=== PATIENT | female | born 1930 | race Caucasian/White ===

== ENCOUNTER 2017-08-08 13:44 | Inpatient (IN) | payer MEDICARE, OTHER ==
[2017-08-08] MEDS ORDERED: VANCOMYCIN HCL INJ 1000 MG VIAL IV ONE (14:35)
--- NOTE | 2017-08-08 14:37 | ER Document Report ---
ED Medical Screen (RME) - General Chief Complaint: Leg Pain Stated Complaint: LEFT LEG PAIN Time Seen by Provider: 08/08/17 14:34 Notes: Patient states 2 weeks ago she struck her lower extremity on a shopping cart. She states she was seen immediately afterwards at the hospital at [place]. She states that the wound was just dressed but she has not been on any antibiotics. She states she is seen her primary care doctor once since the injury and was not prescribed antibiotics either. She states it is now more swollen red and painful. TRAVEL OUTSIDE OF THE [place] IN LAST 30 DAYS: No - Related Data Allergies/Adverse Reactions: amoxicillin [Amoxicillin] Allergy (Intermediate, Verified 06/29/10 11:12) Rash codeine [Codeine] Allergy (Unknown, Verified 11/06/11 08:31) adhesive tape [Adhesive Tape] Adverse Reaction (Severe, Verified 06/29/10 11:16) Tears skin diltiazem HCl [From Tiazac] Adverse Reaction (Intermediate, Verified 06/29/10 11 :13) Dizzy doxycycline [Doxycycline] Adverse Reaction (Intermediate, Verified 06/29/10 11: 14) Dizzy lisinopril [Lisinopril] Adverse Reaction (Intermediate, Verified 06/29/10 11:14) Dizzy propafenone [Propafenone] Adverse Reaction (Intermediate, Verified 06/29/10 11: 15) Diarrhea zolpidem tartrate [From Ambien] Adverse Reaction (Intermediate, Verified 12:32) Confusion Strong fumes Allergy (Severe, Uncoded 06/29/10 11:18) Asthma Home Medications: unobtainable due to not having list with pt. Past Medical History - Social History Chew tobacco use (# tins/day): No Frequency of alcohol use: None Drug Abuse: None - Past Medical History Cardiac Medical History: Reports: Hx Atrial Fibrillation, Hx Hypercholesterolemia, Hx Hypertension Denies: Hx Heart Attack Pulmonary Medical History: Reports: Hx COPD, Hx Pneumonia Denies: Hx Asthma - occasional SOB, ALBUTERAL , Hx Bronchitis, Hx Tuberculosis Neurological Medical History: Denies: Hx Cerebrovascular Accident, Hx Seizures Renal/ Medical History: Denies: Hx Peritoneal Dialysis GI Medical History: Denies: Hx Hepatitis, Hx Hiatal Hernia, Hx Ulcer Musculoskeltal Medical History: Reports Hx Arthritis - Hands Psychiatric Medical History: Denies: Hx Depression Infectious Medical History: Denies: Hx Hepatitis Past Surgical History: Reports: Hx Cardiac Surgery - mitral valve replacement, Hx Hysterectomy, Hx Mastectomy - 2011, Hx Open Heart Surgery - MITRAL VALVE REPAIR. Denies: Hx Pacemaker - Immunizations Hx Diphtheria, Pertussis, Tetanus Vaccination: Yes Physical Exam - Vital signs Vitals: Temp Pulse Resp BP Pulse Ox 97.8 F 58 L 20 72/52 L 98 08/08/17 13:50 08/08/17 13:50 08/08/17 13:50 08/08/17 13:50 08/08/17 13:50 Course - Vital Signs Vital signs: Temp Pulse Resp BP Pulse Ox 97.8 F 58 L 20 72/52 L 98 08/08/17 13:50 08/08/17 13:50 08/08/17 13:50 08/08/17 13:50 08/08/17 13:50 Doctor's Discharge - Discharge Referrals: CLYDE JAMISON MD [Primary Care Provider] - Follow up as needed
[2017-08-08 14:58] LABS: ABSOLUTE BASOPHILS # (AUTO) 0.1 10^3/uL (0.0-0.2); ABSOLUTE EOSINOPHILS # (AUTO) 0.4 10^3/uL (0.0-0.6); ABSOLUTE LYMPHOCYTES (AUTO) 1.7 10^3/uL (0.5-4.7); ABSOLUTE MONOCYTES (AUTO) 0.8 10^3/uL (0.1-1.4); ABSOLUTE NEUT (AUTO) 7.4 10^3/uL (1.7-8.2); EOSINOPHILS % (AUTO) 3.5 % (0-6); HEMATOCRIT 37.2 % (36.0-47.0); HEMOGLOBIN 12.3 g/dL (12.0-15.5); LYMPHOCYTES % (AUTO) 16.5 % (13-45); MEAN CORPUSCULAR HEMOGLOBIN 29.3 pg (27.0-33.4); MEAN CORPUSCULAR HGB CONC 33.1 g/dL (32.0-36.0); MEAN CORPUSCULAR VOLUME 89 fl (80-97); PLATELET COUNT 234 10^3/uL (150-450); RED BLOOD COUNT 4.19 10^6/uL (3.72-5.28); RED CELL DISTRIBUTION WIDTH 16.6 % (11.5-14.0); TOTAL CELLS COUNTED % (AUTO) 100 %; WHITE BLOOD COUNT 10.4 10^3/uL (4.0-10.5)
[2017-08-08 15:19] LABS: ALANINE AMINOTRANSFERASE 29 U/L (9-52); ALBUMIN 4.4 g/dL (3.5-5.0); ALKALINE PHOSPHATASE 67 U/L (38-126); ANION GAP 13 (5-19); ASPARTATE AMINO TRANSFERASE 29 U/L (14-36); BILIRUBIN,DIRECT 0.2 mg/dL (0.0-0.4); BILIRUBIN,TOTAL 0.6 mg/dL (0.2-1.3); BLOOD UREA NITROGEN 59 mg/dL (7-20); CALCIUM 10.9 mg/dL (8.4-10.2); CARBON DIOXIDE 30 mmol/L (22-30); CHLORIDE 89 mmol/L (98-107); GLUCOSE 109 mg/dL (75-110); POTASSIUM 3.9 mmol/L (3.6-5.0); SODIUM 132.3 mmol/L (137-145); TOTAL PROTEIN 7.1 g/dL (6.3-8.2)
--- NOTE | 2017-08-08 16:13 | RADIOLOGY REPORT (SQ) ---
EXAM DESCRIPTION: TIBIA FIBULA RIGHT COMPLETED DATE/TIME: 08/08/2017 4:04 pm REASON FOR STUDY: pain/wound COMPARISON: None. NUMBER OF VIEWS: Two views. TECHNIQUE: Two radiographic images acquired of the right tibia and fibula to include the knee and an kle in at least one projection. LIMITATIONS: None. FINDINGS: MINERALIZATION: Normal. BONES: No acute fracture or dislocation. No worrisome bone lesions. No plain radiographic evidence fo r osteomyelitis. SOFT TISSUES: Anterior soft tissue defect. No foreign body. OTHER: No other significant finding. IMPRESSION: No evidence for osteomyelitis. Soft tissue defect without foreign body. Bold TECHNICAL DOCUMENTATION: JOB ID: [id number] [employer]- All Rights Reserved Reading location - IP/workstation name: [email or web address]
--- NOTE | 2017-08-08 16:57 | ER Document Report ---
ED Extremity Problem, Lower - General Chief Complaint: Leg Pain Stated Complaint: LEFT LEG PAIN Time Seen by Provider: 08/08/17 14:34 Mode of Arrival: Ambulatory Information source: Patient TRAVEL OUTSIDE OF THE [place] IN LAST 30 DAYS: No - HPI Patient complains to provider of: Injury Location: Leg Occurred: Yesterday Notes: Patient is here with complaints of right leg pain, redness, swelling. Patient states that she hit her leg on a chair about a week ago and caused a skin tear. Yesterday she noticed some redness swelling and pain and today the redness swelling and pain has worsened. She denies any fevers. She denies any numbness , tingling, weakness. She denies any chest pain or shortness of breath. She denies any nausea, vomiting, diarrhea. Pain is worse with touching the area as well as walking, seems to be better with rest. She is not on any antibiotics at this time. She denies any other complaints at this time. - Related Data Allergies/Adverse Reactions: amoxicillin [Amoxicillin] Allergy (Intermediate, Verified 06/29/10 11:12) Rash codeine [Codeine] Allergy (Unknown, Verified 11/06/11 08:31) adhesive tape [Adhesive Tape] Adverse Reaction (Severe, Verified 06/29/10 11:16) Tears skin diltiazem HCl [From Tiazac] Adverse Reaction (Intermediate, Verified 06/29/10 11 :13) Dizzy doxycycline [Doxycycline] Adverse Reaction (Intermediate, Verified 06/29/10 11: 14) Dizzy lisinopril [Lisinopril] Adverse Reaction (Intermediate, Verified 06/29/10 11:14) Dizzy propafenone [Propafenone] Adverse Reaction (Intermediate, Verified 06/29/10 11: 15) Diarrhea zolpidem tartrate [From Ambien] Adverse Reaction (Intermediate, Verified 12:32) Confusion Strong fumes Allergy (Severe, Uncoded 06/29/10 11:18) Asthma Home Medications: unobtainable due to not having list with pt. Past Medical History - Social History Smoking Status: Never Smoker Chew tobacco use (# tins/day): No Frequency of alcohol use: None Drug Abuse: None Family History: Reviewed & Not Pertinent Patient has suicidal ideation: No Patient has homicidal ideation: No - Past Medical History Cardiac Medical History: Reports: Hx Atrial Fibrillation, Hx Hypercholesterolemia, Hx Hypertension Denies: Hx Heart Attack Pulmonary Medical History: Reports: Hx COPD, Hx Pneumonia Denies: Hx Asthma - occasional SOB, ALBUTERAL , Hx Bronchitis, Hx Tuberculosis Neurological Medical History: Denies: Hx Cerebrovascular Accident, Hx Seizures Renal/ Medical History: Denies: Hx Peritoneal Dialysis GI Medical History: Denies: Hx Hepatitis, Hx Hiatal Hernia, Hx Ulcer Musculoskeltal Medical History: Reports Hx Arthritis - Hands Psychiatric Medical History: Denies: Hx Depression Infectious Medical History: Denies: Hx Hepatitis Past Surgical History: Reports: Hx Cardiac Surgery - mitral valve replacement, Hx Hysterectomy, Hx Mastectomy - 2010, Hx Open Heart Surgery - MITRAL VALVE REPAIR. Denies: Hx Pacemaker - Immunizations Hx Diphtheria, Pertussis, Tetanus Vaccination: Yes Hx Pneumococcal Vaccination: 04/30/09 Review of Systems - Review of Systems -: Yes All other systems reviewed and negative Physical Exam - Vital signs Vitals: Temp Pulse Resp BP Pulse Ox 97.8 F 58 L 20 72/52 L 98 08/08/17 13:50 08/08/17 13:50 08/08/17 13:50 08/08/17 13:50 08/08/17 13:50 - Notes Notes: GENERAL: alert, cooperative, nontoxic, no distress. HEAD: normocephalic, atraumatic EYES: conjunctiva pink without discharge, no external redness or swelling. EARS: no external swelling, no external redness NOSE: atraumatic, no external swelling MOUTH/THROAT: mucous membranes moist and pink, posterior pharynx without erythema, swelling, exudate. No trismus or drooling. NECK: soft, supple, full range of motion, no meningismus. CHEST: no distress, lungs clear and equal throughout. No wheezing, rales, rhonchi. CARDIAC: regular rate and rhythm, no murmur, normal capillary refill, normal pulses. No peripheral edema noted. ABDOMEN: Soft, nontender. BACK: full range of motion, no CVA tenderness. EXTREMITIES: Skin tear to the right lower extremity. Patient is noted to have circumferential cellulitis to the right lower extremity from the ankle up to the knee. Compartments are soft. She has a normal pulse distally. No purulent drainage or drainable abscess identified. Full range of motion of the ankle and foot. NEURO: alert and oriented x 3, no focal deficits, full range of motion of all extremities. PYSCH: appropriate mood, affect. Patient is cooperative. SKIN: pink, warm, dry, no rash. Course - Re-evaluation Re-evalutation: 08/08/17 16:55 Patient is nontoxic appearing with stable vitals. Initial blood pressure documented is 72/52, I find this very hard to believe as her blood pressure has been completely normal since that time. She has been upright and walking without any difficulty. Patient is injured her right leg last week and yesterday developed some redness and swelling she now has what appears to be an infected skin tear with circumferential cellulitis to the right lower extremity. She has normal pulse and sensation distally. Patient will be given vancomycin in the emergency department for cellulitis. Based on her age past medical history of the significance of her cellulitis, believe that it would be best the patient is admitted to the hospital for IV antibiotics. Patient family agreed to this and I discussed the case with the hospitalist who has accepted the admission. - Vital Signs Vital signs: Temp Pulse Resp BP Pulse Ox 97.8 F 58 L 20 72/52 L 98 08/08/17 13:50 08/08/17 13:50 08/08/17 13:50 08/08/17 13:50 08/08/17 13:50 - Laboratory Result Diagrams: 08/08/17 14:25 08/08/17 14:25 Laboratory results interpreted by me: 08/08/17 08/08/17 14:25 14:25 RDW 16.6 H Sodium 132.3 L Chloride 89 L BUN 59 H Creatinine 1.85 H Est GFR ( Amer) 31 L Est GFR (Non-Af Amer) 26 L Calcium 10.9 H - Diagnostic Test Radiology reviewed: Image reviewed, Reports reviewed - Right tib-fib without foreign body or osteomyelitis. Soft tissue defect with soft tissue swelling. Discharge - Discharge Clinical Impression: Skin tear Cellulitis Qualifiers: Site of cellulitis: extremity Site of cellulitis of extremity: lower extremity Laterality: right Qualified Code(s): L03.115 - Cellulitis of right lower limb Condition: Stable Disposition: ADMITTED INPATIENT Admitting Provider: Hospitalist - dr calhoun Unit Admitted: Medical Floor Referrals: CLYDE JAMISON MD [Primary Care Provider] - Follow up as needed
[2017-08-08] MEDS ORDERED: LORAZEPAM 1 MG TABLET PO PRN (17:11)
[2017-08-08] MEDS ORDERED: MAGNESIUM HYDROXIDE SUSP 30 ML UDCUP PO PRN (17:15)
[2017-08-08] MEDS ORDERED: IPRATROPIUM/ALBUTEROL 0.5-2.5 MG/3 ML AMPUL NEB PRN (17:15)
[2017-08-08] MEDS ORDERED: NORMAL SALINE 1000 ML 1,000 ML IV ONE (17:24)
[2017-08-08] MEDS ORDERED: VANCOMYCIN HCL 0 MG in DEXTROSE 5%-WATER 250 ML IV NR (17:30)
[2017-08-08] MEDS ORDERED: LORAZEPAM 0.5 MG TABLET PO PRN (17:53)
[2017-08-08] MEDS ORDERED: VANCOMYCIN HCL 1,000 MG in DEXTROSE 5%-WATER 250 ML IV SCH (19:00)
[2017-08-08] MEDS: DOCUSATE SODIUM 100 MG CAPSULE PO SCH (19:05)
[2017-08-08] MEDS: MONTELUKAST SODIUM 10 MG TABLET PO SCH (23:30)
[2017-08-08] MEDS: SIMVASTATIN 40 MG TABLET PO SCH (23:31)
[2017-08-08] MEDS: HEPARIN SOD (PORCINE) 5,000 UNIT/ML 1 ML SYRINGE SUBCUT SCH (23:31)
[2017-08-09 04:36] LABS: ABSOLUTE BASOPHILS # (AUTO) 0.1 10^3/uL (0.0-0.2); ABSOLUTE EOSINOPHILS # (AUTO) 0.4 10^3/uL (0.0-0.6); ABSOLUTE LYMPHOCYTES (AUTO) 1.6 10^3/uL (0.5-4.7); ABSOLUTE MONOCYTES (AUTO) 0.7 10^3/uL (0.1-1.4); ABSOLUTE NEUT (AUTO) 4.8 10^3/uL (1.7-8.2); BASOPHILS % (AUTO) 0.8 % (0-2); EOSINOPHILS % (AUTO) 5.2 % (0-6); HEMATOCRIT 33.6 % (36.0-47.0); HEMOGLOBIN 11.4 g/dL (12.0-15.5); LYMPHOCYTES % (AUTO) 21.2 % (13-45); MEAN CORPUSCULAR HEMOGLOBIN 29.7 pg (27.0-33.4); MEAN CORPUSCULAR HGB CONC 33.8 g/dL (32.0-36.0); MEAN CORPUSCULAR VOLUME 88 fl (80-97); PLATELET COUNT 187 10^3/uL (150-450); RED BLOOD COUNT 3.82 10^6/uL (3.72-5.28); SEGMENTED NEUTROPHILS % (AUTO) 63.8 % (42-78); TOTAL CELLS COUNTED % (AUTO) 100 %; WHITE BLOOD COUNT 7.6 10^3/uL (4.0-10.5)
[2017-08-09] MEDS ORDERED: LORAZEPAM 1 MG TABLET PO ONE (04:44)
--- NOTE | 2017-08-09 04:54 | PDOC H&P ---
History of Present Illness Admission Date/PCP: 08/08/17 17:41 CLYDE JAMISON MD Patient complains of: Right leg ulcer History of Present Illness: ROBERT CAMILO is a 87 year old female with a past medical history of anemia, stage III chronic kidney disease, hypertension, coronary artery disease, H fibrillation, breast cancer status post mastectomy, seasonal allergies, chronic anticoagulation on Xarelto and anxiety. Patient presents with right leg pain and swelling 1 week after striking her leg in a chair causing a skin tear. She admits increased pain with ambulation, denies antibiotic use, fever chills nausea vomiting. She otherwise feels well with exception to constipation. 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 Psychiatric Medical History: Reports: General Anxiety Disorder Denies: Depression Hematology: Reports: Anemia - 10/09/2011 Denies: Sickle Cell Disease Past Surgical History Past Surgical History: Reports: Hysterectomy, Mastectomy - 2010 Denies: Amputation, Pacemaker Social History Information Source: Patient, [facility] Records Lives with: Alone Smoking Status: Never Smoker Frequency of Alcohol Use: None Hx Recreational Drug Use: No Drugs: None Hx Prescription Drug Abuse: No - Advance Directive Resuscitation Status: Full Code Family History Parental Family History Reviewed: Yes Children Family History Reviewed: Yes Sibling(s) Family History Reviewed.: Yes Medication/Allergy Home Medications: Albuterol Sulfate [Ventolin 0.083% Neb 2.5 mg/3 mL Ampul] 2.5 mg IH Q4 PRN 10/09 Biotin [Biotin 300 mcg Tablet] 300 mcg PO BID 10/10/11 Calcium/Magnesium/Vit D3 [Calcium 500 mg Tablet] 600 mg PO DAILY 10/10/11 Furosemide [Lasix 40 mg Tablet] 40 mg PO BID 10/10/11 Lorazepam [Ativan 1 mg Tablet] 1 tab PO PRN PRN 10/10/11 Montelukast Sodium [Singulair 10 mg Tablet] 10 mg PO QHS 10/10/11 Multivitamins W-Minerals/Lut [Centrum Silver Tablet] 1 each PO DAILY 10/10/11 Olmesartan Medoxomil [Benicar] 5 mg PO DAILY 10/10/11 Simvastatin [Zocor 40 mg Tablet] 20 mg PO QHS 10/10/11 Ferrous Sulfate [Iron] 65 mg PO TID 10/12/11 Esomeprazole Mag Trihydrate [Nexium] 40 mg PO DAILY 10/31/11 Amiodarone HCl [Cordarone 200 mg Tablet] 0.5 tab PO DAILY 11/25/15 Fluticasone/Salmeterol [Advair 100-50 Diskus 14 Dose/Diskus] 1 inh IH Q12H 11/24 Letrozole 2.5 mg PO DAILY 11/25/15 Tiotropium [employer] [Spiriva Handihaler 18 mcg/dose (30 Dose)] 1 cap IH DAILY Tramadol HCl 50 mg PO PRN PRN 11/25/15 Aspirin [Adult Low Dose Aspirin EC] 81 mg PO DAILY #30 tablet. 11/26/15 Albuterol Sulfate [Proair Hfa Inhalation Aerosol 8.5 gm Mdi] 1 puff IH Q4 PRN Potassium Chloride 20 meq PO DAILY 12/07/15 Allergies/Adverse Reactions: amoxicillin [Amoxicillin] Allergy (Intermediate, Verified 06/29/10 11:12) Rash codeine [Codeine] Allergy (Unknown, Verified 11/06/11 08:31) adhesive tape [Adhesive Tape] Adverse Reaction (Severe, Verified 06/29/10 11:16) Tears skin diltiazem HCl [From Tiazac] Adverse Reaction (Intermediate, Verified 06/29/10 11 :13) Dizzy doxycycline [Doxycycline] Adverse Reaction (Intermediate, Verified 06/29/10 11: 14) Dizzy lisinopril [Lisinopril] Adverse Reaction (Intermediate, Verified 06/29/10 11:14) Dizzy propafenone [Propafenone] Adverse Reaction (Intermediate, Verified 06/29/10 11: 15) Diarrhea zolpidem tartrate [From Ambien] Adverse Reaction (Intermediate, Verified 12:32) Confusion Strong fumes Allergy (Severe, Uncoded 06/29/10 11:18) Asthma Review of Systems ROS unobtainable: Due to mental status Constitutional: PRESENT: as per HPI. ABSENT: chills, fever(s), headache(s), weight gain, weight loss Eyes: ABSENT: visual disturbances Ears: ABSENT: hearing changes Cardiovascular: ABSENT: chest pain, dyspnea on exertion, edema, orthropnea, palpitations Respiratory: ABSENT: cough, hemoptysis Gastrointestinal: PRESENT: constipation. ABSENT: abdominal pain, diarrhea, hematemesis, hematochezia, nausea, vomiting Genitourinary: ABSENT: dysuria, hematuria Musculoskeletal: ABSENT: joint swelling Integumentary: ABSENT: rash, wounds Neurological: ABSENT: abnormal gait, abnormal speech, confusion, dizziness, focal weakness, syncope Psychiatric: ABSENT: anxiety, depression, homidical ideation, suicidal ideation Endocrine: ABSENT: cold intolerance, heat intolerance, polydipsia, polyuria Hematologic/Lymphatic: ABSENT: easy bleeding, easy bruising Physical Exam Vital Signs: Temp Pulse Resp BP Pulse Ox 98.2 F 43 L 18 130/46 H 100 08/08/17 22:00 08/09/17 02:00 08/08/17 22:00 08/08/17 22:00 08/08/17 22:00 Intake & Output 08/07/17 08/08/17 08/09/17 11:59 11:59 11:59 Weight 55.3 kg General appearance: PRESENT: cooperative, disheveled, mild distress. ABSENT: hard of hearing Head exam: PRESENT: atraumatic, normocephalic Eye exam: PRESENT: conjunctiva pink, EOMI, PERRLA. ABSENT: scleral icterus Ear exam: PRESENT: normal external ear exam Mouth exam: PRESENT: moist, tongue midline Neck exam: ABSENT: carotid bruit, JVD, lymphadenopathy, thyromegaly Respiratory exam: PRESENT: clear to auscultation bruce. ABSENT: rales, rhonchi, wheezes Cardiovascular exam: PRESENT: irregular rhythm. ABSENT: diastolic murmur, rubs , systolic murmur Pulses: PRESENT: normal dorsalis pedis pul Vascular exam: PRESENT: normal capillary refill GI/Abdominal exam: PRESENT: hypoactive bowel sounds, soft. ABSENT: distended, guarding, mass, organolmegaly, rebound, tenderness Rectal exam: PRESENT: deferred Extremities exam: PRESENT: tenderness, other - 1 x 3 cm jagged ulceration with purulent drainage and surrounding erythema. Musculoskeletal exam: PRESENT: ambulatory Neurological exam: PRESENT: alert, awake, oriented to person, oriented to place , oriented to time, oriented to situation, CN II-XII grossly intact. ABSENT: motor sensory deficit Psychiatric exam: PRESENT: anxious Skin exam: PRESENT: dry, intact, skin tears - Right leg with 1 x 3 cm irregular border, purulent drainage and surrounding erythema., warm. ABSENT: cyanosis, rash Results Laboratory Results: 08/09/17 03:50 08/09/17 03:50 WBC 7.6 RBC 3.82 Hgb 11.4 L Hct 33.6 L MCV 88 MCH 29.7 MCHC 33.8 RDW 16.0 H Plt Count 187 Seg Neutrophils % 63.8 Lymphocytes % 21.2 Monocytes % 9.0 Eosinophils % 5.2 Basophils % 0.8 Absolute Neutrophils 4.8 Absolute Lymphocytes 1.6 Absolute Monocytes 0.7 Absolute Eosinophils 0.4 Absolute Basophils 0.1 Impressions: Tibia/Fibula X-Ray 08/08/17 14:35 IMPRESSION: No evidence for osteomyelitis. Soft tissue defect without foreign body. Bold Assessment & Plan - Diagnosis (1) Cellulitis Qualifiers: Site of cellulitis: extremity Site of cellulitis of extremity: lower extremity Laterality: right Qualified Code(s): L03.115 - Cellulitis of right lower limb Is this a current diagnosis for this admission?: Yes Plan: Empiric vancomycin initiated, symptomatic management, follow-up CBC and blood culture. Surgical consult ordered (2) Chronic kidney disease Is this a current diagnosis for this admission?: Yes Plan: Somewhat prerenal, avoid nephrotoxic meds and doses, vancomycin by pharmacy. IV fluid challenge, follow-up chemistry (3) Anxiety Is this a current diagnosis for this admission?: Yes Plan: Continue outpatient benzodiazepine. Possible early dementia with sundowning. - Time Time Spent: 30 to 50 Minutes - Inpatient Certification Medical Necessity: Need Close Monitoring Due to Risk of Patient Decompensation
[2017-08-09 05:06] LABS: ANION GAP 11 (5-19); BLOOD UREA NITROGEN 53 mg/dL (7-20); CARBON DIOXIDE 28 mmol/L (22-30); CHLORIDE 93 mmol/L (98-107); GLUCOSE 88 mg/dL (75-110); SODIUM 132.2 mmol/L (137-145)
[2017-08-09 05:10] LABS: POTASSIUM 2.9 mmol/L (3.6-5.0)
[2017-08-09] MEDS: LANSOPRAZOLE 30 MG TAB.RAP.DR PO SCH (05:35)
[2017-08-09] MEDS ORDERED: POTASSIUM CHLORIDE 10 MEQ TABLET.SA PO ONE (06:00)
[2017-08-09] MEDS ORDERED: CALCIUM PO SCH (10:00)
[2017-08-09] MEDS ORDERED: VIT D3 PO SCH (10:00)
[2017-08-09] MEDS ORDERED: (PENDING PHARMACY ID) (Esomeprazole Mag Trihydrate [Nexium] 40 MG) PO SCH (10:00)
[2017-08-09] MEDS ORDERED: MAGNESIUM PO SCH (10:00)
[2017-08-09] MEDS: AMIODARONE HCL 200 MG TABLET PO SCH (11:20)
[2017-08-09] MEDS: CALCIUM CARBONATE 500 MG TABLET PO SCH (11:21)
[2017-08-09] MEDS: ASPIRIN 81 MG TABLET, ENT COATED PO SCH (11:21)
[2017-08-09] MEDS: DOCUSATE SODIUM 100 MG CAPSULE PO SCH ×2 (11:21→17:08)
[2017-08-09] MEDS: TIOTROPIUM BROMIDE DPI 5 CAP/KIT (18 MCG/CAP) IH SCH (11:22)
[2017-08-09] MEDS: HEPARIN SOD (PORCINE) 5,000 UNIT/ML 1 ML SYRINGE SUBCUT SCH ×2 (15:01→21:15)
[2017-08-09] MEDS ORDERED: IPRATROPIUM/ALBUTEROL 0.5-2.5 MG/3 ML AMPUL NEB PRN (16:18)
[2017-08-09] MEDS ORDERED: COLLAGENASE CLOSTRIDIUM HIST. OINT 30 GM TOP ONE (16:30)
--- NOTE | 2017-08-09 16:39 | PDOC PROGRESS REPORT ---
Subjective Progress Note for:: 08/09/17 Subjective:: No complaints voiced by patient. Bedside and states that patient hurt her right leg with the shopping cart. Review of systems All organ systems evaluated and negative except as in subjective All significant diagnostics and laboratories have been reviewed Reason For Visit: LEG CELLULITIS Physical Exam Vital Signs: Temp Pulse Resp BP Pulse Ox 97.6 F 53 L 20 148/40 H 99 08/09/17 04:06 08/09/17 04:06 08/09/17 04:06 08/09/17 04:06 08/09/17 04:06 Intake & Output 08/08/17 08/09/17 08/10/17 06:59 06:59 06:59 Intake Total 320 Balance 320 Weight 55.3 kg General appearance: PRESENT: cooperative, well-developed, well-nourished Head exam: PRESENT: atraumatic, normocephalic Eye exam: PRESENT: conjunctiva pink, EOMI, PERRLA Mouth exam: PRESENT: moist Neck exam: PRESENT: full ROM. ABSENT: JVD, lymphadenopathy, tenderness Respiratory exam: PRESENT: clear to auscultation bruce Cardiovascular exam: PRESENT: RRR. ABSENT: diastolic murmur, systolic murmur Vascular exam: PRESENT: normal capillary refill GI/Abdominal exam: PRESENT: normal bowel sounds, soft. ABSENT: tenderness Extremities exam: PRESENT: full ROM Musculoskeletal exam: ABSENT: ambulatory - #+ edema Neurological exam: PRESENT: alert, awake, oriented to person, oriented to place , oriented to time, oriented to situation, CN II-XII grossly intact Psychiatric exam: PRESENT: appropriate affect, normal mood Skin exam: PRESENT: other - There wound localized to the medial aspect of right lower extremity with sutures serous discharge. Borders are purplish. There is yellow fibrin. Lesion measures 3 cm x 1 cm. Results Laboratory Results: 08/09/17 03:50 08/09/17 03:50 08/09/17 08/09/17 03:50 03:50 WBC 7.6 RBC 3.82 Hgb 11.4 L Hct 33.6 L MCV 88 MCH 29.7 MCHC 33.8 RDW 16.0 H Plt Count 187 Seg Neutrophils % 63.8 Lymphocytes % 21.2 Monocytes % 9.0 Eosinophils % 5.2 Basophils % 0.8 Absolute Neutrophils 4.8 Absolute Lymphocytes 1.6 Absolute Monocytes 0.7 Absolute Eosinophils 0.4 Absolute Basophils 0.1 Sodium 132.2 L Potassium 2.9 L* D Chloride 93 L Carbon Dioxide 28 Anion Gap 11 BUN 53 H Creatinine 1.64 H Est GFR ( Amer) 36 L Est GFR (Non-Af Amer) 30 L Glucose 88 Calcium 10.0 Impressions: Tibia/Fibula X-Ray 08/08/17 14:35 IMPRESSION: No evidence for osteomyelitis. Soft tissue defect without foreign body. Bold Assessment & Plan - Diagnosis (1) Infected skin tear Is this a current diagnosis for this admission?: Yes Plan: Will order Santyl to start chemical debridement of the wound. Awaiting surgical consult (2) Cellulitis of leg, right Is this a current diagnosis for this admission?: Yes Plan: Continue vancomycin and will add Levaquin IV (3) Hypokalemia Is this a current diagnosis for this admission?: Yes Plan: Will replace p.o. and trend (4) Acute on chronic renal failure Qualifiers: Acute renal failure type: unspecified Chronic kidney disease stage: stage 4 (severe) Qualified Code(s): N17.9 - Acute kidney failure, unspecified; N18.4 - Chronic kidney disease, stage 4 (severe); N18.4 - Chronic kidney disease , stage 4 (severe); N18.4 - Chronic kidney disease, stage 4 (severe); N18.4 - Chronic kidney disease, stage 4 (severe) Is this a current diagnosis for this admission?: Yes Plan: There appears to be an acute component. Will keep trending (5) Anemia Qualifiers: Anemia type: unspecified type Qualified Code(s): D64.9 - Anemia, unspecified Is this a current diagnosis for this admission?: Yes Plan: Likely due to chronic disease. Will order anemia panel - Time Time Spent with patient: 15-24 minutes Medications reviewed and adjusted accordingly: Yes Anticipated discharge: Acute Rehab - For now early to tell - Inpatient Certification Based on my medical assessment, after consideration of the patient's comorbidities, presenting symptoms, or acuity I expect that the services needed warrant INPATIENT care.: Yes I certify that my determination is in accordance with my understanding of Medicare's requirements for reasonable and necessary INPATIENT services [42 CFR 412.3e].: Yes Medical Necessity: Need Close Monitoring Due to Risk of Patient Decompensation, Need for Pain Control, Need for IV Antibiotics
[2017-08-09] MEDS ORDERED: ONDANSETRON 4 MG TAB.RAPDIS ONE (16:40)
[2017-08-09] MEDS: LEVOFLOXACIN 250 MG/D5W RTU 250 MG/50 ML RTUPB IV SCH (16:45)
[2017-08-09] MEDS: POTASSIUM CHLORIDE 10 MEQ TABLET.SA PO SCH ×2 (16:46→21:15)
[2017-08-09] MEDS: SIMVASTATIN 40 MG TABLET PO SCH (21:16)
[2017-08-09] MEDS: MONTELUKAST SODIUM 10 MG TABLET PO SCH (21:16)
--- NOTE | 2017-08-09 23:36 | PDOC CONSULTATION ---
History of Present Illness Admission Date/PCP: 08/09/17 16:58 CLYDE JAMISON MD 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 Psychiatric Medical History: Reports: General Anxiety Disorder Denies: Depression Hematology: Reports: Anemia - 10/09/2011 Denies: Sickle Cell Disease Past Surgical History Past Surgical History: Reports: Hysterectomy, Mastectomy - 2010 Denies: Amputation, Pacemaker Social History Lives with: Alone Smoking Status: Never Smoker Frequency of Alcohol Use: None Hx Recreational Drug Use: No Drugs: None Hx Prescription Drug Abuse: No - Advance Directive Resuscitation Status: Full Code Family History Family History: Reviewed & Not Pertinent Medication/Allergy Home Medications: Albuterol Sulfate [Proair Hfa] 2 puff IH Q4 08/09/17 Fluticasone/Salmeterol [Advair 250-50 Diskus 28 dose] 1 inh IH Q12 08/09/17 Furosemide [Lasix 40 mg Tablet] 40 mg PO BID 08/09/17 Letrozole [Femara 2.5 Mg Tablet] 2.5 mg PO DAILY 08/09/17 Lorazepam [Ativan 1 mg Tablet] 1 mg PO QIDP PRN 08/09/17 Metolazone [Zaroxolyn 2.5 Mg Tablet] 2.5 mg PO DAILY 08/09/17 Montelukast Sodium [Singulair 10 mg Tablet] 10 mg PO PCSUPPER 08/09/17 Pantoprazole Sodium [Protonix] 40 mg PO DAILY 08/09/17 Potassium Chloride [Klor-Con M20] 40 meq PO TID 08/09/17 Simvastatin [Zocor 20 mg Tablet] 20 mg PO QHS 08/09/17 Spironolactone [Aldactone 25 mg Tablet] 25 mg PO DAILY 08/09/17 Allergies/Adverse Reactions: amoxicillin [Amoxicillin] Allergy (Intermediate, Verified 06/29/10 11:12) Rash codeine [Codeine] Allergy (Unknown, Verified 11/06/11 08:31) adhesive tape [Adhesive Tape] Adverse Reaction (Severe, Verified 06/29/10 11:16) Tears skin diltiazem HCl [From Tiazac] Adverse Reaction (Intermediate, Verified 06/29/10 11 :13) Dizzy doxycycline [Doxycycline] Adverse Reaction (Intermediate, Verified 06/29/10 11: 14) Dizzy lisinopril [Lisinopril] Adverse Reaction (Intermediate, Verified 06/29/10 11:14) Dizzy propafenone [Propafenone] Adverse Reaction (Intermediate, Verified 06/29/10 11: 15) Diarrhea zolpidem tartrate [From Ambien] Adverse Reaction (Intermediate, Verified 12:32) Confusion Strong fumes Allergy (Severe, Uncoded 06/29/10 11:18) Asthma Physical Exam Vital Signs: Temp Pulse Resp BP Pulse Ox 97.7 F 51 L 18 137/58 H 100 08/09/17 19:00 08/09/17 19:00 08/09/17 19:00 08/09/17 19:00 08/09/17 19:00 Results Impressions: Tibia/Fibula X-Ray 08/08/17 14:35 IMPRESSION: No evidence for osteomyelitis. Soft tissue defect without foreign body. Bold Assessment & Plan - Diagnosis (1) Cellulitis of leg, right Is this a current diagnosis for this admission?: Yes (2) Infected skin tear Is this a current diagnosis for this admission?: Yes
--- NOTE | 2017-08-09 23:41 | PDOC CONSULTATION ---
History of Present Illness Admission Date/PCP: 08/09/17 16:58 CLYDE JAMISON MD Patient complains of: right lower leg pains History of Present Illness: ROBERT CAMILO is a 87 year old female who injured her right lower leg when it hit a chair about a week ago. C/o pains since then with worsening inflammation. 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 Psychiatric Medical History: Reports: General Anxiety Disorder Denies: Depression Hematology: Reports: Anemia - 10/09/2011 Denies: Sickle Cell Disease Past Surgical History Past Surgical History: Reports: Hysterectomy, Mastectomy - 2010 Denies: Amputation, Pacemaker Social History Lives with: Alone Smoking Status: Never Smoker Frequency of Alcohol Use: None Hx Recreational Drug Use: No Drugs: None Hx Prescription Drug Abuse: No - Advance Directive Resuscitation Status: Full Code Family History Family History: Reviewed & Not Pertinent Parental Family History Reviewed: Yes Children Family History Reviewed: No Sibling(s) Family History Reviewed.: No Medication/Allergy Home Medications: Albuterol Sulfate [Proair Hfa] 2 puff IH Q4 08/09/17 Fluticasone/Salmeterol [Advair 250-50 Diskus 28 dose] 1 inh IH Q12 08/09/17 Furosemide [Lasix 40 mg Tablet] 40 mg PO BID 08/09/17 Letrozole [Femara 2.5 Mg Tablet] 2.5 mg PO DAILY 08/09/17 Lorazepam [Ativan 1 mg Tablet] 1 mg PO QIDP PRN 08/09/17 Metolazone [Zaroxolyn 2.5 Mg Tablet] 2.5 mg PO DAILY 08/09/17 Montelukast Sodium [Singulair 10 mg Tablet] 10 mg PO PCSUPPER 08/09/17 Pantoprazole Sodium [Protonix] 40 mg PO DAILY 08/09/17 Potassium Chloride [Klor-Con M20] 40 meq PO TID 08/09/17 Simvastatin [Zocor 20 mg Tablet] 20 mg PO QHS 08/09/17 Spironolactone [Aldactone 25 mg Tablet] 25 mg PO DAILY 08/09/17 Allergies/Adverse Reactions: amoxicillin [Amoxicillin] Allergy (Intermediate, Verified 06/29/10 11:12) Rash codeine [Codeine] Allergy (Unknown, Verified 11/06/11 08:31) adhesive tape [Adhesive Tape] Adverse Reaction (Severe, Verified 06/29/10 11:16) Tears skin diltiazem HCl [From Tiazac] Adverse Reaction (Intermediate, Verified 06/29/10 11 :13) Dizzy doxycycline [Doxycycline] Adverse Reaction (Intermediate, Verified 06/29/10 11: 14) Dizzy lisinopril [Lisinopril] Adverse Reaction (Intermediate, Verified 06/29/10 11:14) Dizzy propafenone [Propafenone] Adverse Reaction (Intermediate, Verified 06/29/10 11: 15) Diarrhea zolpidem tartrate [From Ambien] Adverse Reaction (Intermediate, Verified 12:32) Confusion Strong fumes Allergy (Severe, Uncoded 06/29/10 11:18) Asthma Review of Systems Ears: PRESENT: hearing changes - hard of hearing Nose, Mouth, and Throat: PRESENT: other - mouth dry Cardiovascular: PRESENT: other - no chest pains,cough Gastrointestinal: PRESENT: other - no abdominal pains Musculoskeletal: PRESENT: other - pains right lower leg Integumentary: PRESENT: wounds - right lower leg Endocrine: PRESENT: other - no polyuria Hematologic/Lymphatic: PRESENT: other - very thin skin and easily bruised Physical Exam Vital Signs: Temp Pulse Resp BP Pulse Ox 97.7 F 51 L 18 137/58 H 100 08/09/17 19:00 08/09/17 19:00 08/09/17 19:00 08/09/17 19:00 08/09/17 19:00 General appearance: PRESENT: hard of hearing Eye exam: PRESENT: conjunctiva pink Mouth exam: PRESENT: moist Neck exam: PRESENT: full ROM Respiratory exam: PRESENT: clear to auscultation bruce Cardiovascular exam: PRESENT: RRR Pulses: PRESENT: normal radial pulses, normal dorsalis pedis pul Vascular exam: PRESENT: normal capillary refill GI/Abdominal exam: PRESENT: soft Rectal exam: PRESENT: deferred Extremities exam: PRESENT: tenderness - over the irregular lacerationr to the roberson of the right lower leg. Laceration roughly measures about 6 cm and swollen with erythema around it and surrounding areas. Very tender and appears infected but no Pus. Musculoskeletal exam: PRESENT: ambulatory Neurological exam: PRESENT: alert, oriented to person, oriented to place, oriented to time, oriented to situation Psychiatric exam: PRESENT: appropriate affect Skin exam: PRESENT: erythema, warm - right lower leg Results Impressions: Tibia/Fibula X-Ray 08/08/17 14:35 IMPRESSION: No evidence for osteomyelitis. Soft tissue defect without foreign body. Bold Assessment & Plan - Diagnosis (1) Cellulitis of leg, right Is this a current diagnosis for this admission?: Yes (2) Infected skin tear Is this a current diagnosis for this admission?: Yes - Time Time Spent: 30 to 50 Minutes - Plan Summary Plan Summary: Wound is relatively clean with no obvious abscess at this time and no need for surgical intervention at this time. Instructed nurse how to dress the wound daily. No tape on the skin because of sensitive skin and could easily tear with just removal of the tape. Need to elevate leg to decrease edema for better wound healing. Continue IV antibiotics
[2017-08-10] MEDS: HEPARIN SOD (PORCINE) 5,000 UNIT/ML 1 ML SYRINGE SUBCUT SCH ×3 (06:30→21:05)
[2017-08-10] MEDS: LANSOPRAZOLE 30 MG TAB.RAP.DR PO SCH (06:30)
[2017-08-10 08:26] LABS: ABSOLUTE RETICS # 0.052 10^6/uL (0.028-0.122); RETICULOCYTE COUNT (AUTO) 1.31 % (0.66-2.85)
[2017-08-10 08:39] LABS: ANION GAP 11 (5-19); BLOOD UREA NITROGEN 38 mg/dL (7-20); CALCIUM 10.6 mg/dL (8.4-10.2); CARBON DIOXIDE 27 mmol/L (22-30); CHLORIDE 99 mmol/L (98-107); GLUCOSE 72 mg/dL (75-110); IRON(TIBC) 63.1 ug/dL (37-170); POTASSIUM 4.9 mmol/L (3.6-5.0)
[2017-08-10] MEDS ORDERED: POTASSI CL 10 MEQ/D5-1/2NS 1L 10 MEQ/1,000 ML RTUINJ IV PRN (09:00)
[2017-08-10] MEDS ORDERED: SENNOSIDES/DOCUSATE 8.6-50 MG 1 EACH TABLET PO PRN (09:01)
[2017-08-10] MEDS ORDERED: OXYCODONE-ACETAMINOPHEN 5-325 MG TABLET PO PRN (09:02)
[2017-08-10 09:55] LABS: FOLATE > 20.00 ng/mL (>2.76)
[2017-08-10] MEDS: POLYETHYLENE GLYCOL 3350 POWDER 17 GM/1 PACKET PO SCH ×2 (11:27→18:13)
[2017-08-10] MEDS: LACTULOSE SYRUP 20 GM/30 ML UDCUP PO SCH ×2 (11:28→18:14)
[2017-08-10] MEDS: METOCLOPRAMIDE HCL INJ/PF 10 MG/2 ML SDV IV SCH ×3 (11:28→21:06)
[2017-08-10] MEDS: ASPIRIN 81 MG TABLET, ENT COATED PO SCH (11:29)
[2017-08-10] MEDS: CALCIUM CARBONATE 500 MG TABLET PO SCH (11:29)
[2017-08-10] MEDS: TIOTROPIUM BROMIDE DPI 5 CAP/KIT (18 MCG/CAP) IH SCH (11:30)
[2017-08-10] MEDS: AMIODARONE HCL 200 MG TABLET PO SCH (11:31)
[2017-08-10] MEDS: ACETAMINOPHEN 325 MG TABLET PO PRN (11:35)
--- NOTE | 2017-08-10 15:19 | Progress Note ---
Provider Note Provider Note: ID Consult Note- I was asked to review this patient's chart and medications by Pharmacy. Patient is an 87 year old female with CKD. She sustained minor trauma to the leg about a week ago. She presents with a red, swollen, tender leg. Blood cultures are negative. She is afebrile. Patient is receiving both vancomycin and levofloxacin. Most likely organisms in this case are Strep and less likely Staph. Local wound care and elevation of the leg likely to be helpful. There does not appear to be any indication for surgical debridement or drainage. Recommend changing antibiotics from vancomycin and levofloxacin to cefazolin 1 gm IV q 8-12 hours. Will defer to pharmacy regarding the proper dose as the patient is not large and has compromised renal function. Please contact me if there are questions. Ze Rosenberg MD Pager: [phone]
[2017-08-10] MEDS: LEVOFLOXACIN 250 MG/D5W RTU 250 MG/50 ML RTUPB IV SCH (15:29)
[2017-08-10] MEDS: COLLAGENASE CLOSTRIDIUM HIST. OINT 30 GM TOP SCH (15:37)
--- NOTE | 2017-08-10 16:24 | PDOC PROGRESS REPORT ---
Subjective Progress Note for:: 08/10/17 Subjective:: Patient complains of having pains all over. She also relates that had not been able to move her bowels for a whole week daughter is at bedside and is concerned about blood draws had been bruised badly. She had a right-sided mastectomy rendering her right arm not suitable for blood draws. Patient also complains of dry mouth which have been going on for some time. Review of systems All organ systems evaluated and negative except as in subjective All significant diagnostics and laboratories have been reviewed Reason For Visit: LEG CELLULITIS Physical Exam Vital Signs: Temp Pulse Resp BP Pulse Ox 98.0 F 46 L 18 115/39 L 100 08/10/17 08:09 08/10/17 08:09 08/10/17 08:09 08/10/17 08:09 08/10/17 08:09 Intake & Output 08/09/17 08/10/17 08/11/17 06:59 06:59 06:59 Intake Total 656 Balance 656 Weight 55.2 kg General appearance: PRESENT: cooperative, thin Head exam: PRESENT: atraumatic, normocephalic Eye exam: PRESENT: conjunctiva pink, EOMI, PERRLA Ear exam: PRESENT: normal external ear exam Mouth exam: PRESENT: dry mucosa Neck exam: PRESENT: full ROM. ABSENT: JVD, lymphadenopathy, tenderness Respiratory exam: PRESENT: clear to auscultation bruce Cardiovascular exam: PRESENT: irregular rhythm. ABSENT: diastolic murmur, systolic murmur Vascular exam: PRESENT: normal capillary refill GI/Abdominal exam: PRESENT: normal bowel sounds, soft. ABSENT: tenderness Extremities exam: PRESENT: full ROM, +2 edema Musculoskeletal exam: ABSENT: ambulatory Neurological exam: PRESENT: alert, awake, oriented to person, oriented to place , oriented to time, oriented to situation, CN II-XII grossly intact Psychiatric exam: PRESENT: depressed Skin exam: PRESENT: other - There is purplish discoloration noted to right and left forearms. Redness to right lower extremity improved when compared to previous assessment Results Laboratory Results: 08/10/17 07:14 Retic Count (auto) 1.31 Absolute Retic 0.052 Impressions: Tibia/Fibula X-Ray 08/08/17 14:35 IMPRESSION: No evidence for osteomyelitis. Soft tissue defect without foreign body. Bold Assessment & Plan - Diagnosis (1) Infected skin tear Is this a current diagnosis for this admission?: Yes Plan: Continue Santyl daily for chemical debridement of the wound. (2) Cellulitis of leg, right Is this a current diagnosis for this admission?: Yes Plan: Discontinue vancomycin and Levaquin. Noted Dr. Rosenberg's recommendation (who had not seen the patient) and opted not to proceed with his recommendation as patient does have multiple allergies and concern about a cross reaction. To try clindamycin and follow-up response (3) Hypokalemia Is this a current diagnosis for this admission?: Yes Plan: Replaced (4) Acute on chronic renal failure Qualifiers: Acute renal failure type: unspecified Chronic kidney disease stage: stage 4 (severe) Qualified Code(s): N17.9 - Acute kidney failure, unspecified; N18.4 - Chronic kidney disease, stage 4 (severe); N18.4 - Chronic kidney disease , stage 4 (severe); N18.4 - Chronic kidney disease, stage 4 (severe); N18.4 - Chronic kidney disease, stage 4 (severe) Is this a current diagnosis for this admission?: Yes Plan: Improved (5) Anemia Qualifiers: Anemia type: unspecified type Qualified Code(s): D64.9 - Anemia, unspecified Is this a current diagnosis for this admission?: Yes Plan: Due to chronic disease. Stable (6) Constipation Qualifiers: Constipation type: unspecified constipation type Qualified Code(s): K59.00 - Constipation, unspecified Is this a current diagnosis for this admission?: Yes Plan: To place patient on gentle hydration, Reglan IV and bowel regimen. The follow- up response to intervention (7) Chronic pain Qualifiers: Chronic pain type: other chronic pain Qualified Code(s): G89.29 - Other chronic pain Is this a current diagnosis for this admission?: Yes Plan: To order percocet as it appears to be quite disturbing for patient - Time Time Spent with patient: 15-24 minutes Anticipated discharge: Home with Homehealth Within: within 48 hours - Inpatient Certification Based on my medical assessment, after consideration of the patient's comorbidities, presenting symptoms, or acuity I expect that the services needed warrant INPATIENT care.: Yes I certify that my determination is in accordance with my understanding of Medicare's requirements for reasonable and necessary INPATIENT services [42 CFR 412.3e].: Yes Medical Necessity: Need For IV Fluids, Need for Pain Control, Need for IV Antibiotics
[2017-08-10] MEDS: CLINDAMYCIN 600 MG/D5W RTU 600 MG/50 ML RTUPB IV SCH (18:13)
[2017-08-10] MEDS: DEXTROSE 5%-1/2 NORMAL SALINE 1,000 ML IV PRN (18:30)
--- NOTE | 2017-08-10 19:50 | XCELERA REPORT ---
[address] [address] Transthoracic Echocardiogram Report Name: ROBERT CAMILO Age: 87 yrs Gender: Female : 1930 Patient Status: Inpatient Patient Location: [address] [place] [address] Study Date: 08/10/2017 10:13 AM Height: 63 in Weight: 121 lb BSA: 1.6 m2 Procedure: A complete two-dimensional transthoracic echocardiogram was performed (2D, M-mode, spectral and color flow Doppler). The study was technically adequate with some images being suboptimal in quality. Reason For Study: eval for pulmonary hypertension Ordering Physician: SHEY ALVAREZ Performed By: Demarcus Bates Interpretation Summary The left ventricular ejection fraction is normal. There is normal left ventricular wall thickness. The left ventricle is grossly normal size. Doppler measurements suggest pseudonormalized left ventricular relaxation, which is associated with grade II/IV or mild to moderate diastolic dysfunction Wall motion cannot be accurately commented on, but no definite regional wall motion abnormalities noted. The right ventricular systolic function is mildly reduced. The right ventricle appears to be hypertrophied The right ventricle is moderately dilated. The right atrium is severely dilated. The left atrium is moderately dilated. There is mild to moderate mitral stenosis There is a trace amount of mitral regurgitation There is no aortic valve stenosis No aortic regurgitation is present. There is a moderate to severe amount of tricuspid regurgitation There is moderate to severe pulmonary hypertension by echo Right ventricular systolic pressure is estimated to be elevated at 50- 60mmHg. The aortic root is not well visualized. The inferior vena cava appeared dilated and decreased < 50% with respiration (RAP 15-20 mmHg) Minimal pericardial effusion. MMode/2D Measurements & Calculations RVDd: 3.3 cm LVIDd: 4.6 cm FS: 41.6 % Ao root diam: 3.2 cm IVSd: 0.65 cm LVIDs: 2.7 cm EDV(Teich): 97.1 ml LVPWd: 0.60 cmESV(Teich): 26.6 ml Ao root area: 7.8 cm2 EF(Teich): 72.6 % LA dimension: 5.1 cm LVOT diam: 1.7 cm LVOT area: 2.4 cm2 Doppler Measurements & Calculations MV E max gem: MV P1/2t max gem: Ao V2 max: LV V1 max P.5 cm/sec 155.2 cm/sec 110.6 cm/sec 2.8 mmHg MV P1/2t: 117.1 msec Ao max PG: LV V1 max: MVA(P1/2t): 1.9 cm2 4.9 mmHg 84.4 cm/sec MV dec slope: JULIETTE(V,D): 1.8 cm2 388.3 cm/sec2 PA V2 max: PI end-d gem: TR max gem: 87.4 cm/sec 104.2 cm/sec 305.3 cm/sec PA max P.1 mmHg TR max P.3 mmHg Left Ventricle The left ventricle is grossly normal size. There is normal left ventricular wall thickness. The left ventricular ejection fraction is normal. Doppler measurements suggest pseudonormalized left ventricular relaxation, which is associated with grade II/IV or mild to moderate diastolic dysfunction. Wall motion cannot be accurately commented on, but no definite regional wall motion abnormalities noted. Right Ventricle The right ventricle is moderately dilated. The right ventricle appears to be hypertrophied. The right ventricular systolic function is mildly reduced. Atria The right atrium is severely dilated. The left atrium is moderately dilated. Interarterial septum not well visualized and not well dopplered. Cannot comment on ASD/PFO presence. Mitral Valve There is moderate mitral annular calcification. The mitral valve leaflets appear normal. There is no evidence of stenosis, fluttering, or prolapse. There is mild to moderate mitral stenosis. There is a trace amount of mitral regurgitation. Aortic Valve The aortic valve is grossly normal. There is no aortic valve stenosis. No aortic regurgitation is present. Tricuspid Valve The tricuspid valve is not well visualized, but is grossly normal. There is no tricuspid stenosis. There is a moderate to severe amount of tricuspid regurgitation. There is moderate to severe pulmonary hypertension by echo. Right ventricular systolic pressure is estimated to be elevated at 50- 60mmHg. Pulmonic Valve The pulmonic valve is not well visualized. There is a mild amount of pulmonic regurgitation. Great Vessels The aortic root is not well visualized. The inferior vena cava appeared dilated and decreased < 50% with respiration (RAP 15-20 mmHg). Effusions Minimal pericardial effusion. : SHEY ALVAREZ > Jose Larsen
[2017-08-10] MEDS: SIMVASTATIN 40 MG TABLET PO SCH (21:06)
[2017-08-10] MEDS: MONTELUKAST SODIUM 10 MG TABLET PO SCH (21:06)
[2017-08-10] MEDS ORDERED: CLINDAMYCIN PHOSPHATE 750 MG in DEXTROSE 5%-WATER 100 ML IV SCH (22:00)
[2017-08-11] MEDS: CLINDAMYCIN 600 MG/D5W RTU 600 MG/50 ML RTUPB IV SCH ×3 (01:51→17:49)
[2017-08-11] MEDS: METOCLOPRAMIDE HCL INJ/PF 10 MG/2 ML SDV IV SCH ×4 (04:30→22:53)
[2017-08-11] MEDS: HEPARIN SOD (PORCINE) 5,000 UNIT/ML 1 ML SYRINGE SUBCUT SCH ×3 (06:34→22:54)
[2017-08-11] MEDS: LANSOPRAZOLE 30 MG TAB.RAP.DR PO SCH (06:34)
[2017-08-11] MEDS: POLYETHYLENE GLYCOL 3350 POWDER 17 GM/1 PACKET PO SCH ×2 (10:34→17:45)
[2017-08-11] MEDS: ACETAMINOPHEN 325 MG TABLET PO PRN ×2 (10:34→23:58)
[2017-08-11] MEDS: LACTULOSE SYRUP 20 GM/30 ML UDCUP PO SCH (10:35)
[2017-08-11] MEDS: ASPIRIN 81 MG TABLET, ENT COATED PO SCH (10:35)
[2017-08-11] MEDS: CALCIUM CARBONATE 500 MG TABLET PO SCH (10:36)
[2017-08-11] MEDS: AMIODARONE HCL 200 MG TABLET PO SCH (10:38)
[2017-08-11] MEDS: TIOTROPIUM BROMIDE DPI 5 CAP/KIT (18 MCG/CAP) IH SCH (10:49)
[2017-08-11] MEDS ORDERED: LACTOBACILLUS ACIDOPHILUS 250 MG TAB PO ONE (12:00)
[2017-08-11] MEDS ORDERED: LETROZOLE 2.5 MG TABLET PO ONE (12:30)
--- NOTE | 2017-08-11 14:34 | PDOC PROGRESS REPORT ---
Subjective Progress Note for:: 08/11/17 Subjective:: 87-year-old female with CKD III Anemia of chronic disease Hypertension Coronary artery disease Atrial fibrillation, not on anticoagulation Seasonal allergies Right-sided mastectomy for breast cancer She presented to the hospital on August 08 after striking her leg to the chair causing a skin tear followed by right leg pain and swelling. The patient was diagnosed with cellulitis of the right lower extremity acute on chronic renal failure and started on vancomycin and IV fluids. She was switched to Clindamycin on 08/10/17. Reason For Visit: LEG CELLULITIS Physical Exam Vital Signs: Temp Pulse Resp BP Pulse Ox 97.5 F 55 L 18 125/38 L 100 08/11/17 08:11 08/11/17 08:11 08/11/17 08:11 08/11/17 08:11 08/11/17 08:11 Intake & Output 08/10/17 08/11/17 08/12/17 06:59 06:59 06:59 Intake Total 656 1282 Output Total 1150 Balance 656 132 Weight 55.2 kg 55.3 kg General appearance: PRESENT: no acute distress, well-nourished Head exam: PRESENT: normocephalic Eye exam: ABSENT: scleral icterus Ear exam: PRESENT: normal external ear exam Mouth exam: PRESENT: neck supple Neck exam: ABSENT: JVD, tracheal deviation Respiratory exam: PRESENT: symmetrical, unlabored. ABSENT: accessory muscle use , wheezes Cardiovascular exam: PRESENT: RRR GI/Abdominal exam: PRESENT: normal bowel sounds, soft. ABSENT: tenderness Rectal exam: PRESENT: deferred Gentrourinary exam: PRESENT: other - Deferred Extremities exam: ABSENT: calf tenderness Neurological exam: PRESENT: alert, awake, oriented to person, oriented to place Psychiatric exam: PRESENT: normal mood Skin exam: PRESENT: dry, skin tears. ABSENT: rash Additional comments: Right leg skin tear with surrounding erythema and mild edema. Results Laboratory Results: 08/10/17 07:14 Impressions: Tibia/Fibula X-Ray 08/08/17 14:35 IMPRESSION: No evidence for osteomyelitis. Soft tissue defect without foreign body. Bold Assessment & Plan - Diagnosis (1) Cellulitis of leg, right Is this a current diagnosis for this admission?: Yes Plan: Day 3 of antibiotics, now on Clindamycin. Continue to monitor closely (2) Acute on chronic renal failure Qualifiers: Acute renal failure type: unspecified Chronic kidney disease stage: stage 4 (severe) Qualified Code(s): N17.9 - Acute kidney failure, unspecified; N18.4 - Chronic kidney disease, stage 4 (severe); N18.4 - Chronic kidney disease , stage 4 (severe); N18.4 - Chronic kidney disease, stage 4 (severe); N18.4 - Chronic kidney disease, stage 4 (severe) Is this a current diagnosis for this admission?: Yes Plan: Improving, monitor kidney function Labs ordered for today (3) Chronic pain Qualifiers: Chronic pain type: other chronic pain Qualified Code(s): G89.29 - Other chronic pain Is this a current diagnosis for this admission?: Yes Plan: Percocet prn (4) Constipation Qualifiers: Constipation type: unspecified constipation type Qualified Code(s): K59.00 - Constipation, unspecified Is this a current diagnosis for this admission?: Yes Plan: Resolved with laxatives (5) Hypokalemia Is this a current diagnosis for this admission?: Yes Plan: Repleted, monitor (6) Infected skin tear Is this a current diagnosis for this admission?: Yes Plan: Antibiotics as above, continue wound care. (7) Anemia of chronic disease Is this a current diagnosis for this admission?: Yes Plan: stable (8) History of atrial fibrillation Is this a current diagnosis for this admission?: Yes Plan: On Amiodarone and aspirin. Not on anticoagulation, exact cause unknown but she was taken off anticoagulation approximately a year ago. (9) Diastolic CHF Is this a current diagnosis for this admission?: Yes Plan: No evidence of acute exacerbation at present. Monitor fluid status closely - Time Time Spent with patient: 35 or more minutes
[2017-08-11] MEDS ORDERED: LACTULOSE SYRUP 20 GM/30 ML UDCUP PO PRN (14:35)
[2017-08-11 15:32] LABS: ANION GAP 9 (5-19); BLOOD UREA NITROGEN 26 mg/dL (7-20); CALCIUM 10.2 mg/dL (8.4-10.2); CARBON DIOXIDE 28 mmol/L (22-30); CHLORIDE 100 mmol/L (98-107); GLUCOSE 100 mg/dL (75-110); POTASSIUM 3.6 mmol/L (3.6-5.0); SODIUM 137.1 mmol/L (137-145)
[2017-08-11] MEDS: LACTOBACILLUS ACIDOPHILUS 250 MG TAB PO SCH (17:50)
[2017-08-11] MEDS: COLLAGENASE CLOSTRIDIUM HIST. OINT 30 GM TOP SCH (17:55)
[2017-08-11] MEDS: SIMVASTATIN 40 MG TABLET PO SCH (22:53)
[2017-08-11] MEDS: MONTELUKAST SODIUM 10 MG TABLET PO SCH (22:54)
[2017-08-11] MEDS: DEXTROSE 5%-1/2 NORMAL SALINE 1,000 ML IV PRN (23:59)
[2017-08-12] MEDS: CLINDAMYCIN 600 MG/D5W RTU 600 MG/50 ML RTUPB IV SCH ×3 (02:40→17:38)
[2017-08-12] MEDS: METOCLOPRAMIDE HCL INJ/PF 10 MG/2 ML SDV IV SCH ×2 (02:40→09:34)
[2017-08-12] MEDS: LANSOPRAZOLE 30 MG TAB.RAP.DR PO SCH (06:50)
[2017-08-12] MEDS: HEPARIN SOD (PORCINE) 5,000 UNIT/ML 1 ML SYRINGE SUBCUT SCH (06:50)
[2017-08-12 08:46] LABS: ABSOLUTE BASOPHILS # (AUTO) 0.1 10^3/uL (0.0-0.2); ABSOLUTE EOSINOPHILS # (AUTO) 0.2 10^3/uL (0.0-0.6); ABSOLUTE LYMPHOCYTES (AUTO) 1.2 10^3/uL (0.5-4.7); ABSOLUTE MONOCYTES (AUTO) 0.5 10^3/uL (0.1-1.4); ABSOLUTE NEUT (AUTO) 4.3 10^3/uL (1.7-8.2); BASOPHILS % (AUTO) 0.9 % (0-2); EOSINOPHILS % (AUTO) 3.7 % (0-6); HEMATOCRIT 34.8 % (36.0-47.0); HEMOGLOBIN 11.6 g/dL (12.0-15.5); LYMPHOCYTES % (AUTO) 18.7 % (13-45); MEAN CORPUSCULAR HEMOGLOBIN 29.2 pg (27.0-33.4); MEAN CORPUSCULAR HGB CONC 33.2 g/dL (32.0-36.0); MEAN CORPUSCULAR VOLUME 88 fl (80-97); MONOCYTES % (AUTO) 8.2 % (3-13); PLATELET COUNT 197 10^3/uL (150-450); RED BLOOD COUNT 3.97 10^6/uL (3.72-5.28); RED CELL DISTRIBUTION WIDTH 16.2 % (11.5-14.0); SEGMENTED NEUTROPHILS % (AUTO) 68.5 % (42-78); TOTAL CELLS COUNTED % (AUTO) 100 %; WHITE BLOOD COUNT 6.2 10^3/uL (4.0-10.5)
[2017-08-12 09:07] LABS: ALANINE AMINOTRANSFERASE 27 U/L (9-52); ALBUMIN 3.4 g/dL (3.5-5.0); ALKALINE PHOSPHATASE 55 U/L (38-126); ANION GAP 10 (5-19); ASPARTATE AMINO TRANSFERASE 23 U/L (14-36); BILIRUBIN,DIRECT 0.3 mg/dL (0.0-0.4); BILIRUBIN,TOTAL 0.4 mg/dL (0.2-1.3); BLOOD UREA NITROGEN 24 mg/dL (7-20); CARBON DIOXIDE 25 mmol/L (22-30); CHLORIDE 98 mmol/L (98-107); GLUCOSE 142 mg/dL (75-110); PHOSPHORUS 2.8 mg/dL (2.5-4.5); POTASSIUM 3.6 mmol/L (3.6-5.0); SODIUM 133.2 mmol/L (137-145)
[2017-08-12] MEDS: CALCIUM CARBONATE 500 MG TABLET PO SCH (09:34)
[2017-08-12] MEDS: AMIODARONE HCL 200 MG TABLET PO SCH (09:34)
[2017-08-12] MEDS: ASPIRIN 81 MG TABLET, ENT COATED PO SCH (09:35)
[2017-08-12] MEDS: LACTOBACILLUS ACIDOPHILUS 250 MG TAB PO SCH ×2 (09:35→17:37)
[2017-08-12] MEDS: LETROZOLE 2.5 MG TABLET PO SCH (09:36)
[2017-08-12] MEDS: TIOTROPIUM BROMIDE DPI 5 CAP/KIT (18 MCG/CAP) IH SCH (09:36)
[2017-08-12] MEDS: ACETAMINOPHEN 325 MG TABLET PO PRN (09:37)
[2017-08-12] MEDS: POLYETHYLENE GLYCOL 3350 POWDER 17 GM/1 PACKET PO SCH ×2 (09:38→17:34)
[2017-08-12 11:36] LABS: HEMOGLOBIN 11.5 g/dL (12.0-15.5); MEAN CORPUSCULAR HEMOGLOBIN 29.8 pg (27.0-33.4); MEAN CORPUSCULAR HGB CONC 33.7 g/dL (32.0-36.0); MEAN CORPUSCULAR VOLUME 88 fl (80-97); PLATELET COUNT 195 10^3/uL (150-450); RED BLOOD COUNT 3.85 10^6/uL (3.72-5.28); RED CELL DISTRIBUTION WIDTH 16.4 % (11.5-14.0); WHITE BLOOD COUNT 6.4 10^3/uL (4.0-10.5)
[2017-08-12 11:44] LABS: INTERNATIONAL RATION (INR) 1.07; PARTIAL THROMBOPLASTIN TIME 70.1 SEC (23.5-35.8); PROTHROMBIN TIME 14.4 SEC (11.4-15.4)
--- NOTE | 2017-08-12 14:29 | PDOC PROGRESS REPORT ---
Subjective Progress Note for:: 08/12/17 Subjective:: 87-year-old female with CKD III Anemia of chronic disease Hypertension Coronary artery disease Atrial fibrillation, not on anticoagulation Seasonal allergies Right-sided mastectomy for breast cancer She presented to the hospital on August 08 after striking her leg to the chair causing a skin tear followed by right leg pain and swelling. The patient was diagnosed with cellulitis of the right lower extremity acute on chronic renal failure and started on vancomycin and IV fluids. She was switched to Clindamycin on 08/10/17. R leg swelling and redness slightly worse today. IV fluids stopped, will give her some Lasix, resume home meds including Spironolactone and Metolazone Constipation has resolved. Reason For Visit: LEG CELLULITIS Physical Exam Vital Signs: Temp Pulse Resp BP Pulse Ox 97.3 F 57 L 16 125/33 L 99 08/12/17 08:21 08/12/17 08:21 08/12/17 08:21 08/12/17 08:21 08/12/17 08:21 Intake & Output 08/11/17 08/12/17 08/13/17 06:59 06:59 06:59 Intake Total 1282 2116 Output Total 1150 400 Balance 132 1716 Weight 55.3 kg 55.3 kg General appearance: PRESENT: no acute distress, well-nourished Head exam: PRESENT: normocephalic Eye exam: PRESENT: PERRLA. ABSENT: scleral icterus Ear exam: PRESENT: normal external ear exam Mouth exam: PRESENT: moist Neck exam: PRESENT: JVD. ABSENT: tracheal deviation Respiratory exam: PRESENT: crackles, rhonchi, symmetrical, unlabored Cardiovascular exam: PRESENT: RRR GI/Abdominal exam: PRESENT: normal bowel sounds, soft. ABSENT: tenderness Rectal exam: PRESENT: deferred Extremities exam: PRESENT: pedal edema. ABSENT: calf tenderness Musculoskeletal exam: PRESENT: ambulatory Neurological exam: PRESENT: alert, awake, oriented to person, oriented to place , oriented to time, oriented to situation Psychiatric exam: PRESENT: normal mood Skin exam: PRESENT: other - R leg skin wound with erythema Results Laboratory Results: 08/12/17 11:00 08/12/17 11:00 08/10/17 08/11/17 08/12/17 07:14 15:04 08:34 WBC 6.2 RBC 3.97 Hgb 11.6 L Hct 34.8 L MCV 88 MCH 29.2 MCHC 33.2 RDW 16.2 H Plt Count 197 Seg Neutrophils % 68.5 Lymphocytes % 18.7 Monocytes % 8.2 Eosinophils % 3.7 Basophils % 0.9 Absolute Neutrophils 4.3 Absolute Lymphocytes 1.2 Absolute Monocytes 0.5 Absolute Eosinophils 0.2 Absolute Basophils 0.1 Sodium 137.1 Potassium 3.6 Chloride 100 Carbon Dioxide 28 Anion Gap 9 BUN 26 H Creatinine 1.34 H Est GFR ( Amer) 45 L Est GFR (Non-Af Amer) 38 L Glucose 100 Calcium 10.2 Phosphorus Magnesium Transferrin 195 L Total Bilirubin AST ALT Alkaline Phosphatase Total Protein Albumin 08/12/17 08/12/17 08/12/17 08:34 11:00 11:00 WBC 6.4 RBC 3.85 Hgb 11.5 L Hct 34.0 L MCV 88 MCH 29.8 MCHC 33.7 RDW 16.4 H Plt Count 195 Seg Neutrophils % Lymphocytes % Monocytes % Eosinophils % Basophils % Absolute Neutrophils Absolute Lymphocytes Absolute Monocytes Absolute Eosinophils Absolute Basophils Sodium 133.2 L Potassium 3.6 Chloride 98 Carbon Dioxide 25 Anion Gap 10 BUN 24 H Creatinine 1.30 H 1.13 Est GFR ( Amer) 47 L 55 L Est GFR (Non-Af Amer) 39 L 46 L Glucose 142 H Calcium 10.0 Phosphorus 2.8 Magnesium 2.3 Transferrin Total Bilirubin 0.4 AST 23 ALT 27 Alkaline Phosphatase 55 Total Protein 6.0 L Albumin 3.4 L 08/11/17 08/11/17 12:35 15:04 NT-Pro-B Natriuret Pep Cancelled 1160 H Impressions: Tibia/Fibula X-Ray 08/08/17 14:35 IMPRESSION: No evidence for osteomyelitis. Soft tissue defect without foreign body. Bold Assessment & Plan - Diagnosis (1) Cellulitis of leg, right Is this a current diagnosis for this admission?: Yes Plan: Day 4 of antibiotics, now on Clindamycin. Will add Levaquin back for gram negative coverage. Wound care and dressing changes (2) Acute on chronic renal failure Qualifiers: Acute renal failure type: unspecified Chronic kidney disease stage: stage 4 (severe) Qualified Code(s): N17.9 - Acute kidney failure, unspecified; N18.4 - Chronic kidney disease, stage 4 (severe); N18.4 - Chronic kidney disease , stage 4 (severe); N18.4 - Chronic kidney disease, stage 4 (severe); N18.4 - Chronic kidney disease, stage 4 (severe) Is this a current diagnosis for this admission?: Yes Plan: Resolved, monitor kidney function She seems fluid overloaded and more edematous today. Will restart outpatient diuretics and monitor closely. (3) Chronic pain Qualifiers: Chronic pain type: other chronic pain Qualified Code(s): G89.29 - Other chronic pain Is this a current diagnosis for this admission?: Yes Plan: Percocet prn (4) Constipation Qualifiers: Constipation type: unspecified constipation type Qualified Code(s): K59.00 - Constipation, unspecified Is this a current diagnosis for this admission?: Yes Plan: Resolved with laxatives (5) Hypokalemia Is this a current diagnosis for this admission?: Yes Plan: Repleted, monitor (6) Infected skin tear Is this a current diagnosis for this admission?: Yes Plan: Antibiotics as above, continue wound care. (7) Anemia of chronic disease Is this a current diagnosis for this admission?: Yes Plan: stable (8) History of atrial fibrillation Is this a current diagnosis for this admission?: Yes Plan: On Amiodarone and aspirin. Not on anticoagulation, exact cause unknown but she was taken off anticoagulation approximately a year ago. (9) Diastolic CHF Is this a current diagnosis for this admission?: Yes Plan: No evidence of acute exacerbation at present. Monitor fluid status closely - Time Time Spent with patient: 35 or more minutes
[2017-08-12] MEDS ORDERED: FUROSEMIDE INJ/PF 20 MG/2 ML SDV IV ONE (15:00)
[2017-08-12] MEDS ORDERED: METOLAZONE 2.5 MG TABLET PO ONE (15:30)
[2017-08-12] MEDS ORDERED: POTASSIUM CHLORIDE 10 MEQ TABLET.SA PO ONE (16:00)
[2017-08-12] MEDS ORDERED: SPIRONOLACTONE 25 MG TABLET PO ONE (16:00)
[2017-08-12] MEDS: COLLAGENASE CLOSTRIDIUM HIST. OINT 30 GM TOP SCH (16:37)
[2017-08-12] MEDS: FLUTICASONE/SALMETEROL DISKUS 250-50 MCG/DOSE IH SCH (17:38)
[2017-08-12] MEDS: MONTELUKAST SODIUM 10 MG TABLET PO SCH (17:38)
[2017-08-12] MEDS: LEVOFLOXACIN 500 MG TABLET PO SCH (17:38)
[2017-08-12] MEDS: SIMVASTATIN 40 MG TABLET PO SCH (22:39)
[2017-08-13] MEDS: CLINDAMYCIN 600 MG/D5W RTU 600 MG/50 ML RTUPB IV SCH ×3 (01:44→17:52)
[2017-08-13] MEDS: LANSOPRAZOLE 30 MG TAB.RAP.DR PO SCH (06:22)
[2017-08-13] MEDS: FLUTICASONE/SALMETEROL DISKUS 250-50 MCG/DOSE IH SCH ×2 (06:22→17:53)
[2017-08-13] MEDS ORDERED: SPIRONOLACTONE 25 MG TABLET PO SCH (10:00)
[2017-08-13] MEDS ORDERED: METOLAZONE 2.5 MG TABLET PO SCH (10:00)
[2017-08-13] MEDS: POLYETHYLENE GLYCOL 3350 POWDER 17 GM/1 PACKET PO SCH ×2 (10:26→17:48)
[2017-08-13] MEDS: LETROZOLE 2.5 MG TABLET PO SCH (10:31)
[2017-08-13] MEDS: CALCIUM CARBONATE 500 MG TABLET PO SCH (10:32)
[2017-08-13] MEDS: ASPIRIN 81 MG TABLET, ENT COATED PO SCH (10:33)
[2017-08-13] MEDS: AMIODARONE HCL 200 MG TABLET PO SCH (10:33)
[2017-08-13] MEDS: POTASSIUM CHLORIDE 10 MEQ TABLET.SA PO SCH (10:33)
[2017-08-13] MEDS: LACTOBACILLUS ACIDOPHILUS 250 MG TAB PO SCH ×2 (10:33→17:51)
[2017-08-13] MEDS: TIOTROPIUM BROMIDE DPI 5 CAP/KIT (18 MCG/CAP) IH SCH (10:34)
[2017-08-13] MEDS: ENOXAPARIN SODIUM INJ 30 MG/0.3 ML DISP.SYRIN SUBCUT SCH (10:35)
[2017-08-13 11:18] LABS: ABSOLUTE EOSINOPHILS # (AUTO) 0.1 10^3/uL (0.0-0.6); ABSOLUTE MONOCYTES (AUTO) 0.5 10^3/uL (0.1-1.4); ABSOLUTE NEUT (AUTO) 3.8 10^3/uL (1.7-8.2); BASOPHILS % (AUTO) 0.7 % (0-2); EOSINOPHILS % (AUTO) 2.1 % (0-6); HEMATOCRIT 34.1 % (36.0-47.0); HEMOGLOBIN 11.3 g/dL (12.0-15.5); LYMPHOCYTES % (AUTO) 19.1 % (13-45); MEAN CORPUSCULAR HEMOGLOBIN 29.2 pg (27.0-33.4); MEAN CORPUSCULAR HGB CONC 33.1 g/dL (32.0-36.0); MEAN CORPUSCULAR VOLUME 88 fl (80-97); MONOCYTES % (AUTO) 8.7 % (3-13); PLATELET COUNT 188 10^3/uL (150-450); RED BLOOD COUNT 3.86 10^6/uL (3.72-5.28); RED CELL DISTRIBUTION WIDTH 16.5 % (11.5-14.0); SEGMENTED NEUTROPHILS % (AUTO) 69.4 % (42-78); TOTAL CELLS COUNTED % (AUTO) 100 %; WHITE BLOOD COUNT 5.4 10^3/uL (4.0-10.5)
--- NOTE | 2017-08-13 11:19 | PDOC PROGRESS REPORT ---
Subjective Progress Note for:: 08/13/17 Subjective:: 87-year-old female with CKD III Anemia of chronic disease Hypertension Coronary artery disease Atrial fibrillation, not on anticoagulation Seasonal allergies Right-sided mastectomy for breast cancer She presented to the hospital on August 08 after striking her leg to the chair causing a skin tear followed by right leg pain and swelling. The patient was diagnosed with cellulitis of the right lower extremity acute on chronic renal failure and started on vancomycin and IV fluids. She was switched to Clindamycin on 08/10/17. R leg swelling and redness were worse on 08/12. Levaquin was added back. IV fluids were stopped, she was given IV Lasix, home meds including Spironolactone and Metolazone were restarted. Erythema of the leg improved. Reason For Visit: LEG CELLULITIS Physical Exam Vital Signs: Temp Pulse Resp BP Pulse Ox 97.8 F 61 16 136/39 H 100 08/13/17 07:52 08/13/17 07:52 08/13/17 07:52 08/13/17 07:52 08/13/17 07:52 Intake & Output 08/12/17 08/13/17 08/14/17 06:59 06:59 06:59 Intake Total 2116 734 Output Total 400 400 Balance 1716 334 Weight 55.3 kg 55 kg General appearance: PRESENT: no acute distress, well-nourished Eye exam: PRESENT: EOMI. ABSENT: scleral icterus Ear exam: PRESENT: normal external ear exam Mouth exam: PRESENT: neck supple Respiratory exam: PRESENT: rhonchi, symmetrical, unlabored Cardiovascular exam: PRESENT: RRR GI/Abdominal exam: PRESENT: normal bowel sounds, soft. ABSENT: tenderness Rectal exam: PRESENT: deferred Extremities exam: PRESENT: pedal edema. ABSENT: calf tenderness Neurological exam: PRESENT: alert, awake, oriented to person, oriented to place Psychiatric exam: PRESENT: normal mood Skin exam: PRESENT: skin tears Additional comments: R leg erythema- improved, wound looks better. Edema persists Results Laboratory Results: 08/12/17 08/12/17 11:00 11:00 WBC 6.4 RBC 3.85 Hgb 11.5 L Hct 34.0 L MCV 88 MCH 29.8 MCHC 33.7 RDW 16.4 H Plt Count 195 Creatinine 1.13 Est GFR ( Amer) 55 L Est GFR (Non-Af Amer) 46 L 08/11/17 08/11/17 12:35 15:04 NT-Pro-B Natriuret Pep Cancelled 1160 H Impressions: Tibia/Fibula X-Ray 08/08/17 14:35 IMPRESSION: No evidence for osteomyelitis. Soft tissue defect without foreign body. Bold Assessment & Plan - Diagnosis (1) Cellulitis of leg, right Is this a current diagnosis for this admission?: Yes Plan: Day 5 of antibiotics, Levaquin and Clindamycin. Continue wound care and dressing changes (2) Acute on chronic renal failure Qualifiers: Acute renal failure type: unspecified Chronic kidney disease stage: stage 4 (severe) Qualified Code(s): N17.9 - Acute kidney failure, unspecified; N18.4 - Chronic kidney disease, stage 4 (severe); N18.4 - Chronic kidney disease , stage 4 (severe); N18.4 - Chronic kidney disease, stage 4 (severe); N18.4 - Chronic kidney disease, stage 4 (severe) Is this a current diagnosis for this admission?: Yes Plan: Resolved with IV fluids (3) Chronic pain Qualifiers: Chronic pain type: other chronic pain Qualified Code(s): G89.29 - Other chronic pain Is this a current diagnosis for this admission?: Yes Plan: Percocet prn (4) Constipation Qualifiers: Constipation type: unspecified constipation type Qualified Code(s): K59.00 - Constipation, unspecified Is this a current diagnosis for this admission?: Yes Plan: Resolved with laxatives (5) Hypokalemia Is this a current diagnosis for this admission?: Yes Plan: Repleted, monitor (6) Infected skin tear Is this a current diagnosis for this admission?: Yes Plan: Antibiotics as above, continue wound care. (7) Anemia of chronic disease Is this a current diagnosis for this admission?: Yes Plan: stable (8) History of atrial fibrillation Is this a current diagnosis for this admission?: Yes Plan: On Amiodarone and aspirin. Not on anticoagulation, exact cause unknown but she was taken off anticoagulation approximately a year ago. (9) Diastolic CHF Is this a current diagnosis for this admission?: Yes Plan: No evidence of acute exacerbation at present. Monitor fluid status closely. Outpatient diuretics restarted - Time Time Spent with patient: 35 or more minutes
[2017-08-13 11:39] LABS: ANION GAP 10 (5-19); BLOOD UREA NITROGEN 22 mg/dL (7-20); CALCIUM 10.3 mg/dL (8.4-10.2); CARBON DIOXIDE 25 mmol/L (22-30); CHLORIDE 98 mmol/L (98-107); GLUCOSE 108 mg/dL (75-110); SODIUM 132.9 mmol/L (137-145)
[2017-08-13] MEDS ORDERED: FUROSEMIDE INJ/PF 20 MG/2 ML SDV IV ONE (13:15)
[2017-08-13] MEDS ORDERED: FUROSEMIDE INJ/PF 40 MG/4 ML SDV IV ONE (14:00)
[2017-08-13] MEDS: LEVOFLOXACIN 500 MG TABLET PO SCH (17:51)
[2017-08-13] MEDS: COLLAGENASE CLOSTRIDIUM HIST. OINT 30 GM TOP SCH (17:52)
[2017-08-13] MEDS: MONTELUKAST SODIUM 10 MG TABLET PO SCH (17:52)
[2017-08-13] MEDS: SIMVASTATIN 40 MG TABLET PO SCH (21:20)
[2017-08-14] MEDS: CLINDAMYCIN 600 MG/D5W RTU 600 MG/50 ML RTUPB IV SCH ×3 (03:07→11:13)
[2017-08-14 05:23] LABS: ANION GAP 14 (5-19); BLOOD UREA NITROGEN 25 mg/dL (7-20); CALCIUM 10.6 mg/dL (8.4-10.2); CARBON DIOXIDE 22 mmol/L (22-30); CHLORIDE 99 mmol/L (98-107); GLUCOSE 97 mg/dL (75-110); POTASSIUM 4.1 mmol/L (3.6-5.0); SODIUM 134.8 mmol/L (137-145)
[2017-08-14] MEDS: FLUTICASONE/SALMETEROL DISKUS 250-50 MCG/DOSE IH SCH ×2 (05:23→17:27)
[2017-08-14] MEDS: LANSOPRAZOLE 30 MG TAB.RAP.DR PO SCH (05:23)
[2017-08-14 09:29] LABS: PHOSPHORUS 3.7 mg/dL (2.5-4.5)
[2017-08-14] MEDS: POLYETHYLENE GLYCOL 3350 POWDER 17 GM/1 PACKET PO SCH ×2 (10:23→17:15)
[2017-08-14] MEDS: ASPIRIN 81 MG TABLET, ENT COATED PO SCH (10:24)
[2017-08-14] MEDS: CALCIUM CARBONATE 500 MG TABLET PO SCH (10:24)
[2017-08-14] MEDS: LACTOBACILLUS ACIDOPHILUS 250 MG TAB PO SCH ×2 (10:24→17:26)
[2017-08-14] MEDS: AMIODARONE HCL 200 MG TABLET PO SCH (10:24)
[2017-08-14] MEDS: POTASSIUM CHLORIDE 10 MEQ TABLET.SA PO SCH (10:24)
[2017-08-14] MEDS: LETROZOLE 2.5 MG TABLET PO SCH (10:27)
[2017-08-14] MEDS: ENOXAPARIN SODIUM INJ 30 MG/0.3 ML DISP.SYRIN SUBCUT SCH (10:30)
[2017-08-14] MEDS: TIOTROPIUM BROMIDE DPI 5 CAP/KIT (18 MCG/CAP) IH SCH (10:30)
--- NOTE | 2017-08-14 15:04 | PDOC PROGRESS REPORT ---
Subjective Progress Note for:: 08/14/17 Subjective:: 87-year-old female with CKD III Anemia of chronic disease Hypertension Coronary artery disease Atrial fibrillation, not on anticoagulation Seasonal allergies Right-sided mastectomy for breast cancer She presented to the hospital on August 08 after striking her leg to the chair causing a skin tear followed by right leg pain and swelling. The patient was diagnosed with cellulitis of the right lower extremity acute on chronic renal failure and started on vancomycin and IV fluids. She was switched to Clindamycin on 08/10/17. R leg swelling and redness were worse on 08/12. Levaquin was added back. IV fluids were stopped, she was given IV Lasix, home meds including Spironolactone and Metolazone were restarted. Erythema and edema of the leg has improved. He says she is feeling much better today. I spoke with multiple family members regarding plan of care, most likely discharge home with home health. Reason For Visit: LEG CELLULITIS Physical Exam Vital Signs: Temp Pulse Resp BP Pulse Ox 98.3 F 58 L 16 126/43 H 99 08/14/17 11:18 08/14/17 11:18 08/14/17 11:18 08/14/17 11:18 08/14/17 11:18 Intake & Output 08/13/17 08/14/17 08/15/17 06:59 06:59 06:59 Intake Total 734 1264 Output Total 400 350 Balance 334 914 Weight 55 kg 55 kg General appearance: PRESENT: no acute distress, well-developed Eye exam: PRESENT: PERRLA. ABSENT: scleral icterus Ear exam: PRESENT: normal external ear exam Mouth exam: PRESENT: moist Neck exam: ABSENT: tracheal deviation Respiratory exam: PRESENT: clear to auscultation bruce, symmetrical, unlabored. ABSENT: wheezes Cardiovascular exam: PRESENT: RRR GI/Abdominal exam: PRESENT: normal bowel sounds, soft. ABSENT: tenderness Rectal exam: PRESENT: deferred Gentrourinary exam: ABSENT: lacerations Extremities exam: PRESENT: pedal edema Neurological exam: PRESENT: alert, awake, oriented to person, oriented to place Psychiatric exam: PRESENT: appropriate affect Skin exam: PRESENT: erythema, skin tears Results Laboratory Results: 08/13/17 11:06 08/14/17 04:34 08/14/17 08/14/17 04:34 04:34 Sodium 134.8 L Potassium 4.1 Chloride 99 Carbon Dioxide 22 Anion Gap 14 BUN 25 H Creatinine 1.40 H Est GFR ( Amer) 43 L Est GFR (Non-Af Amer) 36 L Glucose 97 Calcium 10.6 H Phosphorus 3.7 Magnesium 2.2 08/11/17 08/11/17 08/13/17 12:35 15:04 11:06 NT-Pro-B Natriuret Pep Cancelled 1160 H 1350 H Impressions: Tibia/Fibula X-Ray 08/08/17 14:35 IMPRESSION: No evidence for osteomyelitis. Soft tissue defect without foreign body. Bold Assessment & Plan - Diagnosis (1) Cellulitis of leg, right Is this a current diagnosis for this admission?: Yes Plan: Day 6 of antibiotics, continue Levaquin and switch to PO Clindamycin. Continue wound care and dressing changes (2) Acute on chronic renal failure Qualifiers: Acute renal failure type: unspecified Chronic kidney disease stage: stage 4 (severe) Qualified Code(s): N17.9 - Acute kidney failure, unspecified; N18.4 - Chronic kidney disease, stage 4 (severe); N18.4 - Chronic kidney disease , stage 4 (severe); N18.4 - Chronic kidney disease, stage 4 (severe); N18.4 - Chronic kidney disease, stage 4 (severe) Is this a current diagnosis for this admission?: Yes Plan: Resolved with IV fluids (3) Chronic pain Qualifiers: Chronic pain type: other chronic pain Qualified Code(s): G89.29 - Other chronic pain Is this a current diagnosis for this admission?: Yes Plan: Percocet prn (4) Constipation Qualifiers: Constipation type: unspecified constipation type Qualified Code(s): K59.00 - Constipation, unspecified Is this a current diagnosis for this admission?: Yes Plan: Resolved with laxatives (5) Hypokalemia Is this a current diagnosis for this admission?: Yes Plan: Repleted, monitor (6) Infected skin tear Is this a current diagnosis for this admission?: Yes Plan: Antibiotics as above, continue wound care. (7) Anemia of chronic disease Is this a current diagnosis for this admission?: Yes Plan: stable (8) History of atrial fibrillation Is this a current diagnosis for this admission?: Yes Plan: On Amiodarone and aspirin. Not on anticoagulation, exact cause unknown but she was taken off anticoagulation approximately a year ago. (9) Diastolic CHF Is this a current diagnosis for this admission?: Yes Plan: No evidence of acute exacerbation at present. Monitor fluid status closely. Outpatient diuretics restarted - Time Time Spent with patient: 35 or more minutes
[2017-08-14] MEDS ORDERED: CLINDAMYCIN HCL 150 MG CAPSULE PO ONE (16:00)
[2017-08-14] MEDS: LEVOFLOXACIN 500 MG TABLET PO SCH (17:26)
[2017-08-14] MEDS: MONTELUKAST SODIUM 10 MG TABLET PO SCH (17:27)
[2017-08-14] MEDS: COLLAGENASE CLOSTRIDIUM HIST. OINT 30 GM TOP SCH (17:33)
[2017-08-14] MEDS: SIMVASTATIN 40 MG TABLET PO SCH (21:23)
[2017-08-14] MEDS: CLINDAMYCIN HCL 150 MG CAPSULE PO SCH (21:24)
[2017-08-15] MEDS: ACETAMINOPHEN 325 MG TABLET PO PRN ×2 (03:22→21:11)
[2017-08-15] MEDS: CLINDAMYCIN HCL 150 MG CAPSULE PO SCH ×2 (03:23→11:10)
[2017-08-15 05:35] LABS: ANION GAP 8 (5-19); BLOOD UREA NITROGEN 27 mg/dL (7-20); CALCIUM 10.5 mg/dL (8.4-10.2); CARBON DIOXIDE 25 mmol/L (22-30); CHLORIDE 99 mmol/L (98-107); GLUCOSE 112 mg/dL (75-110); POTASSIUM 4.3 mmol/L (3.6-5.0); SODIUM 132.1 mmol/L (137-145)
[2017-08-15] MEDS: FLUTICASONE/SALMETEROL DISKUS 250-50 MCG/DOSE IH SCH ×2 (06:07→18:42)
[2017-08-15] MEDS: LANSOPRAZOLE 30 MG TAB.RAP.DR PO SCH (06:07)
[2017-08-15] MEDS: POLYETHYLENE GLYCOL 3350 POWDER 17 GM/1 PACKET PO SCH ×2 (11:04→18:45)
[2017-08-15] MEDS: LETROZOLE 2.5 MG TABLET PO SCH (11:09)
[2017-08-15] MEDS: SPIRONOLACTONE 25 MG TABLET PO SCH (11:10)
[2017-08-15] MEDS: ASPIRIN 81 MG TABLET, ENT COATED PO SCH (11:10)
[2017-08-15] MEDS: LACTOBACILLUS ACIDOPHILUS 250 MG TAB PO SCH ×2 (11:10→18:43)
[2017-08-15] MEDS: CALCIUM CARBONATE 500 MG TABLET PO SCH (11:10)
[2017-08-15] MEDS: AMIODARONE HCL 200 MG TABLET PO SCH (11:11)
[2017-08-15] MEDS: POTASSIUM CHLORIDE 10 MEQ TABLET.SA PO SCH (11:12)
[2017-08-15] MEDS: METOLAZONE 2.5 MG TABLET PO SCH (11:12)
[2017-08-15] MEDS: ENOXAPARIN SODIUM INJ 30 MG/0.3 ML DISP.SYRIN SUBCUT SCH (11:15)
[2017-08-15] MEDS: TIOTROPIUM BROMIDE DPI 5 CAP/KIT (18 MCG/CAP) IH SCH (11:16)
[2017-08-15] MEDS ORDERED: VANCOMYCIN HCL 0 MG in DEXTROSE 5%-WATER 250 ML IV NR (13:00)
--- NOTE | 2017-08-15 17:56 | RADIOLOGY REPORT (SQ) ---
EXAM DESCRIPTION: CHEST SINGLE VIEW COMPLETED DATE/TIME: 08/15/2017 5:49 pm REASON FOR STUDY: Verify Central Line Placement COMPARISON: 10/11/2011 EXAM PARAMETERS: NUMBER OF VIEWS: One view. TECHNIQUE: Single frontal radiographic view of the chest acquired. RADIATION DOSE: NA LIMITATIONS: None. FINDINGS: LUNGS AND PLEURA: No opacities, masses or pneumothorax. No pleural effusion. MEDIASTINUM AND HILAR STRUCTURES: No masses. Contour normal. HEART AND VASCULAR STRUCTURES: Heart size is borderline. There is no evidence of failure. BONES: No acute findings. HARDWARE: A right subclavian catheter has its tip in the superior vena cava. OTHER: No other significant finding. IMPRESSION: Cardiomegaly without failure. Right subclavian catheter as described. TECHNICAL DOCUMENTATION: JOB ID: [id number] [employer]- All Rights Reserved Reading location - IP/workstation name: [email or web address]
[2017-08-15] MEDS: COLLAGENASE CLOSTRIDIUM HIST. OINT 30 GM TOP SCH (18:32)
[2017-08-15] MEDS: MEROPENEM 1 GM in NORMAL SALINE 50 ML IV SCH (18:39)
[2017-08-15] MEDS: MONTELUKAST SODIUM 10 MG TABLET PO SCH (18:43)
[2017-08-15] MEDS: VANCOMYCIN HCL 750 MG in DEXTROSE 5%-WATER 250 ML IV SCH (19:43)
--- NOTE | 2017-08-15 20:27 | PDOC CONSULTATION ---
History of Present Illness Admission Date/PCP: 08/09/17 16:58 CLYDE JAMISON MD History of Present Illness: ROBERT CAMILO is a 87 year old female in need of IV access for meds and IV fluids. 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 Psychiatric Medical History: Reports: General Anxiety Disorder Denies: Depression Hematology: Reports: Anemia - 10/09/2011 Denies: Sickle Cell Disease Past Surgical History Past Surgical History: Reports: Hysterectomy, Mastectomy - 2010 Denies: Amputation, Pacemaker Social History Lives with: Alone Smoking Status: Never Smoker Frequency of Alcohol Use: None Hx Recreational Drug Use: No Drugs: None Hx Prescription Drug Abuse: No - Advance Directive Resuscitation Status: Full Code Family History Family History: Reviewed & Not Pertinent Parental Family History Reviewed: No Children Family History Reviewed: No Sibling(s) Family History Reviewed.: No Medication/Allergy Home Medications: Albuterol Sulfate [Proair Hfa] 2 puff IH Q4 08/09/17 Fluticasone/Salmeterol [Advair 250-50 Diskus 28 dose] 1 inh IH Q12 08/09/17 Furosemide [Lasix 40 mg Tablet] 40 mg PO BID 08/09/17 Letrozole [Femara 2.5 Mg Tablet] 2.5 mg PO DAILY 08/09/17 Lorazepam [Ativan 1 mg Tablet] 1 mg PO QIDP PRN 08/09/17 Metolazone [Zaroxolyn 2.5 Mg Tablet] 2.5 mg PO DAILY 08/09/17 Montelukast Sodium [Singulair 10 mg Tablet] 10 mg PO PCSUPPER 08/09/17 Pantoprazole Sodium [Protonix] 40 mg PO DAILY 08/09/17 Potassium Chloride [Klor-Con M20] 40 meq PO TID 08/09/17 Simvastatin [Zocor 20 mg Tablet] 20 mg PO QHS 08/09/17 Spironolactone [Aldactone 25 mg Tablet] 25 mg PO DAILY 08/09/17 Allergies/Adverse Reactions: amoxicillin [Amoxicillin] Allergy (Intermediate, Verified 06/29/10 11:12) Rash codeine [Codeine] Allergy (Unknown, Verified 11/06/11 08:31) adhesive tape [Adhesive Tape] Adverse Reaction (Severe, Verified 06/29/10 11:16) Tears skin diltiazem HCl [From Tiazac] Adverse Reaction (Intermediate, Verified 06/29/10 11 :13) Dizzy doxycycline [Doxycycline] Adverse Reaction (Intermediate, Verified 06/29/10 11: 14) Dizzy lisinopril [Lisinopril] Adverse Reaction (Intermediate, Verified 06/29/10 11:14) Dizzy propafenone [Propafenone] Adverse Reaction (Intermediate, Verified 06/29/10 11: 15) Diarrhea zolpidem tartrate [From Ambien] Adverse Reaction (Intermediate, Verified 12:32) Confusion Strong fumes Allergy (Severe, Uncoded 06/29/10 11:18) Asthma Physical Exam Vital Signs: Temp Pulse Resp BP Pulse Ox 97.5 F 62 18 125/38 L 96 08/15/17 13:00 08/15/17 13:00 08/15/17 13:00 08/15/17 13:00 08/15/17 13:00 Intake & Output 08/14/17 08/15/17 08/16/17 06:59 06:59 06:59 Intake Total 1264 861 375 Output Total 350 300 300 Balance 914 561 75 Weight 55 kg 58.8 kg General appearance: PRESENT: mild distress Eye exam: PRESENT: EOMI Mouth exam: PRESENT: moist Respiratory exam: PRESENT: clear to auscultation bruce Cardiovascular exam: PRESENT: RRR GI/Abdominal exam: PRESENT: soft Results Laboratory Results: 08/13/17 11:06 08/15/17 04:35 08/15/17 04:35 Sodium 132.1 L Potassium 4.3 Chloride 99 Carbon Dioxide 25 Anion Gap 8 BUN 27 H Creatinine 1.47 H Est GFR ( Amer) 41 L Est GFR (Non-Af Amer) 34 L Glucose 112 H Calcium 10.5 H 08/11/17 08/11/17 08/13/17 12:35 15:04 11:06 NT-Pro-B Natriuret Pep Cancelled 1160 H 1350 H Impressions: Tibia/Fibula X-Ray 08/08/17 14:35 IMPRESSION: No evidence for osteomyelitis. Soft tissue defect without foreign body. Bold Chest X-Ray 08/15/17 00:00 IMPRESSION: Cardiomegaly without failure. Right subclavian catheter as described. Assessment & Plan - Diagnosis (1) Need for intravenous access Is this a current diagnosis for this admission?: Yes - Plan Summary Plan Summary: A/ need of IV access for meds and IV fluids P/ Placement of CVL triple lumen catheter at bed side Procedure, risks, benefits, complications explained to the patient, she understands, and decides to proceed
[2017-08-15] MEDS: SIMVASTATIN 40 MG TABLET PO SCH (21:08)
[2017-08-16] MEDS ORDERED: OXYCODONE-ACETAMINOPHEN 5-325 MG TABLET PO ONE (04:45)
--- NOTE | 2017-08-16 05:25 | RADIOLOGY REPORT (SQ) ---
EXAM DESCRIPTION: CHEST SINGLE VIEW CLINICAL HISTORY: Tachypnea pain recent central line placed COMPARISON: 08/15/2017 FINDINGS: Single frontal view of the chest. Right subclavian central venous catheter with tip in the SVC. Prior median sternotomy. Cardiomegaly. Atherosclerotic calcification and tortuosity of thoracic aorta. Postoperative change in the right axillary region. No consolidation, pneumothorax, or pleural effusion. Low lung volumes. No acute osseous abnormality. Upper abdominal soft tissues are unremarkable. IMPRESSION: 1. No acute pulmonary process identified. Cardiomegaly.
[2017-08-16] MEDS: FLUTICASONE/SALMETEROL DISKUS 250-50 MCG/DOSE IH SCH ×2 (06:14→17:49)
[2017-08-16] MEDS: MEROPENEM 1 GM in NORMAL SALINE 50 ML IV SCH ×2 (06:15→17:49)
[2017-08-16] MEDS: LANSOPRAZOLE 30 MG TAB.RAP.DR PO SCH (06:16)
[2017-08-16 06:55] LABS: ANION GAP 7 (5-19); BLOOD UREA NITROGEN 24 mg/dL (7-20); CALCIUM 10.2 mg/dL (8.4-10.2); CARBON DIOXIDE 23 mmol/L (22-30); CHLORIDE 103 mmol/L (98-107); GLUCOSE 87 mg/dL (75-110); POTASSIUM 3.5 mmol/L (3.6-5.0); SODIUM 133.3 mmol/L (137-145)
[2017-08-16] MEDS: POTASSIUM CHLORIDE 10 MEQ TABLET.SA PO SCH (09:44)
[2017-08-16] MEDS: ASPIRIN 81 MG TABLET, ENT COATED PO SCH (09:47)
[2017-08-16] MEDS: CALCIUM CARBONATE 500 MG TABLET PO SCH (09:48)
[2017-08-16] MEDS: AMIODARONE HCL 200 MG TABLET PO SCH (09:49)
[2017-08-16] MEDS: LACTOBACILLUS ACIDOPHILUS 250 MG TAB PO SCH ×2 (09:49→17:48)
[2017-08-16] MEDS: LETROZOLE 2.5 MG TABLET PO SCH (09:49)
[2017-08-16] MEDS: ENOXAPARIN SODIUM INJ 30 MG/0.3 ML DISP.SYRIN SUBCUT SCH (09:49)
[2017-08-16] MEDS: SPIRONOLACTONE 25 MG TABLET PO SCH (09:49)
[2017-08-16] MEDS: POLYETHYLENE GLYCOL 3350 POWDER 17 GM/1 PACKET PO SCH ×2 (09:49→17:45)
[2017-08-16] MEDS: TIOTROPIUM BROMIDE DPI 5 CAP/KIT (18 MCG/CAP) IH SCH (09:50)
[2017-08-16] MEDS ORDERED: POTASSIUM CHLORIDE 10 MEQ TABLET.SA PO ONE (10:00)
[2017-08-16] MEDS ORDERED: METOLAZONE 2.5 MG TABLET PO SCH (10:00)
--- NOTE | 2017-08-16 12:33 | PDOC PROGRESS REPORT ---
Subjective Progress Note for:: 08/16/17 Subjective:: 87 yr old female with h/o CKD III Anemia of chronic disease Hypertension Coronary artery disease Atrial fibrillation, not on anticoagulation Seasonal allergies Right-sided mastectomy for breast cancer Antibiotics were switched to Vanc and Meropenem on since the Levaquin and PO Clindamycin were not effective for resolution of her R leg cellulitis and she was having side effects. She requires 2 person assist for transfers and will be unable to manage at home , would benefit from subacute rehab at SNF. Plan of care was discussed with the patient and family at the bedside. R subclavian line placed on 08/15/17. Reason For Visit: LEG CELLULITIS Physical Exam Vital Signs: Temp Pulse Resp BP Pulse Ox 97.9 F 57 L 16 126/30 H 99 08/16/17 11:20 08/16/17 11:20 08/16/17 11:20 08/16/17 11:20 08/16/17 11:20 Intake & Output 08/15/17 08/16/17 08/17/17 06:59 06:59 06:59 Intake Total 861 525 Output Total 300 300 Balance 561 225 Weight 58.8 kg 56.1 kg General appearance: PRESENT: no acute distress Head exam: PRESENT: normocephalic Eye exam: ABSENT: scleral icterus Ear exam: PRESENT: normal external ear exam Mouth exam: PRESENT: neck supple, other - R mastectomy, R subclavian line Respiratory exam: PRESENT: clear to auscultation bruce, symmetrical, unlabored Cardiovascular exam: PRESENT: RRR GI/Abdominal exam: PRESENT: normal bowel sounds, soft. ABSENT: tenderness Rectal exam: PRESENT: deferred Extremities exam: PRESENT: pedal edema. ABSENT: calf tenderness Neurological exam: PRESENT: alert, awake, oriented to person, oriented to place Psychiatric exam: PRESENT: appropriate affect Skin exam: PRESENT: other - Erythema around skin tear on R leg- improving Results Laboratory Results: 08/13/17 11:06 08/16/17 06:30 08/16/17 06:30 Sodium 133.3 L Potassium 3.5 L Chloride 103 Carbon Dioxide 23 Anion Gap 7 BUN 24 H Creatinine 1.35 H Est GFR ( Amer) 45 L Est GFR (Non-Af Amer) 37 L Glucose 87 Calcium 10.2 08/11/17 08/11/17 08/13/17 12:35 15:04 11:06 NT-Pro-B Natriuret Pep Cancelled 1160 H 1350 H Impressions: Tibia/Fibula X-Ray 08/08/17 14:35 IMPRESSION: No evidence for osteomyelitis. Soft tissue defect without foreign body. Bold Chest X-Ray 08/16/17 00:00 IMPRESSION: 1. No acute pulmonary process identified. Cardiomegaly. Assessment & Plan - Diagnosis (1) Cellulitis of leg, right Is this a current diagnosis for this admission?: Yes Plan: Vancomycin and Meropenem- day 2 Continue wound care and dressing changes (2) Acute on chronic renal failure Qualifiers: Acute renal failure type: unspecified Chronic kidney disease stage: stage 4 (severe) Qualified Code(s): N17.9 - Acute kidney failure, unspecified; N18.4 - Chronic kidney disease, stage 4 (severe); N18.4 - Chronic kidney disease , stage 4 (severe); N18.4 - Chronic kidney disease, stage 4 (severe); N18.4 - Chronic kidney disease, stage 4 (severe) Is this a current diagnosis for this admission?: Yes Plan: Resolved with IV fluids (3) Chronic pain Qualifiers: Chronic pain type: other chronic pain Qualified Code(s): G89.29 - Other chronic pain Is this a current diagnosis for this admission?: Yes Plan: Percocet prn (4) Constipation Qualifiers: Constipation type: unspecified constipation type Qualified Code(s): K59.00 - Constipation, unspecified Is this a current diagnosis for this admission?: Yes (5) Hypokalemia Is this a current diagnosis for this admission?: Yes (6) Infected skin tear Is this a current diagnosis for this admission?: Yes (7) Anemia of chronic disease Is this a current diagnosis for this admission?: Yes (8) History of atrial fibrillation Is this a current diagnosis for this admission?: Yes Plan: On Amiodarone and aspirin. Not on anticoagulation, exact cause unknown but she was taken off anticoagulation approximately a year ago. (9) Diastolic CHF Is this a current diagnosis for this admission?: Yes Plan: No evidence of acute exacerbation at present. Monitor fluid status closely. Continue outpatient diuretics at lower dose to prevent excessive dehydration. - Time Time Spent with patient: 35 or more minutes - Inpatient Certification Medical Necessity: Need for IV Antibiotics - Plan for rehab at discharge
[2017-08-16] MEDS: FUROSEMIDE 40 MG TABLET PO SCH (14:51)
[2017-08-16] MEDS: MONTELUKAST SODIUM 10 MG TABLET PO SCH (17:48)
[2017-08-16] MEDS: ONDANSETRON HCL INJ/PF 4 MG/2 ML SDV IV PRN (18:22)
[2017-08-16] MEDS: SIMVASTATIN 40 MG TABLET PO SCH (23:15)
[2017-08-16] MEDS: COLLAGENASE CLOSTRIDIUM HIST. OINT 30 GM TOP SCH (23:27)
[2017-08-17] MEDS: MEROPENEM 1 GM in NORMAL SALINE 50 ML IV SCH (06:11)
[2017-08-17] MEDS: LANSOPRAZOLE 30 MG TAB.RAP.DR PO SCH (06:12)
[2017-08-17 06:42] LABS: HEMATOCRIT 30.9 % (36.0-47.0); HEMOGLOBIN 10.5 g/dL (12.0-15.5); MEAN CORPUSCULAR HEMOGLOBIN 29.6 pg (27.0-33.4); MEAN CORPUSCULAR HGB CONC 33.9 g/dL (32.0-36.0); MEAN CORPUSCULAR VOLUME 87 fl (80-97); PLATELET COUNT 171 10^3/uL (150-450); RED BLOOD COUNT 3.54 10^6/uL (3.72-5.28); RED CELL DISTRIBUTION WIDTH 16.8 % (11.5-14.0); WHITE BLOOD COUNT 7.6 10^3/uL (4.0-10.5)
[2017-08-17 07:01] LABS: ANION GAP 8 (5-19); BLOOD UREA NITROGEN 22 mg/dL (7-20); CARBON DIOXIDE 23 mmol/L (22-30); CHLORIDE 104 mmol/L (98-107); GLUCOSE 92 mg/dL (75-110); PHOSPHORUS 3.6 mg/dL (2.5-4.5); POTASSIUM 3.6 mmol/L (3.6-5.0); SODIUM 134.5 mmol/L (137-145)
[2017-08-17] MEDS: FLUTICASONE/SALMETEROL DISKUS 250-50 MCG/DOSE IH SCH ×2 (07:49→17:33)
[2017-08-17] MEDS: VANCOMYCIN HCL 750 MG in DEXTROSE 5%-WATER 250 ML IV SCH (07:49)
[2017-08-17] MEDS: POTASSIUM CHLORIDE 10 MEQ TABLET.SA PO SCH (10:57)
[2017-08-17] MEDS: LACTOBACILLUS ACIDOPHILUS 250 MG TAB PO SCH ×2 (10:58→17:36)
[2017-08-17] MEDS: ASPIRIN 81 MG TABLET, ENT COATED PO SCH (10:58)
[2017-08-17] MEDS: AMIODARONE HCL 200 MG TABLET PO SCH (10:58)
[2017-08-17] MEDS: CALCIUM CARBONATE 500 MG TABLET PO SCH (10:59)
[2017-08-17] MEDS: SPIRONOLACTONE 25 MG TABLET PO SCH (11:00)
[2017-08-17] MEDS: FUROSEMIDE 40 MG TABLET PO SCH (11:00)
[2017-08-17] MEDS: METOLAZONE 2.5 MG TABLET PO SCH (11:01)
[2017-08-17] MEDS: ENOXAPARIN SODIUM INJ 30 MG/0.3 ML DISP.SYRIN SUBCUT SCH (11:02)
[2017-08-17] MEDS: TIOTROPIUM BROMIDE DPI 5 CAP/KIT (18 MCG/CAP) IH SCH (11:04)
[2017-08-17] MEDS: LETROZOLE 2.5 MG TABLET PO SCH (11:04)
[2017-08-17] MEDS: POLYETHYLENE GLYCOL 3350 POWDER 17 GM/1 PACKET PO SCH ×2 (11:05→17:37)
--- NOTE | 2017-08-17 14:04 | PDOC PROGRESS REPORT ---
Subjective Progress Note for:: 08/17/17 Subjective:: Seen and examined the patient while she is resting her recliner. I have unwrapped her right leg cellulitis which is inflicted by accidental hit with grocery cart. The wound is transverse and ragged with mild drainage. Patient has been covered with vancomycin and meropenem. Since patient has underlying chronic kidney disease vancomycin is not appropriate and the meropenem is a wide spectrum antibiotics and is not appropriate for the treatment of this patient's cellulitis. Discontinued both vancomycin and meropenem and I switched it to Unasyn. Reason For Visit: LEG CELLULITIS Physical Exam Vital Signs: Temp Pulse Resp BP Pulse Ox 98.3 F 57 L 18 125/44 L 100 08/17/17 11:10 08/17/17 11:10 08/17/17 11:10 08/17/17 11:10 08/17/17 11:10 Intake & Output 08/16/17 08/17/17 08/18/17 06:59 06:59 06:59 Intake Total 525 929 Output Total 300 Balance 225 929 Weight 56.1 kg 55.9 kg General appearance: PRESENT: no acute distress Head exam: PRESENT: atraumatic, normocephalic Respiratory exam: PRESENT: clear to auscultation bruce. ABSENT: rales, rhonchi, wheezes Cardiovascular exam: PRESENT: RRR. ABSENT: diastolic murmur, rubs, systolic murmur GI/Abdominal exam: PRESENT: normal bowel sounds, soft. ABSENT: distended, guarding, mass, organolmegaly, rebound, tenderness Extremities exam: PRESENT: other - Ragged, transverse infected wound at the lower third of right leg. Results Laboratory Results: 08/17/17 06:20 08/17/17 06:20 08/17/17 08/17/17 06:20 06:20 WBC 7.6 RBC 3.54 L Hgb 10.5 L Hct 30.9 L MCV 87 MCH 29.6 MCHC 33.9 RDW 16.8 H Plt Count 171 Sodium 134.5 L Potassium 3.6 Chloride 104 Carbon Dioxide 23 Anion Gap 8 BUN 22 H Creatinine 1.32 H Est GFR ( Amer) 46 L Est GFR (Non-Af Amer) 38 L Glucose 92 Calcium 10.0 Phosphorus 3.6 Magnesium 2.1 08/11/17 08/11/17 08/13/17 12:35 15:04 11:06 NT-Pro-B Natriuret Pep Cancelled 1160 H 1350 H Impressions: Tibia/Fibula X-Ray 08/08/17 14:35 IMPRESSION: No evidence for osteomyelitis. Soft tissue defect without foreign body. Bold Chest X-Ray 08/16/17 00:00 IMPRESSION: 1. No acute pulmonary process identified. Cardiomegaly. Assessment & Plan - Diagnosis (1) Acute on chronic renal failure Qualifiers: Acute renal failure type: unspecified Chronic kidney disease stage: stage 4 (severe) Qualified Code(s): N17.9 - Acute kidney failure, unspecified; N18.4 - Chronic kidney disease, stage 4 (severe); N18.4 - Chronic kidney disease , stage 4 (severe); N18.4 - Chronic kidney disease, stage 4 (severe); N18.4 - Chronic kidney disease, stage 4 (severe) Is this a current diagnosis for this admission?: Yes Plan: Stable we will avoid nephrotoxic agents. (2) Cellulitis of leg, right Is this a current diagnosis for this admission?: Yes Plan: Patient switched from vancomycin and meropenem to Unasyn (3) Diastolic CHF Is this a current diagnosis for this admission?: Yes Plan: Stable and will continue her home medications. (4) History of atrial fibrillation Is this a current diagnosis for this admission?: Yes Plan: Rate controlled. Continue Xarelto
[2017-08-17] MEDS: MONTELUKAST SODIUM 10 MG TABLET PO SCH (17:36)
[2017-08-17] MEDS: COLLAGENASE CLOSTRIDIUM HIST. OINT 30 GM TOP SCH (17:36)
[2017-08-17] MEDS ORDERED: AMPICILLIN SODIUM/SULBACTAM NA 1.5 GM in NORMAL SALINE 50 ML IV SCH (18:00)
[2017-08-17] MEDS ORDERED: CEFEPIME 1 GM/D5W RTU 1 GM/50 ML RTUPB IV SCH (18:15)
[2017-08-17] MEDS: SIMVASTATIN 40 MG TABLET PO SCH (21:28)
[2017-08-17] MEDS ORDERED: CEFEPIME HCL 0.5 GM in DEXTROSE 5%-WATER 25 ML IV SCH (22:00)
[2017-08-17] MEDS: CEFEPIME HCL 0.5 GM in NORMAL SALINE 25 ML IV SCH (23:37)
[2017-08-18] MEDS: FLUTICASONE/SALMETEROL DISKUS 250-50 MCG/DOSE IH SCH ×2 (06:26→17:12)
[2017-08-18] MEDS: LANSOPRAZOLE 30 MG TAB.RAP.DR PO SCH (06:26)
[2017-08-18] MEDS: ENOXAPARIN SODIUM INJ 30 MG/0.3 ML DISP.SYRIN SUBCUT SCH (10:13)
[2017-08-18] MEDS: POTASSIUM CHLORIDE 10 MEQ TABLET.SA PO SCH (10:13)
[2017-08-18] MEDS: TIOTROPIUM BROMIDE DPI 5 CAP/KIT (18 MCG/CAP) IH SCH (10:14)
[2017-08-18] MEDS: LACTOBACILLUS ACIDOPHILUS 250 MG TAB PO SCH ×2 (10:14→17:13)
[2017-08-18] MEDS: LETROZOLE 2.5 MG TABLET PO SCH (10:14)
[2017-08-18] MEDS: CALCIUM CARBONATE 500 MG TABLET PO SCH (10:15)
[2017-08-18] MEDS: FUROSEMIDE 40 MG TABLET PO SCH (10:15)
[2017-08-18] MEDS: AMIODARONE HCL 200 MG TABLET PO SCH (10:15)
[2017-08-18] MEDS: ASPIRIN 81 MG TABLET, ENT COATED PO SCH (10:15)
[2017-08-18] MEDS: POLYETHYLENE GLYCOL 3350 POWDER 17 GM/1 PACKET PO SCH ×2 (10:16→15:15)
[2017-08-18] MEDS: SPIRONOLACTONE 25 MG TABLET PO SCH (10:16)
--- NOTE | 2017-08-18 12:59 | PDOC PROGRESS REPORT ---
Subjective Progress Note for:: 08/18/17 Subjective:: Seen patient resting in bed comfortably she is awake alert. She is not in pain or distress. But she complains of nightmares. Reason For Visit: LEG CELLULITIS Physical Exam Vital Signs: Temp Pulse Resp BP Pulse Ox 97.7 F 52 L 20 136/44 H 100 08/18/17 08:18 08/18/17 08:18 08/18/17 08:18 08/18/17 08:18 08/18/17 08:18 Intake & Output 08/17/17 08/18/17 08/19/17 06:59 06:59 06:59 Intake Total 929 1370 Balance 929 1370 Weight 55.9 kg 60 kg General appearance: PRESENT: no acute distress, well-developed, well-nourished Respiratory exam: PRESENT: clear to auscultation bruce. ABSENT: rales, rhonchi, wheezes Cardiovascular exam: PRESENT: RRR. ABSENT: diastolic murmur, rubs, systolic murmur Pulses: PRESENT: normal dorsalis pedis pul Extremities exam: PRESENT: other - Right leg cellulitis is improving. Results Laboratory Results: 08/17/17 06:20 08/17/17 06:20 08/11/17 08/11/17 08/13/17 12:35 15:04 11:06 NT-Pro-B Natriuret Pep Cancelled 1160 H 1350 H Impressions: Tibia/Fibula X-Ray 08/08/17 14:35 IMPRESSION: No evidence for osteomyelitis. Soft tissue defect without foreign body. Bold Chest X-Ray 08/16/17 00:00 IMPRESSION: 1. No acute pulmonary process identified. Cardiomegaly. Assessment & Plan - Diagnosis (1) Acute on chronic renal failure Qualifiers: Acute renal failure type: unspecified Chronic kidney disease stage: stage 4 (severe) Qualified Code(s): N17.9 - Acute kidney failure, unspecified; N18.4 - Chronic kidney disease, stage 4 (severe); N18.4 - Chronic kidney disease , stage 4 (severe); N18.4 - Chronic kidney disease, stage 4 (severe); N18.4 - Chronic kidney disease, stage 4 (severe) Is this a current diagnosis for this admission?: Yes Plan: Has been improving (2) Cellulitis of leg, right Is this a current diagnosis for this admission?: Yes Plan: Patient switched from vancomycin and meropenem to Unasyn (3) Diastolic CHF Is this a current diagnosis for this admission?: Yes Plan: Stable and will continue her home medications. (4) History of atrial fibrillation Is this a current diagnosis for this admission?: Yes Plan: Rate controlled. Continue Xarelto
[2017-08-18] MEDS: ONDANSETRON HCL INJ/PF 4 MG/2 ML SDV IV PRN ×2 (13:36→20:42)
[2017-08-18] MEDS: MONTELUKAST SODIUM 10 MG TABLET PO SCH (17:13)
[2017-08-18] MEDS: COLLAGENASE CLOSTRIDIUM HIST. OINT 30 GM TOP SCH (17:27)
[2017-08-18] MEDS: SIMVASTATIN 40 MG TABLET PO SCH (21:55)
[2017-08-18] MEDS: CEFEPIME HCL 0.5 GM in NORMAL SALINE 25 ML IV SCH (21:55)
[2017-08-19] MEDS: FLUTICASONE/SALMETEROL DISKUS 250-50 MCG/DOSE IH SCH ×2 (06:30→17:15)
[2017-08-19] MEDS: LANSOPRAZOLE 30 MG TAB.RAP.DR PO SCH (06:30)
[2017-08-19] MEDS: POTASSIUM CHLORIDE 10 MEQ TABLET.SA PO SCH (10:28)
[2017-08-19] MEDS: LACTOBACILLUS ACIDOPHILUS 250 MG TAB PO SCH ×2 (10:29→17:15)
[2017-08-19] MEDS: AMIODARONE HCL 200 MG TABLET PO SCH (10:29)
[2017-08-19] MEDS: ASPIRIN 81 MG TABLET, ENT COATED PO SCH (10:29)
[2017-08-19] MEDS: FUROSEMIDE 40 MG TABLET PO SCH (10:30)
[2017-08-19] MEDS: CALCIUM CARBONATE 500 MG TABLET PO SCH (10:30)
[2017-08-19] MEDS: SPIRONOLACTONE 25 MG TABLET PO SCH (10:30)
[2017-08-19] MEDS: POLYETHYLENE GLYCOL 3350 POWDER 17 GM/1 PACKET PO SCH ×2 (10:31→17:16)
[2017-08-19] MEDS: LETROZOLE 2.5 MG TABLET PO SCH (10:31)
[2017-08-19] MEDS: ENOXAPARIN SODIUM INJ 30 MG/0.3 ML DISP.SYRIN SUBCUT SCH (10:32)
[2017-08-19] MEDS: TIOTROPIUM BROMIDE DPI 5 CAP/KIT (18 MCG/CAP) IH SCH (10:34)
--- NOTE | 2017-08-19 12:50 | PDOC PROGRESS REPORT ---
Subjective Progress Note for:: 08/19/17 Subjective:: Ms. Smith is 87 years old female patient admitted for cellulitis of the right leg following injury with grocery cart. Currently patient has been getting cefepime and local wound care. This morning I seen patient resting in bed comfortably and she reports that she had a restful night. Reason For Visit: LEG CELLULITIS Physical Exam Vital Signs: Temp Pulse Resp BP Pulse Ox 98.4 F 52 L 20 123/37 L 99 08/19/17 12:00 08/19/17 12:00 08/19/17 12:00 08/19/17 12:00 08/19/17 12:00 Intake & Output 08/18/17 08/19/17 08/20/17 06:59 06:59 06:59 Intake Total 1370 1049 Balance 1370 1049 Weight 60 kg 57 kg General appearance: PRESENT: no acute distress, well-developed, well-nourished Head exam: PRESENT: atraumatic, normocephalic Respiratory exam: PRESENT: clear to auscultation bruce. ABSENT: rales, rhonchi, wheezes Cardiovascular exam: PRESENT: irregular rhythm Extremities exam: PRESENT: other - Laceration and cellulitis of right leg at the lower third. Results Laboratory Results: 08/17/17 06:20 08/17/17 06:20 08/11/17 08/11/17 08/13/17 12:35 15:04 11:06 NT-Pro-B Natriuret Pep Cancelled 1160 H 1350 H Impressions: Tibia/Fibula X-Ray 08/08/17 14:35 IMPRESSION: No evidence for osteomyelitis. Soft tissue defect without foreign body. Bold Chest X-Ray 08/16/17 00:00 IMPRESSION: 1. No acute pulmonary process identified. Cardiomegaly. Assessment & Plan - Diagnosis (1) Acute on chronic renal failure Qualifiers: Acute renal failure type: unspecified Chronic kidney disease stage: stage 4 (severe) Qualified Code(s): N17.9 - Acute kidney failure, unspecified; N18.4 - Chronic kidney disease, stage 4 (severe); N18.4 - Chronic kidney disease , stage 4 (severe); N18.4 - Chronic kidney disease, stage 4 (severe); N18.4 - Chronic kidney disease, stage 4 (severe) Is this a current diagnosis for this admission?: Yes Plan: Has been improving (2) Cellulitis of leg, right Is this a current diagnosis for this admission?: Yes Plan: Patient switched from vancomycin and meropenem to Unasyn (3) Diastolic CHF Is this a current diagnosis for this admission?: Yes Plan: Stable and will continue her home medications. (4) History of atrial fibrillation Is this a current diagnosis for this admission?: Yes
[2017-08-19] MEDS: COLLAGENASE CLOSTRIDIUM HIST. OINT 30 GM TOP SCH (16:49)
[2017-08-19] MEDS: MONTELUKAST SODIUM 10 MG TABLET PO SCH (17:15)
[2017-08-19] MEDS: ONDANSETRON HCL INJ/PF 4 MG/2 ML SDV IV PRN (17:23)
[2017-08-19] MEDS: CEFEPIME HCL 0.5 GM in NORMAL SALINE 25 ML IV SCH (22:23)
[2017-08-19] MEDS ORDERED: SIMVASTATIN 40 MG TABLET ONE (22:29)
[2017-08-19] MEDS: SIMVASTATIN 40 MG TABLET PO SCH (23:00)
[2017-08-20] MEDS ORDERED: FLUTICASONE/SALMETEROL DISKUS 250-50 MCG/DOSE IH ONE (06:47)
[2017-08-20] MEDS: FLUTICASONE/SALMETEROL DISKUS 250-50 MCG/DOSE IH SCH ×2 (07:00→18:57)
[2017-08-20] MEDS: LANSOPRAZOLE 30 MG TAB.RAP.DR PO SCH (07:01)
[2017-08-20] MEDS: METOLAZONE 2.5 MG TABLET PO SCH (09:35)
[2017-08-20] MEDS: LETROZOLE 2.5 MG TABLET PO SCH (09:36)
[2017-08-20] MEDS: POTASSIUM CHLORIDE 10 MEQ TABLET.SA PO SCH (09:37)
[2017-08-20] MEDS: POLYETHYLENE GLYCOL 3350 POWDER 17 GM/1 PACKET PO SCH ×2 (09:38→18:57)
[2017-08-20] MEDS: TIOTROPIUM BROMIDE DPI 5 CAP/KIT (18 MCG/CAP) IH SCH (09:39)
[2017-08-20] MEDS: LACTOBACILLUS ACIDOPHILUS 250 MG TAB PO SCH ×2 (10:47→18:56)
[2017-08-20] MEDS: AMIODARONE HCL 200 MG TABLET PO SCH (10:47)
[2017-08-20] MEDS: ASPIRIN 81 MG TABLET, ENT COATED PO SCH (10:48)
[2017-08-20] MEDS: SPIRONOLACTONE 25 MG TABLET PO SCH (10:48)
[2017-08-20] MEDS: FUROSEMIDE 40 MG TABLET PO SCH (10:49)
[2017-08-20] MEDS: CALCIUM CARBONATE 500 MG TABLET PO SCH (10:49)
[2017-08-20] MEDS: ENOXAPARIN SODIUM INJ 30 MG/0.3 ML DISP.SYRIN SUBCUT SCH (10:49)
--- NOTE | 2017-08-20 12:19 | PDOC PROGRESS REPORT ---
Subjective Reason For Visit: LEG CELLULITIS Physical Exam Vital Signs: Temp Pulse Resp BP Pulse Ox 98.0 F 59 L 18 117/45 L 100 08/20/17 11:52 08/20/17 11:52 08/20/17 11:52 08/20/17 11:52 08/20/17 11:52 Intake & Output 08/19/17 08/20/17 08/21/17 06:59 06:59 06:59 Intake Total 1049 0 Output Total 150 Balance 1049 0 -150 Weight 57 kg 42.3 kg Results Laboratory Results: 08/17/17 06:20 08/17/17 06:20 08/11/17 08/11/17 08/13/17 12:35 15:04 11:06 NT-Pro-B Natriuret Pep Cancelled 1160 H 1350 H Impressions: Tibia/Fibula X-Ray 08/08/17 14:35 IMPRESSION: No evidence for osteomyelitis. Soft tissue defect without foreign body. Bold Chest X-Ray 08/16/17 00:00 IMPRESSION: 1. No acute pulmonary process identified. Cardiomegaly. Assessment & Plan - Diagnosis (1) Infected skin tear Is this a current diagnosis for this admission?: Yes (2) Cellulitis of leg, right Is this a current diagnosis for this admission?: Yes (3) Hypokalemia Is this a current diagnosis for this admission?: Yes (4) Acute on chronic renal failure Qualifiers: Acute renal failure type: unspecified Chronic kidney disease stage: stage 4 (severe) Qualified Code(s): N17.9 - Acute kidney failure, unspecified; N18.4 - Chronic kidney disease, stage 4 (severe); N18.4 - Chronic kidney disease , stage 4 (severe); N18.4 - Chronic kidney disease, stage 4 (severe); N18.4 - Chronic kidney disease, stage 4 (severe) Is this a current diagnosis for this admission?: Yes (5) Anemia Qualifiers: Anemia type: unspecified type Qualified Code(s): D64.9 - Anemia, unspecified Is this a current diagnosis for this admission?: Yes (6) Constipation Qualifiers: Constipation type: unspecified constipation type Qualified Code(s): K59.00 - Constipation, unspecified Is this a current diagnosis for this admission?: Yes (7) Chronic pain Qualifiers: Chronic pain type: other chronic pain Qualified Code(s): G89.29 - Other chronic pain Is this a current diagnosis for this admission?: Yes
[2017-08-20] MEDS: COLLAGENASE CLOSTRIDIUM HIST. OINT 30 GM TOP SCH (15:50)
[2017-08-20] MEDS: MONTELUKAST SODIUM 10 MG TABLET PO SCH (18:56)
[2017-08-20] MEDS ORDERED: OLANZAPINE 2.5 MG TABLET PO ONE (19:00)
[2017-08-20] MEDS: LINEZOLID 600 MG TABLET PO SCH (21:28)
[2017-08-20] MEDS: SIMVASTATIN 40 MG TABLET PO SCH (21:39)
--- NOTE | 2017-08-20 23:56 | PDOC PROGRESS REPORT ---
Subjective Progress Note for:: 08/20/17 Subjective:: Patient refers having problems sleeping. Daughter and son are at bedside and state that patient has been having hallucinations primarily at bedtime. She may see people. Also she is concerned that the right leg was less pink yesterday. Appetite and constipation are improved. Review of systems All organ systems evalauted and negative except in subjective All significant diagnostics and laboratories had been reviewed Reason For Visit: LEG CELLULITIS Physical Exam Vital Signs: Temp Pulse Resp BP Pulse Ox 98.1 F 52 L 18 116/39 L 100 08/20/17 19:31 08/20/17 19:31 08/20/17 19:31 08/20/17 19:31 08/20/17 19:31 Intake & Output 08/19/17 08/20/17 08/21/17 06:59 06:59 06:59 Intake Total 1049 0 Output Total 150 Balance 1049 0 -150 Weight 57 kg 42.3 kg General appearance: PRESENT: cooperative, well-developed, well-nourished Head exam: PRESENT: atraumatic, normocephalic Eye exam: PRESENT: conjunctiva pink, EOMI, PERRLA Mouth exam: PRESENT: moist Neck exam: PRESENT: full ROM. ABSENT: JVD, lymphadenopathy, tenderness Respiratory exam: PRESENT: clear to auscultation bruce Cardiovascular exam: PRESENT: RRR. ABSENT: diastolic murmur, systolic murmur Vascular exam: PRESENT: normal capillary refill GI/Abdominal exam: PRESENT: normal bowel sounds, soft. ABSENT: tenderness Extremities exam: PRESENT: full ROM Musculoskeletal exam: PRESENT: ambulatory - 2+ edema of right lower extremity . Wound noted measuring around 3 cm with overlaying dry blood. Surrounding salmon pink discoloration noted. Neurological exam: PRESENT: alert, awake, oriented to person, oriented to place , oriented to time, oriented to situation, CN II-XII grossly intact Psychiatric exam: PRESENT: appropriate affect, normal mood Skin exam: PRESENT: other - purplish discoloration of right and left forearm present Results Laboratory Results: 08/17/17 06:20 08/17/17 06:20 08/11/17 08/11/17 08/13/17 12:35 15:04 11:06 NT-Pro-B Natriuret Pep Cancelled 1160 H 1350 H Impressions: Tibia/Fibula X-Ray 08/08/17 14:35 IMPRESSION: No evidence for osteomyelitis. Soft tissue defect without foreign body. Bold Chest X-Ray 08/16/17 00:00 IMPRESSION: 1. No acute pulmonary process identified. Cardiomegaly. Assessment & Plan - Diagnosis (1) Infected skin tear Is this a current diagnosis for this admission?: Yes Plan: Improved. Had been thru different antibiotic trial. To discontinue cefepime and place on zyvox (family insists that she gets hallucination due to antibiotics). Nurse instructed about applying Santyl to wound daily (2) Cellulitis of leg, right Is this a current diagnosis for this admission?: Yes Plan: Improved when compared to first few days of admission (3) Hypokalemia Is this a current diagnosis for this admission?: Yes Plan: Replaced. Order BMP (4) Acute on chronic renal failure Qualifiers: Acute renal failure type: unspecified Chronic kidney disease stage: stage 4 (severe) Qualified Code(s): N17.9 - Acute kidney failure, unspecified; N18.4 - Chronic kidney disease, stage 4 (severe); N18.4 - Chronic kidney disease , stage 4 (severe); N18.4 - Chronic kidney disease, stage 4 (severe); N18.4 - Chronic kidney disease, stage 4 (severe) Is this a current diagnosis for this admission?: Yes Plan: Order BMP to evaluate where were are standing at (5) Anemia Qualifiers: Anemia type: unspecified type Qualified Code(s): D64.9 - Anemia, unspecified Is this a current diagnosis for this admission?: Yes Plan: Order CBC (6) Constipation Qualifiers: Constipation type: unspecified constipation type Qualified Code(s): K59.00 - Constipation, unspecified Is this a current diagnosis for this admission?: Yes Plan: Resolved (7) Chronic pain Qualifiers: Chronic pain type: other chronic pain Qualified Code(s): G89.29 - Other chronic pain Is this a current diagnosis for this admission?: Yes Plan: Improved (8) Weakness Is this a current diagnosis for this admission?: Yes Plan: For rehab - Time Time Spent with patient: 15-24 minutes Medications reviewed and adjusted accordingly: Yes Anticipated discharge: Acute Rehab Within: within 48 hours - Inpatient Certification Based on my medical assessment, after consideration of the patient's comorbidities, presenting symptoms, or acuity I expect that the services needed warrant INPATIENT care.: Yes I certify that my determination is in accordance with my understanding of Medicare's requirements for reasonable and necessary INPATIENT services [42 CFR 412.3e].: Yes Medical Necessity: Significant Comorbidiites Make Outpatient Treatment Too Risky , Need Close Monitoring Due to Risk of Patient Decompensation
[2017-08-21] MEDS: FLUTICASONE/SALMETEROL DISKUS 250-50 MCG/DOSE IH SCH ×2 (06:04→18:46)
[2017-08-21] MEDS: LANSOPRAZOLE 30 MG TAB.RAP.DR PO SCH (06:04)
[2017-08-21 06:26] LABS: ABSOLUTE BASOPHILS # (AUTO) 0.1 10^3/uL (0.0-0.2); ABSOLUTE EOSINOPHILS # (AUTO) 0.3 10^3/uL (0.0-0.6); ABSOLUTE LYMPHOCYTES (AUTO) 2.1 10^3/uL (0.5-4.7); ABSOLUTE MONOCYTES (AUTO) 0.8 10^3/uL (0.1-1.4); BASOPHILS % (AUTO) 1.1 % (0-2); EOSINOPHILS % (AUTO) 4.7 % (0-6); HEMATOCRIT 29.3 % (36.0-47.0); MEAN CORPUSCULAR HEMOGLOBIN 29.8 pg (27.0-33.4); MEAN CORPUSCULAR HGB CONC 34.2 g/dL (32.0-36.0); MEAN CORPUSCULAR VOLUME 87 fl (80-97); MONOCYTES % (AUTO) 11.3 % (3-13); RED BLOOD COUNT 3.37 10^6/uL (3.72-5.28); RED CELL DISTRIBUTION WIDTH 16.3 % (11.5-14.0); SEGMENTED NEUTROPHILS % (AUTO) 54.9 % (42-78); TOTAL CELLS COUNTED % (AUTO) 100 %; WHITE BLOOD COUNT 7.3 10^3/uL (4.0-10.5)
[2017-08-21 06:41] LABS: ALANINE AMINOTRANSFERASE 24 U/L (9-52); ALBUMIN 3.1 g/dL (3.5-5.0); ALKALINE PHOSPHATASE 50 U/L (38-126); ANION GAP 8 (5-19); ASPARTATE AMINO TRANSFERASE 25 U/L (14-36); BILIRUBIN,DIRECT 0.3 mg/dL (0.0-0.4); BILIRUBIN,TOTAL 0.3 mg/dL (0.2-1.3); BLOOD UREA NITROGEN 19 mg/dL (7-20); CALCIUM 9.9 mg/dL (8.4-10.2); CARBON DIOXIDE 29 mmol/L (22-30); CHLORIDE 101 mmol/L (98-107); GLUCOSE 86 mg/dL (75-110); SODIUM 137.7 mmol/L (137-145); TOTAL PROTEIN 5.5 g/dL (6.3-8.2)
[2017-08-21 07:14] LABS: PLATELET COUNT 55 10^3/uL (150-450)
[2017-08-21] MEDS: ENOXAPARIN SODIUM INJ 30 MG/0.3 ML DISP.SYRIN SUBCUT SCH (08:55)
[2017-08-21] MEDS: ASPIRIN 81 MG TABLET, ENT COATED PO SCH (09:18)
[2017-08-21] MEDS ORDERED: OLANZAPINE 2.5 MG TABLET PO SCH ×2 (10:00→22:00)
[2017-08-21] MEDS: LETROZOLE 2.5 MG TABLET PO SCH (10:26)
[2017-08-21] MEDS: CALCIUM CARBONATE 500 MG TABLET PO SCH (10:26)
[2017-08-21] MEDS: SPIRONOLACTONE 25 MG TABLET PO SCH (10:26)
[2017-08-21] MEDS: FUROSEMIDE 40 MG TABLET PO SCH (10:27)
[2017-08-21] MEDS: LACTOBACILLUS ACIDOPHILUS 250 MG TAB PO SCH ×2 (10:27→18:56)
[2017-08-21] MEDS: LINEZOLID 600 MG TABLET PO SCH ×2 (10:27→22:00)
[2017-08-21] MEDS: POTASSIUM CHLORIDE 10 MEQ TABLET.SA PO SCH (10:27)
[2017-08-21] MEDS: POLYETHYLENE GLYCOL 3350 POWDER 17 GM/1 PACKET PO SCH ×2 (10:27→18:56)
[2017-08-21] MEDS: AMIODARONE HCL 200 MG TABLET PO SCH (10:27)
[2017-08-21] MEDS: TIOTROPIUM BROMIDE DPI 5 CAP/KIT (18 MCG/CAP) IH SCH (10:27)
[2017-08-21 13:05] LABS: ABSOLUTE BASOPHILS # (AUTO) 0.1 10^3/uL (0.0-0.2); ABSOLUTE EOSINOPHILS # (AUTO) 0.2 10^3/uL (0.0-0.6); ABSOLUTE LYMPHOCYTES (AUTO) 1.5 10^3/uL (0.5-4.7); ABSOLUTE MONOCYTES (AUTO) 0.7 10^3/uL (0.1-1.4); ABSOLUTE NEUT (AUTO) 3.9 10^3/uL (1.7-8.2); BASOPHILS % (AUTO) 1.2 % (0-2); EOSINOPHILS % (AUTO) 3.6 % (0-6); HEMOGLOBIN 10.3 g/dL (12.0-15.5); LYMPHOCYTES % (AUTO) 22.7 % (13-45); MEAN CORPUSCULAR HEMOGLOBIN 29.9 pg (27.0-33.4); MEAN CORPUSCULAR HGB CONC 34.2 g/dL (32.0-36.0); MEAN CORPUSCULAR VOLUME 88 fl (80-97); MONOCYTES % (AUTO) 11.4 % (3-13); RED BLOOD COUNT 3.43 10^6/uL (3.72-5.28); RED CELL DISTRIBUTION WIDTH 16.7 % (11.5-14.0); SEGMENTED NEUTROPHILS % (AUTO) 61.1 % (42-78); TOTAL CELLS COUNTED % (AUTO) 100 %; WHITE BLOOD COUNT 6.4 10^3/uL (4.0-10.5)
[2017-08-21 13:09] LABS: PLATELET COUNT 205 10^3/uL (150-450)
--- NOTE | 2017-08-21 18:10 | PDOC PROGRESS REPORT ---
Subjective Progress Note for:: 08/21/17 Subjective:: Daughter is at bedside and is the one voicing the progress and concerns of the patient. Accordingly patient was able to sleep last night. She was somewhat somnolent at 7 which daughter feels is as expected since she had not been able to sleep for several days. Daughter still concerned about wound care since appears that there is no consistency between the nurses Review of systems All organ systems evaluated and negative except in subjective All significant diagnostics and laboratories had been reviewed Reason For Visit: LEG CELLULITIS Physical Exam Vital Signs: Temp Pulse Resp BP Pulse Ox 98.5 F 54 L 18 133/43 H 97 08/21/17 04:46 08/21/17 04:46 08/21/17 04:46 08/21/17 04:46 08/21/17 04:46 Intake & Output 08/20/17 08/21/17 08/22/17 06:59 06:59 06:59 Intake Total 0 Output Total 150 Balance 0 -150 Weight 42.3 kg 42.5 kg General appearance: PRESENT: cooperative, thin Head exam: PRESENT: atraumatic, normocephalic Eye exam: PRESENT: conjunctiva pink, EOMI, PERRLA Ear exam: PRESENT: normal external ear exam Neck exam: PRESENT: full ROM. ABSENT: JVD, lymphadenopathy, tenderness Respiratory exam: PRESENT: clear to auscultation bruce Cardiovascular exam: PRESENT: RRR. ABSENT: diastolic murmur, systolic murmur Vascular exam: PRESENT: normal capillary refill GI/Abdominal exam: PRESENT: normal bowel sounds, soft. ABSENT: tenderness Extremities exam: PRESENT: full ROM, pedal edema Musculoskeletal exam: PRESENT: ambulatory Neurological exam: PRESENT: alert, oriented to person, oriented to place, oriented to time, CN II-XII grossly intact, other - Mildly somnolent Psychiatric exam: PRESENT: appropriate affect Focused psych exam: PRESENT: internal stimuli Skin exam: PRESENT: other - [place] pink discoloration of right lower extremity continues improving. There is improvement of laceration to right lower extremity Results Laboratory Results: 08/21/17 06:10 08/21/17 06:10 08/21/17 08/21/17 06:10 06:10 WBC 7.3 RBC 3.37 L Hgb 10.0 L Hct 29.3 L MCV 87 MCH 29.8 MCHC 34.2 RDW 16.3 H Plt Count 55 L Seg Neutrophils % 54.9 Lymphocytes % 28.0 Monocytes % 11.3 Eosinophils % 4.7 Basophils % 1.1 Absolute Neutrophils 4.0 Absolute Lymphocytes 2.1 Absolute Monocytes 0.8 Absolute Eosinophils 0.3 Absolute Basophils 0.1 Sodium 137.7 Potassium 4.0 Chloride 101 Carbon Dioxide 29 Anion Gap 8 BUN 19 Creatinine 1.15 Est GFR ( Amer) 54 L Est GFR (Non-Af Amer) 45 L Glucose 86 Calcium 9.9 Magnesium 2.2 Total Bilirubin 0.3 AST 25 ALT 24 Alkaline Phosphatase 50 Total Protein 5.5 L Albumin 3.1 L 08/11/17 08/11/17 08/13/17 12:35 15:04 11:06 NT-Pro-B Natriuret Pep Cancelled 1160 H 1350 H Impressions: Tibia/Fibula X-Ray 08/08/17 14:35 IMPRESSION: No evidence for osteomyelitis. Soft tissue defect without foreign body. Bold Chest X-Ray 08/16/17 00:00 IMPRESSION: 1. No acute pulmonary process identified. Cardiomegaly. Assessment & Plan - Diagnosis (1) Infected skin tear Is this a current diagnosis for this admission?: Yes Plan: Improved. Continue Zyvox and to re-eval in the morning Nurse instructed about applying Santyl to wound daily (2) Cellulitis of leg, right Is this a current diagnosis for this admission?: Yes Plan: Improved when compared to first few days of admission (3) Hypokalemia Is this a current diagnosis for this admission?: Yes Plan: Replaced. (4) Acute on chronic renal failure Qualifiers: Acute renal failure type: unspecified Chronic kidney disease stage: stage 4 (severe) Qualified Code(s): N17.9 - Acute kidney failure, unspecified; N18.4 - Chronic kidney disease, stage 4 (severe); N18.4 - Chronic kidney disease , stage 4 (severe); N18.4 - Chronic kidney disease, stage 4 (severe); N18.4 - Chronic kidney disease, stage 4 (severe) Is this a current diagnosis for this admission?: Yes Plan: Improved (5) Anemia Qualifiers: Anemia type: unspecified type Qualified Code(s): D64.9 - Anemia, unspecified Is this a current diagnosis for this admission?: Yes Plan: Stable (6) Constipation Qualifiers: Constipation type: unspecified constipation type Qualified Code(s): K59.00 - Constipation, unspecified Is this a current diagnosis for this admission?: Yes Plan: Resolved (7) Chronic pain Qualifiers: Chronic pain type: other chronic pain Qualified Code(s): G89.29 - Other chronic pain Is this a current diagnosis for this admission?: Yes Plan: Improved - Time Time Spent with patient: 15-24 minutes Medications reviewed and adjusted accordingly: Yes Anticipated discharge: Acute Rehab Within: within 24 hours - Inpatient Certification Based on my medical assessment, after consideration of the patient's comorbidities, presenting symptoms, or acuity I expect that the services needed warrant INPATIENT care.: Yes I certify that my determination is in accordance with my understanding of Medicare's requirements for reasonable and necessary INPATIENT services [42 CFR 412.3e].: Yes Medical Necessity: Need Close Monitoring Due to Risk of Patient Decompensation
[2017-08-21] MEDS: COLLAGENASE CLOSTRIDIUM HIST. OINT 30 GM TOP SCH (18:46)
[2017-08-21] MEDS: MONTELUKAST SODIUM 10 MG TABLET PO SCH (18:57)
[2017-08-21] MEDS: SIMVASTATIN 40 MG TABLET PO SCH (21:37)
[2017-08-22] MEDS: LANSOPRAZOLE 30 MG TAB.RAP.DR PO SCH (06:46)
[2017-08-22] MEDS: FLUTICASONE/SALMETEROL DISKUS 250-50 MCG/DOSE IH SCH (06:46)
[2017-08-22 07:06] LABS: IRON(TIBC) 35.3 ug/dL (37-170)
[2017-08-22 07:41] LABS: ABSOLUTE RETICS # 0.032 10^6/uL (0.028-0.122); RETICULOCYTE COUNT (AUTO) 0.85 % (0.66-2.85)
[2017-08-22] MEDS: METOLAZONE 2.5 MG TABLET PO SCH (08:46)
[2017-08-22] MEDS: LINEZOLID 600 MG TABLET PO SCH (11:09)
[2017-08-22] MEDS: LACTOBACILLUS ACIDOPHILUS 250 MG TAB PO SCH (11:09)
[2017-08-22] MEDS: FUROSEMIDE 40 MG TABLET PO SCH (11:09)
[2017-08-22] MEDS: ENOXAPARIN SODIUM INJ 30 MG/0.3 ML DISP.SYRIN SUBCUT SCH (11:10)
[2017-08-22] MEDS: TIOTROPIUM BROMIDE DPI 5 CAP/KIT (18 MCG/CAP) IH SCH (11:10)
[2017-08-22] MEDS: CALCIUM CARBONATE 500 MG TABLET PO SCH (11:10)
[2017-08-22] MEDS: LETROZOLE 2.5 MG TABLET PO SCH (11:10)
[2017-08-22] MEDS: AMIODARONE HCL 200 MG TABLET PO SCH (11:11)
[2017-08-22] MEDS: SPIRONOLACTONE 25 MG TABLET PO SCH (11:11)
[2017-08-22] MEDS: POTASSIUM CHLORIDE 10 MEQ TABLET.SA PO SCH (11:11)
[2017-08-22] MEDS: ASPIRIN 81 MG TABLET, ENT COATED PO SCH (11:11)
--- NOTE | 2017-08-22 12:12 | PDOC TRANSFER SUMMARY ---
General - Admit/Disc Date/PCP Admission Date/Primary Care Provider: 08/09/17 16:58 CLYDE JAMISON MD Discharge Date: 08/22/17 - Discharge Diagnosis (1) Infected skin tear Is this a current diagnosis for this admission?: Yes (2) Cellulitis of leg, right Is this a current diagnosis for this admission?: Yes (3) Hypokalemia Is this a current diagnosis for this admission?: Yes (4) Acute on chronic renal failure Is this a current diagnosis for this admission?: Yes (5) Anemia Is this a current diagnosis for this admission?: Yes (6) Constipation Is this a current diagnosis for this admission?: Yes (7) Chronic pain Is this a current diagnosis for this admission?: Yes - Additional Information Resuscitation Status: Full Code Discharge Diet: Cardiac Discharge Activity: Activity As Tolerated Home Medications: Albuterol Sulfate [Proair HFA] 2 puff IH Q4 08/09/17 Fluticasone/Salmeterol [Advair 250-50 Diskus 28 dose] 1 inh IH Q12 08/09/17 Furosemide [Lasix 40 mg Tablet] 40 mg PO BID 08/09/17 Letrozole [Femara 2.5 mg Tablet] 2.5 mg PO DAILY 08/09/17 Metolazone [Zaroxolyn 2.5 mg Tablet] 2.5 mg PO DAILY 08/09/17 Montelukast Sodium [Singulair 10 mg Tablet] 10 mg PO PCSUPPER 08/09/17 Pantoprazole Sodium [Protonix] 40 mg PO DAILY 08/09/17 Potassium Chloride [Klor-Con M20] 40 meq PO TID 08/09/17 Simvastatin [Zocor 20 mg Tablet] 20 mg PO QHS 08/09/17 Spironolactone [Aldactone 25 mg Tablet] 25 mg PO DAILY 08/09/17 Amiodarone HCl [Cordarone 200 mg Tablet] 100 mg PO DAILY tablet 08/22/17 Aspirin [Ecotrin 81 mg EC Tablet] 81 mg PO DAILY tabec 08/22/17 Calcium Carbonate [Os-Jose Ramon 500 mg Tablet (Oyster-Shell)] 500 mg PO DAILY tablet 08/22/17 Collagenase Clostridium Hist. [Santyl Ointment 30 gm] 1 applic TOP DAILY@1630 tube 08/22/17 Furosemide [Lasix 40 mg Tablet] 40 mg PO DAILY tablet 08/22/17 Ipratropium/Albuterol Sulfate [Duoneb 3 ml Ampul] 3 ml NEB [id number] PRN vial.neb 08/22/17 Lactobacillus Acidophilus [Bacid 250 mg Tablet] 500 mg PO BID tab 08/22/17 Lactulose [Cephulac Syrup 20 gm/30 ml Udcup] 20 gm PO BIDP PRN udc 08/22/17 Linezolid [Zyvox 600 mg Tablet] 600 mg PO Q12 tablet 08/22/17 Olanzapine [Zyprexa 2.5 mg Tablet] 2.5 mg PO QHS tablet 08/22/17 Polyethylene Glycol 3350 [Miralax Powder 17 gm/Packet] 17 gm PO BID powd.pack 08/22/17 Sennosides/Docusate 8.6-50 mg [Senna Plus Tablet] 1 each PO DAILYP PRN tablet 08/22/17 History of Present Illness Admission Date/PCP: 08/09/17 16:58 CLYDE JAMISON MD History of Present Illness: ROBERT CAMILO is a 87 year old female with a past medical history of anemia, stage III chronic kidney disease, hypertension, coronary artery disease, H fibrillation, breast cancer status post mastectomy, seasonal allergies and anxiety presenting with right leg pain and swelling for 1 week after striking her leg in a chair causing a skin tear. She related increased pain with ambulation. Denies antibiotic use, fever, chills, nausea andvomiting. She otherwise felt well with exception to constipation Patient was admitted under the hospitalist service Hospital Course Hospital Course: Patient was admitted under the hospitalist service. She was placed on IV antibiotic therapy. She was tried on different dual antibiotic therapy due to slow resolution of cellulitic process. Toward the latter part of her hospitalization she was trnasitoned to Zyvox. Recommend incoming facility to continue Zyvox for 7 extra days after discharge. She was evaluated by surgical team. Bedside debridement was performed and afterwards Santyl was applied to the wound. Recommend to continue and for wound care team at incoming facility to continue taking care of wound. Patient presented with acute on chronic renal failure which responded to gentle hydration. 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 . While hospitalized patient suffered from hallucinations and insomnia. She did improve after patient was placed on Zyprexa. Recommend for this medication to be administered around 1900 to 1999 on a daily basis. We ordered an anemia panel which was consistent with iron deficiency anemia. Recommend for facility to place patient on iron supplementation such as ferrous sulfate 325 mg 1 p.o. twice daily. Patient had significant constipation toward the earlier part of her hospitalization and she was placed on bowel regimen with resolution of constipation. Patient has a history of right-sided mastectomy recommend not to use the right upper extremity for blood draws. Patient has chronic discoloration of forearms that are quite impressive. Patient has been advised to keep her legs elevated while sitting to avoid edema of the lower extremities which may delay healing of the wound in the right lower extremity. Again hospitalization was somewhat delayed because of trying to get the right antibiotic. Since patient had achieved maximum benefit of hospitalization stay prompted to discharge Physical Exam Vital Signs: Temp Pulse Resp BP Pulse Ox 97.9 F 59 L 16 138/50 H 97 08/22/17 10:39 08/22/17 10:39 08/22/17 10:39 08/22/17 10:39 08/22/17 10:39 Intake & Output 08/21/17 08/22/17 08/23/17 06:59 06:59 06:59 Intake Total 500 340 Output Total 150 Balance -150 500 340 Weight 42.5 kg General appearance: PRESENT: no acute distress, cooperative, thin Head exam: PRESENT: atraumatic, normocephalic Eye exam: PRESENT: conjunctiva pink, EOMI, PERRLA Ear exam: PRESENT: normal external ear exam Mouth exam: PRESENT: moist Neck exam: PRESENT: full ROM. ABSENT: JVD, lymphadenopathy, tenderness Respiratory exam: PRESENT: clear to auscultation bruce Cardiovascular exam: PRESENT: irregular rhythm. ABSENT: diastolic murmur, systolic murmur Vascular exam: PRESENT: normal capillary refill GI/Abdominal exam: PRESENT: normal bowel sounds, soft. ABSENT: distended, tenderness Extremities exam: PRESENT: full ROM, +1 edema Musculoskeletal exam: PRESENT: ambulatory Neurological exam: PRESENT: alert, awake, oriented to person, oriented to place , oriented to time, oriented to situation, CN II-XII grossly intact Psychiatric exam: PRESENT: appropriate affect, normal mood - Purplish discoloration of right and left forearms which is chronic Erythema surrounding wound to right lower extremity continues improving. Mild clotted blood noted overlying wound to right lower extremity Results Laboratory Results: 08/21/17 12:35 08/21/17 06:10 08/21/17 08/22/17 08/22/17 12:35 05:00 07:17 WBC 6.4 RBC 3.43 L Hgb 10.3 L Hct 30.0 L MCV 88 MCH 29.9 MCHC 34.2 RDW 16.7 H Plt Count 205 D Seg Neutrophils % 61.1 Lymphocytes % 22.7 Monocytes % 11.4 Eosinophils % 3.6 Basophils % 1.2 Absolute Neutrophils 3.9 Absolute Lymphocytes 1.5 Absolute Monocytes 0.7 Absolute Eosinophils 0.2 Absolute Basophils 0.1 Retic Count (auto) 0.85 Absolute Retic 0.032 Iron 35.3 L TIBC 259 % Saturation 14 Ferritin 150.00 Vitamin B12 277.0 Folate 11.00 08/11/17 08/11/17 08/13/17 12:35 15:04 11:06 NT-Pro-B Natriuret Pep Cancelled 1160 H 1350 H Impressions: Tibia/Fibula X-Ray 08/08/17 14:35 IMPRESSION: No evidence for osteomyelitis. Soft tissue defect without foreign body. Bold Chest X-Ray 08/16/17 00:00 IMPRESSION: 1. No acute pulmonary process identified. Cardiomegaly. Transfer Plan - Disposition Transfer Plan: Transferred to rehab - Time Spent with Patient Time spent with patient: Greater than 30 Minutes Qualifiers - * PATEINT BEING DISCHARGED WITH ANY OF THE FOLLOWING DIAGNOSIS?: No
[2017-08-22] MEDS: POLYETHYLENE GLYCOL 3350 POWDER 17 GM/1 PACKET PO SCH (12:14)
[2017-08-22 16:21] VITALS: BP 118/31
[2017-08-22] MEDS: COLLAGENASE CLOSTRIDIUM HIST. OINT 30 GM TOP SCH (16:30)
== END 2017-08-22 16:50 | DRG 603 ==
LOC: ER 13:44 → EH 17:41 → 4N 21:26 → OBSVTOIN 08-09 16:58 → 2N 08-19 21:25
PROVIDERS: ADMIT Internal Medicine; ATTEND Internal Medicine
PROC: 02HV33Z Insertion of Infusion Device into Superior Vena Cava, Percutaneous Approach (ICD-10-PCS; principal; 2017-08-15)
PROC: B548ZZA Ultrasonography of Superior Vena Cava, Guidance (ICD-10-PCS; 2017-08-15)
DX: L03.115 Cellulitis of right lower limb (principal); N17.9 Acute kidney failure, unspecified; I13.0 Hypertensive heart and chronic kidney disease with heart failure and stage 1 through stage 4 chronic kidney disease, or unspecified chronic kidney disease; I50.32 Chronic diastolic (congestive) heart failure; R44.3 Hallucinations, unspecified; I48.91 Unspecified atrial fibrillation; E87.6 Hypokalemia; E78.5 Hyperlipidemia, unspecified; K59.00 Constipation, unspecified; G89.29 Other chronic pain; J44.9 Chronic obstructive pulmonary disease, unspecified; N18.3 Chronic kidney disease, stage 3 (moderate); D63.1 Anemia in chronic kidney disease; Z90.710 Acquired absence of both cervix and uterus; F41.9 Anxiety disorder, unspecified; S81.811A Laceration without foreign body, right lower leg, initial encounter; W22.03XA Walked into furniture, initial encounter; J30.2 Other seasonal allergic rhinitis; D50.9 Iron deficiency anemia, unspecified; M13.842 Other specified arthritis, left hand; M13.841 Other specified arthritis, right hand; I25.10 Atherosclerotic heart disease of native coronary artery without angina pectoris; Z88.6 Allergy status to analgesic agent; Z88.0 Allergy status to penicillin; Z88.8 Allergy status to other drugs, medicaments and biological substances; Z79.02 Long term (current) use of antithrombotics/antiplatelets; Z90.11 Acquired absence of right breast and nipple
CPT/HCPCS: 36415; 71045; 80048; 80053; 82550; 82565; 82607; 82728; 82746; 83540; 83550; 83735; 83880; 84100; 84466; 85025; 85027; 85045; 85610; 85730; 87040; 93306; 94640; 99284; C1751; G0378; G8978-GP; G8979-GP; J0692; J1642; J1644; J1650; J1940; J1956; J2185; J2405; J2765; J3370; J3480; J3490; J7030; J7050; J7060; J7620; S0119

== ENCOUNTER → 2017-09-27 | Day surgery (SDC) | payer MEDICARE, OTHER ==
--- NOTE | 2017-09-27 13:59 | OPERATIVE REPORT E ---
Operative Report NAME: ROBERT CAMILO : 1930 AGE: 87Y DATE OF SURGERY: 09/27/2017 ROOM: PREOPERATIVE DIAGNOSIS: Indwelling right subclavian vein triple lumen catheter that is not needed at this time. POSTOPERATIVE DIAGNOSIS: Indwelling right subclavian vein triple lumen catheter that is not needed at this time. PROCEDURE: Removal of right subclavian vein triple lumen catheter. SURGEON: NAVDEEP REYEZ M.D. INDICATIONS: This is an 87-year-old female who is [facility]. She had a triple lumen right subclavian catheter inserted when she was in the hospital about a month ago. She does not need a catheter at this time and therefore can be removed. DESCRIPTION OF PROCEDURE: The patient was placed in a supine position and the right subclavian catheter dressing removed. The sutures were then serially cut. Prior to removal of the catheter, the catheter insertion site and around it were then prepped with antiseptic. Next, a 4 x 4 was placed on top of the surgical site and the catheter was gently pulled out and pressure applied at the site. No evidence of bleeding noted. Next, an occlusive dressing was then placed over the 4 x 4s. The patient tolerated the procedure well. The patient is now [facility] the [facility]. Just came to the ambulatory services for removal of the triple lumen catheter. DICTATING PHYSICIAN: NAVDEEP REYEZ M.D. [id number] PHY#: [id number] ID: [id number] JOB#: [id number] ACCT: [id number] cc:NAVDEEP REYEZ M.D. >
== END ==
LOC: ASU 13:09
PROVIDERS: ATTEND Surgery
DX: Z45.2 Encounter for adjustment and management of vascular access device (principal)

== ENCOUNTER 2017-12-12 12:00 | Inpatient (IN) | payer MEDICARE ==
[2017-12-12] MEDS ORDERED: ASPIRIN 81 MG TABLET, CHEWABLE PO ONE (13:20)
[2017-12-12] MEDS ORDERED: FUROSEMIDE INJ/PF 20 MG/2 ML SDV IV ONE ×2 (13:21→15:44)
--- NOTE | 2017-12-12 13:26 | ER Document Report ---
ED Medical Screen (RME) - General Chief Complaint: General Weakness Stated Complaint: WEAKNESS Time Seen by Provider: 12/12/17 13:09 Notes: 86 years old female presents today with cough for the 3 weeks and shortness of breath last 2-3 days. No fever chills but had general malaise. Denies any chest pain palpitation or diaphoresis. On examination-lower two third of the lungs shows inspiratory rales on both sides TRAVEL OUTSIDE OF THE [place] IN LAST 30 DAYS: No - Related Data Allergies/Adverse Reactions: amoxicillin [Amoxicillin] Allergy (Intermediate, Verified 06/29/10 11:12) Rash codeine [Codeine] Allergy (Unknown, Verified 11/06/11 08:31) adhesive tape [Adhesive Tape] Adverse Reaction (Severe, Verified 06/29/10 11:16) Tears skin diltiazem HCl [From Tiazac] Adverse Reaction (Intermediate, Verified 06/29/10 11 :13) Dizzy doxycycline [Doxycycline] Adverse Reaction (Intermediate, Verified 06/29/10 11: 14) Dizzy lisinopril [Lisinopril] Adverse Reaction (Intermediate, Verified 06/29/10 11:14) Dizzy propafenone [Propafenone] Adverse Reaction (Intermediate, Verified 06/29/10 11: 15) Diarrhea zolpidem tartrate [From Ambien] Adverse Reaction (Intermediate, Verified 12:32) Confusion Strong fumes Allergy (Severe, Uncoded 06/29/10 11:18) Asthma Past Medical History - Social History Frequency of alcohol use: None Drug Abuse: None - Past Medical History Cardiac Medical History: Reports: Hx Atrial Fibrillation, Hx Hypercholesterolemia, Hx Hypertension Denies: Hx Heart Attack Pulmonary Medical History: Reports: Hx COPD, Hx Pneumonia Denies: Hx Asthma - occasional SOB, ALBUTERAL , Hx Bronchitis, Hx Tuberculosis Neurological Medical History: Denies: Hx Cerebrovascular Accident, Hx Seizures Renal/ Medical History: Denies: Hx Peritoneal Dialysis GI Medical History: Denies: Hx Hepatitis, Hx Hiatal Hernia, Hx Ulcer Musculoskeltal Medical History: Reports Hx Arthritis - Hands Psychiatric Medical History: Denies: Hx Depression Infectious Medical History: Denies: Hx Hepatitis Past Surgical History: Reports: Hx Cardiac Surgery - mitral valve replacement, Hx Hysterectomy, Hx Mastectomy - 2011, Hx Open Heart Surgery - MITRAL VALVE REPAIR. Denies: Hx Pacemaker - Immunizations Hx Diphtheria, Pertussis, Tetanus Vaccination: Yes Physical Exam - Vital signs Vitals: Temp Pulse Resp BP Pulse Ox 99.3 F 83 18 94/51 L 90 L 12/12/17 12:06 12/12/17 12:06 12/12/17 12:06 12/12/17 12:06 12/12/17 12:06 Course - Vital Signs Vital signs: Temp Pulse Resp BP Pulse Ox 99.3 F 83 18 94/51 L 90 L 12/12/17 12:06 12/12/17 12:06 12/12/17 12:06 12/12/17 12:06 12/12/17 12:06 Doctor's Discharge - Discharge Referrals: KURTIS SCOTT MD [Primary Care Provider] - Follow up as needed
[2017-12-12 14:57] LABS: HEMATOCRIT 33.9 % (36.0-47.0); HEMOGLOBIN 11.3 g/dL (12.0-15.5); MEAN CORPUSCULAR HEMOGLOBIN 30.2 pg (27.0-33.4); MEAN CORPUSCULAR HGB CONC 33.5 g/dL (32.0-36.0); MEAN CORPUSCULAR VOLUME 90 fl (80-97); PLATELET COUNT 232 10^3/uL (150-450); RED BLOOD COUNT 3.76 10^6/uL (3.72-5.28); RED CELL DISTRIBUTION WIDTH 17.7 % (11.5-14.0); WHITE BLOOD COUNT 18.8 10^3/uL (4.0-10.5)
[2017-12-12] MEDS ORDERED: NORMAL SALINE 1000 ML 500 ML IV ONE (15:09)
[2017-12-12] MEDS ORDERED: LEVOFLOXACIN 750 MG/D5W RTU 750 MG/150 ML RTUPB IV ONE ×2 (15:09→15:31)
--- NOTE | 2017-12-12 15:17 | ER Document Report ---
ED General - General Chief Complaint: General Weakness Stated Complaint: WEAKNESS Time Seen by Provider: 12/12/17 13:09 TRAVEL OUTSIDE OF THE [place] IN LAST 30 DAYS: No - HPI Notes: 87-year-old female with history of COPD and diastolic dysfunction presents with generalized weakness. She is very somnolent and quite a poor historian. She reports a severe cough for the past few weeks productive of sputum that looks like "Vaseline." She states shortness of breath worsened after she fell yesterday. She had no injury. She denies any blood in her sputum. She reports chest pain with cough. She is not on home oxygen. She has mild increased leg swelling from baseline as well as diffuse abdominal discomfort. Denies vomiting or diarrhea. states she has not been eating or drinking well - Related Data Allergies/Adverse Reactions: amoxicillin [Amoxicillin] Allergy (Intermediate, Verified 12/12/17 13:44) Rash codeine [Codeine] Allergy (Unknown, Verified 12/12/17 13:44) adhesive tape [Adhesive Tape] Adverse Reaction (Severe, Verified 12/12/17 13:44) Tears skin diltiazem HCl [From Tiazac] Adverse Reaction (Intermediate, Verified 12/12/17 13 :44) Dizzy doxycycline [Doxycycline] Adverse Reaction (Intermediate, Verified 12/12/17 13: 44) Dizzy lisinopril [Lisinopril] Adverse Reaction (Intermediate, Verified 12/12/17 13:44) Dizzy propafenone [Propafenone] Adverse Reaction (Intermediate, Verified 12/12/17 13: 44) Diarrhea zolpidem tartrate [From Ambien] Adverse Reaction (Intermediate, Verified 13:44) Confusion Strong fumes Allergy (Severe, Uncoded 12/12/17 13:44) Asthma Past Medical History - Social History Smoking Status: Never Smoker Frequency of alcohol use: None Drug Abuse: None Family History: Reviewed & Not Pertinent Patient has suicidal ideation: No Patient has homicidal ideation: No - Past Medical History Cardiac Medical History: Reports: Hx Atrial Fibrillation, Hx Hypercholesterolemia, Hx Hypertension Denies: Hx Heart Attack Pulmonary Medical History: Reports: Hx COPD, Hx Pneumonia Denies: Hx Asthma - occasional SOB, ALBUTERAL , Hx Bronchitis, Hx Tuberculosis Neurological Medical History: Denies: Hx Cerebrovascular Accident, Hx Seizures Renal/ Medical History: Denies: Hx Peritoneal Dialysis GI Medical History: Denies: Hx Hepatitis, Hx Hiatal Hernia, Hx Ulcer Musculoskeletal Medical History: Reports Hx Arthritis - Hands Psychiatric Medical History: Denies: Hx Depression Infectious Medical History: Denies: Hx Hepatitis Past Surgical History: Reports: Hx Cardiac Surgery - mitral valve replacement, Hx Hysterectomy, Hx Mastectomy - 2011, Hx Open Heart Surgery - MITRAL VALVE REPAIR. Denies: Hx Pacemaker - Immunizations Hx Diphtheria, Pertussis, Tetanus Vaccination: Yes Hx Pneumococcal Vaccination: 04/30/09 Review of Systems - Review of Systems Notes: Constitutional: Negative for fever. Positive for fatigue HENT: Negative for sore throat. Eyes: Negative for visual changes. Cardiovascular: Positive for chest pain with cough Respiratory: Positive for cough and shortness of breath Gastrointestinal: Positive for abdominal pain, negative for vomiting or diarrhea. Genitourinary: Negative for dysuria. Musculoskeletal: Negative for back pain. Skin: Negative for rash. Neurological: Negative for headaches, focal weakness or numbness. 10 point ROS negative except as marked above and in HPI. Physical Exam - Vital signs Vitals: Temp Pulse Resp BP Pulse Ox 99.3 F 83 18 94/51 L 90 L 12/12/17 12:06 12/12/17 12:06 12/12/17 12:06 12/12/17 12:06 12/12/17 12:06 - Notes Notes: PHYSICAL EXAMINATION: GENERAL: Somnolent. No acute distress HEAD: Atraumatic, normocephalic. EYES: Pupils equal round and reactive to light, extraocular movements intact, conjunctiva are normal. ENT: nares patent, oropharynx clear without exudates. Dry mucous membranes. NECK: Normal range of motion, supple without lymphadenopathy. Bilateral JVD LUNGS: Rhonchi and rales appreciated diffusely. No respiratory distress. HEART: Regular rate and rhythm, no chest wall tenderness ABDOMEN: Soft, nontender, normoactive bowel sounds. No guarding, no rebound. No masses appreciated. EXTREMITIES: Normal range of motion, mild 2+ pitting edema. No cyanosis. NEUROLOGICAL: Cranial nerves grossly intact. Normal speech, normal gait. Normal sensory and motor exams. PSYCH: Normal mood, normal affect. Somnolent SKIN: Warm, Dry, normal turgor, no rashes or lesions noted. Course - Re-evaluation Re-evalutation: 08/15/18 15:16 Patient appears clinically dry with dry mucous membranes and infectious symptoms concerning for sepsis with pneumonia on chest x-ray. She also has history of congestive heart failure with JVD and mild leg edema. She is hypotensive, so we will start with fluids before any diuresis. Chest x-ray does not show evidence of fluid overload. She has multiple antibiotic allergies. Given Levaquin. Cultures ordered. 12/12/17 16:53 Patient's blood pressure had improved, but then dropped back into the 90s. Ejection fraction in July was normal, consistent with diastolic dysfunction. Discussed with hospitalist for admission. - Vital Signs Vital signs: Temp Pulse Resp BP Pulse Ox 99.3 F 83 18 94/51 L 100 12/12/17 12:06 12/12/17 12:06 12/12/17 12:06 12/12/17 12:06 12/12/17 13:20 - Laboratory Result Diagrams: 12/12/17 13:50 12/12/17 13:50 Laboratory results interpreted by me: 12/12/17 12/12/17 12/12/17 13:50 13:50 13:50 WBC 18.8 H Hgb 11.3 L Hct 33.9 L RDW 17.7 H Band Neutrophils % 6 H Lymphocytes % (Manual) 8 L Metamyelocytes % 1 H Abs Neuts (Manual) 15.0 H Abs Monocytes (Manual) 2.3 H Sodium 135.8 L Potassium 5.8 H Chloride 96 L BUN 55 H Creatinine 2.07 H Est GFR ( Amer) 28 L Est GFR (Non-Af Amer) 23 L Calcium 10.5 H NT-Pro-B Natriuret Pep 7460 H Discharge - Discharge Clinical Impression: Diastolic dysfunction, Acute kidney injury superimposed on chronic kidney disease Pneumonia Qualifiers: Pneumonia type: due to unspecified organism Laterality: right Lung location: lower lobe of lung Qualified Code(s): J18.1 - Lobar pneumonia, unspecified organism Condition: Fair Disposition: ADMITTED INPATIENT Admitting Provider: Hospitalist Unit Admitted: IMCU Referrals: KURTIS SCOTT MD [Primary Care Provider] - Follow up as needed
[2017-12-12 15:20] LABS: ABSOLUTE LYMPHOCYTES# (MANUAL) 1.5 10^3/uL (0.5-4.7); ABSOLUTE MONOCYTES # (MANUAL) 2.3 10^3/uL (0.1-1.4); ANISOCYTOSIS 2+; BAND NEUTROPHILS % (MANUAL) 6 % (3-5); BASOPHILS % (MANUAL) 0 % (0-2); EOSINOPHILS % (MANUAL) 0 % (0-6); LYMPHOCYTES % (MANUAL) 8 % (13-45); METAMYELOCYTES % (MANUAL) 1 % (0); MONOCYTES % (MANUAL) 12 % (3-13); OVALOCYTES 1+; POIKILOCYTOSIS 1+; SEGMENTED NEUTROPHILS % (MAN) 73 % (42-78); TOTAL CELLS COUNTED 100
[2017-12-12 15:21] LABS: PLATELET COMMENT ADEQUATE; TOXIC GRANULATION 1+
[2017-12-12 15:22] LABS: ALANINE AMINOTRANSFERASE 15 U/L (9-52); ALBUMIN 4.1 g/dL (3.5-5.0); ALKALINE PHOSPHATASE 60 U/L (38-126); ANION GAP 12 (5-19); ASPARTATE AMINO TRANSFERASE 36 U/L (14-36); BILIRUBIN,DIRECT 0.4 mg/dL (0.0-0.4); BILIRUBIN,TOTAL 0.7 mg/dL (0.2-1.3); BLOOD UREA NITROGEN 55 mg/dL (7-20); CALCIUM 10.5 mg/dL (8.4-10.2); CARBON DIOXIDE 28 mmol/L (22-30); CHLORIDE 96 mmol/L (98-107); CREATINE KINASE 57 U/L (30-135); GLUCOSE 95 mg/dL (75-110); POTASSIUM 5.8 mmol/L (3.6-5.0); SODIUM 135.8 mmol/L (137-145); TOTAL PROTEIN 7.6 g/dL (6.3-8.2)
[2017-12-12 15:28] LABS: CREATINE KINASE MB 0.94 ng/mL (<4.55)
[2017-12-12 15:33] LABS: TROPONIN I 0.769 ng/mL
--- NOTE | 2017-12-12 15:46 | RADIOLOGY REPORT (SQ) ---
EXAM DESCRIPTION: CHEST SINGLE VIEW COMPLETED DATE/TIME: 12/12/2017 2:52 pm REASON FOR STUDY: Cough and shortness of breath COMPARISON: 08/16/2017, 08/15/2017 EXAM PARAMETERS: NUMBER OF VIEWS: One view. TECHNIQUE: Single frontal radiographic view of the chest acquired. RADIATION DOSE: NA LIMITATIONS: None. FINDINGS: LUNGS AND PLEURA: Patchy airspace disease at the right lung base, worrisome for aspiration pneumonia. Asymmetric pulmonary edema is considered less likely. Left lung clear. No gross pleural effusion or pneumothorax. MEDIASTINUM AND HILAR STRUCTURES: No masses. Contour normal. HEART AND VASCULAR STRUCTURES: Mild cardiomegaly. Old sternotomy and CABG BONES: No acute findings. HARDWARE: None in the chest. OTHER: Old right mastectomy IMPRESSION: Patchy right basilar airspace disease, question aspiration pneumonia TECHNICAL DOCUMENTATION: JOB ID: [id number]- All Rights Reserved Reading location - IP/workstation name: [facility]
[2017-12-12] MEDS ORDERED: ONDANSETRON 4 MG TAB.RAPDIS PO PRN (17:08)
[2017-12-12] MEDS ORDERED: VANCOMYCIN HCL 0 MG in DEXTROSE 5%-WATER 250 ML IV NR (17:30)
--- NOTE | 2017-12-12 17:45 | PDOC H&P ---
History of Present Illness Admission Date/PCP: KURTIS SCOTT MD History of Present Illness: ROBERT CAMILO is a 87 year old frail female patient with extensive medical history including coronary artery disease, chronic atrial fibrillation, hyperlipidemia, hypertension, COPD, CKD stage III, seasonal allergy, generalized anxiety disorder, diastolic heart failure and history of breast cancer status post mastectomy, presented to us with chief complaint of cough. Since patient is hard of hearing and somnolent she is not source of history brief history is obtained from the ER attending note. Per ER attending note patient presented with chief complaint of cough for the past few weeks which is productive of sputum which is yellowish. She has associated shortness of breath worsened after she failed yesterday. She had no injury. Per her patient has not been eating or drinking well. Further detailed history and review of systems unobtainable. Her initial blood workup shows leukocytosis of 18.8, hyperkalemia with potassium of 5.8, creatinine of 2.07 and calcium of 10.5. Her chest x-ray is compatible right lower lobe pneumonia. 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 Psychiatric Medical History: Reports: General Anxiety Disorder Denies: Depression Hematology: Reports: Anemia - 10/09/2011 Denies: Sickle Cell Disease Past Surgical History Past Surgical History: Reports: Hysterectomy, Mastectomy - 2010 Denies: Amputation, Pacemaker Social History Smoking Status: Never Smoker Frequency of Alcohol Use: None Hx Recreational Drug Use: No Drugs: None Hx Prescription Drug Abuse: No - Advance Directive Resuscitation Status: Full Code Family History Family History: Reviewed & Not Pertinent Parental Family History Reviewed: Yes Children Family History Reviewed: Yes Sibling(s) Family History Reviewed.: Yes Medication/Allergy Home Medications: Albuterol Sulfate [Proair HFA] 2 puff IH Q4 08/09/17 Fluticasone/Salmeterol [Advair 250-50 Diskus 28 dose] 1 inh IH Q12 08/09/17 Furosemide [Lasix 40 mg Tablet] 40 mg PO BID 08/09/17 Letrozole [Femara 2.5 mg Tablet] 2.5 mg PO DAILY 08/09/17 Metolazone [Zaroxolyn 2.5 mg Tablet] 2.5 mg PO DAILY 08/09/17 Montelukast Sodium [Singulair 10 mg Tablet] 10 mg PO PCSUPPER 08/09/17 Pantoprazole Sodium [Protonix] 40 mg PO DAILY 08/09/17 Potassium Chloride [Klor-Con M20] 40 meq PO TID 08/09/17 Simvastatin [Zocor 20 mg Tablet] 20 mg PO QHS 08/09/17 Spironolactone [Aldactone 25 mg Tablet] 25 mg PO DAILY 08/09/17 Amiodarone HCl [Cordarone 200 mg Tablet] 100 mg PO DAILY tablet 08/22/17 Aspirin [Ecotrin 81 mg EC Tablet] 81 mg PO DAILY tabec 08/22/17 Calcium Carbonate [Os-Jose Ramon 500 mg Tablet (Oyster-Shell)] 500 mg PO DAILY tablet 08/22/17 Collagenase Clostridium Hist. [Santyl Ointment 30 gm] 1 applic TOP DAILY@1630 tube 08/22/17 Furosemide [Lasix 40 mg Tablet] 40 mg PO DAILY tablet 08/22/17 Ipratropium/Albuterol Sulfate [Duoneb 3 ml Ampul] 3 ml NEB [id number] PRN vial.neb 08/22/17 Lactobacillus Acidophilus [Bacid 250 mg Tablet] 500 mg PO BID tab 08/22/17 Lactulose [Cephulac Syrup 20 gm/30 ml Udcup] 20 gm PO BIDP PRN udc 08/22/17 Linezolid [Zyvox 600 mg Tablet] 600 mg PO Q12 tablet 08/22/17 Olanzapine [Zyprexa 2.5 mg Tablet] 2.5 mg PO QHS tablet 08/22/17 Polyethylene Glycol 3350 [Miralax Powder 17 gm/Packet] 17 gm PO BID powd.pack 08/22/17 Sennosides/Docusate 8.6-50 mg [Senna Plus Tablet] 1 each PO DAILYP PRN tablet 08/22/17 Allergies/Adverse Reactions: amoxicillin [Amoxicillin] Allergy (Intermediate, Verified 12/12/17 13:44) Rash codeine [Codeine] Allergy (Unknown, Verified 12/12/17 13:44) adhesive tape [Adhesive Tape] Adverse Reaction (Severe, Verified 12/12/17 13:44) Tears skin diltiazem HCl [From Tiazac] Adverse Reaction (Intermediate, Verified 12/12/17 13 :44) Dizzy doxycycline [Doxycycline] Adverse Reaction (Intermediate, Verified 12/12/17 13: 44) Dizzy lisinopril [Lisinopril] Adverse Reaction (Intermediate, Verified 12/12/17 13:44) Dizzy propafenone [Propafenone] Adverse Reaction (Intermediate, Verified 12/12/17 13: 44) Diarrhea zolpidem tartrate [From Ambien] Adverse Reaction (Intermediate, Verified 13:44) Confusion Strong fumes Allergy (Severe, Uncoded 12/12/17 13:44) Asthma Review of Systems ROS unobtainable: Due to mental status Physical Exam Vital Signs: Temp Pulse Resp BP Pulse Ox 99.3 F 83 18 94/51 L 100 12/12/17 12:06 12/12/17 12:06 12/12/17 12:06 12/12/17 12:06 12/12/17 13:20 Intake & Output 12/11/17 12/12/17 12/13/17 06:59 06:59 06:59 Weight 56.3 kg General appearance: PRESENT: mild distress Head exam: PRESENT: atraumatic Eye exam: PRESENT: conjunctiva pink Neck exam: ABSENT: carotid bruit, lymphadenopathy, thyromegaly Respiratory exam: PRESENT: crackles - Coarse crepitation bilaterally, decreased breath sounds GI/Abdominal exam: PRESENT: normal bowel sounds, soft. ABSENT: distended, guarding, mass, organolmegaly, rebound, tenderness Extremities exam: PRESENT: +1 edema Neurological exam: PRESENT: other - Somnolent Results Laboratory Results: 12/12/17 13:50 12/12/17 13:50 12/12/17 12/12/17 12/12/17 13:50 13:50 15:20 WBC 18.8 H RBC 3.76 Hgb 11.3 L Hct 33.9 L MCV 90 MCH 30.2 MCHC 33.5 RDW 17.7 H Plt Count 232 Seg Neutrophils % Not Reportable Lymphocytes % Not Reportable Monocytes % Not Reportable Eosinophils % Not Reportable Basophils % Not Reportable Absolute Neutrophils Not Reportable Absolute Lymphocytes Not Reportable Absolute Monocytes Not Reportable Absolute Eosinophils Not Reportable Absolute Basophils Not Reportable Sodium 135.8 L Potassium 5.8 H Chloride 96 L Carbon Dioxide 28 Anion Gap 12 BUN 55 H Creatinine 2.07 H Est GFR ( Amer) 28 L Est GFR (Non-Af Amer) 23 L Glucose 95 Lactic Acid 1.3 Calcium 10.5 H Total Bilirubin 0.7 AST 36 ALT 15 Alkaline Phosphatase 60 Total Protein 7.6 Albumin 4.1 12/12/17 12/12/17 13:50 13:50 Creatine Kinase 57 CK-MB (CK-2) 0.94 Troponin I 0.769 NT-Pro-B Natriuret Pep 7460 H Impressions: Chest X-Ray 12/12/17 13:20 IMPRESSION: Patchy right basilar airspace disease, question aspiration pneumonia Assessment & Plan - Diagnosis (1) Severe sepsis Is this a current diagnosis for this admission?: Yes Plan: Patient has leukocytosis, hypotension and tach.. (2) Healthcare-associated pneumonia Is this a current diagnosis for this admission?: Yes Plan: Patient had been in hospital for the last 3 months. Her chest x-rays compatible with right lower lobe pneumonia. Since patient has allergy to multiple antibiotics, she has been started on vancomycin, Azactam and Levaquin. (3) Acute kidney injury superimposed on chronic kidney disease Is this a current diagnosis for this admission?: Yes Plan: Gentle has underlying stage III chronic kidney disease. Her baseline creatinine is between 1.5 and 1.7. I will judiciously hydrate her. (4) Acute on chronic diastolic heart failure Is this a current diagnosis for this admission?: Yes Plan: Patient has shortness of breath and she has moderately elevated BNP of 7400. Supplemental oxygen and gentle diuresis (5) Hyperkalemia Is this a current diagnosis for this admission?: Yes Plan: Kayexalate 30 g p.o. stat Check BMP in a.m. (6) Mild hypercalcemia Is this a current diagnosis for this admission?: Yes Plan: Check her calcium level in the a.m. (7) COPD (chronic obstructive pulmonary disease) Qualifiers: Emphysema type: unspecified Is this a current diagnosis for this admission?: Yes Plan: As needed bronchodilator (8) Chronic atrial fibrillation Is this a current diagnosis for this admission?: Yes Plan: Rate controlled (9) Hypertension Qualifiers: Hypertension type: essential hypertension Qualified Code(s): I10 - Essential (primary) hypertension Is this a current diagnosis for this admission?: Yes Plan: Hold antihypertensive medication since currently she is hypotensive. (10) Hyperlipidemia Qualifiers: Hyperlipidemia type: unspecified Qualified Code(s): E78.5 - Hyperlipidemia , unspecified Is this a current diagnosis for this admission?: Yes Plan: Continue home simvastatin (11) Anemia of chronic disease Is this a current diagnosis for this admission?: Yes Plan: Monitor H&H - Inpatient Certification Medical Necessity: Need Close Monitoring Due to Risk of Patient Decompensation, Need For IV Fluids, Need for IV Antibiotics
[2017-12-12] MEDS ORDERED: SODIUM POLYSTYRENE SULFONATE 15 GM/60 ML PO ONE (18:30)
[2017-12-12] MEDS ORDERED: AZTREONAM 1 GM in DEXTROSE 5%-WATER 50 ML IV ONE ×2 (20:00→22:00)
[2017-12-12] MEDS ORDERED: VANCOMYCIN HCL 500 MG in DEXTROSE 5%-WATER 100 ML IV SCH (22:00)
[2017-12-12] MEDS: IPRATROPIUM/ALBUTEROL 0.5-2.5 MG/3 ML AMPUL NEB SCH (22:39)
[2017-12-13] MEDS: VANCOMYCIN HCL 500 MG in NORMAL SALINE 100 ML IV SCH (01:10)
[2017-12-13] MEDS: HEPARIN SOD (PORCINE) 5,000 UNIT/ML 1 ML SYRINGE SUBCUT SCH ×4 (01:28→21:55)
[2017-12-13] MEDS: ACETAMINOPHEN 325 MG TABLET PO PRN ×2 (01:28→12:59)
[2017-12-13] MEDS: IPRATROPIUM/ALBUTEROL 0.5-2.5 MG/3 ML AMPUL NEB SCH ×4 (01:43→20:21)
[2017-12-13] MEDS ORDERED: SODIUM POLYSTYRENE SULFONATE 15 GM/60 ML PO ONE (03:15)
[2017-12-13] MEDS: AZTREONAM 0.5 GM in DEXTROSE 5%-WATER 50 ML IV SCH ×3 (06:25→21:54)
[2017-12-13] MEDS: NORMAL SALINE 1000 ML 1,000 ML IV PRN (06:26)
--- NOTE | 2017-12-13 07:29 | EKG REPORT ---
SEVERITY:- ABNORMAL ECG - ACCELERATED JUNCTIONAL RHYTHM BORDERLINE LEFT AXIS DEVIATION POSSIBLE OLD ANTEROSEPTAL PA : Confirmed by: Bravo Block MD 13-Dec-2017 07:28:41
[2017-12-13 08:06] LABS: APPEARANCE,URINE CLEAR; BILIRUBIN,URINE NEGATIVE (NEGATIVE); COLOR,URINE YELLOW; GLUCOSE, URINE NEGATIVE (NEGATIVE); KETONES,URINE NEGATIVE (NEGATIVE); LEUKOCYTE ESTERASE,URINE SMALL (NEGATIVE); NITRITE,URINE NEGATIVE (NEGATIVE); PROTEIN,URINE NEGATIVE (NEGATIVE); URINE SPECIFIC GRAVITY 1.012; UROBILINOGEN,URINE NEGATIVE mg/dL (<2.0)
[2017-12-13 08:36] LABS: ABSOLUTE LYMPHOCYTES (AUTO) 0.7 10^3/uL (0.5-4.7); ABSOLUTE MONOCYTES (AUTO) 0.9 10^3/uL (0.1-1.4); ABSOLUTE NEUT (AUTO) 12.2 10^3/uL (1.7-8.2); BASOPHILS % (AUTO) 0.2 % (0-2); EOSINOPHILS % (AUTO) 0.2 % (0-6); HEMATOCRIT 28.6 % (36.0-47.0); HEMOGLOBIN 9.5 g/dL (12.0-15.5); LYMPHOCYTES % (AUTO) 5.3 % (13-45); MEAN CORPUSCULAR HEMOGLOBIN 29.9 pg (27.0-33.4); MEAN CORPUSCULAR HGB CONC 33.3 g/dL (32.0-36.0); MEAN CORPUSCULAR VOLUME 90 fl (80-97); MONOCYTES % (AUTO) 6.8 % (3-13); PLATELET COUNT 155 10^3/uL (150-450); RED BLOOD COUNT 3.18 10^6/uL (3.72-5.28); SEGMENTED NEUTROPHILS % (AUTO) 87.5 % (42-78); TOTAL CELLS COUNTED % (AUTO) 100 %
[2017-12-13 08:59] LABS: ANION GAP 11 (5-19); BLOOD UREA NITROGEN 48 mg/dL (7-20); CALCIUM 9.6 mg/dL (8.4-10.2); CARBON DIOXIDE 25 mmol/L (22-30); CHLORIDE 101 mmol/L (98-107); GLUCOSE 82 mg/dL (75-110); SODIUM 136.5 mmol/L (137-145)
[2017-12-13 09:25] LABS: POTASSIUM 3.8 mmol/L (3.6-5.0)
[2017-12-13] MEDS: LACTULOSE SYRUP 20 GM/30 ML UDCUP PO SCH ×2 (11:04→11:08)
[2017-12-13] MEDS: PANTOPRAZOLE SODIUM 40 MG VIAL IV SCH (11:04)
--- NOTE | 2017-12-13 14:09 | PDOC PROGRESS REPORT ---
Subjective Progress Note for:: 12/13/17 Subjective:: This is a 87 years old female patient admitted with a diagnosis of SIRS sepsis evidenced by hypotension fever leukocytosis and right lower lobe pneumonia. Patient also found to have acute kidney injury on stage III CKD. Patient has been started on triple antibiotics including Azactam, Levaquin and vancomycin to treat her as a case of healthcare associated pneumonia since patient has history of being treated with antibiotics and had been in hospital 3 months ago. This morning I seen patient while she is resting in bed. Reportedly she has a restful night. Her blood work shows that her leukocytosis is trending down from 18,000-14,000 and her kidney function also improved evidence of by creatinine trending down from 2.07-1.73. Reason For Visit: SEVERE SEPSIS,ACUTE KIDNEY INJURY ON CKD, Physical Exam Vital Signs: Temp Pulse Resp BP Pulse Ox 98.4 F 97 20 111/42 L 100 12/13/17 12:19 12/13/17 12:19 12/13/17 12:19 12/13/17 12:19 12/13/17 12:19 Intake & Output 12/12/17 12/13/17 12/14/17 06:59 06:59 06:59 Intake Total 850 236 Output Total 250 900 Balance 600 -664 Weight 57.7 kg General appearance: PRESENT: mild distress Head exam: PRESENT: atraumatic Eye exam: PRESENT: conjunctiva pink Neck exam: ABSENT: carotid bruit, JVD, lymphadenopathy, thyromegaly Respiratory exam: PRESENT: crackles - Bilateral right greater than left, rhonchi Cardiovascular exam: PRESENT: irregular rhythm Results Laboratory Results: 12/13/17 08:02 12/13/17 08:02 12/13/17 12/13/17 12/13/17 07:05 08:02 08:02 WBC 14.0 H RBC 3.18 L Hgb 9.5 L Hct 28.6 L MCV 90 MCH 29.9 MCHC 33.3 RDW 17.0 H Plt Count 155 Seg Neutrophils % 87.5 H Lymphocytes % 5.3 L Monocytes % 6.8 Eosinophils % 0.2 Basophils % 0.2 Absolute Neutrophils 12.2 H Absolute Lymphocytes 0.7 Absolute Monocytes 0.9 Absolute Eosinophils 0.0 Absolute Basophils 0.0 Sodium 136.5 L Potassium 3.8 D Chloride 101 Carbon Dioxide 25 Anion Gap 11 BUN 48 H Creatinine 1.73 H Est GFR ( Amer) 34 L Est GFR (Non-Af Amer) 28 L Glucose 82 Calcium 9.6 Urine Color YELLOW Urine Appearance CLEAR Urine pH 6.0 Ur Specific [place] 1.012 Urine Protein NEGATIVE Urine Glucose (UA) NEGATIVE Urine Ketones NEGATIVE Urine Blood NEGATIVE Urine Nitrite NEGATIVE Ur Leukocyte Esterase SMALL H Urine WBC (Auto) 15 Urine RBC (Auto) 5 12/12/17 18:02 Troponin I 0.541 Impressions: Chest X-Ray 12/12/17 13:20 IMPRESSION: Patchy right basilar airspace disease, question aspiration pneumonia Assessment & Plan - Diagnosis (1) Severe sepsis Is this a current diagnosis for this admission?: Yes Plan: Continue current regimen (2) Healthcare-associated pneumonia Is this a current diagnosis for this admission?: Yes Plan: Continue her Azactam, Levaquin and vancomycin and I will schedule down based on the culture and sensitivity results and her clinical progress. (3) Acute kidney injury superimposed on chronic kidney disease Is this a current diagnosis for this admission?: Yes Plan: Improving (4) Acute on chronic diastolic heart failure Is this a current diagnosis for this admission?: Yes Plan: We will cautiously diurese her. (5) Hyperkalemia Is this a current diagnosis for this admission?: Yes Plan: Resolved (6) Mild hypercalcemia Is this a current diagnosis for this admission?: Yes Plan: Has resolved (7) COPD (chronic obstructive pulmonary disease) Qualifiers: Emphysema type: unspecified Is this a current diagnosis for this admission?: Yes Plan: As needed bronchodilator (8) Chronic atrial fibrillation Is this a current diagnosis for this admission?: Yes Plan: Rate controlled (9) Hypertension Qualifiers: Hypertension type: essential hypertension Qualified Code(s): I10 - Essential (primary) hypertension Is this a current diagnosis for this admission?: Yes Plan: Hold antihypertensive medication since currently she is hypotensive. (10) Hyperlipidemia Qualifiers: Hyperlipidemia type: unspecified Qualified Code(s): E78.5 - Hyperlipidemia , unspecified Is this a current diagnosis for this admission?: Yes Plan: Continue home simvastatin (11) Anemia of chronic disease Is this a current diagnosis for this admission?: Yes Plan: Monitor H&H
--- NOTE | 2017-12-13 15:35 | RADIOLOGY REPORT (SQ) ---
EXAM DESCRIPTION: CHEST SINGLE VIEW COMPLETED DATE/TIME: 12/13/2017 3:26 pm REASON FOR STUDY: line placement COMPARISON: 12/12/2017 EXAM PARAMETERS: NUMBER OF VIEWS: One view. TECHNIQUE: Single frontal radiographic view of the chest acquired. RADIATION DOSE: NA LIMITATIONS: None. FINDINGS: LUNGS AND PLEURA: Patchy right lower lobe infiltrate. MEDIASTINUM AND HILAR STRUCTURES: No masses. Contour normal. HEART AND VASCULAR STRUCTURES: Cardiomegaly without cely pulmonary edema. BONES: No acute findings. HARDWARE: Right internal jugular catheter has its tip in the superior vena cava. OTHER: No other significant finding. IMPRESSION: Right lower lobe pneumonia. Catheter placement as described. TECHNICAL DOCUMENTATION: JOB ID: [id number] [employer]- All Rights Reserved Reading location - IP/workstation name: [email or web address]
--- NOTE | 2017-12-13 22:30 | OPERATIVE REPORT E ---
Operative Report NAME: ROBERT CAMILO : 1930 AGE: 87Y DATE OF SURGERY: 12/13/2017 ROOM: 326 PREOPERATIVE DIAGNOSIS: 1. POOR VEINS FOR IV ACCESS WITH HISTORY OF MASTECTOMY ON THE RIGHT SIDE. 2. PATIENT WITH RENAL FAILURE FOR POSSIBLE EVENTUAL HEMODIALYSIS. POSTOPERATIVE DIAGNOSIS: 1. POOR VEINS FOR IV ACCESS WITH HISTORY OF MASTECTOMY ON THE RIGHT SIDE. 2. PATIENT WITH RENAL FAILURE FOR POSSIBLE EVENTUAL HEMODIALYSIS. PROCEDURE: Insertion of right internal jugular vein triple-lumen catheter. SURGEON: NAVDEEP REYEZ M.D. ANESTHESIA: Local. DESCRIPTION OF PROCEDURE: The patient was placed in slight Trendelenburg position and the right neck exposed and prepped and draped in the usual sterile fashion. With use of the ultrasound the right internal jugular vein was then identified and local anesthesia infiltrated at the path of the internal jugular vein. Needle was inserted through the internal jugular vein and with the Seldinger technique a guidewire passed through the needle to the superior vena cava and the needle pulled out. Insertion site was then dilated and a triple-lumen catheter was then inserted through the guidewire to a distance of about 14 cm. The catheter was anchored to the skin with 3-0 silk and all the 3 ports aspirated blood easily and instilled saline easily. A Biopatch placed over the insertion site and covered with a transparent sterile dressing. A chest x-ray will be obtained for placement. The patient tolerated the procedure well. DICTATING PHYSICIAN: NAVDEEP REYEZ M.D. [id number] PHY#: [id number] ID: [id number] JOB#: [id number] ACCT: [id number] cc:NAVDEEP REYEZ M.D. >
[2017-12-14] MEDS: IPRATROPIUM/ALBUTEROL 0.5-2.5 MG/3 ML AMPUL NEB SCH ×4 (01:57→20:21)
[2017-12-14] MEDS: ACETAMINOPHEN 325 MG TABLET PO PRN ×2 (02:01→19:00)
[2017-12-14] MEDS: NORMAL SALINE 1000 ML 1,000 ML IV PRN ×2 (02:02→17:56)
[2017-12-14] MEDS ORDERED: LORAZEPAM 0.5 MG TABLET PO PRN (02:34)
[2017-12-14] MEDS: AZTREONAM 0.5 GM in DEXTROSE 5%-WATER 50 ML IV SCH ×3 (06:29→21:50)
[2017-12-14] MEDS: HEPARIN SOD (PORCINE) 5,000 UNIT/ML 1 ML SYRINGE SUBCUT SCH ×3 (06:29→21:59)
[2017-12-14 06:56] LABS: ABSOLUTE LYMPHOCYTES (AUTO) 0.8 10^3/uL (0.5-4.7); ABSOLUTE MONOCYTES (AUTO) 0.7 10^3/uL (0.1-1.4); ABSOLUTE NEUT (AUTO) 9.8 10^3/uL (1.7-8.2); BASOPHILS % (AUTO) 0.3 % (0-2); EOSINOPHILS % (AUTO) 0.4 % (0-6); HEMOGLOBIN 9.1 g/dL (12.0-15.5); LYMPHOCYTES % (AUTO) 6.9 % (13-45); MEAN CORPUSCULAR HEMOGLOBIN 30.7 pg (27.0-33.4); MEAN CORPUSCULAR HGB CONC 33.8 g/dL (32.0-36.0); MEAN CORPUSCULAR VOLUME 91 fl (80-97); MONOCYTES % (AUTO) 5.9 % (3-13); PLATELET COUNT 135 10^3/uL (150-450); RED BLOOD COUNT 2.98 10^6/uL (3.72-5.28); RED CELL DISTRIBUTION WIDTH 17.1 % (11.5-14.0); SEGMENTED NEUTROPHILS % (AUTO) 86.5 % (42-78); TOTAL CELLS COUNTED % (AUTO) 100 %; WHITE BLOOD COUNT 11.3 10^3/uL (4.0-10.5)
[2017-12-14 07:16] LABS: ANION GAP 9 (5-19); BLOOD UREA NITROGEN 32 mg/dL (7-20); CARBON DIOXIDE 26 mmol/L (22-30); CHLORIDE 101 mmol/L (98-107); GLUCOSE 84 mg/dL (75-110); POTASSIUM 3.4 mmol/L (3.6-5.0); SODIUM 135.8 mmol/L (137-145)
--- NOTE | 2017-12-14 08:20 | RADIOLOGY REPORT (SQ) ---
EXAM DESCRIPTION: CHEST SINGLE VIEW COMPLETED DATE/TIME: 12/14/2017 8:06 am REASON FOR STUDY: Pneumonia COMPARISON: 08/15/2017, 08/16/2017, 12/12/2017, 12/13/2017 chest films EXAM PARAMETERS: NUMBER OF VIEWS: One view. TECHNIQUE: Single frontal radiographic view of the chest acquired. RADIATION DOSE: NA LIMITATIONS: None. FINDINGS: LUNGS AND PLEURA: Persistent dense consolidation in the medial right lower lobe, worrisome for aspiration pneumonia. Minimal bandlike left basilar atelectasis No gross pleural effusion or pneumothorax MEDIASTINUM AND HILAR STRUCTURES: No masses. Contour normal. HEART AND VASCULAR STRUCTURES: Old sternotomy for CABG. Stable mild to moderate cardiomegaly BONES: No acute findings. HARDWARE: The right jugular central line tip superior vena cava. OTHER: No other significant finding. IMPRESSION: Persistent dense consolidation in the medial right lower lobe worrisome for aspiration p neumonia TECHNICAL DOCUMENTATION: JOB ID: [id number] [email or web address]- All Rights Reserved Reading location - IP/workstation name: [email or web address]
[2017-12-14] MEDS ORDERED: LORAZEPAM 1 MG TABLET PO PRN (08:29)
--- NOTE | 2017-12-14 09:15 | PDOC PROGRESS REPORT ---
Subjective Progress Note for:: 12/14/17 Subjective:: I seen patient resting in bed comfortably. Today she is more awake alert and conversant. Her blood works are improving with WBC count from 18,000-11,000 and her kidney function also remarkably improved from creatinine of 2.07-1.11. Since the patient is a little bit deconditioned physical therapy ordered. Discharge plan discussed with her and her daughter. Reason For Visit: SEVERE SEPSIS,ACUTE KIDNEY INJURY ON CKD, Physical Exam Vital Signs: Temp Pulse Resp BP Pulse Ox 98.2 F 84 14 118/49 L 99 12/14/17 07:19 12/14/17 07:19 12/14/17 07:19 12/14/17 07:19 12/14/17 07:19 Intake & Output 12/13/17 12/14/17 12/15/17 06:59 06:59 06:59 Intake Total 850 2073 50 Output Total 250 1950 Balance 600 123 50 Weight 57.7 kg 59 kg General appearance: PRESENT: no acute distress Head exam: PRESENT: atraumatic Eye exam: PRESENT: conjunctiva pink Mouth exam: PRESENT: moist Neck exam: ABSENT: carotid bruit, JVD, lymphadenopathy, thyromegaly Respiratory exam: PRESENT: clear to auscultation bruce. ABSENT: rales, rhonchi, wheezes Cardiovascular exam: PRESENT: irregular rhythm GI/Abdominal exam: PRESENT: normal bowel sounds, soft. ABSENT: distended, guarding, mass, organolmegaly, rebound, tenderness Extremities exam: PRESENT: full ROM. ABSENT: calf tenderness, clubbing, pedal edema Neurological exam: PRESENT: alert, awake, oriented to time, oriented to situation Results Laboratory Results: 12/14/17 06:40 12/14/17 06:40 12/13/17 12/14/17 12/14/17 08:02 06:40 06:40 WBC 11.3 H RBC 2.98 L Hgb 9.1 L Hct 27.0 L MCV 91 MCH 30.7 MCHC 33.8 RDW 17.1 H Plt Count 135 L Seg Neutrophils % 86.5 H Lymphocytes % 6.9 L Monocytes % 5.9 Eosinophils % 0.4 Basophils % 0.3 Absolute Neutrophils 9.8 H Absolute Lymphocytes 0.8 Absolute Monocytes 0.7 Absolute Eosinophils 0.0 Absolute Basophils 0.0 Sodium 136.5 L 135.8 L Potassium 3.8 D 3.4 L Chloride 101 101 Carbon Dioxide 25 26 Anion Gap 11 9 BUN 48 H 32 H Creatinine 1.73 H 1.11 Est GFR ( Amer) 34 L 57 L Est GFR (Non-Af Amer) 28 L 47 L Glucose 82 84 Calcium 9.6 9.0 12/12/17 18:02 Troponin I 0.541 Impressions: Chest X-Ray 12/14/17 00:00 IMPRESSION: Persistent dense consolidation in the medial right lower lobe worrisome for aspiration pneumonia Assessment & Plan - Diagnosis (1) Severe sepsis Is this a current diagnosis for this admission?: Yes Plan: Improving (2) Healthcare-associated pneumonia Is this a current diagnosis for this admission?: Yes Plan: Continue her Azactam, Levaquin and vancomycin and I will schedule down based on the culture and sensitivity results and her clinical progress. (3) Acute kidney injury superimposed on chronic kidney disease Is this a current diagnosis for this admission?: Yes Plan: Has resolved (4) Acute on chronic diastolic heart failure Is this a current diagnosis for this admission?: Yes Plan: Her shortness of breath has been subsiding (5) Hyperkalemia Is this a current diagnosis for this admission?: Yes Plan: Resolved (6) Mild hypercalcemia Is this a current diagnosis for this admission?: Yes Plan: Has resolved (7) COPD (chronic obstructive pulmonary disease) Qualifiers: Emphysema type: unspecified Is this a current diagnosis for this admission?: Yes Plan: As needed bronchodilator (8) Chronic atrial fibrillation Is this a current diagnosis for this admission?: Yes Plan: Rate controlled (9) Hypertension Qualifiers: Hypertension type: essential hypertension Qualified Code(s): I10 - Essential (primary) hypertension Is this a current diagnosis for this admission?: Yes Plan: Hold antihypertensive medication since currently she is hypotensive. (10) Hyperlipidemia Qualifiers: Hyperlipidemia type: unspecified Qualified Code(s): E78.5 - Hyperlipidemia , unspecified Is this a current diagnosis for this admission?: Yes Plan: Continue home simvastatin (11) Anemia of chronic disease Is this a current diagnosis for this admission?: Yes
[2017-12-14] MEDS ORDERED: (PENDING PHARMACY ID) (Potassium Chloride [Klor-Con M20] 40 MEQ) PO SCH (10:00)
[2017-12-14] MEDS: LACTULOSE SYRUP 20 GM/30 ML UDCUP PO SCH (10:33)
[2017-12-14] MEDS: SPIRONOLACTONE 25 MG TABLET PO SCH (10:52)
[2017-12-14] MEDS: METOLAZONE 2.5 MG TABLET PO SCH (10:52)
[2017-12-14] MEDS: PANTOPRAZOLE SODIUM 40 MG VIAL IV SCH (10:52)
[2017-12-14] MEDS: FLUTICASONE/SALMETEROL DISKUS 250-50 MCG/DOSE IH SCH ×2 (10:53→21:50)
[2017-12-14] MEDS: LETROZOLE 2.5 MG TABLET PO SCH (10:53)
[2017-12-14] MEDS: VANCOMYCIN HCL 500 MG in NORMAL SALINE 100 ML IV SCH (10:56)
[2017-12-14] MEDS: POTASSIUM CHLORIDE 10 MEQ CAPSULE.ER PO SCH ×2 (13:36→21:07)
[2017-12-14] MEDS: BENZONATATE 100 MG CAPSULE PO PRN ×2 (13:36→21:50)
[2017-12-14] MEDS: MONTELUKAST SODIUM 10 MG TABLET PO SCH (17:14)
[2017-12-14] MEDS: LEVOFLOXACIN 750 MG/D5W RTU 750 MG/150 ML RTUPB IV SCH (17:14)
[2017-12-14] MEDS: GUAIFENESIN 600 MG TABLET.SA PO SCH (17:56)
[2017-12-14] MEDS: TRAMADOL HCL 50 MG TABLET PO PRN (21:07)
[2017-12-14] MEDS: SIMVASTATIN 10 MG TABLET PO SCH (21:07)
[2017-12-15] MEDS: IPRATROPIUM/ALBUTEROL 0.5-2.5 MG/3 ML AMPUL NEB SCH ×4 (02:29→20:31)
[2017-12-15 04:35] LABS: ABSOLUTE EOSINOPHILS # (AUTO) 0.1 10^3/uL (0.0-0.6); ABSOLUTE MONOCYTES (AUTO) 0.7 10^3/uL (0.1-1.4); ABSOLUTE NEUT (AUTO) 7.8 10^3/uL (1.7-8.2); BASOPHILS % (AUTO) 0.4 % (0-2); HEMATOCRIT 26.8 % (36.0-47.0); HEMOGLOBIN 9.1 g/dL (12.0-15.5); MEAN CORPUSCULAR HGB CONC 33.9 g/dL (32.0-36.0); MEAN CORPUSCULAR VOLUME 91 fl (80-97); MONOCYTES % (AUTO) 7.2 % (3-13); PLATELET COUNT 126 10^3/uL (150-450); RED BLOOD COUNT 2.93 10^6/uL (3.72-5.28); RED CELL DISTRIBUTION WIDTH 17.2 % (11.5-14.0); SEGMENTED NEUTROPHILS % (AUTO) 81.4 % (42-78); TOTAL CELLS COUNTED % (AUTO) 100 %; WHITE BLOOD COUNT 9.6 10^3/uL (4.0-10.5)
[2017-12-15 04:56] LABS: ANION GAP 10 (5-19); BLOOD UREA NITROGEN 28 mg/dL (7-20); CALCIUM 9.1 mg/dL (8.4-10.2); CARBON DIOXIDE 24 mmol/L (22-30); CHLORIDE 103 mmol/L (98-107); GLUCOSE 95 mg/dL (75-110); POTASSIUM 4.3 mmol/L (3.6-5.0); SODIUM 136.5 mmol/L (137-145)
[2017-12-15] MEDS: HEPARIN SOD (PORCINE) 5,000 UNIT/ML 1 ML SYRINGE SUBCUT SCH ×3 (06:30→23:21)
[2017-12-15] MEDS: BENZONATATE 100 MG CAPSULE PO PRN (06:47)
[2017-12-15] MEDS: AZTREONAM 0.5 GM in DEXTROSE 5%-WATER 50 ML IV SCH ×3 (06:47→23:18)
[2017-12-15] MEDS: POTASSIUM CHLORIDE 10 MEQ CAPSULE.ER PO SCH ×3 (06:56→23:20)
[2017-12-15] MEDS ORDERED: FUROSEMIDE INJ/PF 40 MG/4 ML SDV IV ONE (09:32)
[2017-12-15] MEDS ORDERED: NORMAL SALINE 1000 ML 1,000 ML IV PRN (09:32)
[2017-12-15] MEDS: FLUTICASONE/SALMETEROL DISKUS 250-50 MCG/DOSE IH SCH ×2 (10:06→23:17)
[2017-12-15] MEDS: PANTOPRAZOLE SODIUM 40 MG VIAL IV SCH (10:06)
[2017-12-15] MEDS: GUAIFENESIN 600 MG TABLET.SA PO SCH ×2 (10:06→17:40)
[2017-12-15] MEDS: SPIRONOLACTONE 25 MG TABLET PO SCH (10:07)
[2017-12-15] MEDS: LETROZOLE 2.5 MG TABLET PO SCH (10:07)
[2017-12-15] MEDS: METOLAZONE 2.5 MG TABLET PO SCH (10:07)
[2017-12-15] MEDS: LACTULOSE SYRUP 20 GM/30 ML UDCUP PO SCH (10:07)
[2017-12-15] MEDS: TRAMADOL HCL 50 MG TABLET PO PRN (13:41)
--- NOTE | 2017-12-15 13:50 | PDOC PROGRESS REPORT ---
Subjective Progress Note for:: 12/15/17 Subjective:: Patient seen and examined at bedside and alert oriented. Respiratory distress is improving but she complains of persistent cough despite taking her home Tessalon Perls. She is started on Mucinex. Blood cultures are negative. Reason For Visit: SEVERE SEPSIS,ACUTE KIDNEY INJURY ON CKD, Physical Exam Vital Signs: Temp Pulse Resp BP Pulse Ox 98 F 98 20 116/56 L 98 12/15/17 12:00 12/15/17 12:00 12/15/17 12:00 12/15/17 12:00 12/15/17 12:00 Intake & Output 12/14/17 12/15/17 12/16/17 06:59 06:59 06:59 Intake Total 2073 2697 993 Output Total 1950 1775 950 Balance 123 922 43 Weight 59 kg 61.5 kg General appearance: PRESENT: no acute distress Head exam: PRESENT: atraumatic Neck exam: ABSENT: carotid bruit, JVD, lymphadenopathy, thyromegaly Respiratory exam: PRESENT: crackles - Bilateral Cardiovascular exam: PRESENT: RRR. ABSENT: diastolic murmur, rubs, systolic murmur GI/Abdominal exam: PRESENT: normal bowel sounds, soft. ABSENT: distended, guarding, mass, organolmegaly, rebound, tenderness Extremities exam: PRESENT: +1 edema - Bilateral Neurological exam: PRESENT: alert, awake, oriented to time, oriented to situation Results Laboratory Results: 12/15/17 04:06 12/15/17 04:06 12/15/17 12/15/17 04:06 04:06 WBC 9.6 RBC 2.93 L Hgb 9.1 L Hct 26.8 L MCV 91 MCH 31.0 MCHC 33.9 RDW 17.2 H Plt Count 126 L Seg Neutrophils % 81.4 H Lymphocytes % 10.0 L Monocytes % 7.2 Eosinophils % 1.0 Basophils % 0.4 Absolute Neutrophils 7.8 Absolute Lymphocytes 1.0 Absolute Monocytes 0.7 Absolute Eosinophils 0.1 Absolute Basophils 0.0 Sodium 136.5 L Potassium 4.3 Chloride 103 Carbon Dioxide 24 Anion Gap 10 BUN 28 H Creatinine 1.04 Est GFR ( Amer) > 60 Est GFR (Non-Af Amer) 50 L Glucose 95 Calcium 9.1 12/13/17 07:05 Catheterized Urine Urine Culture - Final NO GROWTH 2 DAYS 12/12/17 18:02 Troponin I 0.541 Impressions: Chest X-Ray 12/14/17 00:00 IMPRESSION: Persistent dense consolidation in the medial right lower lobe worrisome for aspiration pneumonia Assessment & Plan - Diagnosis (1) Severe sepsis Is this a current diagnosis for this admission?: Yes Plan: Improving (2) Healthcare-associated pneumonia Is this a current diagnosis for this admission?: Yes Plan: Continue her Azactam, Levaquin and vancomycin and I will schedule down based on the culture and sensitivity results and her clinical progress. (3) Acute kidney injury superimposed on chronic kidney disease Is this a current diagnosis for this admission?: Yes Plan: Has resolved (4) Acute on chronic diastolic heart failure Is this a current diagnosis for this admission?: Yes Plan: Her shortness of breath has been subsiding (5) Hyperkalemia Is this a current diagnosis for this admission?: Yes Plan: Resolved (6) Mild hypercalcemia Is this a current diagnosis for this admission?: Yes Plan: Has resolved (7) COPD (chronic obstructive pulmonary disease) Qualifiers: Emphysema type: unspecified Is this a current diagnosis for this admission?: Yes Plan: As needed bronchodilator (8) Chronic atrial fibrillation Is this a current diagnosis for this admission?: Yes Plan: Rate controlled (9) Hypertension Qualifiers: Hypertension type: essential hypertension Qualified Code(s): I10 - Essential (primary) hypertension Is this a current diagnosis for this admission?: Yes Plan: Hold antihypertensive medication since currently she is hypotensive. (10) Hyperlipidemia Qualifiers: Hyperlipidemia type: unspecified Qualified Code(s): E78.5 - Hyperlipidemia , unspecified Is this a current diagnosis for this admission?: Yes Plan: Continue home simvastatin (11) Anemia of chronic disease Is this a current diagnosis for this admission?: Yes Plan: Monitor H&H
[2017-12-15] MEDS: MONTELUKAST SODIUM 10 MG TABLET PO SCH (17:40)
[2017-12-15] MEDS: SIMVASTATIN 10 MG TABLET PO SCH (23:17)
[2017-12-15] MEDS: VANCOMYCIN HCL 500 MG in NORMAL SALINE 100 ML IV SCH (23:18)
[2017-12-16] MEDS: IPRATROPIUM/ALBUTEROL 0.5-2.5 MG/3 ML AMPUL NEB SCH ×4 (02:25→20:32)
[2017-12-16] MEDS: HEPARIN SOD (PORCINE) 5,000 UNIT/ML 1 ML SYRINGE SUBCUT SCH ×3 (07:51→22:13)
[2017-12-16] MEDS: POTASSIUM CHLORIDE 10 MEQ CAPSULE.ER PO SCH ×3 (07:52→22:18)
[2017-12-16] MEDS: TRAMADOL HCL 50 MG TABLET PO PRN (08:55)
[2017-12-16] MEDS: AZTREONAM 0.5 GM in DEXTROSE 5%-WATER 50 ML IV SCH ×3 (08:56→22:19)
[2017-12-16] MEDS: LACTULOSE SYRUP 20 GM/30 ML UDCUP PO SCH (09:25)
[2017-12-16] MEDS: METOLAZONE 2.5 MG TABLET PO SCH (09:25)
[2017-12-16] MEDS: GUAIFENESIN 600 MG TABLET.SA PO SCH ×2 (09:25→17:24)
[2017-12-16] MEDS: FLUTICASONE/SALMETEROL DISKUS 250-50 MCG/DOSE IH SCH ×2 (09:25→22:18)
[2017-12-16] MEDS: SPIRONOLACTONE 25 MG TABLET PO SCH (09:25)
[2017-12-16] MEDS: LETROZOLE 2.5 MG TABLET PO SCH (09:32)
[2017-12-16] MEDS: FUROSEMIDE INJ/PF 40 MG/4 ML SDV IV ONE ×3 (09:40→17:18)
[2017-12-16 10:19] LABS: ANION GAP 9 (5-19); BLOOD UREA NITROGEN 23 mg/dL (7-20); CALCIUM 9.3 mg/dL (8.4-10.2); CARBON DIOXIDE 27 mmol/L (22-30); CHLORIDE 97 mmol/L (98-107); GLUCOSE 108 mg/dL (75-110); POTASSIUM 3.6 mmol/L (3.6-5.0); SODIUM 132.7 mmol/L (137-145)
--- NOTE | 2017-12-16 13:22 | PDOC PROGRESS REPORT ---
Subjective Progress Note for:: 12/16/17 Subjective:: Patient resting in bed comfortably. She has been showing some progress. She has erythema over her bottom. She is eating well and she tolerates well. No fever, chills, nausea or vomiting. Reason For Visit: SEVERE SEPSIS,ACUTE KIDNEY INJURY ON CKD, Physical Exam Vital Signs: Temp Pulse Resp BP Pulse Ox 98.0 F 90 17 105/48 L 93 12/16/17 12:04 12/16/17 12:04 12/16/17 12:04 12/16/17 12:04 12/16/17 12:04 Intake & Output 12/15/17 12/16/17 12/17/17 06:59 06:59 06:59 Intake Total 2697 1629 75 Output Total 1772 2800 250 Balance 452 -7301 -071 Weight 61.5 kg 62 kg General appearance: PRESENT: no acute distress Head exam: PRESENT: atraumatic Eye exam: PRESENT: conjunctiva pink Mouth exam: PRESENT: moist Respiratory exam: PRESENT: crackles - Right lung. ABSENT: rales, rhonchi, wheezes Results Laboratory Results: 12/15/17 04:06 12/16/17 09:19 12/16/17 09:19 Sodium 132.7 L Potassium 3.6 Chloride 97 L Carbon Dioxide 27 Anion Gap 9 BUN 23 H Creatinine 0.81 Est GFR ( Amer) > 60 Est GFR (Non-Af Amer) > 60 Glucose 108 Calcium 9.3 12/13/17 07:05 Catheterized Urine Urine Culture - Final NO GROWTH 2 DAYS 12/12/17 18:02 Troponin I 0.541 Impressions: Chest X-Ray 12/14/17 00:00 IMPRESSION: Persistent dense consolidation in the medial right lower lobe worrisome for aspiration pneumonia Assessment & Plan - Diagnosis (1) Severe sepsis Is this a current diagnosis for this admission?: Yes Plan: Improving (2) Healthcare-associated pneumonia Is this a current diagnosis for this admission?: Yes Plan: Continue her Azactam, Levaquin and vancomycin and I will schedule down based on the culture and sensitivity results and her clinical progress. (3) Acute kidney injury superimposed on chronic kidney disease Is this a current diagnosis for this admission?: Yes Plan: Has resolved (4) Acute on chronic diastolic heart failure Is this a current diagnosis for this admission?: Yes Plan: Her shortness of breath has been subsiding (5) Hyperkalemia Is this a current diagnosis for this admission?: Yes Plan: Resolved (6) Mild hypercalcemia Is this a current diagnosis for this admission?: Yes Plan: Has resolved (7) COPD (chronic obstructive pulmonary disease) Qualifiers: Emphysema type: unspecified Is this a current diagnosis for this admission?: Yes Plan: As needed bronchodilator (8) Chronic atrial fibrillation Is this a current diagnosis for this admission?: Yes Plan: Rate controlled (9) Hypertension Qualifiers: Hypertension type: essential hypertension Qualified Code(s): I10 - Essential (primary) hypertension Is this a current diagnosis for this admission?: Yes Plan: Hold antihypertensive medication since currently she is hypotensive. (10) Hyperlipidemia Qualifiers: Hyperlipidemia type: unspecified Qualified Code(s): E78.5 - Hyperlipidemia , unspecified Is this a current diagnosis for this admission?: Yes Plan: Continue home simvastatin (11) Anemia of chronic disease Is this a current diagnosis for this admission?: Yes Plan: Monitor H&H
[2017-12-16] MEDS ORDERED: LANSOPRAZOLE 30 MG TAB.RAP.DR PO ONE (14:30)
[2017-12-16] MEDS ORDERED: FUROSEMIDE INJ/PF 20 MG/2 ML SDV ONE (14:54)
[2017-12-16] MEDS ORDERED: FUROSEMIDE INJ/PF 20 MG/2 ML SDV IV ONE (15:15)
--- NOTE | 2017-12-16 15:25 | RADIOLOGY REPORT (SQ) ---
EXAM DESCRIPTION: CHEST SINGLE VIEW COMPLETED DATE/TIME: 12/16/2017 3:14 pm REASON FOR STUDY: Pneumonia COMPARISON: 12/14/2017 EXAM PARAMETERS: NUMBER OF VIEWS: One view. TECHNIQUE: Single frontal radiographic view of the chest acquired. RADIATION DOSE: NA LIMITATIONS: None. FINDINGS: LUNGS AND PLEURA: Stable pulmonary exam, again demonstrating right lung base consolidation . No new focal consolidation or pneumothorax. MEDIASTINUM AND HILAR STRUCTURES: Stable. HEART AND VASCULAR STRUCTURES: Stable. BONES: No acute findings. HARDWARE: Right cervical central vascular access catheter appears stable in position. Midline surgic al changes. OTHER: No other significant finding. IMPRESSION: Stable radiographic appearance of the chest demonstrating right lung base consolidation. No acute findings. Central line demonstrates appropriate positioning. TECHNICAL DOCUMENTATION: JOB ID: [id number] [employer]- All Rights Reserved Reading location - IP/workstation name: [email or web address]
[2017-12-16] MEDS: LEVOFLOXACIN 750 MG/D5W RTU 750 MG/150 ML RTUPB IV SCH (17:23)
[2017-12-16] MEDS: LANSOPRAZOLE 30 MG TAB.RAP.DR PO SCH (17:23)
[2017-12-16] MEDS: MONTELUKAST SODIUM 10 MG TABLET PO SCH (17:23)
[2017-12-16] MEDS ORDERED: LORAZEPAM 0.5 MG TABLET PO SCH (22:00)
[2017-12-16] MEDS: SIMVASTATIN 10 MG TABLET PO SCH (22:18)
[2017-12-16] MEDS: LORAZEPAM 1 MG TABLET PO SCH (22:19)
[2017-12-17] MEDS: IPRATROPIUM/ALBUTEROL 0.5-2.5 MG/3 ML AMPUL NEB SCH ×4 (02:31→20:59)
[2017-12-17] MEDS: AZTREONAM 0.5 GM in DEXTROSE 5%-WATER 50 ML IV SCH (05:56)
[2017-12-17] MEDS: LANSOPRAZOLE 30 MG TAB.RAP.DR PO SCH (05:57)
[2017-12-17] MEDS: POTASSIUM CHLORIDE 10 MEQ CAPSULE.ER PO SCH ×3 (05:57→21:27)
[2017-12-17] MEDS: HEPARIN SOD (PORCINE) 5,000 UNIT/ML 1 ML SYRINGE SUBCUT SCH ×3 (05:58→21:28)
[2017-12-17] MEDS ORDERED: MAGNESIUM CITRATE 296 ML BOTTLE PO ONE (09:30)
[2017-12-17] MEDS: METOLAZONE 2.5 MG TABLET PO SCH (10:23)
[2017-12-17] MEDS: SPIRONOLACTONE 25 MG TABLET PO SCH (10:23)
[2017-12-17] MEDS: LACTULOSE SYRUP 20 GM/30 ML UDCUP PO SCH (10:23)
[2017-12-17] MEDS: GUAIFENESIN 600 MG TABLET.SA PO SCH ×2 (10:23→18:58)
[2017-12-17] MEDS: FLUTICASONE/SALMETEROL DISKUS 250-50 MCG/DOSE IH SCH ×2 (10:41→21:40)
[2017-12-17] MEDS: VANCOMYCIN HCL 500 MG in NORMAL SALINE 100 ML IV SCH (10:42)
[2017-12-17] MEDS: LETROZOLE 2.5 MG TABLET PO SCH (10:42)
[2017-12-17 12:01] LABS: VANCOMYCIN,TROUGH < 5.0 ug/mL (5.0-20.0)
--- NOTE | 2017-12-17 13:36 | PDOC PROGRESS REPORT ---
Subjective Subjective:: This is a 87 years old female patient admitted with a diagnosis of SIRS sepsis evidenced by hypotension fever leukocytosis and right lower lobe pneumonia. Patient also found to have acute kidney injury on stage III CKD. Patient has been started on triple antibiotics including Azactam, Levaquin and vancomycin to treat her as a case of healthcare associated pneumonia since patient has history of being treated with antibiotics and had been in hospital 3 months ago. This morning I seen patient while she is resting in bed. She complains of constipation and nausea. She was given MiraLAX but did not help her. Her blood work shows that her leukocytosis is trending down from 18,000- 9000 and her kidney function also improved evidence of by creatinine trending down from 2.07-0.18. I then descalated her antibiotics from Levaquin, Zosyn and vancomycin to Levaquin alone. If patient remains stable she is potential discharge for tomorrow with Levaquin. Reason For Visit: SEVERE SEPSIS,ACUTE KIDNEY INJURY ON CKD, Physical Exam Vital Signs: Temp Pulse Resp BP Pulse Ox 98.4 F 90 20 137/48 H 97 12/17/17 07:27 12/17/17 08:15 12/17/17 08:15 12/17/17 07:27 12/17/17 08:15 Intake & Output 12/16/17 12/17/17 12/18/17 06:59 06:59 06:59 Intake Total 1729 826 150 Output Total 2800 1625 Balance -1071 -799 150 Weight 62 kg 62.1 kg General appearance: PRESENT: mild distress Eye exam: PRESENT: conjunctiva pink Mouth exam: PRESENT: moist Respiratory exam: PRESENT: crackles Cardiovascular exam: PRESENT: RRR. ABSENT: diastolic murmur, rubs, systolic murmur GI/Abdominal exam: PRESENT: normal bowel sounds, soft. ABSENT: distended, guarding, mass, organolmegaly, rebound, tenderness Neurological exam: PRESENT: alert, awake, oriented to person, oriented to place , oriented to time, oriented to situation. ABSENT: motor sensory deficit Psychiatric exam: PRESENT: appropriate affect, normal mood. ABSENT: homicidal ideation, suicidal ideation Results Laboratory Results: 12/15/17 04:06 12/17/17 10:08 12/17/17 10:08 Creatinine 0.91 Est GFR ( Amer) > 60 Est GFR (Non-Af Amer) 59 L 12/12/17 18:02 Troponin I 0.541 Impressions: Chest X-Ray 12/16/17 00:00 IMPRESSION: Stable radiographic appearance of the chest demonstrating right lung base consolidation. No acute findings. Central line demonstrates appropriate positioning. Assessment & Plan - Diagnosis (1) Severe sepsis Is this a current diagnosis for this admission?: Yes Plan: Improving (2) Healthcare-associated pneumonia Is this a current diagnosis for this admission?: Yes Plan: Continue her Azactam, Levaquin and vancomycin and I will schedule down based on the culture and sensitivity results and her clinical progress. (3) Acute kidney injury superimposed on chronic kidney disease Is this a current diagnosis for this admission?: Yes Plan: Has resolved (4) Acute on chronic diastolic heart failure Is this a current diagnosis for this admission?: Yes Plan: Her shortness of breath has been subsiding (5) Hyperkalemia Is this a current diagnosis for this admission?: Yes Plan: Resolved (6) Mild hypercalcemia Is this a current diagnosis for this admission?: Yes Plan: Has resolved (7) COPD (chronic obstructive pulmonary disease) Qualifiers: Emphysema type: unspecified Is this a current diagnosis for this admission?: Yes Plan: As needed bronchodilator (8) Chronic atrial fibrillation Is this a current diagnosis for this admission?: Yes Plan: Rate controlled (9) Hypertension Qualifiers: Hypertension type: essential hypertension Qualified Code(s): I10 - Essential (primary) hypertension Is this a current diagnosis for this admission?: Yes Plan: Hold antihypertensive medication since currently she is hypotensive. (10) Hyperlipidemia Qualifiers: Hyperlipidemia type: unspecified Qualified Code(s): E78.5 - Hyperlipidemia , unspecified Is this a current diagnosis for this admission?: Yes Plan: Continue home simvastatin (11) Anemia of chronic disease Is this a current diagnosis for this admission?: Yes Plan: Monitor H&H
[2017-12-17] MEDS ORDERED: VANCOMYCIN HCL 750 MG in DEXTROSE 5%-WATER 250 ML IV SCH (18:00)
[2017-12-17] MEDS: MONTELUKAST SODIUM 10 MG TABLET PO SCH (18:58)
[2017-12-17] MEDS: LORAZEPAM 1 MG TABLET PO SCH (21:27)
[2017-12-17] MEDS: SIMVASTATIN 10 MG TABLET PO SCH (21:27)
[2017-12-17] MEDS: BENZONATATE 100 MG CAPSULE PO PRN (21:27)
[2017-12-17] MEDS: TRAMADOL HCL 50 MG TABLET PO PRN (23:40)
[2017-12-18] MEDS: IPRATROPIUM/ALBUTEROL 0.5-2.5 MG/3 ML AMPUL NEB SCH ×4 (01:55→20:23)
[2017-12-18] MEDS: HEPARIN SOD (PORCINE) 5,000 UNIT/ML 1 ML SYRINGE SUBCUT SCH ×3 (05:32→23:14)
[2017-12-18] MEDS: LANSOPRAZOLE 30 MG TAB.RAP.DR PO SCH (05:33)
[2017-12-18] MEDS: POTASSIUM CHLORIDE 10 MEQ CAPSULE.ER PO SCH ×3 (05:33→23:14)
[2017-12-18] MEDS: SPIRONOLACTONE 25 MG TABLET PO SCH (11:26)
[2017-12-18] MEDS: METOLAZONE 2.5 MG TABLET PO SCH (11:26)
[2017-12-18] MEDS: GUAIFENESIN 600 MG TABLET.SA PO SCH ×2 (11:26→18:16)
[2017-12-18] MEDS: LACTULOSE SYRUP 20 GM/30 ML UDCUP PO SCH ×2 (11:26→11:35)
[2017-12-18] MEDS: FLUTICASONE/SALMETEROL DISKUS 250-50 MCG/DOSE IH SCH ×2 (11:26→23:13)
[2017-12-18] MEDS: LETROZOLE 2.5 MG TABLET PO SCH (11:26)
--- NOTE | 2017-12-18 18:03 | PDOC PROGRESS REPORT ---
Subjective Progress Note for:: 12/18/17 Subjective:: The patient is complaining of having a harder time breathing today. Reason For Visit: SEVERE SEPSIS,ACUTE KIDNEY INJURY ON CKD, Physical Exam Vital Signs: Temp Pulse Resp BP Pulse Ox 97.9 F 72 16 123/44 L 97 12/18/17 16:11 12/18/17 16:11 12/18/17 16:11 12/18/17 16:11 12/18/17 16:11 Intake & Output 12/17/17 12/18/17 12/19/17 06:59 06:59 06:59 Intake Total 826 1297 100 Output Total 1625 1050 100 Balance -799 247 0 Weight 62.1 kg 59.5 kg General appearance: PRESENT: no acute distress, cooperative, thin Respiratory exam: PRESENT: rhonchi, wheezes, other - Positive for increased work of breathing.. ABSENT: rales Cardiovascular exam: PRESENT: RRR. ABSENT: gallop, rubs, systolic murmur Pulses: PRESENT: other - Diminished distal pulses. GI/Abdominal exam: PRESENT: normal bowel sounds, soft. ABSENT: distended, hernia, mass, tenderness Rectal exam: PRESENT: deferred Musculoskeletal exam: PRESENT: normal inspection. ABSENT: deformity, dislocation Neurological exam: PRESENT: alert, awake, oriented to person, oriented to place , oriented to time, oriented to situation, CN II-XII grossly intact. ABSENT: motor sensory deficit Psychiatric exam: PRESENT: appropriate affect, normal mood Skin exam: PRESENT: dry, intact, warm Results Laboratory Results: 12/15/17 04:06 12/17/17 10:08 12/12/17 18:02 Troponin I 0.541 Impressions: Chest X-Ray 12/16/17 00:00 IMPRESSION: Stable radiographic appearance of the chest demonstrating right lung base consolidation. No acute findings. Central line demonstrates appropriate positioning. Assessment & Plan - Diagnosis (1) Acute kidney injury superimposed on chronic kidney disease Is this a current diagnosis for this admission?: Yes Plan: Resolved. (2) Acute on chronic diastolic heart failure Is this a current diagnosis for this admission?: Yes Plan: Monitor volume status. Appears compensated at this time. (3) Chronic atrial fibrillation Is this a current diagnosis for this admission?: Yes Plan: Rate is controlled. No AC at home. (4) Diastolic dysfunction Is this a current diagnosis for this admission?: Yes Plan: Compensated. Monitor volume status. (5) Healthcare-associated pneumonia Is this a current diagnosis for this admission?: Yes Plan: IV Levaquin and aztreonam. (6) Hyperkalemia Is this a current diagnosis for this admission?: Yes Plan: Resolved. Monitor. (7) Hyperlipidemia Qualifiers: Hyperlipidemia type: unspecified Qualified Code(s): E78.5 - Hyperlipidemia , unspecified Is this a current diagnosis for this admission?: Yes Plan: Statin. - Time Time Spent with patient: 25-34 minutes Medications reviewed and adjusted accordingly: Yes
[2017-12-18] MEDS: LEVOFLOXACIN 750 MG/D5W RTU 750 MG/150 ML RTUPB IV SCH (18:16)
[2017-12-18] MEDS: MONTELUKAST SODIUM 10 MG TABLET PO SCH (18:16)
[2017-12-18] MEDS: LORAZEPAM 1 MG TABLET PO SCH (23:13)
[2017-12-18] MEDS: BENZONATATE 100 MG CAPSULE PO PRN (23:13)
[2017-12-18] MEDS: SIMVASTATIN 10 MG TABLET PO SCH (23:14)
[2017-12-19] MEDS: IPRATROPIUM/ALBUTEROL 0.5-2.5 MG/3 ML AMPUL NEB SCH ×4 (01:16→21:32)
[2017-12-19] MEDS: POTASSIUM CHLORIDE 10 MEQ CAPSULE.ER PO SCH ×3 (05:52→22:47)
[2017-12-19] MEDS: LANSOPRAZOLE 30 MG TAB.RAP.DR PO SCH (05:53)
[2017-12-19] MEDS: HEPARIN SOD (PORCINE) 5,000 UNIT/ML 1 ML SYRINGE SUBCUT SCH ×3 (05:53→23:06)
[2017-12-19] MEDS: LETROZOLE 2.5 MG TABLET PO SCH (09:30)
[2017-12-19] MEDS: METOLAZONE 2.5 MG TABLET PO SCH (09:30)
[2017-12-19] MEDS: GUAIFENESIN 600 MG TABLET.SA PO SCH ×2 (09:30→17:43)
[2017-12-19] MEDS: SPIRONOLACTONE 25 MG TABLET PO SCH (09:30)
[2017-12-19] MEDS: FLUTICASONE/SALMETEROL DISKUS 250-50 MCG/DOSE IH SCH ×2 (09:31→23:09)
[2017-12-19] MEDS: ACETAMINOPHEN 325 MG TABLET PO PRN ×2 (09:34→17:43)
--- NOTE | 2017-12-19 16:06 | PDOC PROGRESS REPORT ---
Subjective Progress Note for:: 12/19/17 Subjective:: The patient states that she doesn't feel up to discharging to SNF today. She states that she feels week. She is breathless with speech. Reason For Visit: SEVERE SEPSIS,ACUTE KIDNEY INJURY ON CKD, Physical Exam Vital Signs: Temp Pulse Resp BP Pulse Ox 97.9 F 62 16 138/55 H 94 12/19/17 12:09 12/19/17 14:01 12/19/17 14:01 12/19/17 12:09 12/19/17 14:01 Intake & Output 12/18/17 12/19/17 12/20/17 06:59 06:59 06:59 Intake Total 1297 550 0 Output Total 1050 1225 250 Balance 247 -675 -250 Weight 59.5 kg 59.6 kg General appearance: PRESENT: cooperative, thin, other - The patient is elderly, weak, and frail. She is dyspneic with conversation Head exam: PRESENT: atraumatic, normocephalic Neck exam: ABSENT: JVD, lymphadenopathy, meningismus, tenderness, thyromegaly Respiratory exam: PRESENT: other - Positive for increased work of breathing with conversation. Lung sounds are diminished.. ABSENT: rales, rhonchi, wheezes Cardiovascular exam: PRESENT: RRR. ABSENT: gallop, rubs, systolic murmur Pulses: PRESENT: other - Diminished distal pulses. GI/Abdominal exam: PRESENT: hernia, normal bowel sounds, soft. ABSENT: mass, organolmegaly, tenderness Rectal exam: PRESENT: deferred Extremities exam: ABSENT: clubbing, joint swelling, tenderness, +1 edema Musculoskeletal exam: ABSENT: deformity, dislocation, normal inspection Neurological exam: PRESENT: alert, awake, oriented to person, oriented to place , oriented to time, oriented to situation, CN II-XII grossly intact. ABSENT: motor sensory deficit Psychiatric exam: PRESENT: appropriate affect, normal mood Skin exam: PRESENT: dry, intact, warm Results Laboratory Results: 12/15/17 04:06 12/17/17 10:08 12/12/17 18:02 Troponin I 0.541 Impressions: Chest X-Ray 12/16/17 00:00 IMPRESSION: Stable radiographic appearance of the chest demonstrating right lung base consolidation. No acute findings. Central line demonstrates appropriate positioning. Assessment & Plan - Diagnosis (1) Acute kidney injury superimposed on chronic kidney disease Is this a current diagnosis for this admission?: Yes Plan: Resolved. (2) Acute on chronic diastolic heart failure Is this a current diagnosis for this admission?: Yes Plan: Monitor volume status. Appears compensated at this time. (3) Chronic atrial fibrillation Is this a current diagnosis for this admission?: Yes Plan: Rate is controlled. No AC at home. (4) Diastolic dysfunction Is this a current diagnosis for this admission?: Yes Plan: Compensated. Monitor volume status. (5) Healthcare-associated pneumonia Is this a current diagnosis for this admission?: Yes Plan: IV Levaquin. Change to PO today. (6) Hyperkalemia Is this a current diagnosis for this admission?: Yes Plan: Resolved. Monitor. (7) Hyperlipidemia Qualifiers: Hyperlipidemia type: unspecified Qualified Code(s): E78.5 - Hyperlipidemia , unspecified Is this a current diagnosis for this admission?: Yes Plan: Statin. - Time Time Spent with patient: 25-34 minutes Medications reviewed and adjusted accordingly: Yes Anticipated discharge: SNF Within: within 24 hours
[2017-12-19] MEDS: LACTULOSE SYRUP 20 GM/30 ML UDCUP PO SCH (16:49)
[2017-12-19] MEDS: MONTELUKAST SODIUM 10 MG TABLET PO SCH (17:43)
[2017-12-19] MEDS: SIMVASTATIN 10 MG TABLET PO SCH (22:47)
[2017-12-19] MEDS: LORAZEPAM 1 MG TABLET PO SCH (22:47)
[2017-12-19] MEDS: BENZONATATE 100 MG CAPSULE PO PRN (22:47)
[2017-12-20] MEDS: IPRATROPIUM/ALBUTEROL 0.5-2.5 MG/3 ML AMPUL NEB SCH ×3 (02:22→13:51)
[2017-12-20] MEDS: HEPARIN SOD (PORCINE) 5,000 UNIT/ML 1 ML SYRINGE SUBCUT SCH ×2 (05:03→13:00)
[2017-12-20] MEDS: ACETAMINOPHEN 325 MG TABLET PO PRN (05:05)
[2017-12-20] MEDS: POTASSIUM CHLORIDE 10 MEQ CAPSULE.ER PO SCH ×2 (05:05→13:01)
[2017-12-20] MEDS: LANSOPRAZOLE 30 MG TAB.RAP.DR PO SCH (05:05)
[2017-12-20] MEDS: LETROZOLE 2.5 MG TABLET PO SCH (09:55)
[2017-12-20] MEDS: FLUTICASONE/SALMETEROL DISKUS 250-50 MCG/DOSE IH SCH (09:55)
[2017-12-20] MEDS: GUAIFENESIN 600 MG TABLET.SA PO SCH ×2 (09:55→17:24)
[2017-12-20] MEDS: SPIRONOLACTONE 25 MG TABLET PO SCH (09:55)
[2017-12-20] MEDS: LACTULOSE SYRUP 20 GM/30 ML UDCUP PO SCH (09:56)
[2017-12-20] MEDS: METOLAZONE 2.5 MG TABLET PO SCH (11:05)
--- NOTE | 2017-12-20 13:31 | PDOC TRANSFER SUMMARY ---
General Admission Date/PCP: 12/12/17 17:18 KURTIS SCOTT MD Resuscitation Status: Full Code - Transfer Diagnosis (1) Acute kidney injury superimposed on chronic kidney disease Is this a current diagnosis for this admission?: Yes (2) Acute on chronic diastolic heart failure Is this a current diagnosis for this admission?: Yes (3) Chronic atrial fibrillation Is this a current diagnosis for this admission?: Yes (4) Diastolic dysfunction Is this a current diagnosis for this admission?: Yes (5) Healthcare-associated pneumonia Is this a current diagnosis for this admission?: Yes (6) Hyperkalemia Is this a current diagnosis for this admission?: Yes (7) Hyperlipidemia Is this a current diagnosis for this admission?: Yes - Transfer Medications Home Medications: Albuterol Sulfate [Proair HFA Inhalation Aerosol 8.5 gm MDI] 1 puff IH Q6HP PRN 12/12/17 Benzonatate [Tessalon Perles 100 mg Capsule] 200 mg PO TIDP PRN 12/12/17 Epoetin Elie [Procrit Inj 40,000 Unit/1 ml Vial (Renal)] 40,000 unit SQ .DIALYSIS 12/12/17 Fluticasone/Salmeterol [Advair 250-50 Diskus 14 Dose/Diskus] 1 puff IH Q12 12/12 Furosemide [Lasix 40 mg Tablet] 40 mg PO BID 12/12/17 Lorazepam [Ativan 1 mg Tablet] 1 mg PO Q6HP PRN 12/12/17 Metolazone [Zaroxolyn 2.5 mg Tablet] 2.5 mg PO DAILY 12/12/17 Montelukast Sodium [Singulair 10 mg Tablet] 10 mg PO QPM 12/12/17 Pantoprazole Sodium [Protonix] 40 mg PO DAILY 12/12/17 Potassium Chloride [Klor-Con M20] 40 meq PO TID 12/12/17 Simvastatin [Zocor 20 mg Tablet] 20 mg PO QHS 12/12/17 Spironolactone [Aldactone 25 mg Tablet] 25 mg PO DAILY 12/12/17 Transfer Medications: Current Medications Acetaminophen (Tylenol 325 Mg Tablet) 650 mg PO Q4HP PRN PRN Reason: FEVER >101 Stop: 01/11/18 17:07 Last Admin: 12/19/17 09:34 Dose: 650 mg Albuterol/Ipratropium (Duoneb 3 Ml Ampul) 3 ml NEB RTQ6 DANA Stop: 01/11/18 19:59 Last Admin: 12/19/17 07:42 Dose: 3 ml Benzonatate (Tessalon Perles 100 Mg Capsule) 200 mg PO TIDP PRN PRN Reason: FOR COUGH Stop: 01/13/18 08:28 Last Admin: 12/18/17 23:13 Dose: 200 mg Guaifenesin (Mucinex Sr 600 Mg Tablet.Sa) 600 mg PO BID DANA Stop: 01/13/18 17:59 Last Admin: 12/19/17 09:30 Dose: 600 mg Heparin Sodium (Porcine) (Heparin Inj 5,000 Units/Ml 1 Ml Syringe) 5,000 unit SUBCUT Q8 DANA Stop: 01/11/18 21:59 Last Admin: 12/19/17 05:53 Dose: 5,000 unit Levofloxacin/Dextrose (Levaquin Rtu 750 Mg/D5w 150 Ml Premix) 750 mg in 150 mls @ 100 mls/hr IV Q2DAYS@1800 [facility] Stop: 12/21/17 17:59 Last Infusion: 12/18/17 19:46 Dose: Infused Sodium Chloride (Nacl 0.9% 1000 Ml Iv Soln) 1,000 mls @ 50 mls/hr IV CONTINUOUS PRN PRN Reason: THIS MED IS NOT "PRN" Stop: 01/11/18 18:28 Lactulose (Cephulac Syrup 20 Gm/30 Ml Udcup) 20 gm PO DAILY DANA Stop: 01/12/18 09:59 Last Admin: 12/18/17 11:35 Dose: Not Given Lansoprazole (Prevacid 30 Mg Odt Tablet) 30 mg PO Q6AM [facility] Stop: 01/15/18 15:59 Last Admin: 12/19/17 05:53 Dose: 30 mg Letrozole (Femara 2.5 Mg Tablet) 2.5 mg PO DAILY [facility] Stop: 01/13/18 09:59 Last Admin: 12/19/17 09:30 Dose: 2.5 mg Lorazepam (Ativan 1 Mg Tablet) 1 mg PO QHS DANA Stop: 12/23/17 21:59 Last Admin: 12/18/17 23:13 Dose: 1 mg Metolazone (Zaroxolyn 2.5 Mg Tablet) 2.5 mg PO DAILY DANA Stop: 01/13/18 09:59 Last Admin: 12/19/17 09:30 Dose: 2.5 mg Montelukast Sodium (Singulair 10 Mg Tablet) 10 mg PO QPM DANA Stop: 01/13/18 17:59 Last Admin: 12/18/17 18:16 Dose: 10 mg Ondansetron HCl (Zofran Odt 4 Mg Tablet) 4 mg PO Q4HP PRN PRN Reason: FOR NAUSEA/VOMITING Stop: 01/11/18 17:07 Last Admin: 12/13/17 04:16 Dose: 4 mg Potassium Chloride (Klor-Con 10 Meq Capsule Er) 40 meq PO Q8 DANA Stop: 01/13/18 13:59 Last Admin: 12/19/17 05:52 Dose: 40 meq Fluticasone/Salmeterol (Advair 250-50 Diskus 14 Dose/Diskus) 1 inh IH Q12 DANA Stop: 01/13/18 09:59 Last Admin: 12/19/17 09:31 Dose: 1 inh Simvastatin (Zocor 10 Mg Tablet) 20 mg PO QHS DANA Stop: 01/13/18 21:59 Last Admin: 12/18/17 23:14 Dose: 20 mg Spironolactone (Aldactone 25 Mg Tablet) 25 mg PO DAILY DANA Stop: 01/13/18 09:59 Last Admin: 12/19/17 09:30 Dose: 25 mg Tramadol HCl (Ultram 50 Mg Tablet) 50 mg PO Q6HP PRN PRN Reason: PAIN Stop: 12/21/17 20:40 Last Admin: 12/17/17 23:40 Dose: 50 mg - Allergies Allergies/Adverse Reactions: amoxicillin [Amoxicillin] Allergy (Intermediate, Verified 12/12/17 13:44) Rash codeine [Codeine] Allergy (Unknown, Verified 12/12/17 13:44) adhesive tape [Adhesive Tape] Adverse Reaction (Severe, Verified 12/12/17 13:44) Tears skin diltiazem HCl [From Tiazac] Adverse Reaction (Intermediate, Verified 12/12/17 13 :44) Dizzy doxycycline [Doxycycline] Adverse Reaction (Intermediate, Verified 12/12/17 13: 44) Dizzy lisinopril [Lisinopril] Adverse Reaction (Intermediate, Verified 12/12/17 13:44) Dizzy propafenone [Propafenone] Adverse Reaction (Intermediate, Verified 12/12/17 13: 44) Diarrhea zolpidem tartrate [From Ambien] Adverse Reaction (Intermediate, Verified 13:44) Confusion Strong fumes Allergy (Severe, Uncoded 12/12/17 13:44) Asthma - Diet/Activity Discharge Diet: Regular Hospital Course Hospital Course: ROBERT CAMILO is a 87 year old frail female patient with extensive medical history including coronary artery disease, chronic atrial fibrillation, hyperlipidemia, hypertension, COPD, CKD stage III, seasonal allergy, generalized anxiety disorder, diastolic heart failure and history of breast cancer status post mastectomy, presented to us with chief complaint of cough. Since patient is hard of hearing and somnolent she is not source of history brief history is obtained from the ER attending note. Per ER attending note patient presented with chief complaint of cough for the past few weeks which is productive of sputum which is yellowish. She has associated shortness of breath worsened after she failed yesterday. She had no injury. Per her patient has not been eating or drinking well. Further detailed history and review of systems unobtainable. Her initial blood workup shows leukocytosis of 18.8, hyperkalemia with potassium of 5.8, creatinine of 2.07 and calcium of 10.5. Her chest x-ray is compatible right lower lobe pneumonia. The patient was admitted to a medical bed. She was given IV antibiotics and nephrotoxic substances were avoided. Her volume status was carefully monitored. She was given breathing treatments and supplimental O2. Her heart rate was monitored on telemetry and remained controlled. The patient renal and volume status have returned to baseline. The patient has completed her course of antibiotics. Her respiratory status is at baseline. She states that she feels weak, but otherwise is doing well. She will be discharged to SNF today in fair condition. Physical Exam Vital Signs: Temp Pulse Resp BP Pulse Ox 97.9 F 78 18 138/55 H 99 12/19/17 12:09 12/19/17 12:09 12/19/17 12:09 12/19/17 12:09 12/19/17 12:09 Intake & Output 12/18/17 12/19/17 12/20/17 06:59 06:59 06:59 Intake Total 1297 550 0 Output Total 1050 1225 250 Balance 888 -105 250 Weight 59.5 kg 59.6 kg General appearance: PRESENT: cooperative, thin, other - The patient is elderly, weak, and frail. Respiratory exam: PRESENT: other - No increased work of breathing. No wheezes, rales, or rhonchi. No tactile fremitus. The patient gets a little breathless with speech. Cardiovascular exam: PRESENT: RRR. ABSENT: gallop, rubs, systolic murmur Pulses: PRESENT: other - Diminished distal pulses. GI/Abdominal exam: PRESENT: normal bowel sounds, soft. ABSENT: hernia, mass, organolmegaly, tenderness Rectal exam: PRESENT: deferred Extremities exam: ABSENT: joint swelling, pedal edema, tenderness Musculoskeletal exam: PRESENT: normal inspection. ABSENT: deformity, dislocation, tenderness Neurological exam: PRESENT: alert, awake, oriented to person, oriented to place , oriented to time, CN II-XII grossly intact. ABSENT: motor sensory deficit Skin exam: PRESENT: dry, intact, warm Results Laboratory Results: 12/15/17 04:06 12/17/17 10:08 12/12/17 18:02 Troponin I 0.541 Impressions: Chest X-Ray 12/16/17 00:00 IMPRESSION: Stable radiographic appearance of the chest demonstrating right lung base consolidation. No acute findings. Central line demonstrates appropriate positioning. Plan Discharge Plan: Discharge to [place] today. Time Spent: Greater than 30 Minutes
--- NOTE | 2017-12-20 14:34 | PDOC TRANSFER SUMMARY ---
General Admission Date/PCP: 12/12/17 17:18 KURTIS SCOTT MD Transfer Date: 12/20/17 Resuscitation Status: Full Code - Transfer Diagnosis (1) Acute kidney injury superimposed on chronic kidney disease Is this a current diagnosis for this admission?: Yes (2) Acute on chronic diastolic heart failure Is this a current diagnosis for this admission?: Yes (3) Chronic atrial fibrillation Is this a current diagnosis for this admission?: Yes (4) Diastolic dysfunction Is this a current diagnosis for this admission?: Yes (5) Healthcare-associated pneumonia Is this a current diagnosis for this admission?: Yes (6) Hyperkalemia Is this a current diagnosis for this admission?: Yes (7) Hyperlipidemia Is this a current diagnosis for this admission?: Yes - Transfer Medications Home Medications: Albuterol Sulfate [Proair HFA Inhalation Aerosol 8.5 gm MDI] 1 puff IH Q6HP PRN 12/12/17 Benzonatate [Tessalon Perles 100 mg Capsule] 200 mg PO TIDP PRN 12/12/17 Epoetin Elie [Procrit Inj 40,000 Unit/1 ml Vial (Renal)] 40,000 unit SQ .DIALYSIS 12/12/17 Fluticasone/Salmeterol [Advair 250-50 Diskus 14 Dose/Diskus] 1 puff IH Q12 12/12 Furosemide [Lasix 40 mg Tablet] 40 mg PO BID 12/12/17 Lorazepam [Ativan 1 mg Tablet] 1 mg PO Q6HP PRN 12/12/17 Metolazone [Zaroxolyn 2.5 mg Tablet] 2.5 mg PO DAILY 12/12/17 Montelukast Sodium [Singulair 10 mg Tablet] 10 mg PO QPM 12/12/17 Pantoprazole Sodium [Protonix] 40 mg PO DAILY 12/12/17 Potassium Chloride [Klor-Con M20] 40 meq PO TID 12/12/17 Simvastatin [Zocor 20 mg Tablet] 20 mg PO QHS 12/12/17 Spironolactone [Aldactone 25 mg Tablet] 25 mg PO DAILY 12/12/17 Transfer Medications: Current Medications Acetaminophen (Tylenol 325 Mg Tablet) 650 mg PO Q4HP PRN PRN Reason: FEVER >101 Stop: 01/11/18 17:07 Last Admin: 12/20/17 05:05 Dose: 650 mg Albuterol/Ipratropium (Duoneb 3 Ml Ampul) 3 ml NEB RTQ6 [facility] Stop: 01/11/18 19:59 Last Admin: 12/20/17 13:51 Dose: 3 ml Benzonatate (Tessalon Perles 100 Mg Capsule) 200 mg PO TIDP PRN PRN Reason: FOR COUGH Stop: 01/13/18 08:28 Last Admin: 12/19/17 22:47 Dose: 200 mg Guaifenesin (Mucinex Sr 600 Mg Tablet.Sa) 600 mg PO BID DANA Stop: 01/13/18 17:59 Last Admin: 12/20/17 09:55 Dose: 600 mg Heparin Sodium (Porcine) (Heparin Inj 5,000 Units/Ml 1 Ml Syringe) 5,000 unit SUBCUT Q8 DANA Stop: 01/11/18 21:59 Last Admin: 12/20/17 13:00 Dose: Not Given Sodium Chloride (Nacl 0.9% 1000 Ml Iv Soln) 1,000 mls @ 50 mls/hr IV CONTINUOUS PRN PRN Reason: THIS MED IS NOT "PRN" Stop: 01/11/18 18:28 Lactulose (Cephulac Syrup 20 Gm/30 Ml Udcup) 20 gm PO DAILY [facility] Stop: 01/12/18 09:59 Last Admin: 12/20/17 09:56 Dose: Not Given Lansoprazole (Prevacid 30 Mg Odt Tablet) 30 mg PO Q6AM DANA Stop: 01/15/18 15:59 Last Admin: 12/20/17 05:05 Dose: 30 mg Letrozole (Femara 2.5 Mg Tablet) 2.5 mg PO DAILY DANA Stop: 01/13/18 09:59 Last Admin: 12/20/17 09:55 Dose: 2.5 mg Levofloxacin (Levaquin 750 Mg Tablet) 750 mg PO Q2DAYS@1800 [facility] Stop: 12/27/17 17:59 Lorazepam (Ativan 1 Mg Tablet) 1 mg PO QHS [facility] Stop: 12/23/17 21:59 Last Admin: 12/19/17 22:47 Dose: 1 mg Metolazone (Zaroxolyn 2.5 Mg Tablet) 2.5 mg PO DAILY [facility] Stop: 01/13/18 09:59 Last Admin: 12/20/17 11:05 Dose: 2.5 mg Montelukast Sodium (Singulair 10 Mg Tablet) 10 mg PO QPM DANA Stop: 01/13/18 17:59 Last Admin: 12/19/17 17:43 Dose: 10 mg Ondansetron HCl (Zofran Odt 4 Mg Tablet) 4 mg PO Q4HP PRN PRN Reason: FOR NAUSEA/VOMITING Stop: 01/11/18 17:07 Last Admin: 12/13/17 04:16 Dose: 4 mg Potassium Chloride (Klor-Con 10 Meq Capsule Er) 40 meq PO Q8 DANA Stop: 01/13/18 13:59 Last Admin: 12/20/17 13:01 Dose: 40 meq Fluticasone/Salmeterol (Advair 250-50 Diskus 14 Dose/Diskus) 1 inh IH Q12 DANA Stop: 01/13/18 09:59 Last Admin: 12/20/17 09:55 Dose: 1 inh Simvastatin (Zocor 10 Mg Tablet) 20 mg PO QHS DANA Stop: 01/13/18 21:59 Last Admin: 12/19/17 22:47 Dose: 20 mg Spironolactone (Aldactone 25 Mg Tablet) 25 mg PO DAILY DANA Stop: 01/13/18 09:59 Last Admin: 12/20/17 09:55 Dose: 25 mg Tramadol HCl (Ultram 50 Mg Tablet) 50 mg PO Q6HP PRN PRN Reason: PAIN Stop: 12/21/17 20:40 Last Admin: 12/17/17 23:40 Dose: 50 mg - Allergies Allergies/Adverse Reactions: amoxicillin [Amoxicillin] Allergy (Intermediate, Verified 12/12/17 13:44) Rash codeine [Codeine] Allergy (Unknown, Verified 12/12/17 13:44) adhesive tape [Adhesive Tape] Adverse Reaction (Severe, Verified 12/12/17 13:44) Tears skin diltiazem HCl [From Tiazac] Adverse Reaction (Intermediate, Verified 12/12/17 13 :44) Dizzy doxycycline [Doxycycline] Adverse Reaction (Intermediate, Verified 12/12/17 13: 44) Dizzy lisinopril [Lisinopril] Adverse Reaction (Intermediate, Verified 12/12/17 13:44) Dizzy propafenone [Propafenone] Adverse Reaction (Intermediate, Verified 12/12/17 13: 44) Diarrhea zolpidem tartrate [From Ambien] Adverse Reaction (Intermediate, Verified 13:44) Confusion Strong fumes Allergy (Severe, Uncoded 12/12/17 13:44) Asthma - Diet/Activity Discharge Diet: Regular Hospital Course Hospital Course: The patient was admitted to a medical bed. She was started on IV antibiotics and was given nebulizer treatments and supplemental O2. Her creatinine and volume status gradually returned to baseline as did her respiratory status. She is much improved and will be discharged to [facility] today. Physical Exam Vital Signs: Temp Pulse Resp BP Pulse Ox 98.0 F 55 L 16 136/48 H 94 12/20/17 13:43 12/20/17 13:50 12/20/17 13:50 12/20/17 13:43 12/20/17 13:50 Intake & Output 12/19/17 12/20/17 12/21/17 06:59 06:59 06:59 Intake Total 550 700 474 Output Total 1225 1700 300 Balance -675 -1000 174 Weight 59.6 kg 60.8 kg General appearance: PRESENT: no acute distress, cooperative Respiratory exam: PRESENT: other - No increased work of breathing.. ABSENT: rales, rhonchi, wheezes Cardiovascular exam: PRESENT: RRR, other - No lateral PMI. No thrills.. ABSENT : gallop, rubs, systolic murmur Pulses: PRESENT: other - Diminished distal pulses. GI/Abdominal exam: PRESENT: normal bowel sounds, soft. ABSENT: hernia, mass, organolmegaly, tenderness Rectal exam: PRESENT: deferred Extremities exam: ABSENT: clubbing, joint swelling, tenderness Musculoskeletal exam: PRESENT: normal inspection. ABSENT: deformity, dislocation, tenderness Neurological exam: PRESENT: alert, awake, oriented to person, oriented to place , oriented to time, oriented to situation, CN II-XII grossly intact. ABSENT: motor sensory deficit Skin exam: PRESENT: dry, warm Results Laboratory Results: 12/15/17 04:06 12/17/17 10:08 12/12/17 18:02 Troponin I 0.541 Impressions: Chest X-Ray 12/16/17 00:00 IMPRESSION: Stable radiographic appearance of the chest demonstrating right lung base consolidation. No acute findings. Central line demonstrates appropriate positioning. Plan Discharge Plan: The patient will discharge to [place] today. Time Spent: Greater than 30 Minutes
[2017-12-20] MEDS: MONTELUKAST SODIUM 10 MG TABLET PO SCH (17:24)
[2017-12-20] MEDS ORDERED: LEVOFLOXACIN 750 MG TABLET PO SCH (18:00)
[2017-12-20 19:56] VITALS: BP 125/57
== END 2017-12-20 19:52 | DRG 871 ==
LOC: ER 12:00 → EH 17:18 → UNDOADMIN 17:18 → 3S 12-13 00:27
PROVIDERS: ADMIT Internal Medicine; ATTEND Internal Medicine
PROC: 02HV33Z Insertion of Infusion Device into Superior Vena Cava, Percutaneous Approach (ICD-10-PCS; principal; 2017-12-13)
DX: A41.9 Sepsis, unspecified organism (principal); J18.9 Pneumonia, unspecified organism; I50.33 Acute on chronic diastolic (congestive) heart failure; J44.1 Chronic obstructive pulmonary disease with (acute) exacerbation; N17.9 Acute kidney failure, unspecified; I13.0 Hypertensive heart and chronic kidney disease with heart failure and stage 1 through stage 4 chronic kidney disease, or unspecified chronic kidney disease; R65.20 Severe sepsis without septic shock; E87.5 Hyperkalemia; D64.9 Anemia, unspecified; E83.52 Hypercalcemia; N18.3 Chronic kidney disease, stage 3 (moderate); I48.2 Chronic atrial fibrillation; E78.00 Pure hypercholesterolemia, unspecified; M19.90 Unspecified osteoarthritis, unspecified site; Z95.2 Presence of prosthetic heart valve; Z79.82 Long term (current) use of aspirin; Z79.51 Long term (current) use of inhaled steroids; Z79.899 Other long term (current) drug therapy; Z85.3 Personal history of malignant neoplasm of breast; Z90.10 Acquired absence of unspecified breast and nipple
CPT/HCPCS: 36415; 71045; 80048; 80053; 80202; 81001; 82550; 82553; 82565; 83605; 83880; 84484; 85025; 87040; 87086; 93005; 93010; 94640; 94660; 96360; 96361; 99285; C1751; G8978-GP; G8979-GP; J1644; J1940; J1956; J3370; J3490; J7030; J7620; S0119; S0164

== ENCOUNTER 2018-03-13 09:47 | Inpatient (IN) | payer MEDICARE, OTHER ==
[2018-03-13 10:19] LABS: APPEARANCE,URINE CLEAR; BILIRUBIN,URINE NEGATIVE (NEGATIVE); COLOR,URINE STRAW; GLUCOSE, URINE NEGATIVE (NEGATIVE); KETONES,URINE NEGATIVE (NEGATIVE); LEUKOCYTE ESTERASE,URINE NEGATIVE (NEGATIVE); NITRITE,URINE NEGATIVE (NEGATIVE); PROTEIN,URINE NEGATIVE (NEGATIVE); URINE SPECIFIC GRAVITY 1.008; UROBILINOGEN,URINE NEGATIVE mg/dL (<2.0)
[2018-03-13] MEDS ORDERED: ONDANSETRON HCL INJ/PF 4 MG/2 ML SDV IV ONE (10:32)
[2018-03-13] MEDS ORDERED: MECLIZINE HCL 25 MG TABLET PO ONE (10:33)
[2018-03-13] MEDS ORDERED: DIAZEPAM 5 MG TABLET PO ONE (10:33)
--- NOTE | 2018-03-13 10:36 | ER Document Report ---
ED General - General Chief Complaint: Urinary Problem Stated Complaint: URINARY PROBLEM Time Seen by Provider: 03/13/18 10:07 TRAVEL OUTSIDE OF THE [place] IN LAST 30 DAYS: No - HPI Notes: Patient is a 87-year-old female that presents to the emergency department for chief complaint of dizziness. Yesterday around 11:30 in the morning patient began to feel dizzy. She feels as though the room is spinning and she is off balance. Caregivers note she was falling to her right side. She has not fallen to the ground or had any reported head injury. Dizziness is worse with movement and relieved some when she is sitting still. She has associated nausea with no vomiting. She denies any headache, vision changes, numbness, weakness, abdominal pain and dysuria. She does have urinary frequency because of Lasix but denies any change with her urinary habits. She saw her primary care provider yesterday for this issue but states there was no testing done and she was unable to give a urine sample. Patient denies history of vertigo in the past. He has not taken any medication at home for her symptoms. Past Medical History: COPD, hyperlipidemia Past Surgical History: Reviewed in chart Social History: Denies drugs alcohol and tobacco Family History: Reviewed and noncontributory for presenting illness Allergies: Reviewed, see documented allergy list. REVIEW OF SYSTEMS: CONSTITUTIONAL : No fever No chills No diaphoresis No recent illness EENT: No vision changes No congestion No sore throat CARDIOVASCULAR: No chest pain No palpitations RESPIRATORY: No shortness of breath No cough No difficulty breathing GASTROINTESTINAL: No abdominal pain nausea No vomiting No diarrhea GENITOURINARY: No dysuria No hematuria No difficulty urinating MUSCULOSKELETAL: No back pain No leg pain No arm pain SKIN: No rashes No lesions LYMPHATIC: No swollen, enlarged glands. NEUROLOGICAL: Dizziness No lightheadedness No headache No weakness No paresthesias PSYCHIATRIC: No anxiety No depression PHYSICAL EXAMINATION: Vital signs reviewed, nursing noted reviewed. GENERAL: Well-appearing, well-nourished and in no acute distress. HEAD: Atraumatic, normocephalic. EYES: Eyes appear normal, extraocular movements intact, sclera anicteric, conjunctiva are normal. ENT: nares patent, oropharynx clear without exudates. Moist mucous membranes. NECK: Normal range of motion, supple without lymphadenopathy LUNGS: Breath sounds clear to auscultation bilaterally and equal. No wheezes rales or rhonchi. HEART: Regular rate and rhythm without murmurs ABDOMEN: Soft, nontender, normoactive bowel sounds. No rebound, guarding, or rigidity. No masses appreciated. EXTREMITIES: Nontender, good range of motion, no pitting or edema. NEUROLOGICAL: Ataxic gait.. No focal neurological deficits. Moves all extremities spontaneously Motor and sensory grossly intact on exam. NIH=0 PSYCH: Normal mood, normal affect. SKIN: Warm, Dry, normal turgor, no rashes or lesions noted on exposed skin - Related Data Allergies/Adverse Reactions: amoxicillin [Amoxicillin] Allergy (Intermediate, Verified 03/13/18 09:48) Rash codeine [Codeine] Allergy (Unknown, Verified 03/13/18 09:48) adhesive tape [Adhesive Tape] Adverse Reaction (Severe, Verified 03/13/18 09:48) Tears skin diltiazem HCl [From Tiazac] Adverse Reaction (Intermediate, Verified 03/13/18 09 :48) Dizzy doxycycline [Doxycycline] Adverse Reaction (Intermediate, Verified 03/13/18 09: 48) Dizzy lisinopril [Lisinopril] Adverse Reaction (Intermediate, Verified 03/13/18 09:48) Dizzy propafenone [Propafenone] Adverse Reaction (Intermediate, Verified 03/13/18 09: 48) Diarrhea zolpidem tartrate [From Ambien] Adverse Reaction (Intermediate, Verified 09:48) Confusion Strong fumes Allergy (Severe, Uncoded 03/13/18 09:48) Asthma Past Medical History - Social History Smoking Status: Never Smoker Family History: Reviewed & Not Pertinent - Past Medical History Cardiac Medical History: Reports: Hx Atrial Fibrillation, Hx Hypercholesterolemia, Hx Hypertension Denies: Hx Heart Attack Pulmonary Medical History: Reports: Hx COPD, Hx Pneumonia Denies: Hx Asthma - occasional SOB, ALBUTERAL , Hx Bronchitis, Hx Tuberculosis Neurological Medical History: Denies: Hx Cerebrovascular Accident, Hx Seizures Renal/ Medical History: Denies: Hx Peritoneal Dialysis GI Medical History: Denies: Hx Hepatitis, Hx Hiatal Hernia, Hx Ulcer Musculoskeletal Medical History: Reports Hx Arthritis - Hands Psychiatric Medical History: Denies: Hx Depression Infectious Medical History: Denies: Hx Hepatitis Past Surgical History: Reports: Hx Cardiac Surgery - mitral valve replacement, Hx Hysterectomy, Hx Mastectomy - 2011, Hx Open Heart Surgery - MITRAL VALVE REPAIR. Denies: Hx Pacemaker - Immunizations Hx Diphtheria, Pertussis, Tetanus Vaccination: Yes Hx Pneumococcal Vaccination: 04/30/09 Review of Systems - Review of Systems Notes: Dictated Physical Exam - Vital signs Vitals: Temp Pulse Resp BP Pulse Ox 97.3 F 59 L 15 131/46 H 100 03/13/18 10:02 03/13/18 10:02 03/13/18 10:02 03/13/18 10:02 03/13/18 10:02 - Notes Notes: Dictated Course - Re-evaluation Re-evalutation: 03/13/18 10:36 Vitals reviewed. Nursing notes reviewed. Patient attempted to ambulate to bedside commode and was very ataxic and had significant vertigo type symptoms. She was given meclizine and Valium for her dizziness. 03/13/18 12:00 Patient reevaluated and had minimal to no improvement of her symptoms after medication. I did try to stand her up and she was to dizzy to ambulate and was very unsteady on her feet. Patient CT brain shows no acute process. 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 Scopolamine patch was placed for attempt at further symptomatic management. Urinalysis is negative for infection. She does have some baseline elevation in BUN and creatinine which is unchanged from prior. She follows with Dr. Cotter for her renal insufficiency. The rest of her workup is unremarkable. She will be admitted to the hospital for concern of acute VBI as a cause of symptoms. Case discussed with Dr. Ardon who accepted admission Laboratory 03/13/18 03/13/18 03/13/18 09:58 10:49 10:49 WBC 6.6 RBC 3.69 L Hgb 11.2 L Hct 33.2 L MCV 90 MCH 30.3 MCHC 33.8 RDW 15.7 H Plt Count 202 Seg Neutrophils % 62.1 Lymphocytes % 25.7 Monocytes % 8.7 Eosinophils % 2.5 Basophils % 1.0 Absolute Neutrophils 4.1 Absolute Lymphocytes 1.7 Absolute Monocytes 0.6 Absolute Eosinophils 0.2 Absolute Basophils 0.1 Sodium 138.9 Potassium 4.8 Chloride 100 Carbon Dioxide 27 Anion Gap 12 BUN 65 H Creatinine 1.54 H Est GFR ( Amer) 39 L Est GFR (Non-Af Amer) 32 L Glucose 103 Calcium 10.9 H Troponin I Urine Color STRAW Urine Appearance CLEAR Urine pH 8.0 Ur Specific [place] 1.008 Urine Protein NEGATIVE Urine Glucose (UA) NEGATIVE Urine Ketones NEGATIVE Urine Blood NEGATIVE Urine Nitrite NEGATIVE Urine Bilirubin NEGATIVE Urine Urobilinogen NEGATIVE Ur Leukocyte Esterase NEGATIVE Urine WBC (Auto) 1 Urine RBC (Auto) 1 Squamous Epi Cells Auto <1 Urine Mucus (Auto) RARE Urine Ascorbic Acid NEGATIVE 03/13/18 10:49 WBC RBC Hgb Hct MCV MCH MCHC RDW Plt Count Seg Neutrophils % Lymphocytes % Monocytes % Eosinophils % Basophils % Absolute Neutrophils Absolute Lymphocytes Absolute Monocytes Absolute Eosinophils Absolute Basophils Sodium Potassium Chloride Carbon Dioxide Anion Gap BUN Creatinine Est GFR ( Amer) Est GFR (Non-Af Amer) Glucose Calcium Troponin I 0.015 Urine Color Urine Appearance Urine pH Ur Specific [place] Urine Protein Urine Glucose (UA) Urine Ketones Urine Blood Urine Nitrite Urine Bilirubin Urine Urobilinogen Ur Leukocyte Esterase Urine WBC (Auto) Urine RBC (Auto) Squamous Epi Cells Auto Urine Mucus (Auto) Urine Ascorbic Acid Chest X-Ray 03/13/18 10:32 IMPRESSION: Cardiomegaly. No acute consolidations or pleural effusions are identified. Other findings as noted above Head CT 03/13/18 10:32 IMPRESSION: CHRONIC CHANGES OF ATROPHY AND MICROVASCULAR ISCHEMIA. NO ACUTE PROCESS. EVIDENCE OF ACUTE STROKE: NO. Chest X-Ray 03/13/18 10:32 IMPRESSION: Cardiomegaly. No acute consolidations or pleural effusions are identified. Other findings as noted above Head CT 03/13/18 10:32 IMPRESSION: CHRONIC CHANGES OF ATROPHY AND MICROVASCULAR ISCHEMIA. NO ACUTE PROCESS. EVIDENCE OF ACUTE STROKE: NO. - Vital Signs Vital signs: Temp Pulse Resp BP Pulse Ox 97.3 F 59 L 15 131/46 H 97 03/13/18 10:02 03/13/18 10:02 03/13/18 10:02 03/13/18 10:02 03/13/18 10:05 - Laboratory Result Diagrams: 03/13/18 10:49 03/13/18 10:49 Laboratory results interpreted by me: 03/13/18 03/13/18 10:49 10:49 RBC 3.69 L Hgb 11.2 L Hct 33.2 L RDW 15.7 H BUN 65 H Creatinine 1.54 H Est GFR ( Amer) 39 L Est GFR (Non-Af Amer) 32 L Calcium 10.9 H - EKG Interpretation by Me Additional EKG results interpreted by me: 03/13/18 11:29 Interpreted by myself 1112: Accelerated junctional rhythm, rate 98, normal axis, PVCs, no significant change from 12/12/17 Discharge - Discharge Clinical Impression: Vertigo, Ataxic gait Condition: Stable Disposition: ADMITTED INPATIENT Admitting Provider: Hospitalist Unit Admitted: Telemetry
[2018-03-13 11:03] LABS: ABSOLUTE BASOPHILS # (AUTO) 0.1 10^3/uL (0.0-0.2); ABSOLUTE EOSINOPHILS # (AUTO) 0.2 10^3/uL (0.0-0.6); ABSOLUTE LYMPHOCYTES (AUTO) 1.7 10^3/uL (0.5-4.7); ABSOLUTE MONOCYTES (AUTO) 0.6 10^3/uL (0.1-1.4); ABSOLUTE NEUT (AUTO) 4.1 10^3/uL (1.7-8.2); EOSINOPHILS % (AUTO) 2.5 % (0-6); HEMATOCRIT 33.2 % (36.0-47.0); HEMOGLOBIN 11.2 g/dL (12.0-15.5); LYMPHOCYTES % (AUTO) 25.7 % (13-45); MEAN CORPUSCULAR HEMOGLOBIN 30.3 pg (27.0-33.4); MEAN CORPUSCULAR HGB CONC 33.8 g/dL (32.0-36.0); MEAN CORPUSCULAR VOLUME 90 fl (80-97); MONOCYTES % (AUTO) 8.7 % (3-13); PLATELET COUNT 202 10^3/uL (150-450); RED BLOOD COUNT 3.69 10^6/uL (3.72-5.28); RED CELL DISTRIBUTION WIDTH 15.7 % (11.5-14.0); SEGMENTED NEUTROPHILS % (AUTO) 62.1 % (42-78); TOTAL CELLS COUNTED % (AUTO) 100 %; WHITE BLOOD COUNT 6.6 10^3/uL (4.0-10.5)
--- NOTE | 2018-03-13 11:10 | RADIOLOGY REPORT (SQ) ---
EXAM DESCRIPTION: CT HEAD WITHOUT COMPLETED DATE/TIME: 03/13/2018 10:58 am REASON FOR STUDY: vertigo COMPARISON: None. TECHNIQUE: Axial images acquired through the brain without intravenous contrast. Images reviewed wi th bone, brain and subdural windows. Additional sagittal and coronal reconstructions were generated. Images stored on PACS. All CT scanners at this facility use dose modulation, iterative reconstruction, and/or weight based d osing when appropriate to reduce radiation dose to as low as reasonably achievable (ALARA). [facility]: Dose Right [facility]: CareDose [facility]: Dose Right [facility]: Teradose 4D [facility]: Custom Coup RADIATION DOSE: CT Rad equipment meets quality standard of care and radiation dose reduction techniq ues were employed. CTDIvol: 53.2 mGy. DLP: 964 mGy-cm.mGy. LIMITATIONS: None. FINDINGS: VENTRICLES: Prominent. CEREBRUM: No masses. No hemorrhage. No midline shift. Areas of low density in the white matter mos t likely due to chronic micro-vascular ischemic change. No evidence for acute infarction. CEREBELLUM: No masses. No hemorrhage. No alteration of density. No evidence for acute infarction. EXTRAAXIAL SPACES: Age-related involutional change. No fluid collections. No masses. ORBITS AND GLOBE: No intra- or extraconal masses. Normal contour of globe without masses. CALVARIUM: No fracture. PARANASAL SINUSES: No fluid or mucosal thickening. SOFT TISSUES: No mass or hematoma. OTHER: No other significant finding. IMPRESSION: CHRONIC CHANGES OF ATROPHY AND MICROVASCULAR ISCHEMIA. NO ACUTE PROCESS. EVIDENCE OF ACUTE STROKE: NO. TECHNICAL DOCUMENTATION: JOB ID: [id number] Quality ID # [id number]: Final reports with documentation of one or more dose reduction techniques (e.g., Au tomated exposure control, adjustment of the mA and/or kV according to patient size, use of iterative reconstruction technique) 2010 [employer])- All Rights Reserved Reading location - IP/workstation name: [email or web address]
[2018-03-13 11:16] LABS: ANION GAP 12 (5-19); BLOOD UREA NITROGEN 65 mg/dL (7-20); CALCIUM 10.9 mg/dL (8.4-10.2); CARBON DIOXIDE 27 mmol/L (22-30); CHLORIDE 100 mmol/L (98-107); GLUCOSE 103 mg/dL (75-110); POTASSIUM 4.8 mmol/L (3.6-5.0); SODIUM 138.9 mmol/L (137-145)
[2018-03-13] MEDS ORDERED: ASPIRIN 81 MG TABLET, CHEWABLE PO ONE (11:32)
[2018-03-13] MEDS ORDERED: SCOPOLAMINE HYDROBROMIDE 1.5 MG PATCH.TD72 TD ONE (11:57)
--- NOTE | 2018-03-13 12:00 | RADIOLOGY REPORT (SQ) ---
EXAM DESCRIPTION: CHEST SINGLE VIEW COMPLETED DATE/TIME: 03/13/2018 11:44 am REASON FOR STUDY: dizziness COMPARISON: September 2011 EXAM PARAMETERS: NUMBER OF VIEWS: One view. TECHNIQUE: Single frontal radiographic view of the chest acquired. RADIATION DOSE: NA LIMITATIONS: None. FINDINGS: LUNGS AND PLEURA: No opacities, masses or pneumothorax. No pleural effusion. MEDIASTINUM AND HILAR STRUCTURES: No masses. Contour normal. HEART AND VASCULAR STRUCTURES: Cardiac silhouette is enlarged. BONES: No acute findings. HARDWARE: Patient is status post median sternotomy. OTHER: No other significant finding. IMPRESSION: Cardiomegaly. No acute consolidations or pleural effusions are identified. Other findi ngs as noted above TECHNICAL DOCUMENTATION: JOB ID: [id number] [employer]- All Rights Reserved Reading location - IP/workstation name: [email or web address]
[2018-03-13] MEDS ORDERED: PROMETHAZINE HCL 25 MG TABLET PO PRN (14:02)
[2018-03-13] MEDS ORDERED: ONDANSETRON HCL INJ/PF 4 MG/2 ML SDV IV PRN (14:02)
[2018-03-13] MEDS ORDERED: ACETAMINOPHEN 325 MG TABLET PO PRN (14:02)
[2018-03-13] MEDS ORDERED: LORAZEPAM 1 MG TABLET PO PRN (14:10)
[2018-03-13] MEDS ORDERED: TRAMADOL HCL 50 MG TABLET PO PRN (14:10)
[2018-03-13] MEDS ORDERED: BENZONATATE 100 MG CAPSULE PO PRN (14:10)
[2018-03-13] MEDS ORDERED: MECLIZINE HCL 12.5 MG TABLET PO PRN (14:37)
--- NOTE | 2018-03-13 14:45 | PDOC H&P ---
History of Present Illness Admission Date/PCP: 03/13/18 12:18 JANNIE FLYNN DO Patient complains of: Dizziness with nausea History of Present Illness: ROBERT CAMILO is a 87 year old female with a complex medical history. She states that she has been dizzy for the last 2 days. She denies room spinning. It is associated with nausea. There is no associated chest pain or pressure. There are no changes in vision or consciousness. She in fact went to her primary care physician yesterday. There was no acute intervention. Because she did not feel any better today she presented to the emergency department. After several medications the patient still had an unstable gait and therefore will be admitted for observation and further evaluation. Past Medical History Cardiac Medical History: Reports: Atrial Fibrillation, Hyperlipidema, Hypertension Denies: Myocardial Infarction Pulmonary Medical History: Reports: Chronic Obstructive Pulmonary Disease (COPD) , Pneumonia Denies: Asthma - occasional SOB, ALBUTERAL , Bronchitis, Tuberculosis Neurological Medical History: Denies: Seizures Renal/ Medical History: Reports: Chronic Kidney Disease Malignancy Medical History: Reports: Breast Cancer GI Medical History: Denies: Cirrhosis, Gastroesophageal Reflux Disease, Hepatitis, Hiatal Hernia Musculoskeltal Medical History: Reports: Arthritis - Hands Skin Medical History: Reports: Other - Very thin and frail skin. Chronic pigment deposition upper extremities. Psychiatric Medical History: Denies: Dementia, Depression, Substance Abuse, Tobacco Dependency Hematology: Reports: Anemia - 10/09/2011, Bleeding Tendencies - Was advised never to be anticoagulated. Denies: Sickle Cell Disease Past Surgical History Past Surgical History: Reports: Hysterectomy, Mastectomy - 2010, Other - Mitral valve repair Denies: Amputation, Pacemaker Social History Information Source: Patient Lives with: Family Smoking Status: Never Smoker Frequency of Alcohol Use: None Hx Recreational Drug Use: No Drugs: None Hx Prescription Drug Abuse: No - Advance Directive Resuscitation Status: Full Code Surrogate healthcare decision maker:: There is an advance care directive on her chart from her last admission. Family History Family History: CAD, Malignancy Parental Family History Reviewed: Yes - Father colon cancer, mother breast cancer Children Family History Reviewed: Yes - 1 son with coronary artery bypass at 32 years old Sibling(s) Family History Reviewed.: Yes - No significant sibling history. Medication/Allergy Home Medications: Benzonatate [Tessalon Perles 100 mg Capsule] 200 mg PO TIDP PRN 12/12/17 Fluticasone/Salmeterol [Advair 250-50 Diskus 14 Dose/Diskus] 1 puff IH Q12 12/12 Furosemide [Lasix 40 mg Tablet] 40 mg PO BID 12/12/17 Lorazepam [Ativan 1 mg Tablet] 1 mg PO Q6HP PRN 12/12/17 Montelukast Sodium [Singulair 10 mg Tablet] 10 mg PO QPM 12/12/17 Pantoprazole Sodium [Protonix] 40 mg PO DAILY 12/12/17 Potassium Chloride [Klor-Con M20] 40 meq PO TID 12/12/17 Simvastatin [Zocor 20 mg Tablet] 20 mg PO QHS 12/12/17 Spironolactone [Aldactone 25 mg Tablet] 25 mg PO DAILY 12/12/17 Ipratropium/Albuterol Sulfate [Duoneb 3 ml Ampul] 3 ml NEB RTQ6 30 Days vial.neb 12/19/17 Tramadol HCl [Ultram 50 mg Tablet] 50 mg PO Q6HP PRN #20 tablet 12/19/17 Letrozole [Femara 2.5 mg Tablet] 2.5 mg PO DAILY tablet 12/20/17 Amiodarone HCl 100 mg PO DAILY 03/13/18 Aspirin [Aspirin 81 mg Chewable Tablet] 81 mg PO DAILY 03/13/18 Biotin 600 mcg PO DAILY 03/13/18 Ferrous Sulfate [Iron] 325 mg PO TID 03/13/18 Metolazone [Zaroxolyn 2.5 Mg Tablet] 2.5 mg PO DAILY 03/13/18 Prednisone [Deltasone 10 mg Tablet] 10 mg PO ASDIR PRN 03/13/18 Solifenacin Succinate [Vesicare] 10 mg PO DAILY 03/13/18 Allergies/Adverse Reactions: amoxicillin [Amoxicillin] Allergy (Intermediate, Verified 03/13/18 09:48) Rash codeine [Codeine] Allergy (Unknown, Verified 03/13/18 09:48) adhesive tape [Adhesive Tape] Adverse Reaction (Severe, Verified 03/13/18 09:48) Tears skin diltiazem HCl [From Tiazac] Adverse Reaction (Intermediate, Verified 03/13/18 09 :48) Dizzy doxycycline [Doxycycline] Adverse Reaction (Intermediate, Verified 03/13/18 09: 48) Dizzy lisinopril [Lisinopril] Adverse Reaction (Intermediate, Verified 03/13/18 09:48) Dizzy propafenone [Propafenone] Adverse Reaction (Intermediate, Verified 03/13/18 09: 48) Diarrhea zolpidem tartrate [From Ambien] Adverse Reaction (Intermediate, Verified 09:48) Confusion Strong fumes Allergy (Severe, Uncoded 03/13/18 09:48) Asthma Review of Systems Constitutional: PRESENT: fatigue - Has been feeling more tired over the last several months. ABSENT: chills, fever(s), headache(s) Eyes: ABSENT: visual disturbances Ears: ABSENT: hearing changes Nose, Mouth, and Throat: PRESENT: vertigo - As above, other - Dry mouth. ABSENT : headache(s), mouth pain Breasts: ABSENT: other Cardiovascular: PRESENT: edema. ABSENT: chest pain, dyspnea on exertion, palpitations Respiratory: PRESENT: dyspnea - Chronic. ABSENT: cough Gastrointestinal: ABSENT: abdominal pain, coffee ground emesis, constipation, diarrhea, dysphagia, heartburn Musculoskeletal: PRESENT: other - Osteoarthritis hands. Integumentary: PRESENT: other - Extremely thin skin. Pigment deposition upper extremities. Neurological: PRESENT: abnormal gait, dizziness, vertigo. ABSENT: abnormal speech, confusion, focal weakness, tremor(s) Psychiatric: ABSENT: depression, hallucinations Endocrine: ABSENT: cold intolerance, heat intolerance Hematologic/Lymphatic: PRESENT: easy bruising Allergic/Immunologic: ABSENT: seasonal rhinorrhea Physical Exam Vital Signs: Temp Pulse Resp BP Pulse Ox 97.3 F 59 L 20 137/56 H 99 03/13/18 10:02 03/13/18 10:02 03/13/18 13:55 03/13/18 13:55 03/13/18 13:55 General appearance: PRESENT: cooperative, mild distress, thin, well-developed, other - Frail appearing 87-year-old patient. Head exam: PRESENT: atraumatic, normocephalic Eye exam: PRESENT: conjunctiva pink, EOMI. ABSENT: conjunctival injection, nystagmus Ear exam: PRESENT: normal external ear exam Mouth exam: PRESENT: dry mucosa, tongue midline Teeth exam: ABSENT: dental tenderness, poor dentation Throat exam: ABSENT: post pharyngeal erythema, tonsillar erythema, tonsillar exudate Neck exam: ABSENT: carotid bruit, JVD, lymphadenopathy Respiratory exam: PRESENT: clear to auscultation bruce, symmetrical, tachypnea. ABSENT: accessory muscle use, rales, rhonchi, wheezes Cardiovascular exam: PRESENT: RRR, +S1, +S2 Pulses: PRESENT: normal carotid pulses, normal radial pulses GI/Abdominal exam: PRESENT: normal bowel sounds, soft. ABSENT: distended, guarding, tenderness Rectal exam: PRESENT: deferred Extremities exam: PRESENT: pedal edema. ABSENT: calf tenderness, tenderness Musculoskeletal exam: PRESENT: other - Decreased muscle mass upper extremities. Neurological exam: PRESENT: alert, awake, oriented to person, oriented to place , oriented to situation, CN II-XII grossly intact Psychiatric exam: PRESENT: anxious - Patient seems very anxious this morning not happy about ongoing dizziness., appropriate affect Focused psych exam: ABSENT: delusional, paranoid, restlessness Skin exam: PRESENT: dry, warm, other - Very thin skin. Pigment deposition upper extremities.. ABSENT: abrasion Results Laboratory Results: See laboratory studies Impressions: Chest X-Ray 03/13/18 10:32 IMPRESSION: Cardiomegaly. No acute consolidations or pleural effusions are identified. Other findings as noted above Head CT 03/13/18 10:32 IMPRESSION: CHRONIC CHANGES OF ATROPHY AND MICROVASCULAR ISCHEMIA. NO ACUTE PROCESS. EVIDENCE OF ACUTE STROKE: NO. Assessment & Plan - Diagnosis (1) Vertigo Is this a current diagnosis for this admission?: Yes Plan: The patient has significant dizziness. I did not ambulate her. The emergency department physician did ambulate her and reported ongoing ataxia. Interestingly she did not have pronounced nystagmus at the time of my encounter. She experienced no dizziness when turning her head in bed. She did have some nausea. She currently has a scopolamine patch in place. I have ordered a carotid ultrasound study. CT scan of the head was unremarkable. I have asked physical therapy to evaluate her. We will continue to monitor. Meclizine will be available as needed. (2) Acute on chronic diastolic heart failure Is this a current diagnosis for this admission?: Yes Plan: The patient was not orthostatic. She is on multiple antihypertensives and diuretics. We will need to monitor volume status. Her pressure seems appropriate and so I will continue all of her current medications. Chest x-ray and exam did not suggest significant failure at this time. (3) COPD (chronic obstructive pulmonary disease) Qualifiers: Emphysema type: unspecified Is this a current diagnosis for this admission?: Yes Plan: We will continue her current regimen from home. She had prednisone listed on her medication list. I will need to find out if she is in an active taper or not. If she is in the middle of the taper I certainly will continue it. (4) Chronic atrial fibrillation Is this a current diagnosis for this admission?: Yes Plan: Her rate seems to be well controlled. I will continue her on her amiodarone at this time. We will also check electrolytes including magnesium level. (5) Acute on chronic renal failure Qualifiers: Acute renal failure type: unspecified Chronic kidney disease stage: stage 4 (severe) Qualified Code(s): N17.9 - Acute kidney failure, unspecified; N18.4 - Chronic kidney disease, stage 4 (severe); N18.4 - Chronic kidney disease , stage 4 (severe); N18.4 - Chronic kidney disease, stage 4 (severe); N18.4 - Chronic kidney disease, stage 4 (severe) Is this a current diagnosis for this admission?: Yes Plan: I will monitor the patient's renal function. Her current GFR appears to be around her baseline. Medications will be dosed accordingly if adjustment is needed. - Time Time Spent: 50 to 70 Minutes - Inpatient Certification Medical Necessity: Failure to Improve With Outpatient Therapy, Significant Comorbidiites Make Outpatient Treatment Too Risky, Need For Continuous Telemetry Monitoring - Plan Summary Plan Summary: The patient will be admitted to observation status. She has a scopolamine patch in place. Meclizine is available if needed. Physical therapy will see the patient. There is no obvious etiology for her vertigo. She does not have pronounced nystagmus at this time so hopefully the vertigo is resolving. I did look up the patient's advance care directive from a previous visit. It only addresses ongoing issues after a catastrophic event. It does not address initial intubation and cardiac resuscitation. I will review this with the patient again as she was indecisive in the emergency department.
[2018-03-13] MEDS: FUROSEMIDE 40 MG TABLET PO SCH (17:48)
[2018-03-13] MEDS: MONTELUKAST SODIUM 10 MG TABLET PO SCH (17:48)
[2018-03-13] MEDS: ENOXAPARIN SODIUM INJ 30 MG/0.3 ML DISP.SYRIN SUBCUT SCH (17:48)
[2018-03-13] MEDS: FERROUS SULFATE 325 MG TABLET PO SCH (17:48)
[2018-03-13] MEDS: IPRATROPIUM/ALBUTEROL 0.5-2.5 MG/3 ML AMPUL NEB SCH (20:25)
[2018-03-13] MEDS: POTASSIUM CHLORIDE 10 MEQ CAPSULE.ER PO SCH (22:34)
[2018-03-13] MEDS: FLUTICASONE/SALMETEROL DISKUS 250-50 MCG/DOSE IH SCH (22:34)
[2018-03-13] MEDS: SIMVASTATIN 10 MG TABLET PO SCH (22:35)
[2018-03-13] MEDS: TOLTERODINE TARTRATE 1 MG TABLET PO SCH (22:35)
[2018-03-14] MEDS: IPRATROPIUM/ALBUTEROL 0.5-2.5 MG/3 ML AMPUL NEB SCH ×4 (02:32→20:19)
[2018-03-14 04:33] LABS: HEMATOCRIT 32.9 % (36.0-47.0); HEMOGLOBIN 11.2 g/dL (12.0-15.5); MEAN CORPUSCULAR HEMOGLOBIN 30.2 pg (27.0-33.4); MEAN CORPUSCULAR HGB CONC 33.9 g/dL (32.0-36.0); MEAN CORPUSCULAR VOLUME 89 fl (80-97); PLATELET COUNT 185 10^3/uL (150-450); RED BLOOD COUNT 3.69 10^6/uL (3.72-5.28); RED CELL DISTRIBUTION WIDTH 16.3 % (11.5-14.0); WHITE BLOOD COUNT 6.6 10^3/uL (4.0-10.5)
[2018-03-14] MEDS: LANSOPRAZOLE 30 MG TAB.RAP.DR PO SCH (06:21)
[2018-03-14] MEDS: POTASSIUM CHLORIDE 10 MEQ CAPSULE.ER PO SCH ×3 (06:21→22:27)
[2018-03-14] MEDS ORDERED: ACETAMINOPHEN 325 MG TABLET PO PRN (08:39)
[2018-03-14] MEDS ORDERED: TRAMADOL HCL 50 MG TABLET PO PRN (08:43)
--- NOTE | 2018-03-14 08:57 | EKG REPORT ---
SEVERITY:- ABNORMAL ECG - PROB SINUS RHYTHM, CAN NOT R/O ACCELERATED JUNCTIONAL RHYTHM IVCD, CONSIDER ATYPICAL RBBB REC REPEAT EKG : Confirmed by: Jose Larsen 14-Mar-2018 08:56:49
[2018-03-14] MEDS ORDERED: BIOTIN 600 MCG PO SCH (10:00)
[2018-03-14] MEDS ORDERED: ENOXAPARIN SODIUM INJ 40 MG/0.4 ML DISP.SYRIN SUBCUT SCH (10:00)
[2018-03-14] MEDS ORDERED: AMIODARONE HCL 200 MG TABLET PO SCH (10:00)
[2018-03-14] MEDS ORDERED: LETROZOLE 2.5 MG TABLET PO SCH (10:00)
[2018-03-14] MEDS ORDERED: (PENDING PHARMACY ID) (Amiodarone Hcl [Amiodarone Hcl] 100 MG) PO SCH (10:00)
[2018-03-14] MEDS ORDERED: METOLAZONE 2.5 MG TABLET PO SCH (10:00)
[2018-03-14] MEDS ORDERED: (PENDING PHARMACY ID) (Solifenacin Succinate [Vesicare] 10 MG) PO SCH (10:00)
[2018-03-14] MEDS ORDERED: SPIRONOLACTONE 25 MG TABLET PO SCH (10:00)
[2018-03-14] MEDS ORDERED: ASPIRIN 81 MG TABLET, CHEWABLE PO SCH (10:00)
[2018-03-14] MEDS: FLUTICASONE/SALMETEROL DISKUS 250-50 MCG/DOSE IH SCH ×2 (11:32→22:27)
[2018-03-14] MEDS: FUROSEMIDE 40 MG TABLET PO SCH ×2 (11:33→17:44)
[2018-03-14] MEDS: FERROUS SULFATE 325 MG TABLET PO SCH ×3 (11:33→17:44)
[2018-03-14] MEDS: TOLTERODINE TARTRATE 1 MG TABLET PO SCH ×2 (11:37→22:28)
[2018-03-14] MEDS: ENOXAPARIN SODIUM INJ 30 MG/0.3 ML DISP.SYRIN SUBCUT SCH (11:37)
[2018-03-14] MEDS ORDERED: ONDANSETRON HCL INJ/PF 4 MG/2 ML SDV IV PRN (13:00)
--- NOTE | 2018-03-14 16:33 | RADIOLOGY REPORT (SQ) ---
EXAM DESCRIPTION: CAROTID DOPPLER COMPLETED DATE/TIME: 03/14/2018 3:52 pm REASON FOR STUDY: syncope COMPARISON: None. TECHNIQUE: Grayscale ultrasound, Doppler velocity and spectra, and color Doppler images acquired of the extra-cranial carotid and vertebral arteries. Images stored on PACS. LIMITATIONS: None. FINDINGS: RIGHT CAROTID CCA Velocities: 85 centimeters/second ICA Velocities Peak systolic 158 cm/s. End diastolic 25 cm/s. Proximal ICA/CCA peak systolic ratio 1.9. Spectra normal. No significant plaque. LEFT CAROTID CCA Velocities: 158 centimeters/second ICA Velocities Peak systolic 121 cm/s. End diastolic 18 cm/s. Proximal ICA/CCA peak systolic ratio 0.8. Spectra normal. No significant plaque. VERTEBRAL ARTERIES: Antegrade flow. Normal waveforms. SUBCLAVIAN ARTERIES: No finding. OTHER: No other significant finding. IMPRESSION: NO HEMODYNAMICALLY SIGNIFICANT STENOSIS. COMMENT: Quality ID #[id number]: Velocity criteria are extrapolated from the diameter data as defined by t he Society of Radiologists in Ultrasound Consensus Conference. Radiology 2003: 229; 340-346. TECHNICAL DOCUMENTATION: JOB ID: [id number] [employer]- All Rights Reserved Reading location - IP/workstation name: [email or web address]
[2018-03-14] MEDS: MONTELUKAST SODIUM 10 MG TABLET PO SCH (17:44)
--- NOTE | 2018-03-14 21:15 | PDOC PROGRESS REPORT ---
Subjective Progress Note for:: 03/14/18 Subjective:: The patient is working with physical therapy. She still has some word finding difficulties and maintaining her train of thought. Reason For Visit: VERTIGO Physical Exam Vital Signs: Temp Pulse Resp BP Pulse Ox 98.0 F 61 17 116/46 L 100 03/14/18 17:40 03/14/18 19:00 03/14/18 17:40 03/14/18 17:40 03/14/18 17:40 Intake & Output 03/13/18 03/14/18 03/15/18 06:59 06:59 06:59 Intake Total 100 Output Total 60 Balance 40 General appearance: PRESENT: no acute distress, cooperative, well-developed Neck exam: ABSENT: carotid bruit, JVD, lymphadenopathy Respiratory exam: PRESENT: clear to auscultation bruce, symmetrical, unlabored. ABSENT: rales, rhonchi, wheezes Cardiovascular exam: PRESENT: RRR, +S1, +S2 GI/Abdominal exam: PRESENT: normal bowel sounds, soft. ABSENT: distended, tenderness Extremities exam: ABSENT: calf tenderness, pedal edema Musculoskeletal exam: PRESENT: other - Decreased muscle mass Neurological exam: PRESENT: alert, awake, oriented to person, oriented to place Psychiatric exam: PRESENT: anxious. ABSENT: agitated Skin exam: PRESENT: other - Very thin skin. Ecchymosis upper extremities. Results Impressions: Chest X-Ray 03/13/18 10:32 IMPRESSION: Cardiomegaly. No acute consolidations or pleural effusions are identified. Other findings as noted above Head CT 03/13/18 10:32 IMPRESSION: CHRONIC CHANGES OF ATROPHY AND MICROVASCULAR ISCHEMIA. NO ACUTE PROCESS. EVIDENCE OF ACUTE STROKE: NO. Carotid Doppler Study 03/14/18 00:00 IMPRESSION: NO HEMODYNAMICALLY SIGNIFICANT STENOSIS. Assessment & Plan - Diagnosis (1) Vertigo Is this a current diagnosis for this admission?: Yes Plan: The patient has significant dizziness. I did not ambulate her. The emergency department physician did ambulate her and reported ongoing ataxia. Interestingly she did not have pronounced nystagmus at the time of my encounter. She experienced no dizziness when turning her head in bed. She did have some nausea. She currently has a scopolamine patch in place. I have ordered a carotid ultrasound study. CT scan of the head was unremarkable. I have asked physical therapy to evaluate her. We will continue to monitor. Meclizine will be available as needed. 03/14/2018-the vertigo is resolved. Patient has an unsteady gait but I believe this is more due to weakness and deconditioning. She does have cerebrovascular disease but there is no evidence of acute infarct. In addition the patient did have carotid artery ultrasound. There is no evidence of significant stenosis on either the right or left side. (2) Acute on chronic diastolic heart failure Is this a current diagnosis for this admission?: Yes Plan: The patient was not orthostatic. She is on multiple antihypertensives and diuretics. We will need to monitor volume status. Her pressure seems appropriate and so I will continue all of her current medications. Chest x-ray and exam did not suggest significant failure at this time. 03/14/2018-continue current medication regimen. The patient has not exhibited any difficulty breathing. She is tolerating her regimen without any significant hypotension. (3) COPD (chronic obstructive pulmonary disease) Qualifiers: Emphysema type: unspecified Is this a current diagnosis for this admission?: Yes Plan: We will continue her current regimen from home. She had prednisone listed on her medication list. I will need to find out if she is in an active taper or not. If she is in the middle of the taper I certainly will continue it. 03/14/2018-continue current medication regimen (4) Chronic atrial fibrillation Is this a current diagnosis for this admission?: Yes Plan: Her rate seems to be well controlled. I will continue her on her amiodarone at this time. We will also check electrolytes including magnesium level. 03/14/2018-continue amiodarone. Her TSH was slightly elevated. This could be secondary to amiodarone therapy (5) Acute on chronic renal failure Qualifiers: Acute renal failure type: unspecified Chronic kidney disease stage: stage 4 (severe) Qualified Code(s): N17.9 - Acute kidney failure, unspecified; N18.4 - Chronic kidney disease, stage 4 (severe); N18.4 - Chronic kidney disease , stage 4 (severe); N18.4 - Chronic kidney disease, stage 4 (severe); N18.4 - Chronic kidney disease, stage 4 (severe) Is this a current diagnosis for this admission?: Yes Plan: I will monitor the patient's renal function. Her current GFR appears to be around her baseline. Medications will be dosed accordingly if adjustment is needed. 03/14/2018-GFR and admission was 32. Serum chemistries ordered for tomorrow. (7) Hypothyroidism Is this a current diagnosis for this admission?: Yes Plan: The patient's TSH level was elevated. This could very well be from the amiodarone. No changes in her regimen at this time. - Time Time Spent with patient: 25-34 minutes Medications reviewed and adjusted accordingly: Yes Anticipated discharge: Home with Homehealth
[2018-03-14] MEDS: SIMVASTATIN 10 MG TABLET PO SCH (22:27)
[2018-03-15] MEDS: IPRATROPIUM/ALBUTEROL 0.5-2.5 MG/3 ML AMPUL NEB SCH ×2 (02:14→08:26)
[2018-03-15] MEDS: POTASSIUM CHLORIDE 10 MEQ CAPSULE.ER PO SCH (05:30)
[2018-03-15] MEDS: LANSOPRAZOLE 30 MG TAB.RAP.DR PO SCH (05:31)
[2018-03-15 06:32] LABS: ALBUMIN 4.2 g/dL (3.5-5.0); ANION GAP 16 (5-19); BLOOD UREA NITROGEN 57 mg/dL (7-20); CARBON DIOXIDE 21 mmol/L (22-30); CHLORIDE 106 mmol/L (98-107); GLUCOSE 92 mg/dL (75-110); PHOSPHORUS 3.4 mg/dL (2.5-4.5); POTASSIUM 4.8 mmol/L (3.6-5.0); SODIUM 142.7 mmol/L (137-145)
[2018-03-15 08:45] VITALS: BP 116/46
--- NOTE | 2018-03-15 09:05 | PDOC DISCHARGE SUMMARY ---
General - Admit/Disc Date/PCP Admission Date/Primary Care Provider: 03/14/18 16:15 JANNIE FLYNN, DO Discharge Date: 03/15/18 - Discharge Diagnosis (1) Vertigo Is this a current diagnosis for this admission?: Yes Summary: The patient's dizziness resolved. She was given meclizine and Valium in the emergency department. A scopolamine patch was utilized. She still has impaired gait but this is likely due to severe deconditioning with weakness. A prescription for meclizine will be given to the patient to take only if her symptoms return. (2) COPD (chronic obstructive pulmonary disease) Is this a current diagnosis for this admission?: Yes (3) Chronic atrial fibrillation Is this a current diagnosis for this admission?: Yes Summary: The patient's atrial fibrillation has been stable during her admission. She will continue her amiodarone. 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 Suggest follow-up with primary care physician. (4) Chronic kidney disease Is this a current diagnosis for this admission?: Yes Summary: The patient serum creatinine appears to be at baseline. Her GFR typically is about 30. She is borderline stage IV. Continue to monitor renal function especially considering her diuretic therapy. (5) Hypothyroidism Is this a current diagnosis for this admission?: Yes Summary: As noted above TSH was elevated. This is most likely due to amiodarone therapy. She is not overtly symptomatic. I will defer to her primary care physician. (6) Chronic combined systolic and diastolic CHF (congestive heart failure) Is this a current diagnosis for this admission?: Yes Summary: The patient has been stable. She has not required oxygen. Her heart failure has been stable on her current medication regimen. - Additional Information Resuscitation Status: Full Code Discharge Diet: Cardiac Discharge Activity: Activity As Tolerated, Balance Activity w/Rest, Slowly Increase Activity Prescriptions: Meclizine HCl [Antivert 12.5 mg Tablet] 12.5 mg PO TIDP PRN #15 tablet PRN Reason: Dizziness Home Medications: Fluticasone/Salmeterol [Advair 250-50 Diskus 14 Dose/Diskus] 1 puff IH Q12 12/12 Furosemide [Lasix 40 mg Tablet] 40 mg PO BID 12/12/17 Lorazepam [Ativan 1 mg Tablet] 1 mg PO Q6HP PRN 12/12/17 Montelukast Sodium [Singulair 10 mg Tablet] 10 mg PO QPM 12/12/17 Pantoprazole Sodium [Protonix] 40 mg PO DAILY 12/12/17 Potassium Chloride [Klor-Con M20] 40 meq PO TID 12/12/17 Simvastatin [Zocor 20 mg Tablet] 20 mg PO QHS 12/12/17 Spironolactone [Aldactone 25 mg Tablet] 25 mg PO DAILY 12/12/17 Ipratropium/Albuterol Sulfate [Duoneb 3 ml Ampul] 3 ml NEB RTQ6 30 Days vial.neb 12/19/17 Letrozole [Femara 2.5 mg Tablet] 2.5 mg PO DAILY tablet 12/20/17 Amiodarone HCl 100 mg PO DAILY 03/13/18 Aspirin [Aspirin 81 mg Chewable Tablet] 81 mg PO DAILY 03/13/18 Biotin 600 mcg PO DAILY 03/13/18 Ferrous Sulfate [Iron] 325 mg PO TID 03/13/18 Metolazone [Zaroxolyn 2.5 mg Tablet] 2.5 mg PO DAILY 03/13/18 Solifenacin Succinate [Vesicare] 10 mg PO DAILY 03/13/18 Meclizine HCl [Antivert 12.5 mg Tablet] 12.5 mg PO TIDP PRN #15 tablet 03/15/18 History of Present Illness Patient complains of: Acute onset dizziness with difficulty walking. There was some associated nausea. History of Present Illness: ROBERT CAMILO is a 87 year old female with a complex medical history. She states that she has been dizzy for the last 2 days. She denies room spinning. It is associated with nausea. There is no associated chest pain or pressure. There are no changes in vision or consciousness. She in fact went to her primary care physician yesterday. There was no acute intervention. Because she did not feel any better today she presented to the emergency department. After several medications the patient still had an unstable gait and therefore was admitted for observation and further evaluation. Hospital Course Hospital Course: The patient had a relatively unremarkable hospital course. Her dizziness slowly resolved. We did perform a carotid ultrasound to rule out stenosis. She does not become symptomatic turning her head. 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 She was seen by physical therapy. The gait disorder is primarily due to her profound weakness and deconditioning. She has been hospitalized twice over the last several months. She also spent time in a nursing home facility and received 4 weeks of physical therapy at home. She also has chronic cerebral atrophy and microvascular ischemia. This certainly could be contributory as she often has difficulty with her train of thought. Her family reports that she is getting forgetful. This was not a prominent feature during her stay. A TSH was drawn to see if her thyroid was contributing to any of her symptoms. Her TSH was elevated at just over 6. She has been on amiodarone on a chronic basis. The hypothyroidism is likely due to the amiodarone. I will defer to her elementary vocal music teacher/primary care physician for any alterations in her treatment plan. She has a history of atrial fibrillation, chronic kidney disease, hypertension and hyperlipidemia. We continue all of her medicines including her potassium supplementation. Her magnesium level is slightly high but it should drift down to normal. Follow -up electrolytes per her primary care provider. Physical Exam Vital Signs: Temp Pulse Resp BP Pulse Ox 98.1 F 66 21 H 145/50 H 100 03/15/18 03:52 03/15/18 03:52 03/15/18 03:52 03/15/18 03:52 03/15/18 03:52 Intake & Output 03/14/18 03/15/18 03/16/18 06:59 06:59 06:59 Intake Total 200 Output Total 60 Balance 140 Weight 51.9 kg General appearance: PRESENT: no acute distress, cooperative, thin, well- developed Head exam: PRESENT: atraumatic, normocephalic Eye exam: PRESENT: conjunctiva pale, EOMI. ABSENT: nystagmus, scleral icterus Mouth exam: PRESENT: dry mucosa Neck exam: ABSENT: carotid bruit, JVD, lymphadenopathy Respiratory exam: PRESENT: clear to auscultation bruce, symmetrical, unlabored. ABSENT: rales, rhonchi, wheezes Cardiovascular exam: PRESENT: RRR, +S1, +S2, systolic murmur - 2/6 systolic murmur. GI/Abdominal exam: PRESENT: normal bowel sounds, soft. ABSENT: guarding, tenderness Musculoskeletal exam: PRESENT: other - Significantly decreased muscle mass especially upper extremities Neurological exam: PRESENT: alert, awake, oriented to person, oriented to place , oriented to situation Psychiatric exam: PRESENT: anxious, unusual affect Skin exam: PRESENT: other - Marked ecchymosis bilateral upper extremities with very thin skin. Results Laboratory Results: 03/15/18 05:33 03/15/18 05:33 Sodium 142.7 Potassium 4.8 Chloride 106 Carbon Dioxide 21 L Anion Gap 16 BUN 57 H Creatinine 1.78 H Est GFR ( Amer) 33 L Est GFR (Non-Af Amer) 27 L Glucose 92 Calcium 11.0 H Phosphorus 3.4 Magnesium 2.4 H Albumin 4.2 Impressions: Chest X-Ray 03/13/18 10:32 IMPRESSION: Cardiomegaly. No acute consolidations or pleural effusions are identified. Other findings as noted above Head CT 03/13/18 10:32 IMPRESSION: CHRONIC CHANGES OF ATROPHY AND MICROVASCULAR ISCHEMIA. NO ACUTE PROCESS. EVIDENCE OF ACUTE STROKE: NO. Carotid Doppler Study 03/14/18 00:00 IMPRESSION: NO HEMODYNAMICALLY SIGNIFICANT STENOSIS. Qualifiers - * PATIENT BEING DISCHARGED WITH ANY OF THE FOLLOWING DIAGNOSIS: No, Heart Failure HF Pt being discharged on ACEI for LVEF less than 40%?: No Reason(s) for not prescribing ACEI:: Adverse reaction to drug HF Pt being discharged on ARBS for LVEF less than 40%?: No Reason(s) for not prescribing ARBS:: Adverse reaction to drug HF Pt with Afib discharged with Warfarin?: No Reason(s) for not prescribing Warfarin:: Compl of medication care - History of bleeding. Her elementary vocal music teacher has recommended no anticoagulation. HF Pt discharged on evidence-based Beta Adolfo:: No Reason(s) for not prescribing evidence-based Beta Adolfo:: Tx not tolerated, Drug declined by patient - This is not part of her current regimen per her elementary vocal music teacher. She is on amiodarone for her paroxysmal atrial fibrillation. Plan Discharge Plan: The patient will be discharged home. This is preferable to nursing home facility for this patient. Home health is familiar with the patient and I have ordered physical therapy for her significant deconditioning with associated gait abnormality. She already has durable medical equipment at home including a walker and bedside commode. She should follow-up with her primary care physician as well as continue with her elementary vocal music teacher. Time Spent: Greater than 30 Minutes
== END 2018-03-15 10:16 | disposition home health service (06) | DRG 149 ==
LOC: ER 09:47 → INTOOBSV 12:18 → EH 12:18 → 4N 14:32 → OBSVTOIN 03-14 16:15
PROVIDERS: ADMIT Emergency Medicine; ATTEND Emergency Medicine
PROC: 3E0F73Z Introduction of Anti-inflammatory into Respiratory Tract, Via Natural or Artificial Opening (ICD-10-PCS; principal; 2018-03-13)
DX: R42 Dizziness and giddiness (principal); I50.43 Acute on chronic combined systolic (congestive) and diastolic (congestive) heart failure; I13.0 Hypertensive heart and chronic kidney disease with heart failure and stage 1 through stage 4 chronic kidney disease, or unspecified chronic kidney disease; N17.9 Acute kidney failure, unspecified; N18.4 Chronic kidney disease, stage 4 (severe); J44.9 Chronic obstructive pulmonary disease, unspecified; E87.6 Hypokalemia; I48.2 Chronic atrial fibrillation; E03.2 Hypothyroidism due to medicaments and other exogenous substances; T46.2X5A Adverse effect of other antidysrhythmic drugs, initial encounter; E78.00 Pure hypercholesterolemia, unspecified; M13.842 Other specified arthritis, left hand; M13.841 Other specified arthritis, right hand; Z85.3 Personal history of malignant neoplasm of breast; Z90.10 Acquired absence of unspecified breast and nipple; Z90.710 Acquired absence of both cervix and uterus; Z82.49 Family history of ischemic heart disease and other diseases of the circulatory system; Z80.9 Family history of malignant neoplasm, unspecified; Z79.82 Long term (current) use of aspirin; Z88.6 Allergy status to analgesic agent; Z88.1 Allergy status to other antibiotic agents; Z88.8 Allergy status to other drugs, medicaments and biological substances
CPT/HCPCS: 36415; 70450; 71045; 80048; 80069; 81001; 83735; 84443; 84484; 85025; 85027; 87086; 93005; 93010; 93880; 94640; 96374; 99285; G0378; G8978-GP; G8979-GP; J1650; J2405; J3490; J7620

== ENCOUNTER 2018-03-18 11:18 | Emergency (ER) | payer MEDICARE, OTHER ==
[2018-03-18] MEDS ORDERED: DIPH/PERTUSS(ACELL)/TETANUS VAC/PF 0.5 ML SYR (>=10YO) IM ONE (11:31)
--- NOTE | 2018-03-18 11:32 | ER Document Report ---
ED Medical Screen (RME) - General Chief Complaint: Fall Stated Complaint: FALL Time Seen by Provider: 03/18/18 11:25 Notes: Patient is a 87-year-old female that presents to the emergency department for chief complaint of fall and closed head injury. Patient states that she was in her bathroom trying to get into the shower, she slipped and fell backward and hit her head, denies loss of consciousness.. ROS: Other than noted above, the 12 point review of systems was reviewed with the patient and were negative, all pertinent findings are included in the HPI. PHYSICAL EXAMINATION: Vital signs reviewed. GENERAL: Well-appearing, well-nourished and in no acute distress. HEAD: There is a small scalp hematoma on the posterior lateral right aspect of the scalp, trace bleeding noted, normocephalic. EYES: Pupils equal round extraocular movements intact, conjunctiva are normal. ENT: Nares patent NECK: Normal range of motion CV: Heart regular rate and rhythm LUNGS: No respiratory distress Musculoskeletal: Normal range of motion, right forearm minor skin abrasion noted. NEUROLOGICAL: Normal speech PSYCH: Normal mood, normal affect. MDM: Patient seen and examined for rapid initial assessment. Vital signs reviewed. A comprehensive ED assessment and evaluation of the patient, analysis of test results and completion of the medical decision making process will be conducted by additional ED providers. *Note is created using voice recognition software and may contain spelling, syntax or grammatical errors. TRAVEL OUTSIDE OF THE [place] IN LAST 30 DAYS: No - Related Data Allergies/Adverse Reactions: amoxicillin [Amoxicillin] Allergy (Intermediate, Verified 03/18/18 11:25) Rash codeine [Codeine] Allergy (Unknown, Verified 03/18/18 11:25) adhesive tape [Adhesive Tape] Adverse Reaction (Severe, Verified 03/18/18 11:25) Tears skin diltiazem HCl [From Tiazac] Adverse Reaction (Intermediate, Verified 03/18/18 11 :25) Dizzy doxycycline [Doxycycline] Adverse Reaction (Intermediate, Verified 03/18/18 11: 25) Dizzy lisinopril [Lisinopril] Adverse Reaction (Intermediate, Verified 03/18/18 11:25) Dizzy propafenone [Propafenone] Adverse Reaction (Intermediate, Verified 03/18/18 11: 25) Diarrhea zolpidem tartrate [From Ambien] Adverse Reaction (Intermediate, Verified 11:25) Confusion Strong fumes Allergy (Severe, Uncoded 03/18/18 11:25) Asthma Past Medical History - Social History Chew tobacco use (# tins/day): No Frequency of alcohol use: None Drug Abuse: None - Past Medical History Cardiac Medical History: Reports: Hx Atrial Fibrillation, Hx Hypercholesterolemia, Hx Hypertension Denies: Hx Heart Attack Pulmonary Medical History: Reports: Hx COPD, Hx Pneumonia Denies: Hx Asthma - occasional SOB, ALBUTERAL , Hx Bronchitis, Hx Tuberculosis Neurological Medical History: Denies: Hx Cerebrovascular Accident, Hx Seizures Renal/ Medical History: Denies: Hx Peritoneal Dialysis Malignancy Medical History: Reports: Hx Breast Cancer GI Medical History: Denies: Hx Cirrhosis, Hx Gastroesophageal Reflux Disease, Hx Hepatitis, Hx Hiatal Hernia, Hx Ulcer Musculoskeltal Medical History: Reports Hx Arthritis - Hands Psychiatric Medical History: Denies: Hx Dementia, Hx Depression Infectious Medical History: Denies: Hx Hepatitis Past Surgical History: Reports: Hx Cardiac Surgery - mitral valve replacement, Hx Hysterectomy, Hx Mastectomy - 2010, Hx Open Heart Surgery - MITRAL VALVE REPAIR, Other - Mitral valve repair. Denies: Hx Pacemaker - Immunizations Hx Diphtheria, Pertussis, Tetanus Vaccination: Yes History of Influenza Vaccine for 01/2017 - 06/2017 Season: Yes Influenza Administration Date for 01/2017 - 06/2017 Season: 01/28/18 Physical Exam - Vital signs Vitals: Temp Pulse Resp BP Pulse Ox 97.4 F 57 L 12 108/62 100 03/18/18 11:26 03/18/18 11:26 03/18/18 11:26 03/18/18 11:26 03/18/18 11:26 Course - Vital Signs Vital signs: Temp Pulse Resp BP Pulse Ox 97.4 F 57 L 12 108/62 100 03/18/18 11:26 03/18/18 11:26 03/18/18 11:26 03/18/18 11:26 03/18/18 11:26 Doctor's Discharge - Discharge Referrals: JANNIE FLYNN DO [Primary Care Provider] - Follow up as needed
--- NOTE | 2018-03-18 12:31 | RADIOLOGY REPORT (SQ) ---
EXAM DESCRIPTION: CT HEAD WITHOUT COMPLETED DATE/TIME: 03/18/2018 12:18 pm REASON FOR STUDY: closed head injury COMPARISON: 03/13/2018 TECHNIQUE: Axial images acquired through the brain without intravenous contrast. Images reviewed wi th bone, brain and subdural windows. Additional sagittal and coronal reconstructions were generated. Images stored on PACS. All CT scanners at this facility use dose modulation, iterative reconstruction, and/or weight based d osing when appropriate to reduce radiation dose to as low as reasonably achievable (ALARA). [facility]: Dose Right [facility]: CareDose [facility]: Dose Right [facility]: Teradose 4D [facility]: Smart [employer] RADIATION DOSE: CT Rad equipment meets quality standard of care and radiation dose reduction techniq ues were employed. CTDIvol: 48.6 mGy. DLP: 877 mGy-cm. mGy. LIMITATIONS: None. FINDINGS: VENTRICLES: Prominent. CEREBRUM: No masses. No hemorrhage. No midline shift. Areas of low density in the white matter mos t likely due to chronic micro-vascular ischemic change. No evidence for acute infarction. CEREBELLUM: No masses. No hemorrhage. No alteration of density. No evidence for acute infarction. EXTRAAXIAL SPACES: Mild age-related involutional change. No fluid collections. No masses. ORBITS AND GLOBE: No intra- or extraconal masses. Normal contour of globe without masses. CALVARIUM: No fracture. PARANASAL SINUSES: No fluid or mucosal thickening. SOFT TISSUES: No mass or hematoma. OTHER: No other significant finding. IMPRESSION: MILD CHRONIC CHANGES OF ATROPHY AND MICROVASCULAR ISCHEMIA. NO ACUTE PROCESS. EVIDENCE OF ACUTE STROKE: NO. TECHNICAL DOCUMENTATION: JOB ID: [id number] Quality ID # [id number]: Final reports with documentation of one or more dose reduction techniques (e.g., Au tomated exposure control, adjustment of the mA and/or kV according to patient size, use of iterative reconstruction technique) 2010 [employer]- All Rights Reserved Reading location - IP/workstation name: [email or web address]
--- NOTE | 2018-03-18 12:34 | RADIOLOGY REPORT (SQ) ---
EXAM DESCRIPTION: CT CERVICAL SPINE WITHOUT COMPLETED DATE/TIME: 03/18/2018 12:18 pm REASON FOR STUDY: closed head injury COMPARISON: None. TECHNIQUE: Axial images acquired through the cervical spine without intravenous contrast. Images re viewed with lung, soft tissue and bone windows. Reconstructed coronal and sagittal MPR images review ed. Images stored on PACS. All CT scanners at this facility use dose modulation, iterative reconstruction, and/or weight based d osing when appropriate to reduce radiation dose to as low as reasonably achievable (ALARA). [facility]: Dose Right [facility]: CareDose [facility]: Dose Right [facility]: Teradose 4D [facility]: Smart [employer] RADIATION DOSE: CT Rad equipment meets quality standard of care and radiation dose reduction techniq ues were employed. CTDIvol: 9.4 mGy. DLP: 211 mGy-cm. mGy. LIMITATIONS: None. FINDINGS: ALIGNMENT: Anatomic. MINERALIZATION: Normal. VERTEBRAL BODIES: No fractures or dislocation. DISCS: Moderate multilevel disc space height loss FACETS, LATERAL MASSES, POSTERIOR ELEMENTS: Severe multilevel facet degenerative disease. There is mild widening of the left C4-5 facet joints, likely chronic and degenerative in nature. No fractures . No dislocation. No acute findings. HARDWARE: None in the spine. VISUALIZED RIBS: No fractures. LUNG APICES AND SOFT TISSUES: No significant or acute findings. OTHER: No other significant finding. IMPRESSION: No fracture or static subluxation of the cervical spine. There is severe multilevel fac et degenerative disease with mild widening of the left C4-C5 facet joints, likely chronic and degener ative in nature. TECHNICAL DOCUMENTATION: JOB ID: [id number] Quality ID # [id number]: Final reports with documentation of one or more dose reduction techniques (e.g., Au tomated exposure control, adjustment of the mA and/or kV according to patient size, use of iterative reconstruction technique) 2010 [employer]- All Rights Reserved Reading location - IP/workstation name: [email or web address]
--- NOTE | 2018-03-18 12:53 | ER Document Report ---
ED Fall - General Chief Complaint: Fall Stated Complaint: FALL Time Seen by Provider: 03/18/18 11:25 Notes: Patient says that she was getting undressed to get into the shower and she lost her balance and fell. She hit the right occipital scalp and also sustained a small skin tear on her right mid forearm. She says that she was never unconscious. Denies any neck pain. No neurologic symptoms or deficits at this time. Patient was just in the hospital here last week having tests run for possible causes of possible syncope. They did not find anything during that evaluation and wanted to do an MRI, but did not eventually do one. Patient says she feels fine at this time. Family says she is acting normally for her. TRAVEL OUTSIDE OF THE [place] IN LAST 30 DAYS: No - Related data Allergies/Adverse Reactions: amoxicillin [Amoxicillin] Allergy (Intermediate, Verified 03/18/18 11:25) Rash codeine [Codeine] Allergy (Unknown, Verified 03/18/18 11:25) adhesive tape [Adhesive Tape] Adverse Reaction (Severe, Verified 03/18/18 11:25) Tears skin diltiazem HCl [From Tiazac] Adverse Reaction (Intermediate, Verified 03/18/18 11 :25) Dizzy doxycycline [Doxycycline] Adverse Reaction (Intermediate, Verified 03/18/18 11: 25) Dizzy lisinopril [Lisinopril] Adverse Reaction (Intermediate, Verified 03/18/18 11:25) Dizzy propafenone [Propafenone] Adverse Reaction (Intermediate, Verified 03/18/18 11: 25) Diarrhea zolpidem tartrate [From Ambien] Adverse Reaction (Intermediate, Verified 11:25) Confusion Strong fumes Allergy (Severe, Uncoded 03/18/18 11:25) Asthma Past Medical History - Social History Smoking Status: Never Smoker Chew tobacco use (# tins/day): No Frequency of alcohol use: None Drug Abuse: None Family History: Reviewed & Not Pertinent, CAD, Malignancy Patient has suicidal ideation: No Patient has homicidal ideation: No - Past Medical History Cardiac Medical History: Reports: Hx Atrial Fibrillation, Hx Hypercholesterolemia, Hx Hypertension Denies: Hx Heart Attack Pulmonary Medical History: Reports: Hx COPD, Hx Pneumonia Malignancy Medical History: Reports: Hx Breast Cancer Musculoskeletal Medical History: Reports Hx Arthritis - Hands Past Surgical History: Reports: Hx Cardiac Surgery - mitral valve replacement, Hx Hysterectomy, Hx Mastectomy - 2011, Hx Open Heart Surgery - MITRAL VALVE REPAIR, Other - Mitral valve repair - Immunizations Hx Diphtheria, Pertussis, Tetanus Vaccination: Yes Hx Pneumococcal Vaccination: 04/30/09 Review of Systems - Review of Systems Notes: REVIEW OF SYSTEMS: CONSTITUTIONAL : Denies fever. EENT: Denies eye, ear, nose or mouth or throat pain or other symptoms. CARDIOVASCULAR: Denies chest pain. RESPIRATORY: Denies cough, chest congestion, or shortness of breath. GASTROINTESTINAL: Denies abdominal pain or nausea, vomiting, or diarrhea. GENITOURINARY: Denies difficulty or painful urinating, urinary frequency, blood in urine. MUSCULOSKELETAL: Denies back or neck pain. Denies joint pain or swelling. SKIN: Denies rash or skin lesions. Has a small skin tear on the right mid forearm from this fall. Family says her skin is tissue thin and tears very easily. NEUROLOGICAL: Denies LOC or altered mental status. Denies headache. Denies sensory loss or motor deficits. ALL OTHER SYSTEMS REVIEWED AND NEGATIVE. Physical Exam - Vital signs Vitals: Temp Pulse Resp BP Pulse Ox 97.4 F 57 L 12 108/62 100 03/18/18 11:26 03/18/18 11:26 03/18/18 11:26 03/18/18 11:26 03/18/18 11:26 Interpretation: Normal - Notes Notes: PHYSICAL EXAMINATION: GENERAL: Well-appearing, in no acute distress. HEAD: Patient has a extremely small, shallow, appearing scrape of the right occipital scalp. It is approximately 1/2 cm in length. It is not bleeding at this time. Does not require sutures. Otherwise, head is atraumatic, normocephalic. EYES: Pupils equal round and reactive to light, extraocular movements intact. ENT: oropharynx clear without exudates. Moist mucous membranes. NECK: Normal range of motion, supple. LUNGS: Breath sounds clear and equal bilaterally. HEART: Regular rate and rhythm without murmurs. ABDOMEN: Soft, nontender. No guarding or rebound. No masses. BACK: No tenderness throughout entire back. EXTREMITIES: Normal range of motion without pain. NEUROLOGICAL: Normal speech, somewhat unsteady gait requiring some assistance to ambulate. Family says that is normal for her. Normal sensory, motor, and reflex exams. Awake, alert, and oriented x3. PSYCH: Normal mood, normal affect. SKIN: Warm, dry, no rashes. Small, 1 cm, shallow laceration of the right mid forearm region. Also does not require sutures. No bleeding at this time. Course - Vital Signs Vital signs: Temp Pulse Resp BP Pulse Ox 97.8 F 50 L 18 104/38 L 100 03/18/18 13:08 03/18/18 13:08 03/18/18 13:08 03/18/18 13:08 03/18/18 13:08 - Diagnostic Test Radiology reviewed: Image reviewed, Reports reviewed - CT scan of the brain and cervical spine were both normal. Discharge - Discharge Clinical Impression: Fall, Laceration of scalp, Skin tear of forearm without complication Condition: Stable Disposition: HOME, SELF-CARE Additional Instructions: HEAD INJURY PRECAUTIONS: At this point, there is no evidence that your head injury is serious. Observation is necessary, however. Take only clear liquids for the first few hours, unless told otherwise by the doctor. If no pain medication was prescribed, you may take acetaminophen according to the directions on the bottle. Do not take any medication that may alter your level of alertness (unless you've discussed it with the doctor first) . Limit activity for the first 24 hours. Bed rest is best. During the first 24 hours, check to see approximately every two to three hours that the patient is easily arousable, responds normally, and can perform common tasks such as walking without difficulty. Contact your doctor or go to the hospital if any of the following things occur: Persistent vomiting, difficulty in arousing the patient, worsening or continued headache, or failure to improve as expected. Head injuries can cause symptoms that persist for a few days or even a few weeks. NECK INJURY (CERVICAL STRAIN): You have a neck strain. This is an injury to the muscles and ligaments in the neck. There is no evidence of a fracture of the neck bones. Also, no injury to the spinal cord or nerve roots was detected. Usually, stiffness and pain INCREASE for the first 24-48 hours after the injury. The pain will gradually resolve and the neck will become more mobile. Most patients are back at work or school within a few days. Typically, complete healing takes about two or three weeks. The usual initial treatment is rest and cold packs. A neck collar may be placed to keep the muscles of the neck at rest. Antiinflammatory and muscle relaxing medication are often used to reduce the spasm and irritation. You should call the doctor, or go to the hospital, if you develop numbness or weakness in any extremity, problems with your bladder or bowel, or pain radiating down the arms. CONTUSION: Your injury has resulted in a contusion -- a crushing of the deep tissues. No injury to important structures was detected during the physician's exam. Contusions vary in the amount of pain they cause, and in the length of time required for healing. Typically, the area will become bruised, and will remain painful to touch for two or three weeks. However, most patients are back to working and playing within a few days. After the initial period of rest and cold-packs, your symptoms (together with the doctor's recommendations) will determine how rapidly you can get back to full activity. Usually this means "do what feels okay, but don't do things that hurt." If re-examination was recommended, it's important to follow up as instructed. Call the doctor or return any time if pain increases, if swelling becomes severe, if you develop numbness or weakness in an injured extremity, or if any other alarming symptoms occur. ABRASION Scalp: An abrasion is a scraping injury of the skin. Some scarring may result. The seriousness of an abrasion is not always obvious at first. Hidden tissue damage may be present and infection may occur despite proper care. Complete healing may take from ten days to as long as a month. The healing time depends on the depth of the abrasion, and on the amount of crushing of underlying tissues from the injury. Keep the wound and dressing clean. Do not shower or bathe the area until okayed by the doctor. If the dressing gets wet, remove it and blot the wound dry, then reapply a clean dressing. Dressings should be changed every day. Sunscreen should be used for six months after the skin is healed. If any signs of infection occur (swelling, redness, increasing tenderness, red streaks, profuse purulent drainage from the abrasion, tender lumps in the armpit or groin above the abrasion, or fever), see the doctor immediately. NON-SUTURED LACERATION: Your laceration did not require suturing. Some lacerations cannot be sutured because of increased infection risk, while others simply don't need stitches because they are shallow or very short. Your injury should be protected while it heals. Usually complete healing takes 10 to 14 days. Keep the dressing clean and dry, and change it every day. If you notice increasing pain, redness, swelling, drainage, or tender lumps in the armpit or groin above the injury, infection may be present. You should call the doctor at once. FOLLOW-UP CARE: If you have been referred to a physician for follow-up care, call the physician s office for an appointment as you were instructed or within the next two days. If you experience worsening or a significant change in your symptoms, notify the physician immediately or return to the Emergency Department at any time for re-evaluation. Referrals: JANNIE FLYNN, DO [Primary Care Provider] - Follow up as needed
[2018-03-18 13:11] VITALS: BP 104/38
== END 2018-03-18 13:11 | disposition home or self-care (01) ==
LOC: ER 11:18
DX: S01.01XA Laceration without foreign body of scalp, initial encounter (principal); S51.811A Laceration without foreign body of right forearm, initial encounter; W18.2XXA Fall in (into) shower or empty bathtub, initial encounter; I10 Essential (primary) hypertension; J44.9 Chronic obstructive pulmonary disease, unspecified
CPT/HCPCS: 70450; 72125; 90471; 90715; 99284

== ENCOUNTER 2018-05-11 09:36 | Emergency (ER) | payer MEDICARE, OTHER ==
--- NOTE | 2018-05-11 09:56 | ER Document Report ---
ED Medical Screen (RME) - General Chief Complaint: Leg Pain Stated Complaint: FALL Time Seen by Provider: 05/11/18 09:47 Notes: 87-year-old female patient reports falling at home yesterday evening about 7 PM. She landed on her right side and has had right groin pain since then. She also suffered a skin tear to the right forearm. She was last seen here in February 2018 after a fall. The patient also complains of an old abrasion to her left anterior distal leg that never quite healed properly. There are also some tender nodular swollen areas in the proximal posterior left leg. I have greeted and performed a rapid initial assessment of this patient. A comprehensive ED assessment and evaluation of the patient, analysis of test results and completion of the medical decision making process will be conducted by additional ED providers. TRAVEL OUTSIDE OF THE [place] IN LAST 30 DAYS: No - Related Data Allergies/Adverse Reactions: amoxicillin [Amoxicillin] Allergy (Intermediate, Verified 05/11/18 09:56) Rash codeine [Codeine] Allergy (Unknown, Verified 05/11/18 09:56) adhesive tape [Adhesive Tape] Adverse Reaction (Severe, Verified 05/11/18 09:56) Tears skin diltiazem HCl [From Tiazac] Adverse Reaction (Intermediate, Verified 05/11/18 09:56) Dizzy doxycycline [Doxycycline] Adverse Reaction (Intermediate, Verified 05/11/18 09:56) Dizzy lisinopril [Lisinopril] Adverse Reaction (Intermediate, Verified 05/11/18 09:56) Dizzy propafenone [Propafenone] Adverse Reaction (Intermediate, Verified 05/11/18 09:56) Diarrhea zolpidem tartrate [From Ambien] Adverse Reaction (Intermediate, Verified 05/11/18 09:56) Confusion Strong fumes Allergy (Severe, Uncoded 05/11/18 09:56) Asthma Past Medical History - Social History Chew tobacco use (# tins/day): No Frequency of alcohol use: None Drug Abuse: None - Past Medical History Cardiac Medical History: Reports: Hx Atrial Fibrillation, Hx Hypercholesterolemia, Hx Hypertension Denies: Hx Heart Attack Pulmonary Medical History: Reports: Hx COPD, Hx Pneumonia Denies: Hx Asthma - occasional SOB, ALBUTERAL , Hx Bronchitis, Hx Tuberculosis Neurological Medical History: Denies: Hx Cerebrovascular Accident, Hx Seizures Renal/ Medical History: Denies: Hx Peritoneal Dialysis Malignancy Medical History: Reports: Hx Breast Cancer GI Medical History: Denies: Hx Cirrhosis, Hx Gastroesophageal Reflux Disease, Hx Hepatitis, Hx Hiatal Hernia, Hx Ulcer Musculoskeltal Medical History: Reports Hx Arthritis - Hands Psychiatric Medical History: Denies: Hx Dementia, Hx Depression Infectious Medical History: Denies: Hx Hepatitis Past Surgical History: Reports: Hx Cardiac Surgery - mitral valve replacement, Hx Hysterectomy, Hx Mastectomy - 2010, Hx Open Heart Surgery - MITRAL VALVE REPAIR, Other - Mitral valve repair. Denies: Hx Pacemaker - Immunizations Hx Diphtheria, Pertussis, Tetanus Vaccination: Yes History of Influenza Vaccine for 01/2017 - 06/2017 Season: Yes Influenza Administration Date for 01/2017 - 06/2017 Season: 01/28/18 Physical Exam - Vital signs Vitals: Temp Pulse Resp BP Pulse Ox 98.0 F 58 L 14 117/42 L 98 05/11/18 09:43 05/11/18 09:43 05/11/18 09:43 05/11/18 09:43 05/11/18 09:43 Course - Vital Signs Vital signs: Temp Pulse Resp BP Pulse Ox 98.0 F 58 L 14 117/42 L 98 05/11/18 09:43 05/11/18 09:43 05/11/18 09:43 05/11/18 09:43 05/11/18 09:43 Doctor's Discharge - Discharge Referrals: JANNIE FLYNN DO [Primary Care Provider] - Follow up as needed
--- NOTE | 2018-05-11 10:52 | RADIOLOGY REPORT (SQ) ---
EXAM DESCRIPTION: HIP RIGHT AP/LATERAL COMPLETED DATE/TIME: 05/11/2018 10:23 am REASON FOR STUDY: groin pain, fall COMPARISON: None. NUMBER OF VIEWS: Two views. TECHNIQUE: AP pelvis and additional frog-leg view of the right hip. LIMITATIONS: None. FINDINGS: MINERALIZATION: Normal. RIGHT HIP: No fracture or dislocation. No worrisome bone lesions. LEFT HIP: No fracture or dislocation. No worrisome bone lesions. PUBIS AND ISCHIUM: No fracture. PELVIS: No fracture. SACRUM: No fracture or dislocation. No worrisome bone lesions. LOWER LUMBAR SPINE: No fracture or dislocation. No worrisome bone lesions. No significant disc disea se. SOFT TISSUES: No findings. OTHER: No other significant finding. IMPRESSION: NEGATIVE STUDY OF THE RIGHT HIP. NO RADIOGRAPHIC EVIDENCE OF ACUTE INJURY. COMMENT: . TECHNICAL DOCUMENTATION: JOB ID: [id number] [employer]- All Rights Reserved Reading location - IP/workstation name: [email or web address]
[2018-05-11 10:58] LABS: ABSOLUTE BASOPHILS # (AUTO) 0.1 10^3/uL (0.0-0.2); ABSOLUTE EOSINOPHILS # (AUTO) 0.2 10^3/uL (0.0-0.6); ABSOLUTE LYMPHOCYTES (AUTO) 1.4 10^3/uL (0.5-4.7); ABSOLUTE MONOCYTES (AUTO) 0.8 10^3/uL (0.1-1.4); ABSOLUTE NEUT (AUTO) 7.4 10^3/uL (1.7-8.2); BASOPHILS % (AUTO) 1.1 % (0-2); EOSINOPHILS % (AUTO) 2.3 % (0-6); HEMATOCRIT 29.1 % (36.0-47.0); HEMOGLOBIN 9.8 g/dL (12.0-15.5); LYMPHOCYTES % (AUTO) 14.2 % (13-45); MEAN CORPUSCULAR HEMOGLOBIN 30.2 pg (27.0-33.4); MEAN CORPUSCULAR HGB CONC 33.7 g/dL (32.0-36.0); MEAN CORPUSCULAR VOLUME 90 fl (80-97); MONOCYTES % (AUTO) 8.1 % (3-13); PLATELET COUNT 352 10^3/uL (150-450); RED BLOOD COUNT 3.24 10^6/uL (3.72-5.28); RED CELL DISTRIBUTION WIDTH 15.6 % (11.5-14.0); SEGMENTED NEUTROPHILS % (AUTO) 74.3 % (42-78); TOTAL CELLS COUNTED % (AUTO) 100 %
[2018-05-11] MEDS ORDERED: ACETAMINOPHEN 325 MG TABLET PO ONE (11:10)
[2018-05-11] MEDS ORDERED: CAPSAICIN 0.025% CREAM 60 GM TP ONE (11:11)
[2018-05-11] MEDS ORDERED: BUPIVACAINE HCL 0.5%-EPI 1:200000 INJ/PF 30 ML VIAL INJ ONE (11:12)
[2018-05-11 11:19] LABS: ALANINE AMINOTRANSFERASE 24 U/L (9-52); ALBUMIN 4.1 g/dL (3.5-5.0); ALKALINE PHOSPHATASE 80 U/L (38-126); ANION GAP 9 (5-19); ASPARTATE AMINO TRANSFERASE 20 U/L (14-36); BILIRUBIN,DIRECT 0.2 mg/dL (0.0-0.4); BILIRUBIN,TOTAL 0.3 mg/dL (0.2-1.3); BLOOD UREA NITROGEN 44 mg/dL (7-20); CALCIUM 10.7 mg/dL (8.4-10.2); CARBON DIOXIDE 26 mmol/L (22-30); CHLORIDE 101 mmol/L (98-107); GLUCOSE 108 mg/dL (75-110); POTASSIUM 5.9 mmol/L (3.6-5.0); SODIUM 135.9 mmol/L (137-145)
--- NOTE | 2018-05-11 11:23 | ER Document Report ---
ED General - General Chief Complaint: Leg Pain Stated Complaint: FALL Time Seen by Provider: 05/11/18 09:47 TRAVEL OUTSIDE OF THE [place] IN LAST 30 DAYS: No - HPI Patient complains to provider of: Fall right groin pain skin tear Notes: Patient coming in with a fall also complaining of some right groin pain skin tear to the right arm and nodules that have been present in the back of her calf. Patient otherwise resting healthy upon my evaluation. Patient was seen by in triage his notes provided below 87-year-old female patient reports falling at home yesterday evening about 7 PM. She landed on her right side and has had right groin pain since then. She also suffered a skin tear to the right forearm. She was last seen here in February 2018 after a fall. The patient also complains of an old abrasion to her left anterior distal leg that never quite healed properly. There are also some tender nodular swollen areas in the proximal posterior left leg. Patient's states his mechanical fall states she was trying to go around her wheelchair to the right side when she sat to "sit on the floor"patient laughing at the statement. Patient states woke up this morning having some pain in her right groin. Patient denies any fevers chills nausea vomiting diarrhea denies any blood thinning medications except for aspirin. Patient does have a history of multiple skin tears in the past. Patient denies any loss of consciousness - Related Data Allergies/Adverse Reactions: amoxicillin [Amoxicillin] Allergy (Intermediate, Verified 05/11/18 09:56) Rash codeine [Codeine] Allergy (Unknown, Verified 05/11/18 09:56) adhesive tape [Adhesive Tape] Adverse Reaction (Severe, Verified 05/11/18 09:56) Tears skin diltiazem HCl [From Tiazac] Adverse Reaction (Intermediate, Verified 05/11/18 09:56) Dizzy doxycycline [Doxycycline] Adverse Reaction (Intermediate, Verified 05/11/18 09:56) Dizzy lisinopril [Lisinopril] Adverse Reaction (Intermediate, Verified 05/11/18 09:56) Dizzy propafenone [Propafenone] Adverse Reaction (Intermediate, Verified 05/11/18 09:56) Diarrhea zolpidem tartrate [From Ambien] Adverse Reaction (Intermediate, Verified 05/11/18 09:56) Confusion Strong fumes Allergy (Severe, Uncoded 05/11/18 09:56) Asthma Past Medical History - Social History Smoking Status: Never Smoker Chew tobacco use (# tins/day): No Frequency of alcohol use: None Drug Abuse: None Family History: Reviewed & Not Pertinent, CAD, Malignancy Patient has suicidal ideation: No Patient has homicidal ideation: No - Past Medical History Cardiac Medical History: Reports: Hx Atrial Fibrillation, Hx Hypercholesterolemia, Hx Hypertension Denies: Hx Heart Attack Pulmonary Medical History: Reports: Hx COPD, Hx Pneumonia Denies: Hx Asthma - occasional SOB, ALBUTERAL , Hx Bronchitis, Hx Tuberculosis Neurological Medical History: Denies: Hx Cerebrovascular Accident, Hx Seizures Renal/ Medical History: Denies: Hx Peritoneal Dialysis Malignancy Medical History: Reports: Hx Breast Cancer GI Medical History: Denies: Hx Cirrhosis, Hx Gastroesophageal Reflux Disease, Hx Hepatitis, Hx Hiatal Hernia, Hx Ulcer Musculoskeletal Medical History: Reports Hx Arthritis - Hands Psychiatric Medical History: Denies: Hx Dementia, Hx Depression Infectious Medical History: Denies: Hx Hepatitis Past Surgical History: Reports: Hx Cardiac Surgery - mitral valve replacement, Hx Hysterectomy, Hx Mastectomy - 2010, Hx Open Heart Surgery - MITRAL VALVE REPAIR, Other - Mitral valve repair. Denies: Hx Pacemaker - Immunizations Hx Diphtheria, Pertussis, Tetanus Vaccination: Yes Hx Pneumococcal Vaccination: 04/30/09 Review of Systems - Review of Systems Constitutional: No symptoms reported EENT: No symptoms reported Cardiovascular: No symptoms reported Respiratory: No symptoms reported Gastrointestinal: No symptoms reported Genitourinary: No symptoms reported Female Genitourinary: No symptoms reported Musculoskeletal: Other - fall groin pain Skin: Other - Skin tear Hematologic/Lymphatic: No symptoms reported Neurological/Psychological: No symptoms reported -: Yes All other systems reviewed and negative Physical Exam - Vital signs Vitals: Temp Pulse Resp BP Pulse Ox 98.0 F 58 L 14 117/42 L 98 05/11/18 09:43 05/11/18 09:43 05/11/18 09:43 05/11/18 09:43 05/11/18 09:43 Interpretation: Normal - General General appearance: Appears well, Alert - HEENT Head: Normocephalic, Atraumatic Eyes: Normal Pupils: PERRL - Respiratory Respiratory status: No respiratory distress Chest status: Nontender Breath sounds: Normal Chest palpation: Normal - Cardiovascular Rhythm: Regular Heart sounds: Normal auscultation Murmur: No - Abdominal Inspection: Normal Distension: No distension Bowel sounds: Normal Tenderness: Nontender Organomegaly: No organomegaly - Back Back: Normal, Nontender - Extremities General upper extremity: Nontender, Normal color, Normal ROM, Normal temperature. No: Normal inspection - Patient with a sizable skin tear to the proximal forearm General lower extremity: Nontender, Normal color, Normal ROM, Normal temperature. No: Normal inspection - Patient with soft tissue texture changes both calves are nonpainful not consistent with cords or thrombosed varicosities. Patient states is been present since she has had a bad bout of cellulitis in the past. areas are not erythematous no fluctuance - Neurological Neuro grossly intact: Yes Cognition: Normal Orientation: AAOx4 Lisseth Coma Scale Eye Opening: Spontaneous [place] Coma Scale Verbal: Oriented [place]iss[place] Coma Scale Motor: Obeys Commands Lisseth Coma Scale Total: 15 Speech: Normal Motor strength normal: LUE, RUE, LLE, RLE Sensory: Normal - Psychological Associated symptoms: Normal affect, Normal mood - Skin Skin Temperature: Warm Skin Moisture: Dry Skin Color: Normal Course - Re-evaluation Re-evalutation: 05/11/18 11:22 Unclear etiology of the areas of the posterior calves possibility tissue changes are due to healing soft tissue damage from frequent falls are from the patient's history of cellulitis in the past. No evidence of cellulitis at this time. Patient x-rays not show any fracture. 05/11/18 14:08 Patient laboratory studies showed elevated potassium at 5.9. Patient states that she takes potassium 6 tablets a day. Patient was given IV fluids along with albuterol treatment repeat of the potassium after these treatments that showed decreasing more likely this is a drug test did recommend the patient not take any potassium today take 1 dose of her potassium in the a.m. and then follow-up with her doctor on Sunday for further evaluation and possible lab redraw. Patient does have a significant skin tear to the left forearm dressing was applied however no other therapy could be performed due to the degree of the skin tear. Patient will be discharged home - Vital Signs Vital signs: Temp Pulse Resp BP Pulse Ox 98.0 F 58 L 14 117/42 L 98 05/11/18 09:43 05/11/18 09:43 05/11/18 09:43 05/11/18 09:43 05/11/18 09:43 - Laboratory Result Diagrams: 05/11/18 10:33 05/11/18 13:24 Laboratory results interpreted by me: 05/11/18 05/11/18 05/11/18 10:33 10:33 13:24 RBC 3.24 L Hgb 9.8 L Hct 29.1 L RDW 15.6 H Sodium 135.9 L 136.0 L Potassium 5.9 H 5.6 H BUN 44 H 41 H Creatinine 1.65 H 1.55 H Est GFR ( Amer) 36 L 38 L Est GFR (Non-Af Amer) 30 L 32 L Calcium 10.7 H Discharge - Discharge Clinical Impression: Skin tear, Hyperkalemia, Right leg pain Condition: Good Disposition: HOME, SELF-CARE Instructions: Skin Tear ([facility]), Leg Pain Nonspecific ([facility]) Additional Instructions: Your repeat laboratory studies do show a decrease of your potassium and I would highly recommend that you do not take any more potassium today tomorrow only take 2 tablets of your potassium do not take the other 4 follow-up with your doctor on Sunday for repeat laboratory testing to see where your potassium level is at please make sure you are drinking plenty of fluids and taking your other medications as prescribed. Please make sure that your wound is checked at least once a day please apply triple antibiotic ointment to the wound. Referrals: JANNIE FLYNN, [NO LOCAL MD] - Follow up in 3-5 days
[2018-05-11] MEDS ORDERED: SODIUM POLYSTYRENE SULFONATE 15 GM/60 ML PO ONE (11:57)
[2018-05-11] MEDS ORDERED: NORMAL SALINE 500 ML IV ONE (11:57)
[2018-05-11] MEDS ORDERED: ALBUTEROL SULFATE 0.083% NEB 2.5 MG/3 ML AMPUL NEB ONE (12:15)
[2018-05-11 13:53] LABS: ANION GAP 7 (5-19); BLOOD UREA NITROGEN 41 mg/dL (7-20); CALCIUM 10.1 mg/dL (8.4-10.2); CARBON DIOXIDE 24 mmol/L (22-30); CHLORIDE 105 mmol/L (98-107); GLUCOSE 90 mg/dL (75-110); POTASSIUM 5.6 mmol/L (3.6-5.0)
[2018-05-11 14:43] VITALS: BP 110/68
--- NOTE | 2018-05-11 21:48 | EKG REPORT ---
SEVERITY:- ABNORMAL ECG - JUNCTIONAL RHYTHM ABNORMAL T, CONSIDER ISCHEMIA, DIFFUSE LEADS : Confirmed by: Bravo Block MD 11-May-2018 21:48:03
== END 2018-05-11 14:28 | disposition home or self-care (01) ==
LOC: ER 09:36
DX: S51.811A Laceration without foreign body of right forearm, initial encounter (principal); S80.812A Abrasion, left lower leg, initial encounter; E87.6 Hypokalemia; R10.30 Lower abdominal pain, unspecified; M79.601 Pain in right arm; W19.XXXA Unspecified fall, initial encounter; I10 Essential (primary) hypertension; J44.9 Chronic obstructive pulmonary disease, unspecified
CPT/HCPCS: 93005; 94640; 99284; 36415; 82550; 85025; 80048; 80053; 73502; 93010; A9270 ×2; J3490 ×2; J7040

== ENCOUNTER 2018-07-20 09:31 | Inpatient (IN) | payer MEDICARE, OTHER ==
[2018-07-20] MEDS ORDERED: VANCOMYCIN HCL INJ 1000 MG VIAL IV ONE (10:03)
--- NOTE | 2018-07-20 10:08 | ER Document Report ---
ED General - General Chief Complaint: Skin Problem Stated Complaint: LEFT LEG PAIN Time Seen by Provider: 07/20/18 09:39 TRAVEL OUTSIDE OF THE [place] IN LAST 30 DAYS: No - HPI Notes: Patient is a 88-year-old female that presents to the emergency department for chief complaint of left leg cellulitis. Patient is currently under the care of Dr. Marmolejo for cellulitis on her left leg. She reports he debrided an area on her anterior left roberson recently. She finished a 10-day course of levofloxacin yesterday. She states last night she noticed some swelling on the back of her left calf and this morning her leg was red with a large abscess. She denies any drainage from the area. She denies any associated fevers or chills. She states it is a sharp pain that is worse with any movement or palpation. She does take Tylenol at home which gave her some relief. Past Medical History: CHF, CKD, hypertension, hyperlipidemia, iron deficiency anemia Past Surgical History: Reviewed in chart Social History: Denies tobacco and alcohol use Family History: Reviewed and noncontributory for presenting illness Allergies: Reviewed, see documented allergy list. REVIEW OF SYSTEMS: CONSTITUTIONAL : No fever No chills No diaphoresis No recent illness EENT: No vision changes No congestion No sore throat CARDIOVASCULAR: No chest pain No palpitations RESPIRATORY: No shortness of breath No cough No difficulty breathing GASTROINTESTINAL: No abdominal pain No nausea No vomiting No diarrhea GENITOURINARY: No dysuria No hematuria No difficulty urinating MUSCULOSKELETAL: No back pain leg pain No arm pain SKIN: rashes lesions LYMPHATIC: No swollen, enlarged glands. NEUROLOGICAL: No lightheadedness No headache No weakness No paresthesias PSYCHIATRIC: No anxiety No depression PHYSICAL EXAMINATION: Vital signs reviewed, nursing noted reviewed. GENERAL: Well-appearing, well-nourished and in no acute distress. HEAD: Atraumatic, normocephalic. EYES: Eyes appear normal, extraocular movements intact, sclera anicteric, conjunctiva are normal. ENT: nares patent, oropharynx clear without exudates. Moist mucous membranes. NECK: Normal range of motion, supple without lymphadenopathy LUNGS: Breath sounds clear to auscultation bilaterally and equal. No wheezes rales or rhonchi. HEART: Regular rate and rhythm without murmurs ABDOMEN: Soft, nontender, normoactive bowel sounds. No rebound, guarding, or rigidity. No masses appreciated. EXTREMITIES: Left leg erythema with lymphatic streaking up left medial thigh and area over left calf that is raised and fluctuant measuring 3 cm x 4 cm with no spontaneous drainage, very tender to palpation with associated Mushtaq, +2 pitting edema bilaterally NEUROLOGICAL: No focal neurological deficits. Moves all extremities spontaneously Motor and sensory grossly intact on exam. PSYCH: Normal mood, normal affect. SKIN: Warm, Dry, normal turgor, no rashes or lesions noted on exposed skin - Related Data Allergies/Adverse Reactions: amoxicillin [Amoxicillin] Allergy (Intermediate, Verified 05/11/18 09:56) Rash codeine [Codeine] Allergy (Unknown, Verified 05/11/18 09:56) adhesive tape [Adhesive Tape] Adverse Reaction (Severe, Verified 05/11/18 09:56) Tears skin diltiazem HCl [From Tiazac] Adverse Reaction (Intermediate, Verified 05/11/18 09:56) Dizzy doxycycline [Doxycycline] Adverse Reaction (Intermediate, Verified 05/11/18 09:56) Dizzy lisinopril [Lisinopril] Adverse Reaction (Intermediate, Verified 05/11/18 09:56) Dizzy propafenone [Propafenone] Adverse Reaction (Intermediate, Verified 05/11/18 09:56) Diarrhea zolpidem tartrate [From Ambien] Adverse Reaction (Intermediate, Verified 05/11/18 09:56) Confusion Strong fumes Allergy (Severe, Uncoded 05/11/18 09:56) Asthma Past Medical History - Social History Smoking Status: Never Smoker Family History: Reviewed & Not Pertinent, CAD, Malignancy - Past Medical History Cardiac Medical History: Reports: Hx Atrial Fibrillation, Hx Hypercholesterolemia, Hx Hypertension Denies: Hx Heart Attack Pulmonary Medical History: Reports: Hx COPD, Hx Pneumonia Denies: Hx Asthma - occasional SOB, ALBUTERAL , Hx Bronchitis, Hx Tubercu losis Neurological Medical History: Denies: Hx Cerebrovascular Accident, Hx Seizures Renal/ Medical History: Denies: Hx Peritoneal Dialysis Malignancy Medical History: Reports: Hx Breast Cancer GI Medical History: Denies: Hx Cirrhosis, Hx Gastroesophageal Reflux Disease, Hx Hepatitis, Hx Hiatal Hernia, Hx Ulcer Musculoskeletal Medical History: Reports Hx Arthritis - Hands Psychiatric Medical History: Denies: Hx Dementia, Hx Depression Infectious Medical History: Denies: Hx Hepatitis Past Surgical History: Reports: Hx Cardiac Surgery - mitral valve replacement, Hx Hysterectomy, Hx Mastectomy - 2010, Hx Open Heart Surgery - MITRAL VALVE REPAIR, Other - Mitral valve repair. Denies: Hx Pacemaker - Immunizations Hx Diphtheria, Pertussis, Tetanus Vaccination: Yes Hx Pneumococcal Vaccination: 04/30/09 Physical Exam - Vital signs Vitals: Temp Resp BP Pulse Ox 98.4 F 22 H 123/44 L 100 07/20/18 09:49 07/20/18 09:49 07/20/18 09:49 07/20/18 09:49 Course - Re-evaluation Re-evalutation: 07/20/18 10:07 Vitals reviewed. Nursing notes reviewed. Patient has left calf cellulitis with a likely left calf abscess. Blood cultures have been obtained. Patient will be started on vancomycin for her significant lower extremity cellulitis with lymphatic streaking. Patient offered pain medication but declined. 07/20/18 10:31 Patient's care discussed with Dr. Renzo Marmolejo who is familiar with this patient. He states the area of fluctuance on her posterior left calf has been there for the last few weeks however there was no significant surrounding cellulitis or lymphatic streaking. He does not advise incision and drainage of this area currently and states that he may perform needle aspiration but he suspects it will be blood filled. 07/20/18 11:33 On reevaluation patient now would like some Tylenol for her pain which was given. Patient's care discussed with Dr. Villa who accepts admission Laboratory 07/20/18 07/20/18 07/20/18 10:01 10:01 10:01 WBC 9.1 RBC 3.49 L Hgb 10.9 L Hct 31.7 L MCV 91 MCH 31.3 MCHC 34.5 RDW 15.3 H Plt Count 263 Seg Neutrophils % 74.0 Lymphocytes % 15.3 Monocytes % 9.0 Eosinophils % 1.1 Basophils % 0.6 Absolute Neutrophils 6.7 Absolute Lymphocytes 1.4 Absolute Monocytes 0.8 Absolute Eosinophils 0.1 Absolute Basophils 0.1 PT 14.1 INR 1.04 VBG pH VBG pCO2 VBG HCO3 VBG Base Excess Sodium 135.5 L Potassium 3.9 Chloride 96 L Carbon Dioxide 29 Anion Gap 11 BUN 50 H Creatinine 1.61 H Est GFR ( Amer) 37 L Est GFR (Non-Af Amer) 30 L Glucose 82 POC Glucose Lactic Acid Calcium 10.9 H Total Bilirubin 0.4 Direct Bilirubin 0.3 Neonat Total Bilirubin Not Reportable Neonat Direct Bilirubin Not Reportable Neonat Indirect Bili Not Reportable AST 25 ALT 20 Alkaline Phosphatase 76 Total Protein 7.1 Albumin 3.8 07/20/18 07/20/18 07/20/18 10:01 10:01 10:46 WBC RBC Hgb Hct MCV MCH MCHC RDW Plt Count Seg Neutrophils % Lymphocytes % Monocytes % Eosinophils % Basophils % Absolute Neutrophils Absolute Lymphocytes Absolute Monocytes Absolute Eosinophils Absolute Basophils PT INR VBG pH 7.46 H VBG pCO2 40.3 VBG HCO3 28.2 VBG Base Excess 4.1 Sodium Potassium Chloride Carbon Dioxide Anion Gap BUN Creatinine Est GFR ( Amer) Est GFR (Non-Af Amer) Glucose POC Glucose 84 Lactic Acid 1.8 Calcium Total Bilirubin Direct Bilirubin Neonat Total Bilirubin Neonat Direct Bilirubin Neonat Indirect Bili AST ALT Alkaline Phosphatase Total Protein Albumin - Vital Signs Vital signs: Temp Pulse Resp BP Pulse Ox 98.4 F 22 H 123/44 L 100 07/20/18 09:49 07/20/18 09:49 07/20/18 09:49 07/20/18 09:49 - Laboratory Result Diagrams: 07/20/18 10:01 07/20/18 10:01 Laboratory results interpreted by me: 07/20/18 07/20/18 07/20/18 10:01 10:01 10:01 RBC 3.49 L Hgb 10.9 L Hct 31.7 L RDW 15.3 H VBG pH 7.46 H Sodium 135.5 L Chloride 96 L BUN 50 H Creatinine 1.61 H Est GFR ( Amer) 37 L Est GFR (Non-Af Amer) 30 L Calcium 10.9 H - EKG Interpretation by Me Additional EKG results interpreted by me: 07/20/18 10:27 Interpreted by myself 1020: Atrial fibrillation, rate 61, normal axis, no ectopy, no STEMI Discharge - Discharge Clinical Impression: Left leg cellulitis Condition: Stable Disposition: ADMITTED INPATIENT Admitting Provider: Hospitalist Unit Admitted: Medical Floor
[2018-07-20 10:19] LABS: ABSOLUTE BASOPHILS # (AUTO) 0.1 10^3/uL (0.0-0.2); ABSOLUTE EOSINOPHILS # (AUTO) 0.1 10^3/uL (0.0-0.6); ABSOLUTE LYMPHOCYTES (AUTO) 1.4 10^3/uL (0.5-4.7); ABSOLUTE MONOCYTES (AUTO) 0.8 10^3/uL (0.1-1.4); ABSOLUTE NEUT (AUTO) 6.7 10^3/uL (1.7-8.2); BASOPHILS % (AUTO) 0.6 % (0-2); EOSINOPHILS % (AUTO) 1.1 % (0-6); HEMATOCRIT 31.7 % (36.0-47.0); HEMOGLOBIN 10.9 g/dL (12.0-15.5); LYMPHOCYTES % (AUTO) 15.3 % (13-45); MEAN CORPUSCULAR HEMOGLOBIN 31.3 pg (27.0-33.4); MEAN CORPUSCULAR HGB CONC 34.5 g/dL (32.0-36.0); MEAN CORPUSCULAR VOLUME 91 fl (80-97); PLATELET COUNT 263 10^3/uL (150-450); RED BLOOD COUNT 3.49 10^6/uL (3.72-5.28); RED CELL DISTRIBUTION WIDTH 15.3 % (11.5-14.0); TOTAL CELLS COUNTED % (AUTO) 100 %; WHITE BLOOD COUNT 9.1 10^3/uL (4.0-10.5)
[2018-07-20 10:22] LABS: INTERNATIONAL RATION (INR) 1.04; PROTHROMBIN TIME 14.1 SEC (11.4-15.4); VENOUS BLOOD BASE EXCESS 4.1 mmol/L; VENOUS BLOOD HCO3 28.2 mmol/L (20-32); VENOUS BLOOD PCO2 40.3 mmHg (35-63); VENOUS BLOOD PH 7.46 (7.30-7.42)
[2018-07-20 10:35] LABS: ALANINE AMINOTRANSFERASE 20 U/L (9-52); ALBUMIN 3.8 g/dL (3.5-5.0); ALKALINE PHOSPHATASE 76 U/L (38-126); ANION GAP 11 (5-19); ASPARTATE AMINO TRANSFERASE 25 U/L (14-36); BILIRUBIN,DIRECT 0.3 mg/dL (0.0-0.4); BILIRUBIN,TOTAL 0.4 mg/dL (0.2-1.3); BLOOD UREA NITROGEN 50 mg/dL (7-20); CALCIUM 10.9 mg/dL (8.4-10.2); CARBON DIOXIDE 29 mmol/L (22-30); CHLORIDE 96 mmol/L (98-107); GLUCOSE 82 mg/dL (75-110); POTASSIUM 3.9 mmol/L (3.6-5.0); SODIUM 135.5 mmol/L (137-145); TOTAL PROTEIN 7.1 g/dL (6.3-8.2)
[2018-07-20] MEDS ORDERED: ACETAMINOPHEN 325 MG TABLET PO ONE (11:15)
[2018-07-20 11:34] LABS: APPEARANCE,URINE SLIGHTLY-CLOUDY; BILIRUBIN,URINE NEGATIVE (NEGATIVE); COLOR,URINE STRAW; GLUCOSE, URINE NEGATIVE (NEGATIVE); KETONES,URINE NEGATIVE (NEGATIVE); LEUKOCYTE ESTERASE,URINE TRACE (NEGATIVE); NITRITE,URINE NEGATIVE (NEGATIVE); PROTEIN,URINE NEGATIVE (NEGATIVE); UROBILINOGEN,URINE NEGATIVE mg/dL (<2.0)
[2018-07-20] MEDS ORDERED: LORAZEPAM 1 MG TABLET PO PRN ×2 (12:02→14:38)
[2018-07-20] MEDS ORDERED: MECLIZINE HCL 12.5 MG TABLET PO PRN (12:02)
--- NOTE | 2018-07-20 12:31 | EKG REPORT ---
SEVERITY:- ABNORMAL ECG - ATRIAL FIBRILLATION INCOMPLETE RIGHT BUNDLE BRANCH BLOCK : Confirmed by: Jose Larsen 20-Jul-2018 12:30:26
[2018-07-20] MEDS ORDERED: FERROUS SULFATE 325 MG TABLET PO SCH (14:00)
[2018-07-20] MEDS ORDERED: (PENDING PHARMACY ID) (Potassium Chloride [Klor-Con M20] 40 MEQ) PO SCH (14:00)
[2018-07-20] MEDS ORDERED: IPRATROPIUM/ALBUTEROL 0.5-2.5 MG/3 ML AMPUL NEB SCH (14:00)
[2018-07-20] MEDS ORDERED: IPRATROPIUM/ALBUTEROL 0.5-2.5 MG/3 ML AMPUL NEB ONE (14:13)
[2018-07-20] MEDS: HEPARIN SOD (PORCINE) 5,000 UNIT/ML 1 ML SYRINGE SUBCUT SCH ×2 (14:57→21:07)
[2018-07-20] MEDS ORDERED: BACILLUS COAGULANS PO SCH (15:00)
[2018-07-20] MEDS ORDERED: BIOTIN 300 MCG PO SCH ×2 (15:00→18:00)
[2018-07-20] MEDS ORDERED: (PENDING PHARMACY ID) (Solifenacin Succinate [Vesicare] 10 MG) PO SCH ×2 (15:00→22:00)
--- NOTE | 2018-07-20 15:13 | PDOC H&P ---
History of Present Illness Admission Date/PCP: 07/20/18 11:26 DAWSON MEDEL MD History of Present Illness: ROBERT CAMILO is a 88 year old female with multiple medical comorbidities who had been treated as an outpatient for a leg cellulitis with 10 days of Levaquin and who complains of sudden increasing redness and pain in the leg starting yesterday with spreading of the erythema up the left leg now proximal to the left knee. She has had no purulence or drainage. She originally had a lesion on the anterior surface of the left leg about 15 cm proximal to the ankle that was the initial lesion for which she was treated. She is being admitted having failed outpatient therapy. She has not had any fevers or chills. 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 Denies: Sickle Cell Disease Past Surgical History Past Surgical History: Reports: Hysterectomy, Mastectomy - 2010, Other - Mitral valve repair Denies: Amputation, Pacemaker Social History Smoking Status: Never Smoker Frequency of Alcohol Use: None Hx Recreational Drug Use: No Drugs: None Hx Prescription Drug Abuse: No Family History Family History: Reviewed & Not Pertinent, CAD, Malignancy Parental Family History Reviewed: Yes Children Family History Reviewed: Yes Sibling(s) Family History Reviewed.: Yes Medication/Allergy Home Medications: Acetaminophen [Tylenol Extra Strength 500 mg Tablet] 500 mg PO Q12HP PRN 07/20/18 Albuterol Sulfate [Proair HFA Inhalation Aerosol 8.5 gm MDI] 2 puff IH Q6HP PRN 07/20/18 Amiodarone HCl [Cordarone 200 mg Tablet] 100 mg PO QPM 07/20/18 Aspirin [Ecotrin 81 mg EC Tablet] 81 mg PO DAILY 07/20/18 Bacillus Coagulans [Probiotic] 1 each PO DAILY 07/20/18 Benzonatate [Tessalon Perle 100 mg Capsule] 100 mg PO TIDP PRN 07/20/18 Biotin 300 mcg PO QPM 07/20/18 Ferrous Sulfate [Feosol 325 mg Tablet] 325 mg PO NOON 07/20/18 Fluticasone/Salmeterol [Advair 250-50 Diskus 14 Dose/Diskus] 1 puff IH Q12 07/20/18 Furosemide [Lasix 40 mg Tablet] 40 mg PO BID@0800,1200 07/20/18 Letrozole [Femara 2.5 mg Tablet] 2.5 mg PO DAILY 07/20/18 Lorazepam [Ativan 1 mg Tablet] 1 mg PO HSP PRN 07/20/18 Metolazone [Zaroxolyn 2.5 mg Tablet] 2.5 mg PO DAILY 07/20/18 Montelukast Sodium [Singulair 10 mg Tablet] 10 mg PO QPM 07/20/18 Multivitamin [Tab-A-Andre (Multiple Vitamin) Tablet] 1 tab PO Q2D 07/20/18 Pantoprazole Sodium [Protonix [address] Tablet] 40 mg PO QPM 07/20/18 Potassium Chloride [Klor-Con M10] 10 meq PO BID@0800,1200 07/20/18 Simvastatin [Zocor 20 mg Tablet] 20 mg PO QHS 07/20/18 Solifenacin Succinate [Vesicare] 10 mg PO QHS 07/20/18 Spironolactone [Aldactone 25 mg Tablet] 25 mg PO DAILY 07/20/18 Tramadol HCl [Ultram 50 mg Tablet] 50 mg PO Q12HP PRN 07/20/18 Allergies/Adverse Reactions: amoxicillin [Amoxicillin] Allergy (Intermediate, Verified 05/11/18 09:56) Rash codeine [Codeine] Allergy (Unknown, Verified 05/11/18 09:56) adhesive tape [Adhesive Tape] Adverse Reaction (Severe, Verified 05/11/18 09:56) Tears skin diltiazem HCl [From Tiazac] Adverse Reaction (Intermediate, Verified 05/11/18 09:56) Dizzy doxycycline [Doxycycline] Adverse Reaction (Intermediate, Verified 05/11/18 0 9:56) Dizzy lisinopril [Lisinopril] Adverse Reaction (Intermediate, Verified 05/11/18 09:56) Dizzy propafenone [Propafenone] Adverse Reaction (Intermediate, Verified 05/11/18 09:56) Diarrhea zolpidem tartrate [From Ambien] Adverse Reaction (Intermediate, Verified 05/11/18 09:56) Confusion Strong fumes Allergy (Severe, Uncoded 05/11/18 09:56) Asthma Review of Systems All systems: reviewed and no additional remarkable complaints except as stated - All systems reviewed and were negative except As noted in the HPI Physical Exam Vital Signs: Temp Pulse Resp BP Pulse Ox 97.6 F 60 16 116/52 L 100 07/20/18 13:27 07/20/18 14:41 07/20/18 14:41 07/20/18 13:27 07/20/18 14:41 Intake & Output 07/19/18 07/20/18 07/21/18 06:59 06:59 06:59 Output Total 100 Balance -100 Weight 47.2 kg General appearance: PRESENT: no acute distress, cooperative, disheveled, thin Head exam: PRESENT: atraumatic, normocephalic Eye exam: PRESENT: EOMI, PERRLA. ABSENT: conjunctival injection, nystagmus, scleral icterus Ear exam: PRESENT: normal external ear exam Mouth exam: PRESENT: moist, neck supple Throat exam: ABSENT: post pharyngeal erythema Neck exam: PRESENT: full ROM. ABSENT: carotid bruit, JVD, lymphadenopathy, meningismus, tenderness, thyromegaly Respiratory exam: PRESENT: clear to auscultation bruce, symmetrical, unlabored. ABSENT: crackles, prolonged expiratory phas, rhonchi, tachypnea, wheezes Cardiovascular exam: PRESENT: RRR, +S1, +S2 Pulses: PRESENT: normal carotid pulses Vascular exam: PRESENT: normal capillary refill GI/Abdominal exam: PRESENT: normal bowel sounds, soft. ABSENT: distended, guarding, rebound, tenderness Extremities exam: PRESENT: pedal edema, +1 edema - Right lower extremity, +2 edema - Left lower extremity. ABSENT: clubbing Musculoskeletal exam: PRESENT: normal inspection. ABSENT: deformity Neurological exam: PRESENT: alert, awake, oriented to person, oriented to place, oriented to time, oriented to situation, CN II-XII grossly intact. ABSENT: motor sensory deficit Psychiatric exam: PRESENT: appropriate affect, normal mood Skin exam: PRESENT: dry, warm, other - She has redness, swelling, pain, and warmth in her left lower extremity, concentrated mainly around an area on the anterior surface on her left roberson that is about 1 cm in size with no draining purulence, and the erythema tracks medially and posteriorly both proximally and distally to the knee. There is a soft cystic structure on the posterior aspect of the leg about 2 cm in size that is compressible and tender but without any evidence of purulence or fluctuance Results Laboratory Results: 07/20/18 10:01 07/20/18 10:01 07/20/18 07/20/18 07/20/18 10:01 10:01 10:01 WBC 9.1 RBC 3.49 L Hgb 10.9 L Hct 31.7 L MCV 91 MCH 31.3 MCHC 34.5 RDW 15.3 H Plt Count 263 Seg Neutrophils % 74.0 Lymphocytes % 15.3 Monocytes % 9.0 Eosinophils % 1.1 Basophils % 0.6 Absolute Neutrophils 6.7 Absolute Lymphocytes 1.4 Absolute Monocytes 0.8 Absolute Eosinophils 0.1 Absolute Basophils 0.1 VBG pH VBG pCO2 VBG HCO3 VBG Base Excess Sodium 135.5 L Potassium 3.9 Chloride 96 L Carbon Dioxide 29 Anion Gap 11 BUN 50 H Creatinine 1.61 H Est GFR ( Amer) 37 L Est GFR (Non-Af Amer) 30 L Glucose 82 Lactic Acid 1.8 Calcium 10.9 H Total Bilirubin 0.4 AST 25 ALT 20 Alkaline Phosphatase 76 Total Protein 7.1 Albumin 3.8 Urine Color Urine Appearance Urine pH Ur Specific Rosamond Urine Protein Urine Glucose (UA) Urine Ketones Urine Blood Urine Nitrite Ur Leukocyte Esterase Urine WBC (Auto) Urine RBC (Auto) 07/20/18 07/20/18 10:01 11:08 WBC RBC Hgb Hct MCV MCH MCHC RDW Plt Count Seg Neutrophils % Lymphocytes % Monocytes % Eosinophils % Basophils % Absolute Neutrophils Absolute Lymphocytes Absolute Monocytes Absolute Eosinophils Absolute Basophils VBG pH 7.46 H VBG pCO2 40.3 VBG HCO3 28.2 VBG Base Excess 4.1 Sodium Potassium Chloride Carbon Dioxide Anion Gap BUN Creatinine Est GFR ( Amer) Est GFR (Non-Af Amer) Glucose Lactic Acid Calcium Total Bilirubin AST ALT Alkaline Phosphatase Total Protein Albumin Urine Color STRAW Urine Appearance SLIGHTLY-CLOUDY Urine pH 8.0 Ur Specific Rosamond 1.010 Urine Protein NEGATIVE Urine Glucose (UA) NEGATIVE Urine Ketones NEGATIVE Urine Blood NEGATIVE Urine Nitrite NEGATIVE Ur Leukocyte Esterase TRACE H Urine WBC (Auto) 11 Urine RBC (Auto) 4 Assessment and Plan - Diagnosis (1) Left leg cellulitis Is this a current diagnosis for this admission?: Yes Plan: Failed a course of Levaquin. We will start her on vancomycin. Cultures are pending. (2) COPD (chronic obstructive pulmonary disease) Qualifiers: Emphysema type: unspecified Is this a current diagnosis for this admission?: Yes Plan: Not acutely exacerbated, will continue home medications (3) Chronic combined systolic and diastolic CHF (congestive heart failure) Is this a current diagnosis for this admission?: Yes Plan: Not acutely exacerbated, we will continue her home medications (4) Chronic kidney disease Is this a current diagnosis for this admission?: Yes Plan: Creatinine is in its usual range, not acutely exacerbated - Time Time Spent with patient: 35 or more minutes
[2018-07-20] MEDS: AMIODARONE HCL 200 MG TABLET PO SCH (17:21)
[2018-07-20] MEDS: PANTOPRAZOLE SODIUM 40 MG TABLET.DR PO SCH (17:21)
[2018-07-20] MEDS: MONTELUKAST SODIUM 10 MG TABLET PO SCH (17:22)
[2018-07-20] MEDS ORDERED: MONTELUKAST SODIUM 10 MG TABLET PO SCH (18:00)
[2018-07-20] MEDS ORDERED: FUROSEMIDE 40 MG TABLET PO SCH (18:00)
[2018-07-20] MEDS: ACETAMINOPHEN 325 MG TABLET PO PRN (21:08)
[2018-07-20] MEDS: SIMVASTATIN 10 MG TABLET PO SCH (21:08)
[2018-07-20] MEDS ORDERED: (PENDING PHARMACY ID) (Fluticasone/Salmeterol 1 PUFF) IH SCH ×2 (22:00)
[2018-07-21] MEDS: HEPARIN SOD (PORCINE) 5,000 UNIT/ML 1 ML SYRINGE SUBCUT SCH ×3 (05:21→22:06)
[2018-07-21] MEDS: ACETAMINOPHEN 325 MG TABLET PO PRN (05:23)
[2018-07-21 05:36] LABS: HEMOGLOBIN 9.8 g/dL (12.0-15.5); MEAN CORPUSCULAR HEMOGLOBIN 30.5 pg (27.0-33.4); MEAN CORPUSCULAR HGB CONC 33.7 g/dL (32.0-36.0); MEAN CORPUSCULAR VOLUME 91 fl (80-97); PLATELET COUNT 208 10^3/uL (150-450); RED CELL DISTRIBUTION WIDTH 15.4 % (11.5-14.0); WHITE BLOOD COUNT 8.7 10^3/uL (4.0-10.5)
[2018-07-21 05:57] LABS: ANION GAP 9 (5-19); BLOOD UREA NITROGEN 45 mg/dL (7-20); CARBON DIOXIDE 27 mmol/L (22-30); CHLORIDE 97 mmol/L (98-107); GLUCOSE 91 mg/dL (75-110); SODIUM 133.1 mmol/L (137-145)
[2018-07-21 05:58] LABS: CALCIUM 10.4 mg/dL (8.4-10.2); POTASSIUM 3.4 mmol/L (3.6-5.0)
[2018-07-21] MEDS ORDERED: (PENDING PHARMACY ID) (Potassium Chloride [Klor-Con M10] 10 MEQ) PO SCH (08:00)
[2018-07-21] MEDS: ASPIRIN 81 MG TABLET, ENT COATED PO SCH (09:53)
[2018-07-21] MEDS: POTASSIUM CHLORIDE 10 MEQ CAPSULE.ER PO SCH ×2 (09:53→13:46)
[2018-07-21] MEDS: METOLAZONE 2.5 MG TABLET PO SCH (09:54)
[2018-07-21] MEDS: SPIRONOLACTONE 25 MG TABLET PO SCH (09:55)
[2018-07-21] MEDS: LETROZOLE 2.5 MG TABLET PO SCH (09:55)
[2018-07-21] MEDS: FLUTICASONE/VILANTEROL 200-25 MCG/DOSE IH SCH (09:56)
[2018-07-21] MEDS: FUROSEMIDE 40 MG TABLET PO SCH ×2 (09:59→13:46)
[2018-07-21] MEDS ORDERED: BIOTIN 600 MCG PO SCH (10:00)
[2018-07-21] MEDS ORDERED: PANTOPRAZOLE SODIUM 40 MG TABLET.DR PO SCH (10:00)
[2018-07-21] MEDS ORDERED: AMIODARONE HCL 200 MG TABLET PO SCH (10:00)
[2018-07-21] MEDS ORDERED: (PENDING PHARMACY ID) (Solifenacin Succinate [Vesicare] 10 MG) PO SCH (10:00)
[2018-07-21] MEDS ORDERED: LETROZOLE 2.5 MG TABLET PO SCH (10:00)
[2018-07-21] MEDS ORDERED: METOLAZONE 2.5 MG TABLET PO SCH (10:00)
[2018-07-21] MEDS ORDERED: BACILLUS COAGULANS PO SCH (10:00)
[2018-07-21] MEDS ORDERED: ASPIRIN 81 MG TABLET, CHEWABLE PO SCH (10:00)
[2018-07-21] MEDS ORDERED: SPIRONOLACTONE 25 MG TABLET PO SCH (10:00)
[2018-07-21] MEDS ORDERED: (PENDING PHARMACY ID) (Amiodarone Hcl [Amiodarone Hcl] 100 MG) PO SCH (10:00)
[2018-07-21] MEDS: FERROUS SULFATE 325 MG TABLET PO SCH (13:45)
--- NOTE | 2018-07-21 15:12 | PDOC PROGRESS REPORT ---
Subjective Progress Note for:: 07/21/18 Subjective:: No adverse events overnight. No acute new complaints. Vital signs been stable. She been eating and drink without difficulty. She feels like her leg swelling has gone down. She still has a lot of pain and tenderness but she says is gotten a lot better. Reason For Visit: LEFT LEG CELLULITIS Physical Exam Vital Signs: Temp Pulse Resp BP Pulse Ox 97.9 F 57 L 19 128/40 H 100 07/21/18 12:00 07/21/18 12:00 07/21/18 12:00 07/21/18 12:00 07/21/18 12:00 Intake & Output 07/20/18 07/21/18 07/22/18 06:59 06:59 06:59 Intake Total 150 562 Output Total 100 Balance 50 562 Weight 46.4 kg General appearance: PRESENT: no acute distress, cooperative, disheveled, thin Respiratory exam: PRESENT: clear to auscultation bruce, symmetrical, unlabored. ABSENT: crackles, prolonged expiratory phas, rhonchi, tachypnea, wheezes Cardiovascular exam: PRESENT: RRR, +S1, +S2 Pulses: PRESENT: normal carotid pulses Vascular exam: PRESENT: normal capillary refill GI/Abdominal exam: PRESENT: normal bowel sounds, soft. ABSENT: distended, guarding, rebound, tenderness Extremities exam: PRESENT: pedal edema, +1 edema - Right lower extremity, +2 edema - Left lower extremity. ABSENT: clubbing Musculoskeletal exam: PRESENT: normal inspection. ABSENT: deformity Neurological exam: PRESENT: alert, awake, oriented to person, oriented to place, oriented to time, oriented to situation, CN II-XII grossly intact. ABSENT: mot or sensory deficit Psychiatric exam: PRESENT: appropriate affect, normal mood Skin exam: PRESENT: dry, warm, other - She has redness, swelling, pain, and warmth in her left lower extremity, concentrated mainly around an area on the anterior surface on her left roberson that is about 1 cm in size with no draining purulence. There is a soft cystic structure on the posterior aspect of the leg about 2 cm in size that is compressible and tender and it has started to ooze. Overall the erythema proximal to the knee has diminished substantially and reced ed almost completely below the knee, and a lot of the medial erythema has resolved as well. Results Laboratory Results: 07/21/18 05:20 07/21/18 05:20 07/21/18 07/21/18 05:20 05:20 WBC 8.7 RBC 3.20 L Hgb 9.8 L Hct 29.0 L MCV 91 MCH 30.5 MCHC 33.7 RDW 15.4 H Plt Count 208 Sodium 133.1 L Potassium 3.4 L Chloride 97 L Carbon Dioxide 27 Anion Gap 9 BUN 45 H Creatinine 1.68 H Est GFR ( Amer) 35 L Est GFR (Non-Af Amer) 29 L Glucose 91 Calcium 10.4 H 07/20/18 11:08 Clean Catch Midstream Urine Culture - Final Mixed Urogenital Deena Assessment and Plan - Diagnosis (1) Left leg cellulitis Is this a current diagnosis for this admission?: Yes Plan: Continue vancomycin, cultures are pending, if we see something that we can culture we will do so. (2) COPD (chronic obstructive pulmonary disease) Qualifiers: Emphysema type: unspecified Is this a current diagnosis for this admission?: Yes Plan: Not acutely exacerbated, will continue home medications (3) Chronic combined systolic and diastolic CHF (congestive heart failure) Is this a current diagnosis for this admission?: Yes Plan: Not acutely exacerbated, we will continue her home medications (4) Chronic kidney disease Qualifiers: Chronic kidney disease stage: stage 3 (moderate) Qualified Code(s): N18.3 - Chronic kidney disease, stage 3 (moderate) Is this a current diagnosis for this admission?: Yes Plan: Creatinine is in its usual range, not acutely exacerbated - Time Time Spent with patient: 25-34 minutes
[2018-07-21] MEDS: PANTOPRAZOLE SODIUM 40 MG TABLET.DR PO SCH (17:12)
[2018-07-21] MEDS: MONTELUKAST SODIUM 10 MG TABLET PO SCH (17:12)
[2018-07-21] MEDS: AMIODARONE HCL 200 MG TABLET PO SCH (17:12)
[2018-07-21] MEDS: SIMVASTATIN 10 MG TABLET PO SCH (22:06)
[2018-07-22] MEDS: ACETAMINOPHEN 325 MG TABLET PO PRN ×3 (03:57→21:36)
[2018-07-22] MEDS: HEPARIN SOD (PORCINE) 5,000 UNIT/ML 1 ML SYRINGE SUBCUT SCH ×3 (05:08→22:03)
[2018-07-22 07:55] LABS: HEMATOCRIT 28.6 % (36.0-47.0); HEMOGLOBIN 9.9 g/dL (12.0-15.5); MEAN CORPUSCULAR HEMOGLOBIN 31.2 pg (27.0-33.4); MEAN CORPUSCULAR HGB CONC 34.6 g/dL (32.0-36.0); MEAN CORPUSCULAR VOLUME 90 fl (80-97); PLATELET COUNT 229 10^3/uL (150-450); RED BLOOD COUNT 3.18 10^6/uL (3.72-5.28); RED CELL DISTRIBUTION WIDTH 15.6 % (11.5-14.0); WHITE BLOOD COUNT 10.3 10^3/uL (4.0-10.5)
[2018-07-22 08:18] LABS: ANION GAP 11 (5-19); BLOOD UREA NITROGEN 50 mg/dL (7-20); CALCIUM 10.3 mg/dL (8.4-10.2); CARBON DIOXIDE 27 mmol/L (22-30); CHLORIDE 96 mmol/L (98-107); GLUCOSE 79 mg/dL (75-110); POTASSIUM 3.2 mmol/L (3.6-5.0); SODIUM 133.7 mmol/L (137-145)
[2018-07-22] MEDS ORDERED: POTASSIUM CHLORIDE 10 MEQ CAPSULE.ER PO ONE (10:00)
[2018-07-22] MEDS: POTASSIUM CHLORIDE 10 MEQ CAPSULE.ER PO SCH ×2 (10:39→12:17)
[2018-07-22] MEDS: LACTOBACILLUS ACIDOPHILUS 250 MG TAB PO SCH (10:40)
[2018-07-22] MEDS: FUROSEMIDE 40 MG TABLET PO SCH ×2 (10:40→12:17)
[2018-07-22] MEDS: ASPIRIN 81 MG TABLET, ENT COATED PO SCH (10:40)
[2018-07-22] MEDS: SPIRONOLACTONE 25 MG TABLET PO SCH (10:40)
[2018-07-22] MEDS: LETROZOLE 2.5 MG TABLET PO SCH (10:41)
[2018-07-22] MEDS: METOLAZONE 2.5 MG TABLET PO SCH (10:41)
[2018-07-22] MEDS: FLUTICASONE/VILANTEROL 200-25 MCG/DOSE IH SCH (10:41)
[2018-07-22] MEDS: TOLTERODINE TARTRATE 1 MG TABLET PO SCH ×2 (12:13→21:37)
[2018-07-22] MEDS: VANCOMYCIN HCL 750 MG in DEXTROSE 5%-WATER 250 ML IV SCH (12:14)
[2018-07-22] MEDS: FERROUS SULFATE 325 MG TABLET PO SCH (12:16)
--- NOTE | 2018-07-22 13:13 | PDOC PROGRESS REPORT ---
Subjective Progress Note for:: 07/22/18 Subjective:: No adverse events overnight. She said that the blister on the back of her leg started draining. No fevers. Eating and drinking without difficulty. She said she normally is supposed to wear compression stockings on her lower extremities but does not do so because she says her legs are too tender even when they are not infected for her to use them. Reason For Visit: LEFT LEG CELLULITIS Physical Exam Vital Signs: Temp Pulse Resp BP Pulse Ox 98.5 F 54 L 16 116/42 L 100 07/22/18 12:00 07/22/18 12:00 07/22/18 12:00 07/22/18 12:00 07/22/18 12:00 Intake & Output 07/21/18 07/22/18 07/23/18 06:59 06:59 06:59 Intake Total 150 1018 Output Total 100 870 Balance 50 148 Weight 46.4 kg 46 kg General appearance: PRESENT: no acute distress, cooperative, disheveled, thin Respiratory exam: PRESENT: clear to auscultation bruce, symmetrical, unlabored. ABSENT: crackles, prolonged expiratory phas, rhonchi, tachypnea, wheezes Cardiovascular exam: PRESENT: RRR, +S1, +S2 Pulses: PRESENT: normal carotid pulses Vascular exam: PRESENT: normal capillary refill GI/Abdominal exam: PRESENT: normal bowel sounds, soft. ABSENT: distended, guarding, rebound, tenderness Extremities exam: PRESENT: pedal edema, +1 edema - Right lower extremity, +2 edema - Left lower extremity. ABSENT: clubbing Musculoskeletal exam: PRESENT: normal inspection. ABSENT: deformity Neurological exam: PRESENT: alert, awake, oriented to person, oriented to place, oriented to time, oriented to situation, CN II-XII grossly intact. ABSENT: motor sensory deficit Psychiatric exam: PRESENT: appropriate affect, normal mood Skin exam: PRESENT: dry, warm, other -the erythema is now all distal to the knee on the left lower extremity, blister lesion on the posterior surface of the left calf is draining a clear nael colored fluid in the erythema in the lower extremity is now focused on the distal anterior one third in the posterior medial aspect of the left leg below the knee Results Laboratory Results: 07/22/18 06:23 07/22/18 06:23 03/25/19 03/25/19 06:23 06:23 WBC 10.3 RBC 3.18 L Hgb 9.9 L Hct 28.6 L MCV 90 MCH 31.2 MCHC 34.6 RDW 15.6 H Plt Count 229 Sodium 133.7 L Potassium 3.2 L Chloride 96 L Carbon Dioxide 27 Anion Gap 11 BUN 50 H Creatinine 1.66 H Est GFR ( Amer) 35 L Est GFR (Non-Af Amer) 29 L Glucose 79 Calcium 10.3 H 07/20/18 11:08 Clean Catch Midstream Urine Culture - Final Mixed Urogenital Deena Assessment and Plan - Diagnosis (1) Left leg cellulitis Is this a current diagnosis for this admission?: Yes Plan: Continue vancomycin, cultures are pending, if we see something that we can culture we will do so. Improving on vancomycin. I suspect she will need a couple more days before we can transition her to an oral antibiotic. She had previously failed Levaquin. She does not want to follow-up with anyone except for Dr. Marmolejo. There is a blood culture that turned positive but it could be a contaminant, so we will watch it to see what it turns out to be. (2) COPD (chronic obstructive pulmonary disease) Qualifiers: Emphysema type: unspecified Is this a current diagnosis for this admission?: Yes Plan: Not acutely exacerbated, will continue home medications (3) Chronic combined systolic and diastolic CHF (congestive heart failure) Is this a current diagnosis for this admission?: Yes Plan: Not acutely exacerbated, we will continue her home medications (4) Chronic kidney disease Qualifiers: Chronic kidney disease stage: stage 3 (moderate) Qualified Code(s): N18.3 - Chronic kidney disease, stage 3 (moderate) Is this a current diagnosis for this admission?: Yes Plan: Creatinine is in its usual range, not acutely exacerbated - Time Time Spent with patient: 25-34 minutes
[2018-07-22] MEDS: PANTOPRAZOLE SODIUM 40 MG TABLET.DR PO SCH (17:34)
[2018-07-22] MEDS: MONTELUKAST SODIUM 10 MG TABLET PO SCH (17:34)
[2018-07-22] MEDS: AMIODARONE HCL 200 MG TABLET PO SCH (17:34)
[2018-07-22] MEDS: POLYETHYLENE GLYCOL 3350 POWDER 17 GM/1 PACKET PO SCH (17:44)
[2018-07-22] MEDS: SIMVASTATIN 10 MG TABLET PO SCH (21:36)
[2018-07-23] MEDS: ACETAMINOPHEN 325 MG TABLET PO PRN ×2 (04:56→11:33)
[2018-07-23] MEDS: HEPARIN SOD (PORCINE) 5,000 UNIT/ML 1 ML SYRINGE SUBCUT SCH ×2 (05:09→13:59)
[2018-07-23 05:46] LABS: HEMATOCRIT 31.5 % (36.0-47.0); HEMOGLOBIN 10.8 g/dL (12.0-15.5); MEAN CORPUSCULAR HEMOGLOBIN 30.6 pg (27.0-33.4); MEAN CORPUSCULAR HGB CONC 34.1 g/dL (32.0-36.0); MEAN CORPUSCULAR VOLUME 90 fl (80-97); PLATELET COUNT 239 10^3/uL (150-450); RED BLOOD COUNT 3.52 10^6/uL (3.72-5.28); RED CELL DISTRIBUTION WIDTH 14.8 % (11.5-14.0); WHITE BLOOD COUNT 10.7 10^3/uL (4.0-10.5)
[2018-07-23 06:14] LABS: ANION GAP 11 (5-19); BLOOD UREA NITROGEN 55 mg/dL (7-20); CALCIUM 10.6 mg/dL (8.4-10.2); CARBON DIOXIDE 28 mmol/L (22-30); CHLORIDE 96 mmol/L (98-107); GLUCOSE 93 mg/dL (75-110); POTASSIUM 3.4 mmol/L (3.6-5.0); SODIUM 134.7 mmol/L (137-145)
[2018-07-23] MEDS: FUROSEMIDE 40 MG TABLET PO SCH ×2 (08:22→11:36)
[2018-07-23] MEDS: POTASSIUM CHLORIDE 10 MEQ CAPSULE.ER PO SCH ×2 (08:23→11:36)
[2018-07-23] MEDS: METOLAZONE 2.5 MG TABLET PO SCH (10:00)
[2018-07-23] MEDS: LETROZOLE 2.5 MG TABLET PO SCH (10:20)
[2018-07-23] MEDS: TOLTERODINE TARTRATE 1 MG TABLET PO SCH ×2 (10:20→22:13)
[2018-07-23] MEDS: LACTOBACILLUS ACIDOPHILUS 250 MG TAB PO SCH (10:21)
[2018-07-23] MEDS: FLUTICASONE/VILANTEROL 200-25 MCG/DOSE IH SCH (10:22)
[2018-07-23] MEDS: SPIRONOLACTONE 25 MG TABLET PO SCH (10:22)
[2018-07-23] MEDS: POLYETHYLENE GLYCOL 3350 POWDER 17 GM/1 PACKET PO SCH (10:22)
[2018-07-23] MEDS: ASPIRIN 81 MG TABLET, ENT COATED PO SCH (10:22)
[2018-07-23] MEDS: FERROUS SULFATE 325 MG TABLET PO SCH (11:36)
[2018-07-23] MEDS ORDERED: TRAMADOL HCL 50 MG TABLET PO PRN (15:35)
[2018-07-23] MEDS: CEFAZOLIN 1 GM/D5W RTU 1 GM/50 ML RTUPB IV SCH ×2 (17:26→22:11)
[2018-07-23] MEDS: AMIODARONE HCL 200 MG TABLET PO SCH (17:26)
[2018-07-23] MEDS: PANTOPRAZOLE SODIUM 40 MG TABLET.DR PO SCH (17:26)
[2018-07-23] MEDS: MONTELUKAST SODIUM 10 MG TABLET PO SCH (17:29)
--- NOTE | 2018-07-23 17:56 | PDOC CONSULTATION ---
History of Present Illness Admission Date/PCP: 07/20/18 11:26 DAWSON MEDEL MD Patient complains of: Left leg pain History of Present Illness: ROBERT CAMILO is a 88 year old female presents with a couple week history of left leg swelling with erythema and a recent bloody purulent drainage. She denies any trauma and she is on no anticoagulation other than aspirin but she has a history of very easy bruising although she denies any history of gastrointestinal bleeding. 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 Denies: Sickle Cell Disease Past Surgical History Past Surgical History: Reports: Hysterectomy, Mastectomy - 2010, Other - Mitral valve repair Denies: Amputation, Pacemaker Social History Smoking Status: Never Smoker Frequency of Alcohol Use: None Hx Recreational Drug Use: No Drugs: None Hx Prescription Drug Abuse: No Family History Family History: Reviewed & Not Pertinent, CAD, Malignancy Parental Family History Reviewed: No Children Family History Reviewed: No Sibling(s) Family History Reviewed.: No Medication/Allergy Home Medications: Acetaminophen [Tylenol Extra Strength 500 mg Tablet] 500 mg PO Q12HP PRN 07/20/18 Albuterol Sulfate [Proair HFA Inhalation Aerosol 8.5 gm MDI] 2 puff IH Q6HP PRN 07/20/18 Amiodarone HCl [Cordarone 200 mg Tablet] 100 mg PO QPM 07/20/18 Aspirin [Ecotrin 81 mg EC Tablet] 81 mg PO DAILY 07/20/18 Bacillus Coagulans [Probiotic] 1 each PO DAILY 07/20/18 Benzonatate [Tessalon Perle 100 mg Capsule] 100 mg PO TIDP PRN 07/20/18 Biotin 300 mcg PO QPM 07/20/18 Ferrous Sulfate [Feosol 325 mg Tablet] 325 mg PO NOON 07/20/18 Fluticasone/Salmeterol [Advair 250-50 Diskus 14 Dose/Diskus] 1 puff IH Q12 07/20/18 Furosemide [Lasix 40 mg Tablet] 40 mg PO BID@0800,1200 07/20/18 Letrozole [Femara 2.5 mg Tablet] 2.5 mg PO DAILY 07/20/18 Lorazepam [Ativan 1 mg Tablet] 1 mg PO HSP PRN 07/20/18 Metolazone [Zaroxolyn 2.5 mg Tablet] 2.5 mg PO DAILY 07/20/18 Montelukast Sodium [Singulair 10 mg Tablet] 10 mg PO QPM 07/20/18 Multivitamin [Tab-A-Andre (Multiple Vitamin) Tablet] 1 tab PO Q2D 07/20/18 Pantoprazole Sodium [Protonix [address] Tablet] 40 mg PO QPM 07/20/18 Potassium Chloride [Klor-Con M10] 10 meq PO BID@0800,1200 07/20/18 Simvastatin [Zocor 20 mg Tablet] 20 mg PO QHS 07/20/18 Solifenacin Succinate [Vesicare] 10 mg PO QHS 07/20/18 Spironolactone [Aldactone 25 mg Tablet] 25 mg PO DAILY 07/20/18 Tramadol HCl [Ultram 50 mg Tablet] 50 mg PO Q12HP PRN 07/20/18 Allergies/Adverse Reactions: amoxicillin [Amoxicillin] Allergy (Intermediate, Verified 05/11/18 09:56) Rash codeine [Codeine] Allergy (Unknown, Verified 05/11/18 09:56) adhesive tape [Adhesive Tape] Adverse Reaction (Severe, Verified 05/11/18 09:56) Tears skin diltiazem HCl [From Tiazac] Adverse Reaction (Intermediate, Verified 05/11/18 09:56) Dizzy doxycycline [Doxycycline] Adverse Reaction (Intermediate, Verified 05/11/18 09:56) Dizzy lisinopril [Lisinopril] Adverse Reaction (Intermediate, Verified 05/11/18 09:56) Dizzy propafenone [Propafenone] Adverse Reaction (Intermediate, Verified 05/11/18 09:56) Diarrhea zolpidem tartrate [From Ambien] Adverse Reaction (Intermediate, Verified 05/11/18 09:56) Confusion Strong fumes Allergy (Severe, Uncoded 05/11/18 09:56) Asthma Physical Exam Vital Signs: Temp Pulse Resp BP Pulse Ox 98.2 F 55 L 18 118/42 L 100 07/23/18 15:12 07/23/18 15:12 07/23/18 15:12 07/23/18 15:12 07/23/18 15:12 Intake & Output 07/22/18 07/23/18 07/24/18 06:59 06:59 06:59 Intake Total 1018 1290 355 Output Total 870 1350 1000 Balance 148 -60 -645 Weight 46 kg 45.1 kg General appearance: PRESENT: no acute distress, cooperative Eye exam: PRESENT: conjunctiva pink Respiratory exam: PRESENT: clear to auscultation bruce Cardiovascular exam: PRESENT: irregular rhythm GI/Abdominal exam: PRESENT: other - Soft, nondistended, nontender to palpation. Extremities exam: PRESENT: other - Bilateral lower extremity edema. No erythema and no areas of fluctuance on the right leg but she does have areas of bruising. On the left lower leg anteriorly there is a small opening with no drainage but associated bruising. On her posterior left lower leg there is an approximately 6 x 4 cm region of swelling with a central opening with a seropurulent drainage. There is a subtle erythema that is diffuse. Patient has palpable pedal pulses. Neurological exam: PRESENT: alert, awake Psychiatric exam: PRESENT: appropriate affect Skin exam: PRESENT: warm Results Laboratory Results: 07/23/18 04:55 07/23/18 04:55 07/23/18 07/23/18 07/23/18 04:55 04:55 08:36 WBC 10.7 H RBC 3.52 L Hgb 10.8 L Hct 31.5 L MCV 90 MCH 30.6 MCHC 34.1 RDW 14.8 H Plt Count 239 Sodium 134.7 L Potassium 3.4 L Chloride 96 L Carbon Dioxide 28 Anion Gap 11 BUN 55 H Creatinine 1.58 H Est GFR ( Amer) 38 L Est GFR (Non-Af Amer) 31 L Glucose 93 Calcium 10.6 H Ionized Calcium Elmer PTH Intact 66.0 H 07/23/18 08:36 WBC RBC Hgb Hct MCV MCH MCHC RDW Plt Count Sodium Potassium Chloride Carbon Dioxide Anion Gap BUN Creatinine Est GFR ( Amer) Est GFR (Non-Af Amer) Glucose Calcium Ionized Calcium Elmer 1.25 PTH Intact Assessment & Plan - Diagnosis (1) infected hematoma Is this a current diagnosis for this admission?: Yes Plan: Infected hematoma of the left leg posteriorly. We will plan incision and drainage. Will also explore the anterior leg wound as well to make sure there is no associated infected hematoma at this site as well. I have discussed with the patient the risk and benefits of the surgery including risk of infection, bleeding, recurrence and poor wound healing.
--- NOTE | 2018-07-23 21:18 | PDOC PROGRESS REPORT ---
Subjective Progress Note for:: 07/23/18 Subjective:: The patient is resting in her bed. She is having significant pain in her leg. When I went to examine the patient she had a large amount of blood that it seemed out of the bandage. When I removed the bandage is quite apparent that she has a large abscess that is ruptured. I expressed a large amount of pus and clot out of the wound however it is exquisitely tender and I could not properly drain it. The patient was having a significant amount of pain and it was difficult to get a good review of systems that she is so focused on that. Reason For Visit: LEFT LEG CELLULITIS Physical Exam Vital Signs: Temp Pulse Resp BP Pulse Ox 98.4 F 61 17 120/48 L 100 07/23/18 20:00 07/23/18 20:00 07/23/18 20:00 07/23/18 20:00 07/23/18 20:00 Intake & Output 07/22/18 07/23/18 07/24/18 06:59 06:59 06:59 Intake Total 1018 1290 523 Output Total 870 1350 1960 Balance Weight 46 kg 45.1 kg General appearance: PRESENT: other - Acutely uncomfortable thin and cachectic 88-year-old female. She is in mild distress at the time of my visit Head exam: PRESENT: atraumatic, other - She has bitemporal muscle wasting Eye exam: PRESENT: conjunctiva pink, EOMI, PERRLA. ABSENT: scleral icterus Ear exam: PRESENT: normal external ear exam Mouth exam: PRESENT: moist, tongue midline Respiratory exam: PRESENT: clear to auscultation bruce. ABSENT: rales, rhonchi, wheezes Cardiovascular exam: PRESENT: bradycardia GI/Abdominal exam: PRESENT: normal bowel sounds, soft. ABSENT: distended, guarding, mass, organolmegaly, rebound, tenderness Extremities exam: PRESENT: other - Left lower extremity had a bandage in place. There was blood that it soaked through the bandage. It was removed and there was a large abscess that it spontaneously drained with clots and pus expressed from it. A culture was obtained. She also has an abscess that is draining yellow pus on the anterior left lower extremity as well. Neurological exam: PRESENT: alert, awake, oriented to person, oriented to place, oriented to time, oriented to situation, CN II-XII grossly intact. ABSENT: motor sensory deficit Psychiatric exam: PRESENT: anxious Skin exam: PRESENT: erythema - She has erythema extending from above her foot up to above her knee on the left. Results Laboratory Results: 07/23/18 04:55 07/23/18 04:55 07/23/18 07/23/18 07/23/18 04:55 04:55 08:36 WBC 10.7 H RBC 3.52 L Hgb 10.8 L Hct 31.5 L MCV 90 MCH 30.6 MCHC 34.1 RDW 14.8 H Plt Count 239 Sodium 134.7 L Potassium 3.4 L Chloride 96 L Carbon Dioxide 28 Anion Gap 11 BUN 55 H Creatinine 1.58 H Est GFR ( Amer) 38 L Est GFR (Non-Af Amer) 31 L Glucose 93 Calcium 10.6 H Ionized Calcium Elmer PTH Intact 66.0 H 07/23/18 08:36 WBC RBC Hgb Hct MCV MCH MCHC RDW Plt Count Sodium Potassium Chloride Carbon Dioxide Anion Gap BUN Creatinine Est GFR ( Amer) Est GFR (Non-Af Amer) Glucose Calcium Ionized Calcium Elmer 1.25 PTH Intact Assessment and Plan - Diagnosis (1) Abscess of left leg Is this a current diagnosis for this admission?: Yes Plan: The the area on the calf is spontaneously drained. It appears to be an infected hematoma and multiple clots were expressed from it along with pus. She also has an abscess on the top of her leg that is draining a yellow pus. This does not appear to be a hematoma. She will continue IV vancomycin and I am adding cefazolin to her regimen. I am going to consult general surgery for consideration of debridement. The patient's leg is too tender for me to do much at the bedside. (2) Left leg cellulitis Is this a current diagnosis for this admission?: Yes Plan: Continue IV vancomycin. I am adding cefazolin to her regimen as well. (3) Chronic combined systolic and diastolic congestive heart failure Is this a current diagnosis for this admission?: Yes Plan: Currently appears to be euvolemic (4) COPD (chronic obstructive pulmonary disease) Is this a current diagnosis for this admission?: Yes Plan: No evidence of exacerbation (5) Chronic kidney disease Qualifiers: Chronic kidney disease stage: stage 3 (moderate) Qualified Code(s): N18.3 - Chronic kidney disease, stage 3 (moderate) Is this a current diagnosis for this admission?: Yes Plan: Stable. She is at her baseline (6) Hyponatremia Is this a current diagnosis for this admission?: Yes Plan: This is quite mild and I suspect chronic. (7) Hypercalcemia Is this a current diagnosis for this admission?: Yes Plan: This is mild. Ionized calcium is normal (8) Persistent atrial fibrillation Is this a current diagnosis for this admission?: Yes Plan: Currently in a sinus rhythm and rate controlled. Continue amiodarone (9) Hypokalemia Is this a current diagnosis for this admission?: Yes Plan: This will be repleted today and will recheck a level in the morning (10) Low BMI Is this a current diagnosis for this admission?: Yes Plan: She has a BMI of 18.2. The dietary team is following. At this point I do not believe they feel like she has severe protein malnutrition but certainly she has increased nutritional needs and we will follow the recommendations. (11) Ambulatory dysfunction Is this a current diagnosis for this admission?: Yes Plan: Secondary to leg abscess. Once we get her abscess surgically drained we can get physical therapy to see the patient - Time Time Spent with patient: 35 or more minutes - Inpatient Certification Medical Necessity: Other - Inpatient hospitalization remains necessary. This patient has cellulitis with a large infected hematoma and an abscess on the anterior roberson. She likely will need surgical debridement in the operating room. Timing of disposition will be determined by her clinical course. Currently she is requiring parenteral antibiotics.
[2018-07-23] MEDS: SIMVASTATIN 10 MG TABLET PO SCH (22:13)
[2018-07-24] MEDS: CEFAZOLIN 1 GM/D5W RTU 1 GM/50 ML RTUPB IV SCH ×4 (03:19→22:20)
[2018-07-24 05:39] LABS: ABSOLUTE BASOPHILS # (AUTO) 0.1 10^3/uL (0.0-0.2); ABSOLUTE EOSINOPHILS # (AUTO) 0.3 10^3/uL (0.0-0.6); ABSOLUTE LYMPHOCYTES (AUTO) 1.9 10^3/uL (0.5-4.7); ABSOLUTE MONOCYTES (AUTO) 0.7 10^3/uL (0.1-1.4); ABSOLUTE NEUT (AUTO) 5.6 10^3/uL (1.7-8.2); HEMOGLOBIN 10.2 g/dL (12.0-15.5); LYMPHOCYTES % (AUTO) 22.3 % (13-45); MEAN CORPUSCULAR HEMOGLOBIN 31.5 pg (27.0-33.4); MEAN CORPUSCULAR HGB CONC 35.3 g/dL (32.0-36.0); MEAN CORPUSCULAR VOLUME 89 fl (80-97); MONOCYTES % (AUTO) 8.2 % (3-13); PLATELET COUNT 246 10^3/uL (150-450); RED BLOOD COUNT 3.25 10^6/uL (3.72-5.28); RED CELL DISTRIBUTION WIDTH 15.2 % (11.5-14.0); SEGMENTED NEUTROPHILS % (AUTO) 65.5 % (42-78); TOTAL CELLS COUNTED % (AUTO) 100 %; WHITE BLOOD COUNT 8.5 10^3/uL (4.0-10.5)
[2018-07-24 06:05] LABS: ALBUMIN 3.1 g/dL (3.5-5.0); ANION GAP 13 (5-19); BLOOD UREA NITROGEN 62 mg/dL (7-20); CALCIUM 10.1 mg/dL (8.4-10.2); CARBON DIOXIDE 25 mmol/L (22-30); CHLORIDE 96 mmol/L (98-107); GLUCOSE 85 mg/dL (75-110); PHOSPHORUS 3.3 mg/dL (2.5-4.5); POTASSIUM 3.7 mmol/L (3.6-5.0); SODIUM 133.6 mmol/L (137-145)
[2018-07-24] MEDS: POTASSIUM CHLORIDE 10 MEQ CAPSULE.ER PO SCH ×2 (08:06→12:26)
[2018-07-24] MEDS: FUROSEMIDE 40 MG TABLET PO SCH ×2 (08:06→12:27)
[2018-07-24] MEDS: METOLAZONE 2.5 MG TABLET PO SCH (09:00)
[2018-07-24] MEDS: POLYETHYLENE GLYCOL 3350 POWDER 17 GM/1 PACKET PO SCH (09:00)
[2018-07-24] MEDS: SPIRONOLACTONE 25 MG TABLET PO SCH (09:00)
[2018-07-24] MEDS: VANCOMYCIN HCL 750 MG in DEXTROSE 5%-WATER 250 ML IV SCH (10:07)
[2018-07-24] MEDS: LETROZOLE 2.5 MG TABLET PO SCH (10:09)
[2018-07-24] MEDS: ASPIRIN 81 MG TABLET, ENT COATED PO SCH (10:09)
[2018-07-24] MEDS: TOLTERODINE TARTRATE 1 MG TABLET PO SCH ×2 (10:09→22:21)
[2018-07-24] MEDS: LACTOBACILLUS ACIDOPHILUS 250 MG TAB PO SCH (10:09)
[2018-07-24] MEDS: FLUTICASONE/VILANTEROL 200-25 MCG/DOSE IH SCH (10:48)
[2018-07-24] MEDS: NORMAL SALINE 1000 ML 1,000 ML IV PRN ×2 (10:55→23:27)
[2018-07-24] MEDS ORDERED: LIDOCAINE 1% INJ-PF (10 MG/ML) 30 ML SDV ONE (11:31)
[2018-07-24] MEDS ORDERED: BUPIVACAINE HCL 0.5 % INJ/PF 30 ML SDV ONE (11:31)
--- NOTE | 2018-07-24 12:18 | PDOC PROGRESS REPORT ---
Subjective Progress Note for:: 07/24/18 Subjective:: The patient is resting in her bed. She was seen by general surgery who has plans to take her to the operating room for debridement of her abscesses. Other than being a little thirsty she is in good spirits today. She is anxious to get this wound taken care of so that she can start getting better. She denies fever or shaking chills. No chest pain, shortness of breath or cough. No nausea vomiting or diarrhea. She does complain of poor appetite. No urinary c omplaints. Reason For Visit: LEFT LEG CELLULITIS Physical Exam Vital Signs: Temp Pulse Resp BP Pulse Ox 98.5 F 63 17 127/50 H 100 07/24/18 11:52 07/24/18 11:52 07/24/18 11:52 07/24/18 11:52 07/24/18 11:52 Intake & Output 07/23/18 07/24/18 07/25/18 06:59 06:59 06:59 Intake Total 1290 1323 Output Total 1350 1960 Balance -60 -637 Weight 45.1 kg 44.6 kg General appearance: PRESENT: no acute distress, thin, other - Chronically ill-appearing Head exam: PRESENT: atraumatic - She has bitemporal muscle wasting Eye exam: PRESENT: conjunctiva pink, EOMI, PERRLA. ABSENT: scleral icterus Mouth exam: PRESENT: moist, tongue midline Respiratory exam: PRESENT: clear to auscultation bruce. ABSENT: rales, rhonchi, wheezes Cardiovascular exam: PRESENT: RRR. ABSENT: diastolic murmur, rubs, systolic murmur GI/Abdominal exam: PRESENT: normal bowel sounds, soft. ABSENT: distended, guarding, mass, organolmegaly, rebound, tenderness Rectal exam: PRESENT: deferred Extremities exam: PRESENT: other - The wound on her left leg has a bandage in place that was not removed as of the time of this dictation is she is going to surgery care in about an hour Neurological exam: PRESENT: alert, awake, oriented to person, oriented to place, oriented to time, oriented to situation, CN II-XII grossly intact. ABSENT: motor sensory deficit Psychiatric exam: PRESENT: appropriate affect, normal mood. ABSENT: homicidal ideation, suicidal ideation Skin exam: PRESENT: dry, intact, warm. ABSENT: cyanosis, rash Results Laboratory Results: 07/24/18 04:15 07/24/18 04:15 07/24/18 07/24/18 04:15 04:15 WBC 8.5 RBC 3.25 L Hgb 10.2 L Hct 29.0 L MCV 89 MCH 31.5 MCHC 35.3 RDW 15.2 H Plt Count 246 Seg Neutrophils % 65.5 Lymphocytes % 22.3 Monocytes % 8.2 Eosinophils % 3.0 Basophils % 1.0 Absolute Neutrophils 5.6 Absolute Lymphocytes 1.9 Absolute Monocytes 0.7 Absolute Eosinophils 0.3 Absolute Basophils 0.1 Sodium 133.6 L Potassium 3.7 Chloride 96 L Carbon Dioxide 25 Anion Gap 13 BUN 62 H Creatinine 1.57 H Est GFR ( Amer) 38 L Est GFR (Non-Af Amer) 31 L Glucose 85 Calcium 10.1 Phosphorus 3.3 Magnesium 2.3 Albumin 3.1 L Assessment and Plan - Diagnosis (1) Abscess of left leg Is this a current diagnosis for this admission?: Yes Plan: The the area on the calf is spontaneously drained. It appears to be an infected hematoma and multiple clots were expressed from it along with pus yesterday. She also has an abscess on the top of her leg that is draining a yellow pus. This does not appear to be a hematoma. She will continue IV vancomycin and cefazolin. General surgery is taking her to the operating room tomorrow. (2) Left leg cellulitis Is this a current diagnosis for this admission?: Yes Plan: Continue IV vancomycin and cefazolin as above (3) Chronic combined systolic and diastolic congestive heart failure Is this a current diagnosis for this admission?: Yes Plan: Currently appears to be euvolemic (4) COPD (chronic obstructive pulmonary disease) Is this a current diagnosis for this admission?: Yes (5) Chronic kidney disease Qualifiers: Chronic kidney disease stage: stage 3 (moderate) Qualified Code(s): N18.3 - Chronic kidney disease, stage 3 (moderate) Is this a current diagnosis for this admission?: Yes Plan: Stable. She is at her baseline (6) Hyponatremia Is this a current diagnosis for this admission?: Yes Plan: This is quite mild and I suspect chronic. (7) Hypercalcemia Is this a current diagnosis for this admission?: Yes Plan: This is mild. Ionized calcium is normal (8) Persistent atrial fibrillation Is this a current diagnosis for this admission?: Yes Plan: Currently in a sinus rhythm and rate controlled. Continue amiodarone. Certainly she is not a candidate for anticoagulation (9) Hypokalemia Is this a current diagnosis for this admission?: Yes Plan: Repleted and resolved (10) Low BMI Is this a current diagnosis for this admission?: Yes Plan: She has a BMI of 18.2. The dietary team is following. At this point I do not believe they feel like she has severe protein malnutrition but certainly she has increased nutritional needs and we will follow the recommendations. (11) Ambulatory dysfunction Is this a current diagnosis for this admission?: Yes Plan: Secondary to leg abscess. Once we get her abscess surgically drained we can get physical therapy to see the patient - Time Time Spent with patient: 35 or more minutes - Inpatient Certification Medical Necessity: Other - Inpatient hospitalization remains necessary. The patient is going to the operating room today for surgical debridement. She is requiring parenteral antibiotics. She will need to be evaluated by physical therapy. This patient has been to rehab before and did not do well. It would be best to get her back home with home health physical therapy and occupational therapy. She does have help in the home and we need to check and see if there is any other durable medical equipment she may need.
[2018-07-24] MEDS: FERROUS SULFATE 325 MG TABLET PO SCH (12:26)
[2018-07-24] MEDS ORDERED: FENTANYL CITRATE INJ/PF 100 MCG/2 ML AMPUL ONE (12:57)
[2018-07-24] MEDS ORDERED: PROPOFOL INJ 200 MG/20 ML VIAL IV ONE (12:57)
[2018-07-24] MEDS ORDERED: DIPHENHYDRAMINE HCL 50 MG/ML VIAL IV PRN (14:38)
[2018-07-24] MEDS ORDERED: PROMETHAZINE HCL INJ 25 MG/1 ML VIAL IV PRN ×2 (14:38)
[2018-07-24] MEDS ORDERED: FENTANYL CITRATE INJ/PF 100 MCG/2 ML AMPUL IV PRN (14:38)
[2018-07-24] MEDS ORDERED: MEPERIDINE HCL/PF INJ 25 MG/1 ML DISP.SYRIN IV PRN (14:38)
[2018-07-24] MEDS: ACETAMINOPHEN 325 MG TABLET PO PRN (16:10)
[2018-07-24] MEDS: AMIODARONE HCL 200 MG TABLET PO SCH (17:17)
[2018-07-24] MEDS: MONTELUKAST SODIUM 10 MG TABLET PO SCH (17:17)
[2018-07-24] MEDS: PANTOPRAZOLE SODIUM 40 MG TABLET.DR PO SCH (17:17)
--- NOTE | 2018-07-24 17:41 | PDOC PROGRESS REPORT ---
Subjective Progress Note for:: 07/24/18 Subjective:: This is an 88-year-old female with lower extremity hematomas that have secondarily become infected and are now open and draining. The patient denies any fevers or chills. She does report left lower extremity pain, swelling, and drainage. She denies chest pain, shortness of breath, nausea, vomiting, melena, hematocrit easier, abdominal pain, dizziness, blurry vision. Reason For Visit: LEFT LEG CELLULITIS Physical Exam Vital Signs: Temp Pulse Resp BP Pulse Ox 97.5 F 50 L 17 108/31 L 100 07/24/18 16:02 07/24/18 16:02 07/24/18 16:02 07/24/18 16:02 07/24/18 16:02 Intake & Output 07/23/18 07/24/18 07/25/18 06:59 06:59 06:59 Intake Total 1290 1323 950 Output Total 1350 1960 10 Balance -60 -637 940 Weight 45.1 kg 44.6 kg General appearance: PRESENT: no acute distress, cooperative Head exam: PRESENT: atraumatic, normocephalic Eye exam: PRESENT: EOMI, PERRLA Mouth exam: PRESENT: neck supple Neck exam: ABSENT: meningismus, tenderness, thyromegaly, tracheal deviation Respiratory exam: PRESENT: clear to auscultation bruce, unlabored. ABSENT: chest wall tenderness Pulses: PRESENT: normal radial pulses GI/Abdominal exam: PRESENT: soft. ABSENT: distended, guarding, rebound, tenderness Rectal exam: PRESENT: deferred Extremities exam: PRESENT: +2 edema - Bilateral lower extremities Neurological exam: PRESENT: alert, awake, oriented to person, oriented to place, oriented to time, oriented to situation, CN II-XII grossly intact Psychiatric exam: ABSENT: agitated, anxious, depressed Focused psych exam: ABSENT: delusional Skin exam: PRESENT: other - Bruising bilateral upper extremities. Open, draining hematomas of the left lower extremity on the posterior and anterior ca lf. Results Laboratory Results: 07/24/18 04:15 07/24/18 04:15 07/24/18 07/24/18 04:15 04:15 WBC 8.5 RBC 3.25 L Hgb 10.2 L Hct 29.0 L MCV 89 MCH 31.5 MCHC 35.3 RDW 15.2 H Plt Count 246 Seg Neutrophils % 65.5 Lymphocytes % 22.3 Monocytes % 8.2 Eosinophils % 3.0 Basophils % 1.0 Absolute Neutrophils 5.6 Absolute Lymphocytes 1.9 Absolute Monocytes 0.7 Absolute Eosinophils 0.3 Absolute Basophils 0.1 Sodium 133.6 L Potassium 3.7 Chloride 96 L Carbon Dioxide 25 Anion Gap 13 BUN 62 H Creatinine 1.57 H Est GFR ( Amer) 38 L Est GFR (Non-Af Amer) 31 L Glucose 85 Calcium 10.1 Phosphorus 3.3 Magnesium 2.3 Albumin 3.1 L 07/20/18 14:18 Blood Blood Culture - Final Bacteroides Fragilis Group Assessment & Plan - Diagnosis (1) Abscess of left leg Is this a current diagnosis for this admission?: Yes - Plan Summary Plan Summary: This is an 88-year-old female with left lower extremity hematomas that have become secondarily infected. She will require incision and drainage in the operating room today. This is been discussed with her and her at length. Risks/benefits discussed, informed consent obtained, and all questions answered.
--- NOTE | 2018-07-24 17:45 | Operative Report ---
Nonrecallable Operative Report DATE OF SURGERY: 07/24/18 PREOPERATIVE DIAGNOSIS: Infected hematoma of the left lower extremity x2 POSTOPERATIVE DIAGNOSIS: Same as above OPERATION: 1. Incision and drainage of infected hematoma of the left lower extremity x2. 2. Sharp, excisional debridement of necrotic skin of the left lower extremity (3 cm x 2 cm and 1.5 cm x 2 cm). SURGEON: JAZLYN DONIS ANESTHESIA: LMAC TISSUE REMOVED OR ALTERED: Infected hematoma COMPLICATIONS: None apparent ESTIMATED BLOOD LOSS: Minimal PROCEDURE: Drains/implants: Kerlix packing. Procedure in detail: After informed consent was obtained, the patient was brought to the operating room and laid in the supine position. The area of the left lower extremity was prepped and draped in a normal sterile fashion. A 15 blade scalpel was used to sharply and excisionally debride all necrotic skin and fatty soft tissue from the small anterior and larger posterior hematomas. All nonviable tissue was debrided away sharply. The debrided areas measured 3 x 2 cm and 1.5 x 2 cm. The infected hematomas were evacuated. Hemostasis was achieved using electrocautery. The wounds were irrigated. A dressing was then fashion with Kerlix and Coban. At this time the procedure was concluded. All sponge, instrument, and needle counts were correct x2. Condition: Stable.
[2018-07-24] MEDS: SIMVASTATIN 10 MG TABLET PO SCH (22:21)
[2018-07-25] MEDS: CEFAZOLIN 1 GM/D5W RTU 1 GM/50 ML RTUPB IV SCH ×4 (03:31→22:14)
[2018-07-25 05:48] LABS: ABSOLUTE BASOPHILS # (AUTO) 0.1 10^3/uL (0.0-0.2); ABSOLUTE EOSINOPHILS # (AUTO) 0.3 10^3/uL (0.0-0.6); ABSOLUTE LYMPHOCYTES (AUTO) 1.5 10^3/uL (0.5-4.7); ABSOLUTE MONOCYTES (AUTO) 0.8 10^3/uL (0.1-1.4); ABSOLUTE NEUT (AUTO) 5.3 10^3/uL (1.7-8.2); BASOPHILS % (AUTO) 0.9 % (0-2); EOSINOPHILS % (AUTO) 3.6 % (0-6); HEMOGLOBIN 9.8 g/dL (12.0-15.5); LYMPHOCYTES % (AUTO) 19.1 % (13-45); MEAN CORPUSCULAR HEMOGLOBIN 31.4 pg (27.0-33.4); MEAN CORPUSCULAR HGB CONC 34.8 g/dL (32.0-36.0); MEAN CORPUSCULAR VOLUME 90 fl (80-97); MONOCYTES % (AUTO) 9.4 % (3-13); PLATELET COUNT 251 10^3/uL (150-450); RED BLOOD COUNT 3.11 10^6/uL (3.72-5.28); RED CELL DISTRIBUTION WIDTH 15.1 % (11.5-14.0); TOTAL CELLS COUNTED % (AUTO) 100 %
[2018-07-25 06:15] LABS: ALBUMIN 2.9 g/dL (3.5-5.0); ANION GAP 12 (5-19); BLOOD UREA NITROGEN 58 mg/dL (7-20); CALCIUM 9.9 mg/dL (8.4-10.2); CARBON DIOXIDE 23 mmol/L (22-30); CHLORIDE 99 mmol/L (98-107); GLUCOSE 85 mg/dL (75-110); PHOSPHORUS 3.8 mg/dL (2.5-4.5); POTASSIUM 3.8 mmol/L (3.6-5.0); SODIUM 133.5 mmol/L (137-145)
[2018-07-25] MEDS: POTASSIUM CHLORIDE 10 MEQ CAPSULE.ER PO SCH ×2 (08:07→13:02)
[2018-07-25] MEDS: FUROSEMIDE 40 MG TABLET PO SCH ×2 (08:07→13:02)
[2018-07-25] MEDS ORDERED: TRAMADOL HCL 50 MG TABLET PO PRN (10:06)
[2018-07-25] MEDS: NORMAL SALINE 1000 ML 1,000 ML IV PRN (10:53)
[2018-07-25] MEDS: FLUTICASONE/VILANTEROL 200-25 MCG/DOSE IH SCH (10:54)
[2018-07-25] MEDS: POLYETHYLENE GLYCOL 3350 POWDER 17 GM/1 PACKET PO SCH (10:55)
[2018-07-25] MEDS: ASPIRIN 81 MG TABLET, ENT COATED PO SCH (10:55)
[2018-07-25] MEDS: METOLAZONE 2.5 MG TABLET PO SCH (10:55)
[2018-07-25] MEDS: SPIRONOLACTONE 25 MG TABLET PO SCH (10:55)
[2018-07-25] MEDS: LACTOBACILLUS ACIDOPHILUS 250 MG TAB PO SCH (10:55)
[2018-07-25] MEDS: LETROZOLE 2.5 MG TABLET PO SCH (10:55)
[2018-07-25] MEDS: TOLTERODINE TARTRATE 1 MG TABLET PO SCH ×2 (10:55→22:19)
[2018-07-25] MEDS: ACETAMINOPHEN 325 MG TABLET PO PRN (11:05)
[2018-07-25] MEDS: FERROUS SULFATE 325 MG TABLET PO SCH (13:02)
--- NOTE | 2018-07-25 13:35 | PDOC PROGRESS REPORT ---
Subjective Progress Note for:: 07/25/18 Subjective:: No complaints Reason For Visit: LEFT LEG CELLULITIS Physical Exam Vital Signs: Temp Pulse Resp BP Pulse Ox 98.3 F 53 L 16 149/47 H 100 07/25/18 12:00 07/25/18 12:00 07/25/18 12:00 07/25/18 12:00 07/25/18 12:00 Intake & Output 07/24/18 07/25/18 07/26/18 06:59 06:59 06:59 Intake Total 1323 2300 1050 Output Total 1960 510 Balance -637 1790 1050 Weight 44.6 kg 47.8 kg Extremities exam: PRESENT: other - Left leg wounds clean with no bleeding. New dressings applied Results Laboratory Results: 07/25/18 04:47 07/25/18 04:47 07/25/18 07/25/18 04:47 04:47 WBC 8.0 RBC 3.11 L Hgb 9.8 L Hct 28.0 L MCV 90 MCH 31.4 MCHC 34.8 RDW 15.1 H Plt Count 251 Seg Neutrophils % 67.0 Lymphocytes % 19.1 Monocytes % 9.4 Eosinophils % 3.6 Basophils % 0.9 Absolute Neutrophils 5.3 Absolute Lymphocytes 1.5 Absolute Monocytes 0.8 Absolute Eosinophils 0.3 Absolute Basophils 0.1 Sodium 133.5 L Potassium 3.8 Chloride 99 Carbon Dioxide 23 Anion Gap 12 BUN 58 H Creatinine 1.36 H Est GFR ( Amer) 45 L Est GFR (Non-Af Amer) 37 L Glucose 85 Calcium 9.9 Phosphorus 3.8 Magnesium 2.2 Albumin 2.9 L 07/20/18 10:01 Blood Blood Culture - Final NO GROWTH IN 5 DAYS 07/20/18 14:18 Blood Blood Culture - Final Bacteroides Fragilis Group Assessment & Plan - Diagnosis (1) infected hematoma Is this a current diagnosis for this admission?: Yes Plan: Status post excisional debridement. Wounds look good. Dressing changes started.
--- NOTE | 2018-07-25 16:22 | PDOC PROGRESS REPORT ---
Subjective Reason For Visit: LEFT LEG CELLULITIS Physical Exam Vital Signs: Temp Pulse Resp BP Pulse Ox 98.4 F 64 16 143/52 H 99 07/25/18 16:00 07/25/18 16:00 07/25/18 16:00 07/25/18 16:00 07/25/18 16:00 Intake & Output 07/24/18 07/25/18 07/26/18 06:59 06:59 06:59 Intake Total 1323 2300 1050 Output Total 1960 510 Balance -637 1790 1050 Weight 44.6 kg 47.8 kg Results Laboratory Results: 07/25/18 04:47 07/25/18 04:47 07/25/18 07/25/18 04:47 04:47 WBC 8.0 RBC 3.11 L Hgb 9.8 L Hct 28.0 L MCV 90 MCH 31.4 MCHC 34.8 RDW 15.1 H Plt Count 251 Seg Neutrophils % 67.0 Lymphocytes % 19.1 Monocytes % 9.4 Eosinophils % 3.6 Basophils % 0.9 Absolute Neutrophils 5.3 Absolute Lymphocytes 1.5 Absolute Monocytes 0.8 Absolute Eosinophils 0.3 Absolute Basophils 0.1 Sodium 133.5 L Potassium 3.8 Chloride 99 Carbon Dioxide 23 Anion Gap 12 BUN 58 H Creatinine 1.36 H Est GFR ( Amer) 45 L Est GFR (Non-Af Amer) 37 L Glucose 85 Calcium 9.9 Phosphorus 3.8 Magnesium 2.2 Albumin 2.9 L 07/20/18 10:01 Blood Blood Culture - Final NO GROWTH IN 5 DAYS 07/20/18 14:18 Blood Blood Culture - Final Bacteroides Fragilis Group Assessment & Plan - Diagnosis (1) infected hematoma Is this a current diagnosis for this admission?: Yes Plan: Will change dressing change to simple bacitracin followed by Coban wrap to the leg. Please have patient follow-up at the wound care clinic when discharged. Surgical list service signing off please call us for any problems.
--- NOTE | 2018-07-25 17:38 | PDOC PROGRESS REPORT ---
Subjective Progress Note for:: 07/25/18 Subjective:: Patient is seen resting in bed. She is awake and alert. Her is at the bedside. She denies any chest pain, shortness of breath or dyspnea. She states she is feeling somewhat better. She denies fever or chills overnight. She has some mild pain in the left lower extremity but states it is improved. She denies any other arthralgias or myalgias. She denies any nausea, vomiting or abdominal pain. She states her appetite is poor but she is trying to eat more. She denies any diarrhea or dysuria. Remaining review of systems are negative. Reason For Visit: LEFT LEG CELLULITIS Physical Exam Vital Signs: Temp Pulse Resp BP Pulse Ox 98.4 F 64 16 143/52 H 99 07/25/18 16:00 07/25/18 16:00 07/25/18 16:00 07/25/18 16:00 07/25/18 16:00 Intake & Output 07/24/18 07/25/18 07/26/18 06:59 06:59 06:59 Intake Total 1323 2300 1050 Output Total 1960 510 Balance -637 1790 1050 Weight 44.6 kg 47.8 kg General appearance: PRESENT: no acute distress, cooperative, thin, well- developed Head exam: PRESENT: atraumatic, normocephalic Eye exam: PRESENT: conjunctiva pink, EOMI, PERRLA. ABSENT: scleral icterus Ear exam: PRESENT: normal external ear exam Mouth exam: PRESENT: moist, tongue midline Neck exam: ABSENT: carotid bruit, JVD, lymphadenopathy, thyromegaly Respiratory exam: PRESENT: clear to auscultation bruce. ABSENT: rales, rhonchi, wheezes Cardiovascular exam: PRESENT: RRR. ABSENT: diastolic murmur, rubs, systolic mur mur Pulses: PRESENT: normal carotid pulses, normal radial pulses Vascular exam: PRESENT: normal capillary refill GI/Abdominal exam: PRESENT: normal bowel sounds, soft. ABSENT: distended, guarding, mass, organolmegaly, rebound, tenderness Rectal exam: PRESENT: deferred Extremities exam: PRESENT: calf tenderness, tenderness - Left lower anterior calf where debridement occurred, +1 edema - Bilateral pedal to knees Musculoskeletal exam: PRESENT: full ROM, tenderness Neurological exam: PRESENT: alert, awake, oriented to person, oriented to place, oriented to time, oriented to situation, CN II-XII grossly intact. ABSENT: motor sensory deficit Skin exam: PRESENT: dry, warm, other - Multiple ecchymosis bilateral forearms Results Laboratory Results: 07/25/18 04:47 07/25/18 04:47 07/25/18 07/25/18 04:47 04:47 WBC 8.0 RBC 3.11 L Hgb 9.8 L Hct 28.0 L MCV 90 MCH 31.4 MCHC 34.8 RDW 15.1 H Plt Count 251 Seg Neutrophils % 67.0 Lymphocytes % 19.1 Monocytes % 9.4 Eosinophils % 3.6 Basophils % 0.9 Absolute Neutrophils 5.3 Absolute Lymphocytes 1.5 Absolute Monocytes 0.8 Absolute Eosinophils 0.3 Absolute Basophils 0.1 Sodium 133.5 L Potassium 3.8 Chloride 99 Carbon Dioxide 23 Anion Gap 12 BUN 58 H Creatinine 1.36 H Est GFR ( Amer) 45 L Est GFR (Non-Af Amer) 37 L Glucose 85 Calcium 9.9 Phosphorus 3.8 Magnesium 2.2 Albumin 2.9 L 07/20/18 10:01 Blood Blood Culture - Final NO GROWTH IN 5 DAYS 07/20/18 14:18 Blood Blood Culture - Final Bacteroides Fragilis Group Assessment and Plan - Diagnosis (1) Left leg cellulitis Is this a current diagnosis for this admission?: Yes Plan: Continue IV vancomycin and cefazolin as above. Cultures pending from surgery. (2) Abscess of left leg Is this a current diagnosis for this admission?: Yes (3) Ambulatory dysfunction Is this a current diagnosis for this admission?: Yes Plan: Patient now has a simple dressing after his doctors are changed. She is okay to start PT. (4) COPD (chronic obstructive pulmonary disease) Is this a current diagnosis for this admission?: Yes (5) Chronic combined systolic and diastolic congestive heart failure Is this a current diagnosis for this admission?: Yes Plan: Currently appears to be euvolemic (6) Hypercalcemia Is this a current diagnosis for this admission?: Yes Plan: This is mild. Ionized calcium is normal (7) Hyponatremia Is this a current diagnosis for this admission?: Yes Plan: This is quite mild and I suspect chronic. (8) Low BMI Is this a current diagnosis for this admission?: Yes Plan: She has a BMI of 18.2. The dietary team is following. At this point I do not believe they feel like she has severe protein malnutrition but certainly she has increased nutritional needs and we will follow the recommendations. (9) Persistent atrial fibrillation Is this a current diagnosis for this admission?: Yes (10) Anemia Qualifiers: Anemia type: unspecified type Qualified Code(s): D64.9 - Anemia, unspecified Is this a current diagnosis for this admission?: Yes (11) Anxiety Is this a current diagnosis for this admission?: Yes Plan: Continue home medications. (12) Hyperlipidemia Qualifiers: Hyperlipidemia type: unspecified Qualified Code(s): E78.5 - Hyperlipidemia, unspecified Is this a current diagnosis for this admission?: Yes Plan: Continue home statins - Time Time Spent with patient: 35 or more minutes Total Critical Time (Minutes): 30 Medications reviewed and adjusted accordingly: Yes Anticipated discharge: Home with Homehealth - Inpatient Certification Based on my medical assessment, after consideration of the patient's com orbidities, presenting symptoms, or acuity I expect that the services needed warrant INPATIENT care.: Yes I certify that my determination is in accordance with my understanding of Medicare's requirements for reasonable and necessary INPATIENT services [42 CFR 412.3e].: Yes Medical Necessity: Failure to Improve With Outpatient Therapy, Need for Pain Control, Need for IV Antibiotics, Need for Surgery
[2018-07-25] MEDS: PANTOPRAZOLE SODIUM 40 MG TABLET.DR PO SCH (17:52)
[2018-07-25] MEDS: MONTELUKAST SODIUM 10 MG TABLET PO SCH (17:52)
[2018-07-25] MEDS: AMIODARONE HCL 200 MG TABLET PO SCH (17:52)
[2018-07-25] MEDS: SIMVASTATIN 10 MG TABLET PO SCH (22:20)
[2018-07-26] MEDS: LACTOBACILLUS ACIDOPHILUS 250 MG TAB PO SCH (09:39)
[2018-07-26] MEDS: FUROSEMIDE 40 MG TABLET PO SCH ×2 (09:39→13:05)
[2018-07-26] MEDS: ASPIRIN 81 MG TABLET, ENT COATED PO SCH (09:39)
[2018-07-26] MEDS: POTASSIUM CHLORIDE 10 MEQ CAPSULE.ER PO SCH ×2 (09:39→13:05)
[2018-07-26] MEDS: LETROZOLE 2.5 MG TABLET PO SCH (09:40)
[2018-07-26] MEDS: CEFAZOLIN 1 GM/D5W RTU 1 GM/50 ML RTUPB IV SCH ×2 (09:40→22:03)
[2018-07-26] MEDS: FLUTICASONE/VILANTEROL 200-25 MCG/DOSE IH SCH (09:40)
[2018-07-26] MEDS: METOLAZONE 2.5 MG TABLET PO SCH (09:40)
[2018-07-26] MEDS: SPIRONOLACTONE 25 MG TABLET PO SCH (09:40)
[2018-07-26] MEDS: TOLTERODINE TARTRATE 1 MG TABLET PO SCH ×2 (09:40→22:04)
[2018-07-26] MEDS: POLYETHYLENE GLYCOL 3350 POWDER 17 GM/1 PACKET PO SCH (09:42)
[2018-07-26 10:52] LABS: VANCOMYCIN,TROUGH 8.7 ug/mL (5.0-20.0)
[2018-07-26] MEDS: VANCOMYCIN HCL 750 MG in DEXTROSE 5%-WATER 250 ML IV SCH (11:15)
[2018-07-26] MEDS: FERROUS SULFATE 325 MG TABLET PO SCH (13:05)
[2018-07-26] MEDS: NORMAL SALINE 1000 ML 1,000 ML IV PRN (13:06)
[2018-07-26] MEDS: PANTOPRAZOLE SODIUM 40 MG TABLET.DR PO SCH (17:19)
[2018-07-26] MEDS: MONTELUKAST SODIUM 10 MG TABLET PO SCH (17:19)
[2018-07-26] MEDS: AMIODARONE HCL 200 MG TABLET PO SCH (17:19)
[2018-07-26] MEDS: SIMVASTATIN 10 MG TABLET PO SCH (22:04)
[2018-07-27] MEDS: ACETAMINOPHEN 325 MG TABLET PO PRN (03:24)
[2018-07-27] MEDS: NORMAL SALINE 1000 ML 1,000 ML IV PRN (03:24)
[2018-07-27 08:03] LABS: ANION GAP 8 (5-19); BLOOD UREA NITROGEN 58 mg/dL (7-20); CALCIUM 9.7 mg/dL (8.4-10.2); CARBON DIOXIDE 24 mmol/L (22-30); CHLORIDE 102 mmol/L (98-107); GLUCOSE 75 mg/dL (75-110); HEMATOCRIT 26.4 % (36.0-47.0); HEMOGLOBIN 9.3 g/dL (12.0-15.5); MEAN CORPUSCULAR HEMOGLOBIN 31.6 pg (27.0-33.4); MEAN CORPUSCULAR HGB CONC 35.2 g/dL (32.0-36.0); MEAN CORPUSCULAR VOLUME 90 fl (80-97); PLATELET COUNT 246 10^3/uL (150-450); POTASSIUM 3.5 mmol/L (3.6-5.0); RED BLOOD COUNT 2.94 10^6/uL (3.72-5.28); SODIUM 134.4 mmol/L (137-145)
--- NOTE | 2018-07-27 09:28 | PDOC PROGRESS REPORT ---
Subjective Progress Note for:: 07/26/18 Subjective:: Patient is seen resting in the chair. She is awake and alert. Her is at the bedside. She denies any chest pain, shortness of breath or dyspnea. She states she is feeling somewhat better. She denies fever or chills overnight. She has some mild pain in the left lower extremity but states it is improved. She denies any other arthralgias or myalgias. She denies any nausea, vomiting or abdominal pain. She states her appetite is poor but she is trying to eat more. She denies any diarrhea or dysuria. Remaining review of systems are negative. Reason For Visit: LEFT LEG CELLULITIS Physical Exam Vital Signs: Temp Pulse Resp BP Pulse Ox 97.5 F 62 15 131/55 H 98 07/25/18 23:23 07/25/18 23:23 07/25/18 23:23 07/25/18 23:23 07/25/18 23:23 Intake & Output 07/25/18 07/26/18 07/27/18 06:59 06:59 06:59 Intake Total 2300 1050 650 Output Total 510 750 Balance 1790 300 650 Weight 47.8 kg 47.8 kg General appearance: PRESENT: no acute distress, thin, well-developed Head exam: PRESENT: atraumatic, normocephalic Eye exam: PRESENT: conjunctiva pink, EOMI, PERRLA. ABSENT: scleral icterus Ear exam: PRESENT: normal external ear exam Mouth exam: PRESENT: moist, tongue midline Neck exam: ABSENT: carotid bruit, JVD, lymphadenopathy, thyromegaly Respiratory exam: PRESENT: clear to auscultation bruce, symmetrical, unlabored Cardiovascular exam: PRESENT: RRR, systolic murmur. ABSENT: diastolic murmur, rubs Pulses: PRESENT: normal carotid pulses, normal radial pulses Vascular exam: PRESENT: normal capillary refill GI/Abdominal exam: PRESENT: normal bowel sounds, soft. ABSENT: distended, guarding, mass, organolmegaly, rebound, tenderness Rectal exam: PRESENT: deferred Extremities exam: PRESENT: calf tenderness, full ROM, +2 edema - pedal to knees Musculoskeletal exam: PRESENT: ambulatory, tenderness - left anterior calf wound Neurological exam: PRESENT: alert, awake, oriented to person, oriented to place, oriented to time, oriented to situation, CN II-XII grossly intact. ABSENT: motor sensory deficit Psychiatric exam: PRESENT: appropriate affect, normal mood. ABSENT: homicidal ideation, suicidal ideation Skin exam: PRESENT: dry, intact, warm, other - multiple echymosis. ABSENT: cya nosis, rash Results Laboratory Results: 07/25/18 04:47 07/25/18 04:47 07/23/18 15:20 Leg - Left Cellulitis Gram Stain - Final 07/23/18 15:20 Leg - Left Cellulitis Wound Culture - Final Bacteroides Fragilis Group No Aerobic Organisms 07/20/18 10:01 Blood Blood Culture - Final NO GROWTH IN 5 DAYS Assessment and Plan - Diagnosis (1) Left leg cellulitis Is this a current diagnosis for this admission?: Yes Plan: Continue IV cefazolin as above. Bacteroides fragilis grew from the wound and her initial blood cultures. Repeat blood cultures are clear. Today is day #6 of IV antibiotics. She can be transitioned to p.o. and possibly discharged home in the next 24-48 hours (2) Abscess of left leg Is this a current diagnosis for this admission?: Yes Plan: Patient was taken to the OR and had evacuation of hematoma and washout. Wound is healing well. Continue local wound care and antibiotics. She will need foll ow-up with wound care clinic post discharge. Home health has been arranged by case management as well. (3) Ambulatory dysfunction Is this a current diagnosis for this admission?: Yes Plan: Patient now has a simple dressing after his doctors are changed. She is okay to start PT. (4) COPD (chronic obstructive pulmonary disease) Is this a current diagnosis for this admission?: Yes Plan: No evidence of exacerbation (5) Chronic combined systolic and diastolic congestive heart failure Is this a current diagnosis for this admission?: Yes Plan: Currently appears to be euvolemic (6) Hyponatremia Is this a current diagnosis for this admission?: Yes Plan: This is quite mild and I suspect chronic. (7) Low BMI Is this a current diagnosis for this admission?: Yes Plan: She has a BMI of 18.2. The dietary team is following. At this point I do not believe they feel like she has severe protein malnutrition but certainly she has increased nutritional needs and we will follow the recommendations. (8) Persistent atrial fibrillation Is this a current diagnosis for this admission?: Yes Plan: Currently in a sinus rhythm and rate controlled. Continue amiodarone. Certainly she is not a candidate for anticoagulation (9) Anemia Qualifiers: Anemia type: unspecified type Qualified Code(s): D64.9 - Anemia, unspecified Is this a current diagnosis for this admission?: Yes (10) Anxiety Is this a current diagnosis for this admission?: Yes Plan: Continue home medications. (11) Hyperlipidemia Qualifiers: Hyperlipidemia type: unspecified Qualified Code(s): E78.5 - Hyperlipidemia, unspecified Is this a current diagnosis for this admission?: Yes Plan: Continue home statins (12) Bacteremia Is this a current diagnosis for this admission?: No Plan: Patient had bacteroides fragilis in initial blood cultures and wound. Repeat blood cultures have no growth in 72 hrs (13) Hypercalcemia Is this a current diagnosis for this admission?: Yes Plan: Resolved. - Time Time Spent with patient: 25-34 minutes Total Critical Time (Minutes): 20 Medications reviewed and adjusted accordingly: Yes Anticipated discharge: Home with Homehealth Within: within 48 hours - Inpatient Certification Based on my medical assessment, after consideration of the patient's comorbidities, presenting symptoms, or acuity I expect that the services needed warrant INPATIENT care.: Yes I certify that my determination is in accordance with my understanding of Medicare's requirements for reasonable and necessary INPATIENT services [42 CFR 412.3e].: Yes Medical Necessity: Need for IV Antibiotics, Need for Surgery, Risk of Complication if Not Cared For in Hospital
--- NOTE | 2018-07-27 09:49 | PDOC PROGRESS REPORT ---
Subjective Progress Note for:: 07/27/18 Subjective:: Patient is seen resting in the chair. She is awake and alert. Her construction trades contractor is at the bedside She denies any chest pain, shortness of breath or dyspnea. She states she is feeling somewhat better. She denies fever or chills overnight. She has some mild pain in the left lower extremity but states it is improved. She denies any other arthralgias or myalgias. She denies any nausea, vomiting or abdominal pain. She denies any diarrhea or dysuria. Remaining review of systems are negative. Reason For Visit: LEFT LEG CELLULITIS Physical Exam Vital Signs: Temp Pulse Resp BP Pulse Ox 97.6 F 51 L 17 122/42 L 100 07/27/18 08:00 07/27/18 08:00 07/27/18 08:00 07/27/18 08:00 07/27/18 08:00 Intake & Output 07/26/18 07/27/18 07/28/18 06:59 06:59 06:59 Intake Total 1050 3088 Output Total 750 1150 Balance 300 1938 Weight 47.8 kg 48.9 kg General appearance: PRESENT: no acute distress, thin, well-developed Head exam: PRESENT: atraumatic, normocephalic Eye exam: PRESENT: conjunctiva pink, EOMI, PERRLA. ABSENT: scleral icterus Ear exam: PRESENT: normal external ear exam Mouth exam: PRESENT: moist, tongue midline Neck exam: ABSENT: carotid bruit, JVD, lymphadenopathy, thyromegaly Respiratory exam: PRESENT: clear to auscultation bruce, symmetrical, unlabored Cardiovascular exam: PRESENT: RRR. ABSENT: diastolic murmur, rubs, systolic murmur Pulses: PRESENT: normal carotid pulses, normal radial pulses Vascular exam: PRESENT: normal capillary refill GI/Abdominal exam: PRESENT: normal bowel sounds, soft. ABSENT: distended, guarding, mass, organolmegaly, rebound, tenderness Rectal exam: PRESENT: deferred Extremities exam: PRESENT: calf tenderness, full ROM, +2 edema - pedal to knees Neurological exam: PRESENT: alert, awake, oriented to person, oriented to place, oriented to time, oriented to situation, CN II-XII grossly intact. ABSENT: motor sensory deficit Psychiatric exam: PRESENT: appropriate affect, normal mood. ABSENT: homicidal ideation, suicidal ideation Skin exam: PRESENT: dry, warm, other - left anterior calf surgical wound dressing dry and intact. Results Laboratory Results: 07/27/18 06:20 07/27/18 06:20 07/27/18 07/27/18 06:20 06:20 WBC 7.0 RBC 2.94 L Hgb 9.3 L Hct 26.4 L MCV 90 MCH 31.6 MCHC 35.2 RDW 15.0 H Plt Count 246 Sodium 134.4 L Potassium 3.5 L Chloride 102 Carbon Dioxide 24 Anion Gap 8 BUN 58 H Creatinine 1.26 H Est GFR ( Amer) 49 L Est GFR (Non-Af Amer) 40 L Glucose 75 Calcium 9.7 Magnesium 2.1 07/23/18 15:20 Leg - Left Cellulitis Gram Stain - Final 07/23/18 15:20 Leg - Left Cellulitis Wound Culture - Final Bacteroides Fragilis Group No Aerobic Organisms Assessment and Plan - Diagnosis (1) Left leg cellulitis Is this a current diagnosis for this admission?: Yes Plan: Continue IV cefazolin as above. Bacteroides fragilis grew from the wound and her initial blood cultures. Repeat blood cultures are clear. Today is day #7 of IV antibiotics. She can be transitioned to p.o.tomorrow and possibly discharged home (2) Abscess of left leg Is this a current diagnosis for this admission?: Yes Plan: Patient was taken to the OR and had evacuation of hematoma and washout. Wound is healing well. Continue local wound care and antibiotics. She will need follow-up with wound care clinic post discharge. Home health has been arranged by case management as well. (3) Ambulatory dysfunction Is this a current diagnosis for this admission?: Yes Plan: Patient now has a simple dressing after his doctors are changed. She is okay to start PT. (4) COPD (chronic obstructive pulmonary disease) Is this a current diagnosis for this admission?: Yes Plan: No evidence of exacerbation (5) Chronic combined systolic and diastolic congestive heart failure Is this a current diagnosis for this admission?: Yes Plan: Currently appears to be euvolemic (6) Hyponatremia Is this a current diagnosis for this admission?: Yes Plan: This is quite mild and I suspect chronic. (7) Low BMI Is this a current diagnosis for this admission?: Yes Plan: She has a BMI of 18.2. The dietary team is following. At this point I do not believe they feel like she has severe protein malnutrition but certainly she has increased nutritional needs and we will follow the recommendations. (8) Persistent atrial fibrillation Is this a current diagnosis for this admission?: Yes Plan: Currently in a sinus rhythm and rate controlled. Continue amiodarone. Certainly she is not a candidate for anticoagulation (9) Anemia Qualifiers: Anemia type: unspecified type Qualified Code(s): D64.9 - Anemia, unspecified Is this a current diagnosis for this admission?: Yes (10) Anxiety Is this a current diagnosis for this admission?: Yes Plan: Continue home medications. (11) Hyperlipidemia Qualifiers: Hyperlipidemia type: unspecified Qualified Code(s): E78.5 - Hyperlipidemia, unspecified Is this a current diagnosis for this admission?: Yes Plan: Continue home statins (12) Bacteremia Is this a current diagnosis for this admission?: No Plan: Patient had bacteroides fragilis in initial blood cultures and wound. Repeat blood cultures have no growth in 72 hrs (13) Hypercalcemia Is this a current diagnosis for this admission?: Yes Plan: Resolved. - Time Time Spent with patient: 25-34 minutes Total Critical Time (Minutes): 30 Medications reviewed and adjusted accordingly: Yes Anticipated discharge: Home with Homehealth - Inpatient Certification Based on my medical assessment, after consideration of the patient's comorbidities, presenting symptoms, or acuity I expect that the services needed warrant INPATIENT care.: Yes I certify that my determination is in accordance with my understanding of Medicare's requirements for reasonable and necessary INPATIENT services [42 CFR 412.3e].: Yes
[2018-07-27] MEDS: POTASSIUM CHLORIDE 10 MEQ CAPSULE.ER PO SCH ×2 (09:58→14:24)
[2018-07-27] MEDS: METOLAZONE 2.5 MG TABLET PO SCH (09:58)
[2018-07-27] MEDS: LACTOBACILLUS ACIDOPHILUS 250 MG TAB PO SCH (09:58)
[2018-07-27] MEDS: ASPIRIN 81 MG TABLET, ENT COATED PO SCH (09:58)
[2018-07-27] MEDS: FUROSEMIDE 40 MG TABLET PO SCH ×2 (09:58→14:25)
[2018-07-27] MEDS: SPIRONOLACTONE 25 MG TABLET PO SCH (09:58)
[2018-07-27] MEDS: POLYETHYLENE GLYCOL 3350 POWDER 17 GM/1 PACKET PO SCH ×2 (09:59→10:04)
[2018-07-27] MEDS: CEFAZOLIN 1 GM/D5W RTU 1 GM/50 ML RTUPB IV SCH (09:59)
[2018-07-27] MEDS: TOLTERODINE TARTRATE 1 MG TABLET PO SCH ×2 (10:00→21:57)
[2018-07-27] MEDS: LETROZOLE 2.5 MG TABLET PO SCH (10:00)
[2018-07-27] MEDS: FLUTICASONE/VILANTEROL 200-25 MCG/DOSE IH SCH (10:00)
[2018-07-27] MEDS: FERROUS SULFATE 325 MG TABLET PO SCH (14:25)
[2018-07-27] MEDS: PANTOPRAZOLE SODIUM 40 MG TABLET.DR PO SCH (18:52)
[2018-07-27] MEDS: AMIODARONE HCL 200 MG TABLET PO SCH (18:52)
[2018-07-27] MEDS: MONTELUKAST SODIUM 10 MG TABLET PO SCH (18:52)
[2018-07-27] MEDS: CEPHALEXIN 500 MG CAPSULE PO SCH ×2 (18:52→23:37)
[2018-07-27] MEDS: SIMVASTATIN 10 MG TABLET PO SCH (21:57)
[2018-07-28] MEDS: ACETAMINOPHEN 325 MG TABLET PO PRN (02:35)
[2018-07-28] MEDS: CEPHALEXIN 500 MG CAPSULE PO SCH ×2 (06:48→13:34)
[2018-07-28] MEDS: FUROSEMIDE 40 MG TABLET PO SCH ×2 (07:35→13:34)
[2018-07-28] MEDS: POTASSIUM CHLORIDE 10 MEQ CAPSULE.ER PO SCH ×2 (07:35→13:33)
[2018-07-28] MEDS: POLYETHYLENE GLYCOL 3350 POWDER 17 GM/1 PACKET PO SCH (10:53)
[2018-07-28] MEDS: METOLAZONE 2.5 MG TABLET PO SCH (10:54)
[2018-07-28] MEDS: ASPIRIN 81 MG TABLET, ENT COATED PO SCH (10:54)
[2018-07-28] MEDS: LACTOBACILLUS ACIDOPHILUS 250 MG TAB PO SCH (10:54)
[2018-07-28] MEDS: FLUTICASONE/VILANTEROL 200-25 MCG/DOSE IH SCH (10:55)
[2018-07-28] MEDS: SPIRONOLACTONE 25 MG TABLET PO SCH (10:55)
[2018-07-28] MEDS: TOLTERODINE TARTRATE 1 MG TABLET PO SCH (10:55)
[2018-07-28] MEDS: LETROZOLE 2.5 MG TABLET PO SCH (10:56)
[2018-07-28 12:27] VITALS: BP 111/42
[2018-07-28] MEDS: FERROUS SULFATE 325 MG TABLET PO SCH (13:34)
--- NOTE | 2018-07-28 13:40 | PDOC DISCHARGE SUMMARY ---
General - Admit/Disc Date/PCP Admission Date/Primary Care Provider: 07/20/18 11:26 DAWSON MEDEL MD Discharge Date: 07/28/18 - Discharge Diagnosis (1) Abscess of left leg Is this a current diagnosis for this admission?: Yes (2) Ambulatory dysfunction Is this a current diagnosis for this admission?: Yes (3) Bacteremia Is this a current diagnosis for this admission?: No (4) COPD (chronic obstructive pulmonary disease) Is this a current diagnosis for this admission?: Yes (5) Chronic combined systolic and diastolic congestive heart failure Is this a current diagnosis for this admission?: Yes (6) Hyponatremia Is this a current diagnosis for this admission?: Yes (7) Left leg cellulitis Is this a current diagnosis for this admission?: Yes (8) Low BMI Is this a current diagnosis for this admission?: Yes (9) Persistent atrial fibrillation Is this a current diagnosis for this admission?: Yes (10) Anemia Is this a current diagnosis for this admission?: Yes (11) Anxiety Is this a current diagnosis for this admission?: Yes (12) Hyperlipidemia Is this a current diagnosis for this admission?: Yes - Additional Information Resuscitation Status: Full Code Prescriptions: Cephalexin Monohydrate [Keflex 500 mg Capsule] 500 mg PO Q6 6 Days #18 capsule Home Medications: Acetaminophen [Tylenol Extra Strength 500 mg Tablet] 500 mg PO Q12HP PRN 07/20/18 Albuterol Sulfate [Proair HFA Inhalation Aerosol 8.5 gm MDI] 2 puff IH Q6HP PRN 07/20/18 Amiodarone HCl [Cordarone 200 mg Tablet] 100 mg PO QPM 07/20/18 Aspirin [Ecotrin 81 mg EC Tablet] 81 mg PO DAILY 07/20/18 Bacillus Coagulans [Probiotic] 1 each PO DAILY 07/20/18 Benzonatate [Tessalon Perle 100 mg Capsule] 100 mg PO TIDP PRN 07/20/18 Biotin 300 mcg PO QPM 07/20/18 Ferrous Sulfate [Feosol 325 mg Tablet] 325 mg PO NOON 07/20/18 Fluticasone/Salmeterol [Advair 250-50 Diskus 14 Dose/Diskus] 1 puff IH Q12 07/20/18 Furosemide [Lasix 40 mg Tablet] 40 mg PO BID@0800,1200 07/20/18 Letrozole [Femara 2.5 mg Tablet] 2.5 mg PO DAILY 07/20/18 Lorazepam [Ativan 1 mg Tablet] 1 mg PO HSP PRN 07/20/18 Metolazone [Zaroxolyn 2.5 mg Tablet] 2.5 mg PO DAILY 07/20/18 Montelukast Sodium [Singulair 10 mg Tablet] 10 mg PO QPM 07/20/18 Multivitamin [Tab-A-Andre (Multiple Vitamin) Tablet] 1 tab PO Q2D 07/20/18 Pantoprazole Sodium [Protonix [address] Tablet] 40 mg PO QPM 07/20/18 Potassium Chloride [Klor-Con M10] 10 meq PO BID@0800,1200 07/20/18 Simvastatin [Zocor 20 mg Tablet] 20 mg PO QHS 07/20/18 Solifenacin Succinate [Vesicare] 10 mg PO QHS 07/20/18 Spironolactone [Aldactone 25 mg Tablet] 25 mg PO DAILY 07/20/18 Tramadol HCl [Ultram 50 mg Tablet] 50 mg PO Q12HP PRN 07/20/18 Cephalexin Monohydrate [Keflex 500 mg Capsule] 500 mg PO Q6 6 Days #18 capsule 07/28/18 History of Present Illness History of Present Illness: ROBERT CAMILO is a 88 year old female with multiple medical comorbidities who had been treated as an outpatient for a leg cellulitis with 10 days of Levaquin and who complains of sudden increasing redness and pain in the leg starting yesterday with spreading of the erythema up the left leg now proximal to the left knee. She has had no purulence or drainage. She originally had a lesion on the anterior surface of the left leg about 15 cm proximal to the ankle that was the initial lesion for which she was treated. She is being admitted having failed outpatient therapy. She has not had any fevers or chills. Hospital Course Hospital Course: (1) Left leg cellulitis Continued IV cefazolin for 7 days was switched to p.o. to complete total of 14 days. Discharge home with wound care, home health, PT, and follow-up with surgery for evaluation of the wound. On the day of discharge wound looked clean with clear base no active discharge or tenderness. Neurovascularly intact chronic stasis dermatitis. (2) Abscess of left leg Patient was taken to the OR and had evacuation of hematoma and washout. Wound is healing well. Continue local wound care and antibiotics. She will need follow-up with wound care clinic post discharge. Home health has been arranged by case management as well. (3) Ambulatory dysfunction Patient now has a simple dressing after his doctors are changed. Discharge on home PT. Discharged on home health and wound care. (4) COPD (chronic obstructive pulmonary disease) No evidence of exacerbation (5) Chronic combined systolic and diastolic congestive heart failure Currently appears to be euvolemic (6) Hyponatremia This is quite mild and I suspect chronic. (7) Low BMI She has a BMI of 18.2. The dietary team is following. At this point I do not believe they feel like she has severe protein malnutrition but certainly she has increased nutritional needs and we will follow the recommendations. (8) Persistent atrial fibrillation Currently in a sinus rhythm and rate controlled. Continue amiodarone. Not a candidate for anticoagulation (9) Anemia Chronic. Stable. (10) Anxiety Continue home medications. (11) Hyperlipidemia Continue home statins (12) Bacteremia Patient had bacteroides fragilis in initial blood cultures and wound. Repeat blood cultures have no growth in 72 hrs Physical Exam Vital Signs: Temp Pulse Resp BP Pulse Ox 98.0 F 51 L 16 111/42 L 100 07/28/18 12:00 07/28/18 12:00 07/28/18 12:00 07/28/18 12:00 07/28/18 12:00 Intake & Output 07/27/18 07/28/18 07/29/18 06:59 06:59 06:59 Intake Total 3088 900 Output Total 1150 Balance 1938 900 Weight 48.9 kg 49 kg General appearance: PRESENT: no acute distress, thin, well-developed, well- nourished Head exam: PRESENT: atraumatic, normocephalic Respiratory exam: PRESENT: clear to auscultation bruce. ABSENT: rales, rhonchi, wheezes Cardiovascular exam: PRESENT: RRR. ABSENT: diastolic murmur, rubs, systolic murmur GI/Abdominal exam: PRESENT: normal bowel sounds, soft. ABSENT: distended, guarding, mass, organolmegaly, rebound, tenderness Extremities exam: PRESENT: full ROM, pedal edema - Persistent bilateral lower extremity stasis dermatitis. 2 open wounds one on the medial aspect and another one on the posterior aspect of the left lower extremity. Both clean, granulation tissue, no active discharge or any sign of infection. Neurovascularly intact., other. ABSENT: calf tenderness, clubbing Results Laboratory Results: 07/27/18 06:20 07/27/18 06:20 07/23/18 09:43 Blood Blood Culture - Final NO GROWTH IN 5 DAYS 07/23/18 08:36 Blood Blood Culture - Final NO GROWTH IN 5 DAYS Qualifiers - * PATIENT BEING DISCHARGED WITH ANY OF THE FOLLOWING DIAGNOSIS: No
== END 2018-07-28 14:49 | disposition home health service (06) | DRG 571 ==
LOC: ER 09:31 → EH 11:26 → 4N 12:54
PROVIDERS: ADMIT Family Medicine; ATTEND Internal Medicine
PROC: 0JBP0ZZ Excision of Left Lower Leg Subcutaneous Tissue and Fascia, Open Approach (ICD-10-PCS; principal; 2018-07-24 13:15)
DX: L02.416 Cutaneous abscess of left lower limb (principal); I13.0 Hypertensive heart and chronic kidney disease with heart failure and stage 1 through stage 4 chronic kidney disease, or unspecified chronic kidney disease; I50.42 Chronic combined systolic (congestive) and diastolic (congestive) heart failure; E87.1 Hypo-osmolality and hyponatremia; I48.1 Persistent atrial fibrillation; M79.81 Nontraumatic hematoma of soft tissue; L03.116 Cellulitis of left lower limb; D50.9 Iron deficiency anemia, unspecified; E78.5 Hyperlipidemia, unspecified; N18.3 Chronic kidney disease, stage 3 (moderate); E83.52 Hypercalcemia; E87.6 Hypokalemia; F41.9 Anxiety disorder, unspecified; D64.9 Anemia, unspecified; J44.9 Chronic obstructive pulmonary disease, unspecified; I48.91 Unspecified atrial fibrillation; M13.842 Other specified arthritis, left hand; M13.841 Other specified arthritis, right hand; Z95.2 Presence of prosthetic heart valve; Z88.0 Allergy status to penicillin; Z88.6 Allergy status to analgesic agent; Z88.8 Allergy status to other drugs, medicaments and biological substances; Z82.49 Family history of ischemic heart disease and other diseases of the circulatory system; Z79.899 Other long term (current) drug therapy; Z79.82 Long term (current) use of aspirin
CPT/HCPCS: 00400; 36415; 80048; 80053; 80069; 80202; 81001; 82306; 82330; 82803; 82962; 83605; 83735; 83970; 85025; 85027; 85610; 87040; 87070; 87075; 87077; 87086; 87205; 93005; 93010; 96365; 99284; J0690; J2704; J3010; J3370; J3490; J7030; J7060; J7620

== ENCOUNTER → 2018-08-28 | Outpatient (CLI) | payer MEDICARE, OTHER ==
--- NOTE | 2018-08-29 12:42 | XCELERA REPORT ---
[address] [address] Lower Extremity Arterial Evaluation Name: ROBERT CAMILO Age: 88 yrs Gender: Female : 1930 Patient Status: Outpatient Patient Location: [facility] Study Date: 08/28/2018 10:52 AM Procedure: A color flow and duplex scan of the lower extremity arteries was performed bilaterally with velocity and waveform anaylsis. Reason For Study: ULCER Ordering Physician: DAWSON MARMOLEJO Performed By: Brianna Nagy Measurements and Calculations Right Left DIRECTOR HEALTH PSV 124.9 134.8 cm/sec Prox PFA PSV -77.5 -104.8cm/sec Prox SFA PSV -131.3 115.9 cm/sec Mid SFA PSV 89.4 -102.7cm/sec Dist SFA PSV -72.8 -94.3 cm/sec Dist Pop A PSV -57.9 -80.3 cm/sec Mid ALVINO PSV -61.8 78.6 cm/sec Mid CONTROL INTEGRATION ENGINEER PSV 100.4 69.2 cm/sec Lion Pedis PSV 84.9 82.0 cm/sec Right Side Arterial Evaluation Normal velocity and triphasic waveforms noted from the Common Femoral artery to the infrageniculate vessels . - Ankle Brachial index not done the patient indicates that she bruises easily with BP cuffs. Left Side Arterial Evaluation Normal velocity and triphasic waveforms noted in the Common Femoral artery. Biphasic with normal velocity from the Femoral and to the infrageniculate vessels Ankle Brachial index not obtained. Interpretation Summary No hemodynamically significant lesions in the bilateral lower extremities, on duplex imaging, at rest. : DAWSON MARMOLEJO > Dawson Marmolejo
== END ==
LOC: SP 10:31
PROVIDERS: ATTEND Surgery
DX: L97.222 Non-pressure chronic ulcer of left calf with fat layer exposed (principal)
CPT/HCPCS: 93925

== ENCOUNTER → 2019-06-16 | Outpatient (CLI) | payer MEDICARE, OTHER ==
[2019-06-16 11:53] LABS: ABSOLUTE BASOPHILS # (AUTO) 0.1 10^3/uL (0.0-0.2); ABSOLUTE EOSINOPHILS # (AUTO) 0.2 10^3/uL (0.0-0.6); ABSOLUTE LYMPHOCYTES (AUTO) 1.2 10^3/uL (0.5-4.7); ABSOLUTE MONOCYTES (AUTO) 0.4 10^3/uL (0.1-1.4); ABSOLUTE NEUT (AUTO) 3.7 10^3/uL (1.7-8.2); BASOPHILS % (AUTO) 1.3 % (0-2); EOSINOPHILS % (AUTO) 3.6 % (0-6); HEMATOCRIT 33.3 % (36.0-47.0); HEMOGLOBIN 11.4 g/dL (12.0-15.5); LYMPHOCYTES % (AUTO) 21.9 % (13-45); MEAN CORPUSCULAR HEMOGLOBIN 31.1 pg (27.0-33.4); MEAN CORPUSCULAR HGB CONC 34.3 g/dL (32.0-36.0); MEAN CORPUSCULAR VOLUME 91 fl (80-97); MONOCYTES % (AUTO) 7.5 % (3-13); PLATELET COUNT 187 10^3/uL (150-450); RED BLOOD COUNT 3.68 10^6/uL (3.72-5.28); RED CELL DISTRIBUTION WIDTH 16.2 % (11.5-14.0); SEGMENTED NEUTROPHILS % (AUTO) 65.7 % (42-78); TOTAL CELLS COUNTED % (AUTO) 100 %; WHITE BLOOD COUNT 5.6 10^3/uL (4.0-10.5)
[2019-06-16 11:58] LABS: APPEARANCE,URINE CLEAR; BILIRUBIN,URINE NEGATIVE (NEGATIVE); COLOR,URINE YELLOW; GLUCOSE, URINE NEGATIVE (NEGATIVE); KETONES,URINE NEGATIVE (NEGATIVE); LEUKOCYTE ESTERASE,URINE TRACE (NEGATIVE); NITRITE,URINE NEGATIVE (NEGATIVE); PROTEIN,URINE NEGATIVE (NEGATIVE); URINE SPECIFIC GRAVITY 1.012; UROBILINOGEN,URINE NEGATIVE mg/dL (<2.0)
[2019-06-16 12:13] LABS: ALBUMIN 4.5 g/dL (3.5-5.0); ANION GAP 11 (5-19); BLOOD UREA NITROGEN 62 mg/dL (7-20); CALCIUM 10.5 mg/dL (8.4-10.2); CARBON DIOXIDE 28 mmol/L (22-30); CHLORIDE 98 mmol/L (98-107); GLUCOSE 90 mg/dL (75-110); PHOSPHORUS 3.4 mg/dL (2.5-4.5)
[2019-06-16 12:14] LABS: ALBUMIN 4.6 g/dL (3.5-5.0); ALKALINE PHOSPHATASE 73 U/L (38-126); ASPARTATE AMINO TRANSFERASE 29 U/L (14-36); BILIRUBIN,TOTAL 0.5 mg/dL (0.2-1.3)
[2019-06-17 11:37] LABS: CREATININE URINE 35.6 mg/dL (Not Estab.); MICROALBUMIN URINE 19.2 ug/mL (Not Estab.)
== END ==
LOC: OD 11:12
PROVIDERS: ATTEND Internal Medicine Nephrology
DX: I13.0 Hypertensive heart and chronic kidney disease with heart failure and stage 1 through stage 4 chronic kidney disease, or unspecified chronic kidney disease (principal); I50.32 Chronic diastolic (congestive) heart failure; N18.4 Chronic kidney disease, stage 4 (severe); D63.1 Anemia in chronic kidney disease; N25.81 Secondary hyperparathyroidism of renal origin; I34.0 Nonrheumatic mitral (valve) insufficiency; I49.8 Other specified cardiac arrhythmias; I48.0 Paroxysmal atrial fibrillation; Z79.899 Other long term (current) drug therapy
CPT/HCPCS: 36415; 80069; 80076; 81001; 82043; 82306; 82570; 83970; 84443; 85025

== ENCOUNTER → 2019-06-19 | Outpatient (CLI) | payer MEDICARE, OTHER ==
--- NOTE | 2019-06-19 16:08 | RADIOLOGY REPORT (SQ) ---
EXAM DESCRIPTION: NM PARATHYROID IMAGING COMPLETED DATE/TIME: 06/19/2019 3:19 pm REASON FOR STUDY: HYPERPARATHYROIDISM (E21.3), HYPERCALCEMIA (E83.52) E21.3 HYPERPARATHYROIDISM, UN SPECIFIED E83.52 HYPERCALCEMIA COMPARISON: None. RADIONUCLIDE AND DOSE: 21.0 millicuries Tc-99m Sestamibi. The route of agent administration: Intravenous ADDITIONAL DRUGS AND DOSES: None. TECHNIQUE: Early and delayed images of the neck acquired following radionuclide administration. LIMITATIONS: None. FINDINGS: Thyroid: Normal size. Homogeneous activity. Normal washout. No focal lesions. Parathyroid: No retained activity in the thyroid or elsewhere in the neck to indicate a parathyroid a denoma. Other: No other significant findings. IMPRESSION: NORMAL STUDY. NO EVIDENCE OF PARATHYROID ADENOMA. TECHNICAL DOCUMENTATION: JOB ID: [id number] 2010 [employer]- All Rights Reserved Reading location - IP/workstation name: [email or web address]
== END ==
LOC: RAD 10:54
PROVIDERS: ATTEND Internal Medicine Nephrology
DX: E21.3 Hyperparathyroidism, unspecified (principal); E21.1 Secondary hyperparathyroidism, not elsewhere classified; N18.4 Chronic kidney disease, stage 4 (severe)
CPT/HCPCS: 78070; A9500; Q9969

== ENCOUNTER 2019-08-16 09:48 | Inpatient (IN) | payer MEDICARE, OTHER ==
--- NOTE | 2019-08-16 11:13 | RADIOLOGY REPORT (SQ) ---
EXAM DESCRIPTION: CHEST SINGLE VIEW IMAGES COMPLETED DATE/TIME: 08/16/2019 10:56 am REASON FOR STUDY: cough COMPARISON: 2018. FINDINGS: One-view chest AP portable upright. Abnormal. Focal masslike density in the right upper lung field, not seen previously. Potentially pneumonia, bu t consider underlying mass. Chest CT may be helpful. Consolidation/ volume loss in the right base. Mild subsegmental atelectasis left base. TECHNICAL DOCUMENTATION: JOB ID: [id number] Reading location - IP/workstation name: [email or web address]
[2019-08-16] MEDS ORDERED: NORMAL SALINE 250 ML IV ONE (11:17)
[2019-08-16 11:28] LABS: INTERNATIONAL RATION (INR) 1.51; PROTHROMBIN TIME 18.4 SEC (11.4-15.4)
[2019-08-16 11:31] LABS: D-DIMER 2.32 ug/mL (0.00-0.50)
[2019-08-16 11:36] LABS: ALBUMIN 3.7 g/dL (3.5-5.0); ALKALINE PHOSPHATASE 62 U/L (38-126); ANION GAP 13 (5-19); ASPARTATE AMINO TRANSFERASE 24 U/L (14-36); BILIRUBIN,DIRECT 0.2 mg/dL (0.0-0.4); BILIRUBIN,TOTAL 0.8 mg/dL (0.2-1.3); BLOOD UREA NITROGEN 75 mg/dL (7-20); CALCIUM 10.1 mg/dL (8.4-10.2); CARBON DIOXIDE 24 mmol/L (22-30); CHLORIDE 95 mmol/L (98-107); GLUCOSE 113 mg/dL (75-110); POTASSIUM 4.8 mmol/L (3.6-5.0); TOTAL PROTEIN 6.6 g/dL (6.3-8.2)
[2019-08-16 11:40] LABS: A TYPE INFLUENZA AG NEGATIVE (NEGATIVE)
[2019-08-16 11:41] LABS: B INFLUENZA AG NEGATIVE (NEGATIVE)
[2019-08-16 11:42] LABS: HEMATOCRIT 28.4 % (36.0-47.0); HEMOGLOBIN 9.9 g/dL (12.0-15.5); MEAN CORPUSCULAR HEMOGLOBIN 32.1 pg (27.0-33.4); MEAN CORPUSCULAR HGB CONC 34.7 g/dL (32.0-36.0); MEAN CORPUSCULAR VOLUME 93 fl (80-97); PLATELET COUNT 141 10^3/uL (150-450); RED BLOOD COUNT 3.07 10^6/uL (3.72-5.28); RED CELL DISTRIBUTION WIDTH 15.2 % (11.5-14.0); WHITE BLOOD COUNT 13.2 10^3/uL (4.0-10.5)
[2019-08-16 11:47] LABS: TROPONIN I 0.027 ng/mL
[2019-08-16 12:02] LABS: ABSOLUTE LYMPHOCYTES# (MANUAL) 0.5 10^3/uL (0.5-4.7); ABSOLUTE MONOCYTES # (MANUAL) 0.7 10^3/uL (0.1-1.4); BAND NEUTROPHILS % (MANUAL) 8 % (3-5); BASOPHILS % (MANUAL) 0 % (0-2); EOSINOPHILS % (MANUAL) 0 % (0-6); LYMPHOCYTES % (MANUAL) 4 % (13-45); MONOCYTES % (MANUAL) 5 % (3-13); SEGMENTED NEUTROPHILS % (MAN) 83 % (42-78); TOTAL CELLS COUNTED 100
[2019-08-16 12:04] LABS: ANISOCYTOSIS SLIGHT; OVALOCYTES SLIGHT; PLATELET COMMENT ADEQUATE; POIKILOCYTOSIS SLIGHT
--- NOTE | 2019-08-16 12:14 | EKG REPORT ---
SEVERITY:- ABNORMAL ECG - ACCELERATED JUNCTIONAL RHYTHM BORDERLINE T WAVE ABNORMALITIES : Confirmed by: Bravo Block MD 16-Aug-2019 12:13:46
--- NOTE | 2019-08-16 12:23 | RADIOLOGY REPORT (SQ) ---
EXAM DESCRIPTION: ABDOMEN 2 VIEWS IMAGES COMPLETED DATE/TIME: 08/16/2019 12:11 pm REASON FOR STUDY: distended abd,diarrhea COMPARISON: None. NUMBER OF VIEWS: Two views. TECHNIQUE: Supine and erect/decubitus radiographic images of the abdomen acquired. LIMITATIONS: None. FINDINGS: FREE AIR: None. No abnormal gas collections. LUNG BASES: Clear. BOWEL GAS PATTERN: Nonobstructive pattern. No dilated loops or air fluid levels. Moderate stool. CALCIFICATIONS: No suspicious calcifications. SOFT TISSUES: No gross mass or suggestion of organomegaly. HARDWARE: None in the abdomen. BONES: Osteopenic. OTHER: No other significant finding. IMPRESSION: NO RADIOGRAPHIC EVIDENCE FOR ACUTE ABDOMINAL DISEASE. TECHNICAL DOCUMENTATION: JOB ID: [id number] 2010 [employer]- All Rights Reserved Reading location - IP/workstation name: [email or web address]
[2019-08-16] MEDS ORDERED: FUROSEMIDE INJ/PF 40 MG/4 ML SDV IV ONE (12:52)
[2019-08-16] MEDS ORDERED: AZTREONAM INJ 1 GM VIAL IV ONE (12:54)
[2019-08-16] MEDS ORDERED: ASPIRIN 81 MG TABLET, CHEWABLE PO ONE (13:00)
--- NOTE | 2019-08-16 13:50 | RADIOLOGY REPORT (SQ) ---
EXAM DESCRIPTION: CT CHEST WITHOUT IMAGES COMPLETED DATE/TIME: 08/16/2019 12:34 pm REASON FOR STUDY: sobr/right upper lobe mass/effusion COMPARISON: Chest radiograph same date. Chest radiograph, 03/13/2018. TECHNIQUE: CT scan performed of the chest without intravenous contrast. Images reviewed with lung, soft tissue and bone windows. Reconstructed coronal and sagittal MPR images reviewed. All images st ored on PACS. All CT scanners at this facility use dose modulation, iterative reconstruction, and/or weight based d osing when appropriate to reduce radiation dose to as low as reasonably achievable (ALARA). [facility]: Dose Right [facility]: CareDose [facility]: Dose Right [facility]: Teradose 4D [facility]: [employer] RADIATION DOSE: CT Rad equipment meets quality standard of care and radiation dose reduction techniq ues were employed. CTDIvol: 4.9 mGy. DLP: 170 mGy-cm. mGy. LIMITATIONS: No technical limitations. FINDINGS: LUNGS AND PLEURA: The trachea normal caliber and appearance. No bronchial wall thickening or bronchiectasis. There is focal consolidation in the peripheral right upper lobe and confluent co nsolidation at the right lung base right lower lobe. Small right pleural effusion. The left lung is clear. No pneumothorax. HILAR AND MEDIASTINAL STRUCTURES: No identified masses or abnormal nodes. No obvious aneurysm. HEART AND VASCULAR STRUCTURES: Severe cardiomegaly. No pericardial effusion. Coronary artery athero sclerosis is noted. Aorta has normal caliber. UPPER ABDOMEN: No significant findings. Limited exam. THYROID AND OTHER SOFT TISSUES: No masses. No adenopathy. BONES: Median sternotomy wires. No suspicious bone lesions. HARDWARE: None in the chest. OTHER: No other significant findings. IMPRESSION: 1. Multifocal consolidation in the right upper and lower lobe with small right pleural effusion. Fin dings are suggestive of multifocal pneumonia. Imaging features can be seen with COVID 19 pneumonia, though are nonspecific and can occur with a variety of infectious and noninfectious processes. 2. Severe cardiomegaly. TECHNICAL DOCUMENTATION: JOB ID: [id number] Quality ID # [id number]: Final reports with documentation of one or more dose reduction techniques (e.g., Au tomated exposure control, adjustment of the mA and/or kV according to patient size, use of iterative reconstruction technique) 2010 [employer]- All Rights Reserved Reading location - IP/workstation name: [email or web address]
[2019-08-16 14:37] LABS: APPEARANCE,URINE CLEAR; BILIRUBIN,URINE NEGATIVE (NEGATIVE); COLOR,URINE YELLOW; GLUCOSE, URINE NEGATIVE (NEGATIVE); KETONES,URINE NEGATIVE (NEGATIVE); LEUKOCYTE ESTERASE,URINE NEGATIVE (NEGATIVE); NITRITE,URINE NEGATIVE (NEGATIVE); PROTEIN,URINE NEGATIVE (NEGATIVE); UROBILINOGEN,URINE NEGATIVE mg/dL (<2.0)
--- NOTE | 2019-08-16 15:51 | ER Document Report ---
Entered by ANTONY ROMERO SCRIBE 08/16/19 1129 Acting as scribe for:LAYA ORELLANA MD ED Respiratory Problem - General Chief Complaint: Cough Stated Complaint: COUGH/SHORTNESS OF BREATH Time Seen by Provider: 08/16/19 10:22 Primary Care Provider: KURTIS SCOTT MD [Primary Care Provider] - Follow up as needed Information source: Patient Notes: This 89 year old female patient presents to the emergency department today with increased general weakness for the past x6 days. Patient states x6 days ago she vomited once and had diarrhea for most of the day. Patient states she felt general weakness and this increased over the week, as well as feeling body aches. Patient states she has had less of an appetite the past x6 days and did not have a appetite this morning. Patient states she has a cough that is non- productive and has not vomited since x6 days ago. Patient denies any fever, chills, sore throat, headache, or chest pain. TRAVEL OUTSIDE OF THE [place] IN LAST 30 DAYS: No - Related Data Allergies/Adverse Reactions: amoxicillin [Amoxicillin] Allergy (Intermediate, Verified 05/11/18 09:56) Rash codeine [Codeine] Allergy (Unknown, Verified 05/11/18 09:56) adhesive tape [Adhesive Tape] Adverse Reaction (Severe, Verified 05/11/18 09:56) Tears skin diltiazem HCl [From Tiazac] Adverse Reaction (Intermediate, Verified 05/11/18 09:56) Dizzy doxycycline [Doxycycline] Adverse Reaction (Intermediate, Verified 05/11/18 09:56) Dizzy lisinopril [Lisinopril] Adverse Reaction (Intermediate, Verified 05/11/18 09:56) Dizzy propafenone [Propafenone] Adverse Reaction (Intermediate, Verified 05/11/18 09:56) Diarrhea zolpidem tartrate [From Ambien] Adverse Reaction (Intermediate, Verified 05/11/18 09:56) Confusion Strong fumes Allergy (Severe, Uncoded 05/11/18 09:56) Asthma Past Medical History - General Information source: Patient - Social History Smoking Status: Unknown if Ever Smoked Family History: Reviewed & Not Pertinent, CAD, Malignancy Patient has suicidal ideation: No Patient has homicidal ideation: No - Past Medical History Cardiac Medical History: Reports: Hx Atrial Fibrillation, Hx Hypercholesterolemia, Hx Hypertension Pulmonary Medical History: Reports: Hx COPD, Hx Pneumonia Denies: Hx Asthma - occasional SOB, ALBUTERAL Malignancy Medical History: Reports: Hx Breast Cancer Musculoskeletal Medical History: Reports Hx Arthritis - Hands Past Surgical History: Reports: Hx Cardiac Surgery - mitral valve replacement, Hx Hysterectomy, Hx Mastectomy - 2010, Hx Open Heart Surgery - MITRAL VALVE REPAIR, Other - Mitral valve repair - Immunizations Hx Diphtheria, Pertussis, Tetanus Vaccination: Yes Hx Pneumococcal Vaccination: 04/30/09 Review of Systems - Review of Systems Constitutional: See HPI, Weakness. denies: Chills, Fever EENT: See HPI. denies: Throat pain Cardiovascular: See HPI. denies: Chest pain Respiratory: See HPI, Cough - Non-productive. Gastrointestinal: See HPI, Diarrhea, Vomiting - Once x6 days ago., Poor appetite Genitourinary: No symptoms reported Female Genitourinary: No symptoms reported Musculoskeletal: See HPI Skin: No symptoms reported Hematologic/Lymphatic: No symptoms reported Neurological/Psychological: See HPI. denies: Headaches -: Yes All other systems reviewed and negative Physical Exam - Vital signs Vitals: Temp Pulse Resp BP Pulse Ox 99.0 F 70 25 H 113/51 L 92 08/16/19 10:10 08/16/19 10:10 08/16/19 10:10 08/16/19 10:10 08/16/19 10:10 - General General appearance: Appears well, Alert - HEENT Head: Normocephalic, Atraumatic Eyes: Normal Pupils: PERRL Pharynx: Erythema. No: Exudate Neck: Supple - Respiratory Respiratory status: No respiratory distress Chest status: Nontender Breath sounds: Rales - Rales in bases bilaterally R>L.. No: Wheezing Chest palpation: Normal - Cardiovascular Rhythm: Regular Heart sounds: Normal auscultation, S1 appreciated, S2 appreciated Murmur: No - Abdominal Inspection: Normal Distension: Distended - Slightly distended. Bowel sounds: Normal Tenderness: Nontender Organomegaly: No organomegaly - Extremities General upper extremity: Normal inspection. No: Edema General lower extremity: Edema - Nonpitting edema bilaterally. - Neurological Neuro grossly intact: Yes Cognition: Normal Orientation: AAOx4 - Psychological Associated symptoms: Normal affect, Normal mood - Skin Skin Temperature: Warm Skin Moisture: Dry Skin Color: Normal Course - Re-evaluation Re-evalutation: 08/16/19 15:45 Patient resting comfortably. On nasal O2 not showing any air hunger at this time. 08/16/19 15:49 Case was discussed with Dr. Villa regarding admitting to the hospital with the consideration COVID-19 inasmuch as patient is elderly has chronic medical problems and multifocal pneumonia on chest x-ray. - Vital Signs Vital signs: Temp Pulse Resp BP Pulse Ox 99.0 F 70 22 H 122/49 L 81 L 08/16/19 10:10 08/16/19 10:10 08/16/19 13:51 08/16/19 13:51 08/16/19 13:51 08/16/19 15:46 Most recent pulse ox is 94 95% on 2 L nasal O2. - Laboratory Result Diagrams: 08/16/19 10:30 08/16/19 10:30 Laboratory results interpreted by me: 08/16/19 08/16/19 08/16/19 10:30 10:30 10:30 WBC 13.2 H RBC 3.07 L Hgb 9.9 L Hct 28.4 L RDW 15.2 H Plt Count 141 L Seg Neuts % (Manual) 83 H Band Neutrophils % 8 H Lymphocytes % (Manual) 4 L Abs Neuts (Manual) 12.0 H PT 18.4 H APTT 40.0 H D-Dimer 2.32 H Sodium 131.6 L Chloride 95 L BUN 75 H Creatinine 2.10 H Est GFR ( Amer) 27 L Est GFR (MDRD) Non-Af 22 L Glucose 113 H NT-Pro-B Natriuret Pep Lipase 11.6 L 08/16/19 10:30 WBC RBC Hgb Hct RDW Plt Count Seg Neuts % (Manual) Band Neutrophils % Lymphocytes % (Manual) Abs Neuts (Manual) PT APTT D-Dimer Sodium Chloride BUN Creatinine Est GFR ( Amer) Est GFR (MDRD) Non-Af Glucose NT-Pro-B Natriuret Pep 6500 H Lipase Leukocytosis and chronic renal failure and a BNP of 6500. Also a mildly elevated troponin with no acute ST changes on EKG. - Diagnostic Test Radiology reviewed: Image reviewed, Reports reviewed Radiology results interpreted by me: 08/16/19 15:48 Chest x-ray 1 view shows multifocal infiltrates and a right pleural effusion. Abdominal flat and upright abdomen disclose no acute process. CT scan of chest without contrast shows multifocal pneumonia and pleural effusion on the right. Discharge - Discharge Clinical Impression: Multifocal pneumonia, History of atrial fibrillation, Diastolic CHF, Acute on chronic renal failure Condition: Serious Disposition: ADMITTED INPATIENT Admitting Provider: Allen (Hospitalist) Unit Admitted: Medical Floor Referrals: KURTIS SCOTT MD [Primary Care Provider] - Follow up as needed I personally performed the services described in the documentation, reviewed and edited the documentation which was dictated to the scribe in my presence, and it accurately records my words and actions.
[2019-08-16] MEDS ORDERED: NORMAL SALINE 1000 ML 1,000 ML IV PRN (16:42)
[2019-08-16] MEDS ORDERED: ONDANSETRON HCL INJ/PF 4 MG/2 ML SDV IV PRN (16:53)
[2019-08-16] MEDS ORDERED: AZITHROMYCIN INJ 500 MG VIAL IV PRN (17:13)
--- NOTE | 2019-08-16 17:25 | PDOC H&P ---
History of Present Illness Admission Date/PCP: 08/16/19 16:14 KURTIS SCOTT MD History of Present Illness: ROBERT CAMILO is a 89 year old female with a history of right ventricular h eart failure, pulmonary hypertension, chronic atrial fibrillation, COPD, chronic bilateral lower extremity lymphedema, and stage III chronic kidney disease who presents with a 3-day history of "not feeling well." Apparently she vomited one time several days ago but has not vomited anymore since then. She is not been running a fever. She denies any shortness of breath. She was not hypoxic in [facility] ER. She did describe nonspecific body aches. She denies orthopnea. She denies dyspnea on exertion. She does ambulate with the use of a walker but has noted no changes in her exercise tolerance. She says she thinks she has had a dry cough. She was asked earlier if she had lost her sense of taste and she said she was not sure. She denies any episodes consistent with aspiration. She said that she lives at home with her and neither 1 of them of left the house in several months. They have caregivers in the house around the clock, and she said that 1 of them was sick a few days ago. She had some right lower lobe crackles on examination and her BUN and creatinine were elevated above their baseline. She had a mild leukocytosis. Chest imaging findings consistent with a multifocal right sided pneumonitis, the left side was clear. Influenza screen was negative Past Medical History Cardiac Medical History: Reports: Atrial Fibrillation, Hyperlipidema, Hypertension Denies: Myocardial Infarction Pulmonary Medical History: Reports: Chronic Obstructive Pulmonary Disease (COPD), Pneumonia Denies: Asthma - occasional SOB, ALBUTERAL , Bronchitis, Tuberculosis Neurological Medical History: Denies: Seizures Malignancy Medical History: Reports: Breast Cancer GI Medical History: Denies: Cirrhosis, Gastroesophageal Reflux Disease, Hepatitis, Hiatal Hernia Musculoskeltal Medical History: Reports: Arthritis - Hands Psychiatric Medical History: Denies: Dementia, Depression Hematology: Reports: Anemia - 10/09/2011, Bleeding Tendencies - Was advised never to be anticoagulated. Denies: Sickle Cell Disease Past Surgical History Past Surgical History: Reports: Hysterectomy, Mastectomy - 2010, Other - Mitral valve repair Denies: Amputation, Pacemaker Social History Smoking Status: Unknown if Ever Smoked Frequency of Alcohol Use: None Hx Recreational Drug Use: No Drugs: None Hx Prescription Drug Abuse: No Family History Family History: Reviewed & Not Pertinent, CAD, Malignancy Parental Family History Reviewed: No - Patient does not remember Children Family History Reviewed: No - Patient does not remember Sibling(s) Family History Reviewed.: No - Patient does not remember Medication/Allergy Home Medications: Acetaminophen [Tylenol Extra Strength 500 mg Tablet] 500 mg PO Q12HP PRN 07/20/18 Albuterol Sulfate [Proair HFA Inhalation Aerosol 8.5 gm MDI] 2 puff IH Q6HP PRN 07/20/18 Amiodarone HCl [Cordarone 200 mg Tablet] 100 mg PO QPM 07/20/18 Aspirin [Ecotrin 81 mg EC Tablet] 81 mg PO DAILY 07/20/18 Bacillus Coagulans [Probiotic] 1 each PO DAILY 07/20/18 Benzonatate [Tessalon Perle 100 mg Capsule] 100 mg PO TIDP PRN 07/20/18 Biotin 300 mcg PO QPM 07/20/18 Ferrous Sulfate [Feosol 325 mg Tablet] 325 mg PO NOON 07/20/18 Fluticasone/Salmeterol [Advair 250-50 Diskus 14 Dose/Diskus] 1 puff IH Q12 Furosemide [Lasix 40 mg Tablet] 40 mg PO BID@0800,1200 07/20/18 Letrozole [Femara 2.5 mg Tablet] 2.5 mg PO DAILY 07/20/18 Lorazepam [Ativan 1 mg Tablet] 1 mg PO HSP PRN 07/20/18 Metolazone [Zaroxolyn 2.5 mg Tablet] 2.5 mg PO DAILY 07/20/18 Montelukast Sodium [Singulair 10 mg Tablet] 10 mg PO QPM 07/20/18 Multivitamin [Tab-A-Andre (Multiple Vitamin) Tablet] 1 tab PO Q2D 07/20/18 Pantoprazole Sodium [Protonix [address] Tablet] 40 mg PO QPM 07/20/18 Potassium Chloride [Klor-Con M10] 10 meq PO BID@0800,1200 07/20/18 Simvastatin [Zocor 20 mg Tablet] 20 mg PO QHS 07/20/18 Solifenacin Succinate [Vesicare] 10 mg PO QHS 07/20/18 Spironolactone [Aldactone 25 mg Tablet] 25 mg PO DAILY 07/20/18 Tramadol HCl [Ultram 50 mg Tablet] 50 mg PO Q12HP PRN 07/20/18 Cephalexin Monohydrate [Keflex 500 mg Capsule] 500 mg PO Q6 6 Days #18 capsule 07/28/18 Allergies/Adverse Reactions: amoxicillin [Amoxicillin] Allergy (Intermediate, Verified 05/11/18 09:56) Rash codeine [Codeine] Allergy (Unknown, Verified 05/11/18 09:56) adhesive tape [Adhesive Tape] Adverse Reaction (Severe, Verified 05/11/18 09:56) Tears skin diltiazem HCl [From Tiazac] Adverse Reaction (Intermediate, Verified 05/11/18 09:56) Dizzy doxycycline [Doxycycline] Adverse Reaction (Intermediate, Verified 05/11/18 09:56) Dizzy lisinopril [Lisinopril] Adverse Reaction (Intermediate, Verified 05/11/18 09:56) Dizzy propafenone [Propafenone] Adverse Reaction (Intermediate, Verified 05/11/18 09:56) Diarrhea zolpidem tartrate [From Ambien] Adverse Reaction (Intermediate, Verified 9 09:56) Confusion Strong fumes Allergy (Severe, Uncoded 05/11/18 09:56) Asthma Review of Systems All systems: reviewed and no additional remarkable complaints except as stated - All systems were reviewed and were negative except as noted in the HPI Physical Exam Vital Signs: Temp Pulse Resp BP Pulse Ox 99.0 F 70 23 H 123/39 L 100 08/16/19 10:10 08/16/19 10:10 08/16/19 16:00 08/16/19 15:55 08/16/19 16:00 Intake & Output 08/15/19 08/16/19 08/17/19 06:59 06:59 06:59 Intake Total 250 Balance 250 Weight 55.792 kg General appearance: PRESENT: no acute distress, cooperative, disheveled, other - With speaking in complete sentences Head exam: PRESENT: atraumatic, normocephalic Eye exam: PRESENT: EOMI, PERRLA. ABSENT: conjunctival injection, scleral icterus Ear exam: PRESENT: normal external ear exam Mouth exam: PRESENT: dry mucosa, neck supple Throat exam: ABSENT: post pharyngeal erythema Neck exam: PRESENT: full ROM, JVD - Chronic, interestingly it is only on the right side. ABSENT: carotid bruit, lymphadenopathy, meningismus, tenderness, thyromegaly Respiratory exam: PRESENT: crackles - Right lower lobe, unlabored. ABSENT: accessory muscle use, chest wall tenderness, prolonged expiratory phas, retraction, rhonchi, tachypnea, wheezes Cardiovascular exam: PRESENT: RRR, +S1, +S2, systolic murmur Pulses: PRESENT: normal carotid pulses Vascular exam: PRESENT: normal capillary refill GI/Abdominal exam: PRESENT: normal bowel sounds, soft. ABSENT: distended, guarding, rebound, tenderness Extremities exam: PRESENT: pedal edema - Chronic, +2 edema - Chronic, not tense. ABSENT: clubbing Musculoskeletal exam: PRESENT: deformity - She has some chronic deformities in the knuckles in her hands and wrists bilaterally Neurological exam: PRESENT: alert, awake, oriented to person, oriented to place, oriented to situation, CN II-XII grossly intact. ABSENT: motor sensory deficit Psychiatric exam: PRESENT: anxious Skin exam: PRESENT: dry, warm Results Laboratory Results: 08/16/19 10:30 08/16/19 10:30 08/16/19 08/16/19 08/16/19 10:30 10:30 10:30 WBC 13.2 H RBC 3.07 L Hgb 9.9 L Hct 28.4 L MCV 93 MCH 32.1 MCHC 34.7 RDW 15.2 H Plt Count 141 L Seg Neutrophils % Not Reportable Sodium 131.6 L Potassium 4.8 Chloride 95 L Carbon Dioxide 24 Anion Gap 13 BUN 75 H Creatinine 2.10 H Est GFR ( Amer) 27 L Glucose 113 H Lactic Acid 2.0 Calcium 10.1 Total Bilirubin 0.8 AST 24 Alkaline Phosphatase 62 Total Protein 6.6 Albumin 3.7 Lipase 11.6 L Urine Color Urine Appearance Urine pH Ur Specific [place] Urine Protein Urine Glucose (UA) Urine Ketones Urine Blood Urine Nitrite Ur Leukocyte Esterase Urine WBC (Auto) Urine RBC (Auto) 08/16/19 13:35 WBC RBC Hgb Hct MCV MCH MCHC RDW Plt Count Seg Neutrophils % Sodium Potassium Chloride Carbon Dioxide Anion Gap BUN Creatinine Est GFR ( Amer) Glucose Lactic Acid Calcium Total Bilirubin AST Alkaline Phosphatase Total Protein Albumin Lipase Urine Color YELLOW Urine Appearance CLEAR Urine pH 5.0 Ur Specific [place] 1.010 Urine Protein NEGATIVE Urine Glucose (UA) NEGATIVE Urine Ketones NEGATIVE Urine Blood NEGATIVE Urine Nitrite NEGATIVE Ur Leukocyte Esterase NEGATIVE Urine WBC (Auto) 1 Urine RBC (Auto) 0 08/16/19 08/16/19 10:30 15:06 Troponin I 0.027 0.023 NT-Pro-B Natriuret Pep 6500 H Impressions: Abdomen X-Ray 08/16/19 11:13 IMPRESSION: NO RADIOGRAPHIC EVIDENCE FOR ACUTE ABDOMINAL DISEASE. Chest CT 08/16/19 13:01 IMPRESSION: 1. Multifocal consolidation in the right upper and lower lobe with small right pleural effusion. Findings are suggestive of multifocal pneumonia. Imaging features can be seen with COVID 19 pneumonia, though are nonspecific and can occur with a variety of infectious and noninfectious processes. 2. Severe cardiomegaly. Assessment and Plan - Diagnosis (1) Multifocal pneumonia Is this a current diagnosis for this admission?: Yes Plan: We will put her on some Rocephin and azithromycin. Blood cultures have been obtained. (2) Acute kidney injury superimposed on chronic kidney disease Is this a current diagnosis for this admission?: Yes Plan: BUN and creatinine elevated above baseline. Will gently hydrate her and monitor her response. (3) Diastolic CHF Qualifiers: Heart failure chronicity: chronic Qualified Code(s): I50.32 - Chronic diastolic (congestive) heart failure Is this a current diagnosis for this admission?: Yes Plan: I do not think she is acutely exacerbated at this time. I am going to hold her Lasix for right now because I think she is dehydrated, but will make sure she is medically optimized once she is euvolemic. (4) COPD (chronic obstructive pulmonary disease) Qualifiers: Emphysema type: unspecified Is this a current diagnosis for this admission?: Yes Plan: Not acutely exacerbated, will continue home medications (5) Chronic atrial fibrillation Is this a current diagnosis for this admission?: Yes Plan: Rate controlled, will continue her home medications including amiodarone. She said that she has had bleeding episodes in the past and was told that she should not be anticoagulated. We will cover her for DVT prophylaxis while she is here. (6) Encounter for observation for suspected exposure to other biological agents ruled out Is this a current diagnosis for this admission?: Yes Plan: They tested her for callaway virus disease in the ER, will follow up on the test results - Time Time Spent with patient: 35 or more minutes - Inpatient Certification Based on my medical assessment, after consideration of the patient's comorbidities, presenting symptoms, or acuity I expect that the services needed warrant INPATIENT care.: Yes I certify that my determination is in accordance with my understanding of Medicare's requirements for reasonable and necessary INPATIENT services [42 CFR 412.3e].: Yes Medical Necessity: Significant Comorbidiites Make Outpatient Treatment Too Risky, Need Close Monitoring Due to Risk of Patient Decompensation, Need For IV Fluids, Need For Continuous Telemetry Monitoring, Need for IV Antibiotics, Risk of Complication if Not Cared For in Hospital
[2019-08-16] MEDS: CEFTRIAXONE 1 GM/D5W RTU 1 GM/50 ML RTUPB IV SCH (17:28)
[2019-08-16] MEDS: ACETAMINOPHEN 325 MG TABLET PO PRN (17:43)
[2019-08-16] MEDS ORDERED: AZITHROMYCIN INJ 500 MG VIAL IV ONE (17:43)
[2019-08-16] MEDS: AZITHROMYCIN 500 MG in DEXTROSE 5%-WATER 250 ML IV SCH (18:00)
[2019-08-16] MEDS: HEPARIN SOD (PORCINE) 5,000 UNIT/ML 1 ML VIAL SUBCUT SCH (21:17)
[2019-08-17] MEDS: HEPARIN SOD (PORCINE) 5,000 UNIT/ML 1 ML VIAL SUBCUT SCH ×3 (05:27→21:57)
[2019-08-17 05:30] LABS: ABSOLUTE EOSINOPHILS # (AUTO) 0.1 10^3/uL (0.0-0.6); ABSOLUTE LYMPHOCYTES (AUTO) 0.9 10^3/uL (0.5-4.7); ABSOLUTE MONOCYTES (AUTO) 0.4 10^3/uL (0.1-1.4); ABSOLUTE NEUT (AUTO) 8.3 10^3/uL (1.7-8.2); BASOPHILS % (AUTO) 0.4 % (0-2); EOSINOPHILS % (AUTO) 0.8 % (0-6); HEMOGLOBIN 9.6 g/dL (12.0-15.5); LYMPHOCYTES % (AUTO) 9.2 % (13-45); MEAN CORPUSCULAR HEMOGLOBIN 32.4 pg (27.0-33.4); MEAN CORPUSCULAR HGB CONC 35.4 g/dL (32.0-36.0); MEAN CORPUSCULAR VOLUME 92 fl (80-97); MONOCYTES % (AUTO) 4.6 % (3-13); PLATELET COUNT 121 10^3/uL (150-450); RED BLOOD COUNT 2.95 10^6/uL (3.72-5.28); RED CELL DISTRIBUTION WIDTH 15.2 % (11.5-14.0); TOTAL CELLS COUNTED % (AUTO) 100 %; WHITE BLOOD COUNT 9.8 10^3/uL (4.0-10.5)
[2019-08-17 05:52] LABS: ANION GAP 12 (5-19); BLOOD UREA NITROGEN 75 mg/dL (7-20); CALCIUM 9.6 mg/dL (8.4-10.2); CARBON DIOXIDE 24 mmol/L (22-30); CHLORIDE 96 mmol/L (98-107); GLUCOSE 83 mg/dL (75-110)
[2019-08-17 05:59] LABS: POTASSIUM 3.2 mmol/L (3.6-5.0)
[2019-08-17] MEDS: CEFTRIAXONE 1 GM/D5W RTU 1 GM/50 ML RTUPB IV SCH (09:04)
[2019-08-17] MEDS: POTASSIUM CHLORIDE 20 MEQ PACKET PO SCH ×2 (11:54→22:23)
[2019-08-17] MEDS: AMIODARONE HCL 200 MG TABLET PO SCH (11:54)
--- NOTE | 2019-08-17 15:09 | PDOC PROGRESS REPORT ---
Subjective Progress Note for:: 08/17/19 Subjective:: No adverse events overnight. She is back on room air. She has been eating and drinking without difficulty. She states she feels pretty good. She is not had any trouble sleeping. Reason For Visit: [place], [place] ON [facility] Physical Exam Vital Signs: Temp Pulse Resp BP Pulse Ox 98.9 F 81 17 101/42 L 96 08/17/19 11:45 08/17/19 14:00 08/17/19 11:45 08/17/19 11:45 08/17/19 11:45 Intake & Output 08/16/19 08/17/19 08/18/19 06:59 06:59 06:59 Intake Total 1250 1254 Output Total 925 700 Balance 325 554 Weight 58.2 kg General appearance: PRESENT: no acute distress, cooperative, disheveled, other - speaking in complete sentences Respiratory exam: PRESENT: Faint crackles - Right lower lobe, unlabored. ABSENT: accessory muscle use, chest wall tenderness, prolonged expiratory phas, retraction, rhonchi, tachypnea, wheezes Cardiovascular exam: PRESENT: RRR, +S1, +S2, systolic murmur Pulses: PRESENT: normal carotid pulses Vascular exam: PRESENT: normal capillary refill GI/Abdominal exam: PRESENT: normal bowel sounds, soft. ABSENT: distended, guarding, rebound, tenderness Extremities exam: PRESENT: pedal edema - Chronic, +2 edema - Chronic, not tense. ABSENT: clubbing Musculoskeletal exam: PRESENT: deformity - She has some chronic deformities in the knuckles in her hands and wrists bilaterally Neurological exam: PRESENT: alert, awake, oriented to person, oriented to place, oriented to situation Skin exam: PRESENT: dry, warm Results Laboratory Results: 08/17/19 05:15 08/17/19 05:15 08/17/19 08/17/19 05:15 05:15 WBC 9.8 RBC 2.95 L Hgb 9.6 L Hct 27.0 L MCV 92 MCH 32.4 MCHC 35.4 RDW 15.2 H Plt Count 121 L Seg Neutrophils % 85.0 H Sodium 131.5 L Potassium 3.2 L D Chloride 96 L Carbon Dioxide 24 Anion Gap 12 BUN 75 H Creatinine 1.74 H Est GFR ( Amer) 33 L Glucose 83 Calcium 9.6 08/16/19 08/16/19 10:30 15:06 Troponin I 0.027 0.023 NT-Pro-B Natriuret Pep 6500 H Impressions: Abdomen X-Ray 08/16/19 11:13 IMPRESSION: NO RADIOGRAPHIC EVIDENCE FOR ACUTE ABDOMINAL DISEASE. Chest CT 08/16/19 13:01 IMPRESSION: 1. Multifocal consolidation in the right upper and lower lobe with small right pleural effusion. Findings are suggestive of multifocal pneumonia. Imaging features can be seen with COVID 19 pneumonia, though are nonspecific and can o ccur with a variety of infectious and noninfectious processes. 2. Severe cardiomegaly. Assessment and Plan - Diagnosis (1) Multifocal pneumonia Is this a current diagnosis for this admission?: Yes Plan: She has improved on some Rocephin and azithromycin. Blood cultures have been obtained. Now on room air. Being ruled out for coronavirus. (2) Acute kidney injury superimposed on chronic kidney disease Is this a current diagnosis for this admission?: Yes Plan: Resolving nicely. Creatinine has come down, she still not quite in her normal range. Have encouraged p.o. hydration we will try to avoid using IV fluids if possible. (3) Diastolic CHF Qualifiers: Heart failure chronicity: chronic Qualified Code(s): I50.32 - Chronic diastolic (congestive) heart failure Is this a current diagnosis for this admission?: Yes Plan: She has a history of this, not acutely exacerbated (4) COPD (chronic obstructive pulmonary disease) Qualifiers: Emphysema type: unspecified Is this a current diagnosis for this admission?: Yes Plan: Not acutely exacerbated (5) Chronic atrial fibrillation Is this a current diagnosis for this admission?: Yes Plan: Rate controlled, will continue her home medications including amiodarone. She said that she has had bleeding episodes in the past and was told that she should not be anticoagulated. We will cover her for DVT prophylaxis while she is here. (6) Encounter for observation for suspected exposure to other biological agents ruled out Is this a current diagnosis for this admission?: Yes Plan: They tested her for callaway virus disease in the ER, will follow up on the test results - Time Time Spent with patient: 15-24 minutes
[2019-08-17] MEDS: MONTELUKAST SODIUM 10 MG TABLET PO SCH (17:25)
[2019-08-17] MEDS: PANTOPRAZOLE SODIUM 40 MG TABLET.DR PO SCH (17:25)
[2019-08-17] MEDS: AZITHROMYCIN 500 MG in DEXTROSE 5%-WATER 250 ML IV SCH (17:26)
[2019-08-17] MEDS: ACETAMINOPHEN 325 MG TABLET PO PRN (20:18)
[2019-08-17] MEDS ORDERED: (PENDING PHARMACY ID) (Fluticasone/Salmeterol 1 PUFF) IH SCH (22:00)
[2019-08-17] MEDS: FERROUS SULFATE 325 MG TABLET PO SCH (22:23)
[2019-08-18] MEDS: ACETAMINOPHEN 325 MG TABLET PO PRN ×2 (00:35→05:54)
[2019-08-18] MEDS: HEPARIN SOD (PORCINE) 5,000 UNIT/ML 1 ML VIAL SUBCUT SCH ×3 (05:01→21:16)
[2019-08-18 06:48] LABS: ABSOLUTE BASOPHILS # (AUTO) 0.1 10^3/uL (0.0-0.2); ABSOLUTE EOSINOPHILS # (AUTO) 0.4 10^3/uL (0.0-0.6); ABSOLUTE LYMPHOCYTES (AUTO) 1.4 10^3/uL (0.5-4.7); ABSOLUTE MONOCYTES (AUTO) 0.6 10^3/uL (0.1-1.4); BASOPHILS % (AUTO) 0.6 % (0-2); EOSINOPHILS % (AUTO) 4.7 % (0-6); HEMOGLOBIN 9.7 g/dL (12.0-15.5); LYMPHOCYTES % (AUTO) 16.5 % (13-45); MEAN CORPUSCULAR HEMOGLOBIN 32.2 pg (27.0-33.4); MEAN CORPUSCULAR HGB CONC 34.8 g/dL (32.0-36.0); MEAN CORPUSCULAR VOLUME 93 fl (80-97); MONOCYTES % (AUTO) 7.4 % (3-13); PLATELET COUNT 139 10^3/uL (150-450); RED BLOOD COUNT 3.03 10^6/uL (3.72-5.28); RED CELL DISTRIBUTION WIDTH 15.3 % (11.5-14.0); SEGMENTED NEUTROPHILS % (AUTO) 70.8 % (42-78); TOTAL CELLS COUNTED % (AUTO) 100 %; WHITE BLOOD COUNT 8.4 10^3/uL (4.0-10.5)
[2019-08-18 07:05] LABS: ANION GAP 8 (5-19); BLOOD UREA NITROGEN 65 mg/dL (7-20); CALCIUM 9.7 mg/dL (8.4-10.2); CARBON DIOXIDE 25 mmol/L (22-30); CHLORIDE 98 mmol/L (98-107); GLUCOSE 78 mg/dL (75-110); POTASSIUM 3.5 mmol/L (3.6-5.0)
[2019-08-18] MEDS: POTASSIUM CHLORIDE 20 MEQ PACKET PO SCH ×2 (09:16→21:16)
[2019-08-18] MEDS: AMIODARONE HCL 200 MG TABLET PO SCH (09:16)
[2019-08-18] MEDS: FERROUS SULFATE 325 MG TABLET PO SCH ×2 (09:16→21:16)
[2019-08-18] MEDS: FLUTICASONE/VILANTEROL 200-25 MCG/DOSE IH SCH (09:16)
[2019-08-18] MEDS: LETROZOLE 2.5 MG TABLET PO SCH (09:16)
[2019-08-18] MEDS: SPIRONOLACTONE 25 MG TABLET PO SCH (09:16)
[2019-08-18] MEDS: CEFTRIAXONE 1 GM/D5W RTU 1 GM/50 ML RTUPB IV SCH (10:42)
--- NOTE | 2019-08-18 17:14 | PDOC PROGRESS REPORT ---
Subjective Progress Note for:: 08/18/19 Subjective:: No adverse events overnight. No new complaints. She is on room air. She has been eating and drinking without difficulty. She rested okay last night. She has not gotten out of bed yet. Reason For Visit: CAP, A ON CKI Physical Exam Vital Signs: Temp Pulse Resp BP Pulse Ox 98.0 F 73 16 108/46 L 95 08/18/19 15:20 08/18/19 15:20 08/18/19 15:20 08/18/19 15:20 08/18/19 15:20 Intake & Output 08/17/19 08/18/19 08/19/19 06:59 06:59 06:59 Intake Total 1250 2164 50 Output Total 925 1800 Balance 325 364 50 Weight 58.2 kg 56.8 kg General appearance: PRESENT: no acute distress, cooperative, disheveled, other - speaking in complete sentences Respiratory exam: PRESENT: Faint crackles - Right lower lobe, unlabored. ABSENT: accessory muscle use, chest wall tenderness, prolonged expiratory phas, retraction, rhonchi, tachypnea, wheezes Cardiovascular exam: PRESENT: RRR, +S1, +S2, systolic murmur Pulses: PRESENT: normal carotid pulses Vascular exam: PRESENT: normal capillary refill GI/Abdominal exam: PRESENT: normal bowel sounds, soft. ABSENT: distended, guarding, rebound, tenderness Extremities exam: PRESENT: pedal edema - Chronic, +2 edema - Chronic, not tense. ABSENT: clubbing Musculoskeletal exam: PRESENT: deformity - She has some chronic deformities in the knuckles in her hands and wrists bilaterally Neurological exam: PRESENT: alert, awake, oriented to person, oriented to place, oriented to situation Skin exam: PRESENT: dry, warm Results Laboratory Results: 08/18/19 06:18 08/18/19 06:18 08/18/19 08/18/19 06:18 06:18 WBC 8.4 RBC 3.03 L Hgb 9.7 L Hct 28.0 L MCV 93 MCH 32.2 MCHC 34.8 RDW 15.3 H Plt Count 139 L Seg Neutrophils % 70.8 Sodium 131.2 L Potassium 3.5 L Chloride 98 Carbon Dioxide 25 Anion Gap 8 BUN 65 H Creatinine 1.52 H Est GFR ( Amer) 39 L Glucose 78 Calcium 9.7 08/16/19 10:25 Throat Throat Culture - Final NORMAL JOSEFA 08/16/19 15:06 Blood Blood Culture (PCR) - Final Staphylococcus Species 08/16/19 08/16/19 10:30 15:06 Troponin I 0.027 0.023 NT-Pro-B Natriuret Pep 6500 H Impressions: Abdomen X-Ray 08/16/19 11:13 IMPRESSION: NO RADIOGRAPHIC EVIDENCE FOR ACUTE ABDOMINAL DISEASE. Chest CT 08/16/19 13:01 IMPRESSION: 1. Multifocal consolidation in the right upper and lower lobe with small right pleural effusion. Findings are suggestive of multifocal pneumonia. Imaging features can be seen with COVID 19 pneumonia, though are nonspecific and can occur with a variety of infectious and noninfectious processes. 2. Severe cardiomegaly. Assessment and Plan - Diagnosis (1) Multifocal pneumonia Is this a current diagnosis for this admission?: Yes Plan: She has improved on some Rocephin and azithromycin. Blood cultures have been obtained. Now on room air. Ruled out for coronavirus. Should be able to switch to oral antibiotics at discharge. (2) Acute kidney injury superimposed on chronic kidney disease Is this a current diagnosis for this admission?: Yes Plan: Resolved. Creatinine at baseline. (3) Diastolic CHF Qualifiers: Heart failure chronicity: chronic Qualified Code(s): I50.32 - Chronic diastolic (congestive) heart failure Is this a current diagnosis for this admission?: Yes Plan: She has a history of this, not acutely exacerbated (4) COPD (chronic obstructive pulmonary disease) Qualifiers: Emphysema type: unspecified Is this a current diagnosis for this admission?: Yes Plan: Not acutely exacerbated (5) Chronic atrial fibrillation Is this a current diagnosis for this admission?: Yes Plan: Rate controlled, will continue her home medications including amiodarone. She said that she has had bleeding episodes in the past and was told that she should not be anticoagulated. We will cover her for DVT prophylaxis while she is here. (6) Encounter for observation for suspected exposure to other biological agents ruled out Is this a current diagnosis for this admission?: Yes Plan: They tested her for callaway virus disease in the ER, she is negative - Time Time Spent with patient: 15-24 minutes
[2019-08-18] MEDS ORDERED: AZITHROMYCIN 250 MG TABLET PO SCH (18:00)
[2019-08-18] MEDS: PANTOPRAZOLE SODIUM 40 MG TABLET.DR PO SCH (18:14)
[2019-08-18] MEDS: MONTELUKAST SODIUM 10 MG TABLET PO SCH (18:14)
[2019-08-18] MEDS ORDERED: GUAIFENESIN SYRP 200 MG/10 ML UDC PO PRN (22:07)
[2019-08-19] MEDS: HEPARIN SOD (PORCINE) 5,000 UNIT/ML 1 ML VIAL SUBCUT SCH ×2 (05:36→13:44)
[2019-08-19 06:53] LABS: HEMATOCRIT 26.6 % (36.0-47.0); HEMOGLOBIN 9.4 g/dL (12.0-15.5); MEAN CORPUSCULAR HEMOGLOBIN 32.4 pg (27.0-33.4); MEAN CORPUSCULAR HGB CONC 35.2 g/dL (32.0-36.0); MEAN CORPUSCULAR VOLUME 92 fl (80-97); PLATELET COUNT 151 10^3/uL (150-450)
[2019-08-19 07:14] LABS: ANION GAP 8 (5-19); BLOOD UREA NITROGEN 58 mg/dL (7-20); CALCIUM 9.8 mg/dL (8.4-10.2); CARBON DIOXIDE 25 mmol/L (22-30); CHLORIDE 100 mmol/L (98-107); GLUCOSE 89 mg/dL (75-110); POTASSIUM 3.8 mmol/L (3.6-5.0)
[2019-08-19 07:25] LABS: ABSOLUTE LYMPHOCYTES# (MANUAL) 1.4 10^3/uL (0.5-4.7); ABSOLUTE MONOCYTES # (MANUAL) 0.5 10^3/uL (0.1-1.4); BASOPHILS % (MANUAL) 0 % (0-2); EOSINOPHILS % (MANUAL) 1 % (0-6); LYMPHOCYTES % (MANUAL) 15 % (13-45); MONOCYTES % (MANUAL) 6 % (3-13); SEGMENTED NEUTROPHILS % (MAN) 75 % (42-78); TOTAL CELLS COUNTED 100
[2019-08-19 07:27] LABS: ANISOCYTOSIS SLIGHT; OVALOCYTES SLIGHT; PLATELET COMMENT ADEQUATE; TOXIC GRANULATION SLIGHT
[2019-08-19] MEDS: AMIODARONE HCL 200 MG TABLET PO SCH (09:04)
[2019-08-19] MEDS: CEFTRIAXONE 1 GM/D5W RTU 1 GM/50 ML RTUPB IV SCH (09:05)
[2019-08-19] MEDS: FLUTICASONE/VILANTEROL 200-25 MCG/DOSE IH SCH (09:05)
[2019-08-19] MEDS: FERROUS SULFATE 325 MG TABLET PO SCH (09:05)
[2019-08-19] MEDS: LETROZOLE 2.5 MG TABLET PO SCH (09:05)
[2019-08-19] MEDS: SPIRONOLACTONE 25 MG TABLET PO SCH (09:05)
[2019-08-19] MEDS: POTASSIUM CHLORIDE 20 MEQ PACKET PO SCH (09:05)
--- NOTE | 2019-08-19 15:57 | PDOC DISCHARGE SUMMARY ---
Impression - Admit/DC Date/PCP Admission Date/Primary Care Provider: 08/16/19 16:14 KURTIS SCOTT MD Discharge Date: 08/19/19 - Additional Information Resuscitation Status: Do Not Resuscitate Discharge Diet: As Tolerated Discharge Activity: Activity As Tolerated Referrals: CLYDE JAMISON MD [HONORARY] - 08/28/19 2:15 pm Prescriptions: Azithromycin [Zithromax Tri-Adam] 500 mg PO DAILY 2 Days #2 pkg Home Medications: Amiodarone HCl [Cordarone 200 mg Tablet] 100 mg PO DAILY 07/20/18 Ferrous Sulfate [Feosol 325 mg Tablet] 325 mg PO Q12 07/20/18 Fluticasone/Salmeterol [Advair 250-50 Diskus 14 Dose/Diskus] 1 puff IH Q12 07/20/18 Furosemide [Lasix 40 mg Tablet] 40 mg PO Q12 07/20/18 Letrozole [Femara 2.5 mg Tablet] 2.5 mg PO DAILY 07/20/18 Montelukast Sodium [Singulair 10 mg Tablet] 10 mg PO QPM 07/20/18 Pantoprazole Sodium [Protonix [address] Tablet] 40 mg PO QPM 07/20/18 Potassium Chloride [Klor-Con M10] 20 meq PO BID 07/20/18 Solifenacin Succinate [Vesicare] 10 mg PO DAILY 07/20/18 Spironolactone [Aldactone 25 mg Tablet] 25 mg PO DAILY 07/20/18 Metolazone [Zaroxolyn 5 mg Tablet] 5 mg PO Q2D 08/17/19 Pnv,Calcium 72/Iron/Folic Acid [ Vitamin Plus Low Iron] 1 each PO DAILY 08/17/19 Azithromycin [Zithromax Tri-Adam] 500 mg PO DAILY 2 Days #2 pkg 08/19/19 History of Present Illiness History of Present Illness: Per H&P: "ROBERT CAMILO is a 89 year old female with a history of right ventricular heart failure, pulmonary hypertension, chronic atrial fibrillation, COPD, chronic bilateral lower extremity lymphedema, and stage III chronic kidney disease who presents with a 3-day history of "not feeling well." Apparently she vomited one time several days ago but has not vomited anymore since then. She is not been running a fever. She denies any shortness of breath. She was not hypoxic in the ER. She did describe nonspecific body aches. She denies orthopnea. She denies dyspnea on exertion. She does ambulate with the use of a walker but has noted no changes in her exercise tolerance. She says she thinks she has had a dry cough. She was asked earlier if she had lost her sense of taste and she said she was not sure. She denies any episodes consistent with aspiration. She said that she lives at home with her and neither 1 of them of left the house in several months. They have caregivers in the house around the clock, and she said that 1 of them was sick a few days ago. She had some right lower lobe crackles on examination and her BUN and creatinine were elevated above their baseline. She had a mild leukocytosis. Chest imaging findings consistent with a multifocal right sided pneumonitis, the left side was clear. Influenza screen was negative." Hospital Course Hospital Course: Patient admitted with multifocal pneumonia seen on imaging, ruled out coronavirus with a negative test, started on ceftriaxone and azithromycin, later transitioned to oral azithromycin to complete the course of discharge. Near complete resolution of symptoms by day of discharge. Patient had very very mild MADAN on admission which completely resolved back to her baseline at discharge. 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 fib and she is unable to take an anticoagulant. (1) Multifocal pneumonia Is this a current diagnosis for this admission?: Yes Plan: She has improved on some Rocephin and azithromycin. Blood cultures have been obtained. Now on room air. Ruled out for coronavirus. Switched to oral antibiotics at discharge. (2) Acute kidney injury superimposed on chronic kidney disease Is this a current diagnosis for this admission?: Yes Plan: Resolved. Creatinine at baseline. (3) Diastolic CHF Qualifiers: Heart failure chronicity: chronic Qualified Code(s): I50.32 - Chronic diastolic (congestive) heart failure Is this a current diagnosis for this admission?: Yes Plan: She has a history of this, not acutely exacerbated (4) COPD (chronic obstructive pulmonary disease) Qualifiers: Emphysema type: unspecified Is this a current diagnosis for this admission?: Yes Plan: Not acutely exacerbated (5) Chronic atrial fibrillation Is this a current diagnosis for this admission?: Yes Plan: Rate controlled, will continue her home medications including amiodarone. She said that she has had bleeding episodes in the past and was told that she should not be anticoagulated. We will cover her for DVT prophylaxis while she is here. (6) Encounter for observation for suspected exposure to other biological agents ruled out Is this a current diagnosis for this admission?: Yes Plan: They tested her for callaway virus disease in the ER, she is negative Physical Exam Vital Signs: Temp Pulse Resp BP Pulse Ox 98.1 F 78 18 126/56 H 94 08/19/19 08:22 08/19/19 14:00 08/19/19 08:22 08/19/19 08:22 08/19/19 08:22 Intake & Output 08/18/19 08/19/19 08/20/19 06:59 06:59 06:59 Intake Total 2164 386 50 Output Total 1800 1350 Balance 364 -964 50 Weight 56.8 kg 56.5 kg General appearance: PRESENT: no acute distress, well-developed, well-nourished Head exam: PRESENT: atraumatic, normocephalic Eye exam: PRESENT: conjunctiva pink Mouth exam: PRESENT: moist Respiratory exam: PRESENT: clear to auscultation bruce. ABSENT: rales, rhonchi, wheezes Cardiovascular exam: PRESENT: RRR. ABSENT: diastolic murmur, rubs, systolic murmur GI/Abdominal exam: PRESENT: normal bowel sounds, soft. ABSENT: distended, guarding, mass, organolmegaly, rebound, tenderness Rectal exam: PRESENT: deferred Neurological exam: PRESENT: alert, awake, oriented to person, oriented to place, oriented to time, oriented to situation Psychiatric exam: PRESENT: appropriate affect, normal mood Skin exam: PRESENT: dry, intact, warm Results Laboratory Results: WBC 8.0 10^3/uL (4.0-10.5) 08/19/19 05:42 RBC 2.90 10^6/uL (3.72-5.28) L 08/19/19 05:42 Hgb 9.4 g/dL (12.0-15.5) L 08/19/19 05:42 Hct 26.6 % (36.0-47.0) L 08/19/19 05:42 MCV 92 fl (80-97) 08/19/19 05:42 MCH 32.4 pg (27.0-33.4) 08/19/19 05:42 MCHC 35.2 g/dL (32.0-36.0) 08/19/19 05:42 RDW 15.0 % (11.5-14.0) H 08/19/19 05:42 Plt Count 151 10^3/uL (150-450) 08/19/19 05:42 Lymph % (Auto) Not Reportable 08/19/19 05:42 Archer % (Auto) Not Reportable 08/19/19 05:42 Eos % (Auto) Not Reportable 08/19/19 05:42 Baso % (Auto) Not Reportable 08/19/19 05:42 Absolute Neuts (auto) Not Reportable 08/19/19 05:42 Absolute Lymphs (auto) Not Reportable 08/19/19 05:42 Absolute Monos (auto) Not Reportable 08/19/19 05:42 Absolute Eos (auto) Not Reportable 08/19/19 05:42 Absolute Basos (auto) Not Reportable 08/19/19 05:42 Total Counted 100 08/19/19 05:42 Seg Neutrophils % Not Reportable 08/19/19 05:42 Seg Neuts % (Manual) 75 % (42-78) 08/19/19 05:42 Band Neutrophils % 8 % (3-5) H 08/16/19 10:30 Lymphocytes % (Manual) 15 % (13-45) 08/19/19 05:42 Atypical Lymphs % 3 % (0) 08/19/19 05:42 Monocytes % (Manual) 6 % (3-13) 08/19/19 05:42 Eosinophils % (Manual) 1 % (0-6) 08/19/19 05:42 Basophils % (Manual) 0 % (0-2) 08/19/19 05:42 Abs Neuts (Manual) 6.0 10^3/uL (1.7-8.2) 08/19/19 05:42 Abs Lymphs (Manual) 1.4 10^3/uL (0.5-4.7) 08/19/19 05:42 Abs Monocytes (Manual) 0.5 10^3/uL (0.1-1.4) 08/19/19 05:42 Absolute Eos (Manual) 0.1 10^3/uL (0.0-0.6) 08/19/19 05:42 Abs Basophils (Manual) 0.0 10^3/uL (0.0-0.2) 08/19/19 05:42 Toxic Granulation SLIGHT 08/19/19 05:42 Platelet Comment ADEQUATE 08/19/19 05:42 Poikilocytosis SLIGHT 08/16/19 10:30 Anisocytosis SLIGHT 08/19/19 05:42 Ovalocytes SLIGHT 08/19/19 05:42 PT 18.4 SEC (11.4-15.4) H 08/16/19 10:30 INR 1.51 08/16/19 10:30 APTT 40.0 SEC (23.5-35.8) H 08/16/19 10:30 D-Dimer 2.32 ug/mL (0.00-0.50) H 08/16/19 10:30 Sodium 133.0 mmol/L (137-145) L 08/19/19 05:42 Potassium 3.8 mmol/L (3.6-5.0) 08/19/19 05:42 Chloride 100 mmol/L (98-107) 08/19/19 05:42 Carbon Dioxide 25 mmol/L (22-30) 08/19/19 05:42 Anion Gap 8 (5-19) 08/19/19 05:42 BUN 58 mg/dL (7-20) H 08/19/19 05:42 Creatinine 1.53 mg/dL (0.52-1.25) H 08/19/19 05:42 Est GFR ( Amer) 39 (>60) L 08/19/19 05:42 Est GFR (MDRD) Non-Af 32 (>60) L 08/19/19 05:42 Glucose 89 mg/dL (75-110) 08/19/19 05:42 Lactic Acid 2.0 mmol/L (0.7-2.1) 08/16/19 10:30 Calcium 9.8 mg/dL (8.4-10.2) 08/19/19 05:42 Total Bilirubin 0.8 mg/dL (0.2-1.3) 08/16/19 10:30 Direct Bilirubin 0.2 mg/dL (0.0-0.4) 08/16/19 10:30 Neonat Total Bilirubin Not Reportable 08/16/19 10:30 Neonat Direct Bilirubin Not Reportable 08/16/19 10:30 Neonat Indirect Bili Not Reportable 08/16/19 10:30 AST 24 U/L (14-36) 08/16/19 10:30 ALT 15 U/L (<35) 08/16/19 10:30 Alkaline Phosphatase 62 U/L (38-126) 08/16/19 10:30 Troponin I 0.023 ng/mL 08/16/19 15:06 NT-Pro-B Natriuret Pep 6500 pg/mL (<450) H 08/16/19 10:30 Total Protein 6.6 g/dL (6.3-8.2) 08/16/19 10:30 Albumin 3.7 g/dL (3.5-5.0) 08/16/19 10:30 Lipase 11.6 U/L (23-300) L 08/16/19 10:30 Urine Color YELLOW 08/16/19 13:35 Urine Appearance CLEAR 08/16/19 13:35 Urine pH 5.0 (5.0-9.0) 08/16/19 13:35 Ur Specific Buras 1.010 08/16/19 13:35 Urine Protein NEGATIVE mg/dL (NEGATIVE) 08/16/19 13:35 Urine Glucose (UA) NEGATIVE mg/dL (NEGATIVE) 08/16/19 13:35 Urine Ketones NEGATIVE mg/dL (NEGATIVE) 08/16/19 13:35 Urine Blood NEGATIVE (NEGATIVE) 08/16/19 13:35 Urine Nitrite NEGATIVE (NEGATIVE) 08/16/19 13:35 Urine Bilirubin NEGATIVE (NEGATIVE) 08/16/19 13:35 Urine Urobilinogen NEGATIVE mg/dL (<2.0) 08/16/19 13:35 Ur Leukocyte Esterase NEGATIVE (NEGATIVE) 08/16/19 13:35 Urine WBC (Auto) 1 /HPF 08/16/19 13:35 Urine RBC (Auto) 0 /HPF 08/16/19 13:35 U Hyaline Cast (Auto) 1 /LPF 08/16/19 13:35 Squamous Epi Cells Auto <1 /HPF 08/16/19 13:35 Urine Mucus (Auto) RARE /LPF 08/16/19 13:35 Urine Ascorbic Acid NEGATIVE (NEGATIVE) 08/16/19 13:35 POC Stool Occult Blood NEGATIVE (NEGATIVE) 08/16/19 14:44 COVID-19 Source NASOPHARYNGEAL 08/16/19 15:18 COVID-19 (KARINA) NOT DETECTED 08/16/19 15:18 Influenza A (Rapid) NEGATIVE (NEGATIVE) 08/16/19 10:25 Influenza B (Rapid) NEGATIVE (NEGATIVE) 08/16/19 10:25 Group A Strep Rapid NEGATIVE (NEGATIVE) 08/16/19 10:25 08/16/19 08/16/19 10:30 15:06 Troponin I 0.027 0.023 NT-Pro-B Natriuret Pep 6500 H Impressions: Abdomen X-Ray 08/16/19 11:13 IMPRESSION: NO RADIOGRAPHIC EVIDENCE FOR ACUTE ABDOMINAL DISEASE. Chest CT 08/16/19 13:01 IMPRESSION: 1. Multifocal consolidation in the right upper and lower lobe with small right pleural effusion. Findings are suggestive of multifocal pneumonia. Imaging features can be seen with COVID 19 pneumonia, though are nonspecific and can occur with a variety of infectious and noninfectious processes. 2. Severe cardiomegaly. Plan Time Spent: Greater than 30 Minutes Stroke Is this a Stroke Patient?: No Acute Heart Failure - Is this a Heart Failure Patient?: Yes Documentation of LVEF assessment?: Yes LVEF < 40%?: No- if no continue to question #3 a) Discharged on ACEI?: No, document contraindications Reason(s) not discharge on ACEI: other b) Discharges on ARB?: No-document contraindications Reason(s) not discharged on ARB: Other c) Discharged on ARNI?: No-Document Contraindications 3. Anticoagulant therapy for permanect/persistent/paraoxysmal Afib or Aflutter: No, document contraindications - Severe bleeding episodes Reason(s) not discharged on anticoagulant therapy for permanect/persistent/paraoxysmal Afib or Aflutter: Complications r/t anticoagulant therapy (hx or current) Follow-up Appointment scheduled within 7 days?: Yes
[2019-08-19 16:17] VITALS: BP 118/62
== END 2019-08-19 16:45 | disposition home or self-care (01) | DRG 178 ==
LOC: ER 09:48 → EH 16:14 → 5 17:13 → 3W 08-18 09:46
PROVIDERS: ADMIT Family Medicine; ATTEND Internal Medicine
DX: J69.0 Pneumonitis due to inhalation of food and vomit (principal); N17.9 Acute kidney failure, unspecified; I50.32 Chronic diastolic (congestive) heart failure; I13.0 Hypertensive heart and chronic kidney disease with heart failure and stage 1 through stage 4 chronic kidney disease, or unspecified chronic kidney disease; Z66 Do not resuscitate; N18.3 Chronic kidney disease, stage 3 (moderate); J44.9 Chronic obstructive pulmonary disease, unspecified; E78.5 Hyperlipidemia, unspecified; Z79.899 Other long term (current) drug therapy; Z11.59 Encounter for screening for other viral diseases; Z85.3 Personal history of malignant neoplasm of breast; Z90.10 Acquired absence of unspecified breast and nipple; Z79.82 Long term (current) use of aspirin; Z88.6 Allergy status to analgesic agent; Z88.1 Allergy status to other antibiotic agents; Z88.3 Allergy status to other anti-infective agents; Z88.8 Allergy status to other drugs, medicaments and biological substances; Z91.048 Other nonmedicinal substance allergy status; Z95.2 Presence of prosthetic heart valve
CPT/HCPCS: 36415; 71045; 71250; 74019; 80048; 80053; 81001; 82270; 83605; 83690; 83880; 84484; 85025; 85379; 85610; 85730; 87040; 87070; 87077; 87150; 87186; 87635; 87804; 87880; 93005; 93010; 96361; 96365; 96366; 96375; 99285; J0456; J0696; J1644; J1940; J3490; J7030; J7050; J7060

== ENCOUNTER 2019-09-29 18:34 | Emergency (ER) | payer MEDICARE, OTHER ==
--- NOTE | 2019-09-29 19:12 | RADIOLOGY REPORT (SQ) ---
EXAM DESCRIPTION: CT HEAD WITHOUT IMAGES COMPLETED DATE/TIME: 09/29/2019 6:55 pm REASON FOR STUDY: Fall and on blood thinners COMPARISON: 03/18/2018 TECHNIQUE: Axial images acquired through the brain without intravenous contrast. Images reviewed wi th bone, brain and subdural windows. Additional sagittal and coronal reconstructions were generated. Images stored on PACS. All CT scanners at this facility use dose modulation, iterative reconstruction, and/or weight based d osing when appropriate to reduce radiation dose to as low as reasonably achievable (ALARA). [facility]: Dose Right [facility]: CareDose [facility]: Dose Right [facility]: Teradose 4D [facility]: SpiceCSM RADIATION DOSE: CT Rad equipment meets quality standard of care and radiation dose reduction techniq ues were employed. CTDIvol: 53.2 mGy. DLP: 1070 mGy-cm. mGy. LIMITATIONS: None. FINDINGS: VENTRICLES: Normal size and contour. CEREBRUM: Cortical atrophy. No masses. No hemorrhage. No midline shift. No evidence for acute inf arction. Few scattered areas of low density in the white matter most likely chronic small vessel isch emic changes. CEREBELLUM: No masses. No hemorrhage. No alteration of density. No evidence for acute infarction. EXTRAAXIAL SPACES: No fluid collections. No masses. ORBITS AND GLOBE: No intra- or extraconal masses. Normal contour of globe without masses. CALVARIUM: No fracture. PARANASAL SINUSES: No fluid or mucosal thickening. SOFT TISSUES: No mass or hematoma. OTHER: No other significant finding. IMPRESSION: Mild involutional changes with mild chronic microvascular ischemia. No acute intracrani al imaging findings. EVIDENCE OF ACUTE STROKE: NO. COMMENT: Quality ID # [id number]: Final reports with documentation of one or more dose reduction techniques (e.g., Automated exposure control, adjustment of the mA and/or kV according to patient size, use of iterative reconstruction technique) TECHNICAL DOCUMENTATION: JOB ID: [id number] 2010 [employer]- All Rights Reserved Reading location - IP/workstation name: [email or web address]
--- NOTE | 2019-09-29 19:17 | ER Document Report ---
ED General - General Chief Complaint: Fall Stated Complaint: FALL HEAD,LEG INJURY Time Seen by Provider: 09/29/19 19:00 Primary Care Provider: KURTIS SCOTT MD [ACTIVE STAFF] - Follow up as needed Mode of Arrival: Medic Information source: Patient Notes: triage notes 09/29/19 18:51 - ED Nursing Note by GABRIELLA OROPEZA Acct Num: [id number] : 1930 Patient Age: 89 Patient brought in by EMS for complaint of a trip and fall. EMS reports patient was walking when she tripped on a wagon and fell and hit the left side of her head but the right leg hit the wagon. Patient has a left facial laceration and a right lower leg laceration. Patient has bilateral pitting edema that is normal for patient. Patient denies LOC or symptoms prior to fall. NAD . will continue to monitor. my notes 89-year-old female arrives by EMS after she was going out for nightly walk and stumbled over her rolling walker striking her linoleum floor in her home. This caused a laceration to her left druze left cheek bone her left dorsal hand and hematoma to her right ulnar hyperthenar area and also laceration to her distal roberson with a lot of bleeding. EMS applied Coban and 4 x 4's to her right lower leg with bleeding controlled. Also patient has Covan and 4 x 4's to her left druze and left hand. Patient denies any LOC. Patient reports she is on aspirin since her MT in 2002. Also she reports she had right mastectomy earlier this year as well as mitral valve repair the prior year. TRAVEL OUTSIDE OF THE [place] IN LAST 30 DAYS: No - HPI Onset: Just prior to arrival Onset/Duration: Sudden Quality of pain: Achy Severity: None Pain Level: 1 Associated symptoms: None Exacerbated by: Denies Relieved by: Denies Similar symptoms previously: No Recently seen / treated by doctor: No - Related Data Allergies/Adverse Reactions: amoxicillin [Amoxicillin] Allergy (Intermediate, Verified 05/11/18 09:56) Rash codeine [Codeine] Allergy (Unknown, Verified 05/11/18 09:56) adhesive tape [Adhesive Tape] Adverse Reaction (Severe, Verified 05/11/18 09:56) Tears skin diltiazem HCl [From Tiazac] Adverse Reaction (Intermediate, Verified 05/11/18 09:56) Dizzy doxycycline [Doxycycline] Adverse Reaction (Intermediate, Verified 05/11/18 09:56) Dizzy lisinopril [Lisinopril] Adverse Reaction (Intermediate, Verified 05/11/18 09:56) Dizzy propafenone [Propafenone] Adverse Reaction (Intermediate, Verified 05/11/18 09:56) Diarrhea zolpidem tartrate [From Ambien] Adverse Reaction (Intermediate, Verified 09:56) Confusion Strong fumes Allergy (Severe, Uncoded 05/11/18 09:56) Asthma Past Medical History - Social History Smoking Status: Never Smoker Cigarette use (# per day): No Chew tobacco use (# tins/day): No Smoking Education Provided: No Lives with: Family, Other - Patient's is ex-[place] after 20 years and he is currently 94 years old and lives at home with her. Family History: Reviewed & Not Pertinent, CAD, Malignancy Patient has homicidal ideation: No - Past Medical History Cardiac Medical History: Reports: Hx Atrial Fibrillation, Hx Hypercholesterolemia, Hx Hypertension Denies: Hx Heart Attack Pulmonary Medical History: Reports: Hx COPD, Hx Pneumonia Denies: Hx Asthma - occasional SOB, ALBUTERAL , Hx Bronchitis, Hx Tuberculosis Neurological Medical History: Denies: Hx Cerebrovascular Accident, Hx Seizures Renal/ Medical History: Denies: Hx Peritoneal Dialysis Malignancy Medical History: Reports: Hx Breast Cancer GI Medical History: Denies: Hx Cirrhosis, Hx Gastroesophageal Reflux Disease, Hx Hepatitis, Hx Hiatal Hernia, Hx Ulcer Musculoskeletal Medical History: Reports Hx Arthritis - Hands Psychiatric Medical History: Denies: Hx Dementia, Hx Depression Infectious Medical History: Denies: Hx Hepatitis Past Surgical History: Reports: Hx Cardiac Surgery - mitral valve replacement, Hx Hysterectomy, Hx Mastectomy - 2010, Hx Open Heart Surgery - MITRAL VALVE REPAIR, Other - Mitral valve repair. Denies: Hx Pacemaker - Immunizations Hx Diphtheria, Pertussis, Tetanus Vaccination: Yes Hx Pneumococcal Vaccination: 04/30/09 Review of Systems - Review of Systems Constitutional: No symptoms reported EENT: No symptoms reported Cardiovascular: No symptoms reported Respiratory: No symptoms reported Gastrointestinal: No symptoms reported Genitourinary: No symptoms reported Female Genitourinary: No symptoms reported Musculoskeletal: No symptoms reported Skin: See HPI, Other - Lacerations as per HPI to left druze left cheek left hyper thenar hand hematoma around 2 cm diameter right hyper thenar area and laceration with bleeding controlled on her right anterior distal leg. Hematologic/Lymphatic: No symptoms reported Neurological/Psychological: No symptoms reported Physical Exam - Vital signs Vitals: Temp Pulse Resp BP Pulse Ox 98.1 F 115 H 20 148/56 H 100 09/29/19 18:34 09/29/19 18:34 09/29/19 18:34 09/29/19 18:34 09/29/19 18:34 Interpretation: Tachycardic - General General appearance: Appears well - HEENT Head: Normocephalic, Other - Lacerations as per HPI to left druze left cheek left hyper thenar hand hematoma around 2 cm diameter right hyper thenar area and laceration with bleeding controlled on her right anterior distal leg. Eyes: Normal Conjunctiva: Normal Cornea: Normal Extraocular movements intact: Yes Eyelashes: Normal Pupils: PERRL Sinus: Normal Nasal: Normal Mouth/Lips: Normal Mucous membranes: Normal Pharynx: Normal Neck: Normal - Respiratory Respiratory status: No respiratory distress Chest status: Nontender Breath sounds: Normal Chest palpation: Normal - Cardiovascular Rhythm: Regular Heart sounds: Normal auscultation Murmur: No - Abdominal Inspection: Normal Distension: No distension Bowel sounds: Normal Tenderness: Nontender Organomegaly: No organomegaly - Rectal Stool: Other - deferred - Genitourinary Speculum exam: Other - deferred - Back Back: Normal, Nontender - Extremities General upper extremity: Tender - Lacerations as per HPI to left druze left cheek left hyper thenar hand hematoma around 2 cm diameter right hyper thenar area and laceration with bleeding controlled on her right anterior distal leg., Normal ROM, Normal temperature. No: Normal inspection, Nontender, Normal color General lower extremity: Tender - Lacerations as per HPI to left druze left cheek left hyper thenar hand hematoma around 2 cm diameter right hyper thenar area and laceration with bleeding controlled on her right anterior distal leg., Normal color, Normal ROM, Normal temperature, Normal weight bearing. No: Normal inspection, Nontender, Gil's sign - Skin Skin Temperature: Warm Skin Moisture: Dry Skin Color: Other - Lacerations as per HPI to left druze left cheek left hyper thenar hand hematoma around 2 cm diameter right hyper thenar area and laceration with bleeding controlled on her right anterior distal leg. Course - Vital Signs Vital signs: Temp Pulse Resp BP Pulse Ox 98.1 F 115 H 20 148/56 H 100 09/29/19 18:34 09/29/19 18:34 09/29/19 18:34 09/29/19 18:34 09/29/19 18:34 - Laboratory Result Diagrams: 09/29/19 20:45 Laboratory results interpreted by me: 09/29/19 20:45 RBC 3.32 L Hgb 10.6 L Hct 30.8 L RDW 15.0 H Lymph % (Auto) 11.9 L Eos % (Auto) 7.0 H - Diagnostic Test Radiology reviewed: Reports reviewed Procedures - Laceration/Wound Repair Left Face Time completed: 19:32 - all @ 3 cm Lacerations as per HPI to left druze left cheek left hyper thenar hand hematoma around 2 cm diameter right hyper thenar area and laceration with bleeding controlled on her right anterior distal leg. Wound length (cm): 3 Wound's Depth, Shape: Irregular Laceration pre-procedure: Chloraprep applied Volume Anesthetic (mLs): 0 Wound explored: Clean Irrigated w/ Saline (mLs): 50 Wound Repaired With: Steri-strips, Dermabond Post-procedure wound care: Sterile dressing applied - Procedures - Laceration/Wound Repair Left Leg Time completed: 20:13 Wound length (cm): 10 Wound's Depth, Shape: Other - L shaped Laceration pre-procedure: Other - saline Volume Anesthetic (mLs): 0 Wound explored: Clean, No foreign body removed Irrigated w/ Saline (mLs): 30 Wound Debrided: Minimal Wound Repaired With: Steri-strips, Dermabond Layer Closure?: No Number Deep Layer Sutures: 0 Post- procedure wound care: Sterile dressing applied Post-procedure NV exam normal: Yes Complications: Yes Notes: 09/29/19 20:15 I was assisted by Mary Ellen COLON for at least 40 minutes taking care of these wounds Critical Care Note - Critical Care Note Total time excluding time spent on procedures (mins): 90 Discharge - Discharge Clinical Impression: Fall Qualifiers: Encounter type: initial encounter Qualified Code(s): W19.XXXA - Unspecified fall, initial encounter Laceration of face Qualifiers: Encounter type: initial encounter Qualified Code(s): S01.81XA - Laceration without foreign body of other part of head, initial encounter Leg laceration Qualifiers: Encounter type: initial encounter Laterality: right Qualified Code(s): S81.811A - Laceration without foreign body, right lower leg, initial encounter Hand laceration Qualifiers: Encounter type: initial encounter Foreign body presence: without foreign body Laterality: left Qualified Code(s): S61.412A - Laceration without foreign body of left hand, initial encounter Condition: Good Disposition: HOME, SELF-CARE Additional Instructions: Keep wounds clean and dry; avoid shower or bath on these wounds for at least 3 to 4 days. Keep the Chad wrap on the right leg for at least 1 to 2 days unless bleeding through the wound occurs. May loosen Chad wrap if it is too tight sensation fan or if you cannot feel your toes or if right foot. Return to ER if symptoms persist or worsen. May see personal doctor and 1 to 2 days for reinspection but do not take off the Steri-Strips.. These will fall off in 1-2 weeks. You may trim them at their edges if they become too old. Referrals: Post-procedure NV exam normal: Yes Complications: Yes Notes: 09/29/19 20:22 Post-procedure NV exam normal: Yes Discharge - Discharge Clinical Impression: Laceration of skin Fall Qualifiers: Encounter type: initial encounter Qualified Code(s): W19.XXXA - Unspecified fall, initial encounter Avulsion of skin of face Qualifiers: Encounter type: initial encounter Qualified Code(s): S01.80XA - Unspecified open wound of other part of head, initial encounter Condition: Good Disposition: HOME, SELF-CARE Additional Instructions: Discharge - Discharge Clinical Impression: Fall Qualifiers: Encounter type: initial encounter Qualified Code(s): W19.XXXA - Unspecified fall, initial encounter Laceration of face Qualifiers: Encounter type: initial encounter Qualified Code(s): S01.81XA - Laceration without foreign body of other part of head, initial encounter Leg laceration Qualifiers: Encounter type: initial encounter Laterality: right Qualified Code(s): S81.811A - Laceration without foreign body, right lower leg, initial encounter Hand laceration Qualifiers: Encounter type: initial encounter Foreign body presence: without foreign body Laterality: left Qualified Code(s): S61.412A - Laceration without foreign body of left hand, initial encounter Condition: Good Disposition: HOME, SELF-CARE Additional Instructions: Keep wounds clean and dry; avoid shower or bath on these wounds for at least 3 to 4 days. Keep the Chad wrap on the right leg for at least 1 to 2 days unless bleeding through the wound occurs. May loosen Chad wrap if it is too tight sensation fan or if you cannot feel your toes or if right foot. Return to ER if symptoms persist or worsen. May see personal doctor and 1 to 2 days for reinspection but do not take off the Steri-Strips.. These will fall off in 1-2 weeks. You may trim them at their edges if they become too old. Referrals: KURTIS SCOTT MD [ACTIVE STAFF] - Follow up as needed
[2019-09-29 20:56] LABS: ABSOLUTE BASOPHILS # (AUTO) 0.1 10^3/uL (0.0-0.2); ABSOLUTE EOSINOPHILS # (AUTO) 0.6 10^3/uL (0.0-0.6); ABSOLUTE LYMPHOCYTES (AUTO) 1.1 10^3/uL (0.5-4.7); ABSOLUTE MONOCYTES (AUTO) 0.8 10^3/uL (0.1-1.4); ABSOLUTE NEUT (AUTO) 6.4 10^3/uL (1.7-8.2); BASOPHILS % (AUTO) 1.1 % (0-2); HEMATOCRIT 30.8 % (36.0-47.0); HEMOGLOBIN 10.6 g/dL (12.0-15.5); LYMPHOCYTES % (AUTO) 11.9 % (13-45); MEAN CORPUSCULAR HGB CONC 34.5 g/dL (32.0-36.0); MEAN CORPUSCULAR VOLUME 93 fl (80-97); MONOCYTES % (AUTO) 8.4 % (3-13); PLATELET COUNT 224 10^3/uL (150-450); RED BLOOD COUNT 3.32 10^6/uL (3.72-5.28); SEGMENTED NEUTROPHILS % (AUTO) 71.6 % (42-78); TOTAL CELLS COUNTED % (AUTO) 100 %; WHITE BLOOD COUNT 8.9 10^3/uL (4.0-10.5)
[2019-09-29 22:29] VITALS: BP 127/57
== END 2019-09-29 22:28 | disposition home or self-care (01) ==
LOC: ER 18:34
DX: S01.80XA Unspecified open wound of other part of head, initial encounter (principal); S89.91XA Unspecified injury of right lower leg, initial encounter; S01.412A Laceration without foreign body of left cheek and temporomandibular area, initial encounter; S01.81XA Laceration without foreign body of other part of head, initial encounter; S81.811A Laceration without foreign body, right lower leg, initial encounter; S61.412A Laceration without foreign body of left hand, initial encounter; W01.198A Fall on same level from slipping, tripping and stumbling with subsequent striking against other object, initial encounter; Y92.009 Unspecified place in unspecified non-institutional (private) residence as the place of occurrence of the external cause; I48.91 Unspecified atrial fibrillation; E78.00 Pure hypercholesterolemia, unspecified; I10 Essential (primary) hypertension; J44.9 Chronic obstructive pulmonary disease, unspecified; Z85.3 Personal history of malignant neoplasm of breast; Z95.4 Presence of other heart-valve replacement; Z88.0 Allergy status to penicillin; Z88.6 Allergy status to analgesic agent; Z79.82 Long term (current) use of aspirin; I25.2 Old myocardial infarction
CPT/HCPCS: 36415; 70450; 85025; 99284

== ENCOUNTER → 2019-10-01 | Outpatient (CLI) | payer MEDICARE, OTHER ==
[2019-10-01 12:10] LABS: ABSOLUTE BASOPHILS # (AUTO) 0.1 10^3/uL (0.0-0.2); ABSOLUTE EOSINOPHILS # (AUTO) 0.7 10^3/uL (0.0-0.6); ABSOLUTE LYMPHOCYTES (AUTO) 1.5 10^3/uL (0.5-4.7); ABSOLUTE MONOCYTES (AUTO) 0.7 10^3/uL (0.1-1.4); BASOPHILS % (AUTO) 1.4 % (0-2); EOSINOPHILS % (AUTO) 8.7 % (0-6); HEMATOCRIT 28.9 % (36.0-47.0); HEMOGLOBIN 9.9 g/dL (12.0-15.5); LYMPHOCYTES % (AUTO) 18.7 % (13-45); MEAN CORPUSCULAR HEMOGLOBIN 32.2 pg (27.0-33.4); MEAN CORPUSCULAR HGB CONC 34.4 g/dL (32.0-36.0); MEAN CORPUSCULAR VOLUME 94 fl (80-97); MONOCYTES % (AUTO) 8.6 % (3-13); PLATELET COUNT 226 10^3/uL (150-450); RED BLOOD COUNT 3.09 10^6/uL (3.72-5.28); SEGMENTED NEUTROPHILS % (AUTO) 62.6 % (42-78); TOTAL CELLS COUNTED % (AUTO) 100 %
[2019-10-01 12:33] LABS: ALBUMIN 4.4 g/dL (3.5-5.0); ANION GAP 11 (5-19); BLOOD UREA NITROGEN 71 mg/dL (7-20); CALCIUM 10.8 mg/dL (8.4-10.2); CARBON DIOXIDE 28 mmol/L (22-30); CHLORIDE 94 mmol/L (98-107); GLUCOSE 102 mg/dL (75-110); POTASSIUM 5.1 mmol/L (3.6-5.0)
== END ==
LOC: OD 11:34
PROVIDERS: ATTEND Internal Medicine Nephrology
DX: I12.9 Hypertensive chronic kidney disease with stage 1 through stage 4 chronic kidney disease, or unspecified chronic kidney disease (principal); N18.4 Chronic kidney disease, stage 4 (severe); D63.1 Anemia in chronic kidney disease; E21.3 Hyperparathyroidism, unspecified; E83.52 Hypercalcemia
CPT/HCPCS: 36415; 80069; 82164; 82306; 82397; 82652; 83970; 84165; 85025

== ENCOUNTER → 2019-10-20 | Outpatient (CLI) | payer MEDICARE, OTHER ==
[2019-10-20 16:14] LABS: ABSOLUTE BASOPHILS # (AUTO) 0.1 10^3/uL (0.0-0.2); ABSOLUTE EOSINOPHILS # (AUTO) 0.5 10^3/uL (0.0-0.6); ABSOLUTE LYMPHOCYTES (AUTO) 1.4 10^3/uL (0.5-4.7); ABSOLUTE MONOCYTES (AUTO) 0.7 10^3/uL (0.1-1.4); BASOPHILS % (AUTO) 1.2 % (0-2); EOSINOPHILS % (AUTO) 7.8 % (0-6); HEMATOCRIT 28.2 % (36.0-47.0); HEMOGLOBIN 9.5 g/dL (12.0-15.5); LYMPHOCYTES % (AUTO) 20.2 % (13-45); MEAN CORPUSCULAR HEMOGLOBIN 31.9 pg (27.0-33.4); MEAN CORPUSCULAR HGB CONC 33.7 g/dL (32.0-36.0); MEAN CORPUSCULAR VOLUME 95 fl (80-97); MONOCYTES % (AUTO) 10.8 % (3-13); PLATELET COUNT 261 10^3/uL (150-450); RED BLOOD COUNT 2.98 10^6/uL (3.72-5.28); RED CELL DISTRIBUTION WIDTH 16.1 % (11.5-14.0); TOTAL CELLS COUNTED % (AUTO) 100 %; WHITE BLOOD COUNT 6.7 10^3/uL (4.0-10.5)
[2019-10-20 16:43] LABS: ALBUMIN 4.1 g/dL (3.5-5.0); ALKALINE PHOSPHATASE 93 U/L (38-126); ANION GAP 9 (5-19); ASPARTATE AMINO TRANSFERASE 21 U/L (14-36); BILIRUBIN,TOTAL 0.4 mg/dL (0.2-1.3); BLOOD UREA NITROGEN 75 mg/dL (7-20); C-REACTIVE PROTEIN 25.9 mg/L (<10.0); CALCIUM 9.7 mg/dL (8.4-10.2); CARBON DIOXIDE 26 mmol/L (22-30); CHLORIDE 97 mmol/L (98-107); GLUCOSE 90 mg/dL (75-110); POTASSIUM 4.8 mmol/L (3.6-5.0); TOTAL PROTEIN 7.5 g/dL (6.3-8.2)
[2019-10-20 17:01] LABS: ERYTHROCYTE SEDIMENTATION RATE 110 mm/hr (0-30)
== END ==
LOC: WC 14:30
PROVIDERS: ATTEND Nurse Practitioner Family
DX: L97.212 Non-pressure chronic ulcer of right calf with fat layer exposed (principal)
CPT/HCPCS: 36415; 80053; 85025; 85652; 86140

== ENCOUNTER → 2019-10-20 | Outpatient (CLI) | payer MEDICARE, OTHER ==
--- NOTE | 2019-10-21 08:39 | RADIOLOGY REPORT (SQ) ---
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 Additional selected spectral images recorded. LIMITATIONS: Unable to obtain ABIs due to patient's inability to tolerate the examination due to tim n. FINDINGS: RIGHT LEG: There are normal triphasic spectral waveforms in the common femoral artery, proximal profunda femoris , femoral artery, popliteal artery, mid anterior tibial artery, and posterior tibial artery without e vidence of a focal stenosis. Evaluation of the distal anterior tibial artery is limited due to overl marlena bandage. The dorsalis pedis is patent with normal spectral waveforms and a PSV of 111 cm/s. Th e other PSVs are as follow: ENT PHYSICIAN: 190 cm/s. Profunda Femoris: 90 cm/s. Femoral: 90-150 cm/s. Popliteal: 90 cm/s. UNIVERSITY CONTROLLER: 80 cm/s. Mid ALVINO: 90 cm/s. LEFT LEG: There are normal triphasic spectral waveforms in the common femoral artery, proximal profunda femoris , femoral artery, popliteal artery, anterior tibial artery, and posterior tibial artery without evide nce of a focal stenosis. The dorsalis pedis is patent with normal spectral waveforms and a PSV of 10 0 cm/s. The other PSVs are as follow: ENT PHYSICIAN: 180 cm/s. Profunda Femoris: 110 cm/s. Femoral: 80-110 cm/s. Popliteal: 70 cm/s. UNIVERSITY CONTROLLER: 100 cm/s. ALVINO: 120 cm/s. IMPRESSION: NO HEMODYNAMICALLY SIGNIFICANT STENOSIS. TECHNICAL DOCUMENTATION: JOB ID: [id number] [employer]- All Rights Reserved Reading location - IP/workstation name: [email or web address]
== END ==
LOC: SP 13:00
PROVIDERS: ATTEND Nurse Practitioner Family
DX: L97.212 Non-pressure chronic ulcer of right calf with fat layer exposed (principal)
CPT/HCPCS: 93925

== ENCOUNTER → 2019-11-11 | Outpatient (CLI) | payer MEDICARE, OTHER ==
[2019-11-11 15:34] LABS: ABSOLUTE BASOPHILS # (AUTO) 0.1 10^3/uL (0.0-0.2); ABSOLUTE EOSINOPHILS # (AUTO) 0.4 10^3/uL (0.0-0.6); ABSOLUTE LYMPHOCYTES (AUTO) 1.4 10^3/uL (0.5-4.7); ABSOLUTE MONOCYTES (AUTO) 0.7 10^3/uL (0.1-1.4); ABSOLUTE NEUT (AUTO) 3.8 10^3/uL (1.7-8.2); BASOPHILS % (AUTO) 1.3 % (0-2); HEMATOCRIT 33.3 % (36.0-47.0); HEMOGLOBIN 10.9 g/dL (12.0-15.5); LYMPHOCYTES % (AUTO) 22.2 % (13-45); MEAN CORPUSCULAR HEMOGLOBIN 31.3 pg (27.0-33.4); MEAN CORPUSCULAR HGB CONC 32.7 g/dL (32.0-36.0); MEAN CORPUSCULAR VOLUME 96 fl (80-97); MONOCYTES % (AUTO) 10.3 % (3-13); PLATELET COUNT 247 10^3/uL (150-450); RED BLOOD COUNT 3.49 10^6/uL (3.72-5.28); RED CELL DISTRIBUTION WIDTH 16.8 % (11.5-14.0); SEGMENTED NEUTROPHILS % (AUTO) 59.2 % (42-78); TOTAL CELLS COUNTED % (AUTO) 100 %; WHITE BLOOD COUNT 6.5 10^3/uL (4.0-10.5)
[2019-11-11 16:11] LABS: ERYTHROCYTE SEDIMENTATION RATE 51 mm/hr (0-30)
[2019-11-11 16:26] LABS: ALBUMIN 4.4 g/dL (3.5-5.0); ALKALINE PHOSPHATASE 67 U/L (38-126); ANION GAP 12 (5-19); ASPARTATE AMINO TRANSFERASE 23 U/L (14-36); BILIRUBIN,TOTAL 0.4 mg/dL (0.2-1.3); BLOOD UREA NITROGEN 74 mg/dL (7-20); C-REACTIVE PROTEIN 11.7 mg/L (<10.0); CALCIUM 10.1 mg/dL (8.4-10.2); CARBON DIOXIDE 27 mmol/L (22-30); CHLORIDE 95 mmol/L (98-107); GLUCOSE 96 mg/dL (75-110); POTASSIUM 4.6 mmol/L (3.6-5.0); TOTAL PROTEIN 7.6 g/dL (6.3-8.2)
== END ==
LOC: WC 14:04
PROVIDERS: ATTEND Nurse Practitioner Family
DX: L97.212 Non-pressure chronic ulcer of right calf with fat layer exposed (principal)
CPT/HCPCS: 36415; 80053; 85025; 85652; 86140

== ENCOUNTER → 2020-01-29 | Outpatient (CLI) | payer MEDICARE, OTHER | LOC: OD 15:51 | PROVIDERS: ATTEND Family Medicine | DX: N30.01 Acute cystitis with hematuria (principal) | CPT/HCPCS: 87086; 87088 ==

== ENCOUNTER → 2020-05-15 | Outpatient (CLI) | payer MEDICARE, OTHER ==
[2020-05-15 11:31] LABS: ANION GAP 9 (5-19); BLOOD UREA NITROGEN 63 mg/dL (7-20); CALCIUM 10.8 mg/dL (8.4-10.2); CARBON DIOXIDE 30 mmol/L (22-30); CHLORIDE 97 mmol/L (98-107); CHOLESTEROL 183.63 mg/dL (0-200); GLUCOSE 75 mg/dL (75-110); POTASSIUM 4.4 mmol/L (3.6-5.0); TRIGLYCERIDES 56 mg/dL (<150)
[2020-05-15 11:41] LABS: DIRECT LDL 74 mg/dL (<100)
== END ==
LOC: OD 09:40
PROVIDERS: ATTEND Family Medicine
DX: I10 Essential (primary) hypertension (principal); E78.2 Mixed hyperlipidemia; E87.6 Hypokalemia; R00.0 Tachycardia, unspecified; R60.0 Localized edema; Z79.899 Other long term (current) drug therapy
CPT/HCPCS: 36415; 80048; 80061; 83036; 84443